=== PATIENT | female | born 1945 | race Caucasian/White ===

== ENCOUNTER 2020-07-29 12:34 | Outpatient (REF) | payer MEDICARE, SELFPAY ==
[2020-07-29 14:20] LABS: Glucose Urine UA NEG (NEG); Leukocyte Esterase Urine NEG (NEG); Nitrite Urine NEG (NEG); Specific Gravity - Urine 1.025 (1.005-1.025); Urine Blood TRACE (NEG); Urine Ketones NEG (NEG); Urine Protein NEG (NEG-TRACE)
[2020-07-29 14:22] LABS: Appearance Urine HAZY; Color Urine YELLOW
[2020-07-29 14:27] LABS: MANUAL DIFF FLAG NO
[2020-07-29 14:34] LABS: Basophils Absolute Auto 0.1 X10*3/uL (0.0-0.2); Basophils Percent Auto 1.3 % (0-2); Eosinophils Absolute Auto 0.2 X10*3/uL (0.0-0.4); Eosinophils Percent Auto 2.3 % (0-4); Imm Gran Abs Auto 0.03 X10*3/uL (0.00-0.03); Imm Gran Pct Auto 0.4 % (0.0-0.4); Lymphocytes Absolute Auto 1.3 X10*3/uL (1.2-4.9); Lymphocytes Percent Auto 18.1 % (20-40); Mean Corpuscular HGB Conc 32.5 g/dl (31.0-35.0); Mean Corpuscular Hemoglobin 31.9 pg (27.0-33.0); Mean Corpuscular Volume 98.3 fL (80-98); Mean Platelet Volume 10.4 fL (9.4-12.3); Monocytes Absolute Auto 0.6 X10*3/uL (0.1-1.2); Monocytes Percent Auto 8.6 % (2-11); Neutrophils Absolute Auto 4.9 X10*3/uL (2.0-8.3); Neutrophils Percent Auto 69.3 % (45-73); Platelet Count 208 X10*3/uL (160-400); Red Blood Count 4.07 X10*6/uL (4.20-5.50); Red Cell Distribution Width 13.2 % (11.0-16.0); White Blood Count 7.1 X10*3/uL (4.8-10.8)
[2020-07-29 14:40] LABS: Calcium Oxalate Crystals Urine 1+ /LPF; Mucus Urine 3+ /LPF; RBC Urine 0-2 /HPF (0); Squamous Epithelial Cell Urine 1+ /LPF; WBC Urine 0-2 /HPF (0-4)
[2020-07-29 14:42] LABS: Creatinine Urine 226.68 mg/dL; Microalbum/Creatinine Ratio Ur 10.5 ug/mg cr; Total Protein Urine Random 15 mg/dL (<12)
[2020-07-29 15:06] LABS: Albumin Level 4.1 g/dL (3.5-5.0); Anion Gap 13 (12-20); Blood Urea Nitrogen 18 mg/dL (9-16); Calcium 8.7 mg/dL (8.4-10.2); Carbon Dioxide 27 mmol/L (22-29); Chloride 105 mmol/L (96-108); Estimated Glomerular Filt Rate 32; Magnesium 2.2 mg/dL (1.6-2.6); Phosphorus 3.7 mg/dL (2.7-4.5); Potassium 4.9 mmol/l (3.3-5.1); Sodium 140 mmol/L (135-145)
[2020-07-29 15:29] LABS: Vitamin D 25-OH Total 27.3 ng/mL (>30)
[2020-07-29 16:33] LABS: Renal w Reflex Lab Use Only Order verified
== END 2020-07-29 12:35 | disposition home or self-care (01) ==
LOC: HO.HMGCLDS 12:34
PROVIDERS: PCP Internal Medicine; Visit Provider Internal Medicine Nephrology
DX: I12.9 Hypertensive chronic kidney disease with stage 1 through stage 4 chronic kidney disease, or unspecified chronic kidney disease (principal); N18.30 Chronic kidney disease, stage 3 unspecified
CPT/HCPCS: 36415; 80051; 81001; 82040; 82043; 82306; 82310; 82565; 83735; 84100; 84156; 84520; 85025

== ENCOUNTER 2020-09-30 12:49 | Outpatient (REF) | payer MEDICARE, SELFPAY ==
--- NOTE | 2020-09-30 | XR_ITS ---
EXAMINATION: XR ELBOW, RIGHT CLINICAL INFORMATION: Pain COMPARISON: None TECHNIQUE: AP, lateral, and oblique views of the right elbow. FINDINGS: Bone alignment is normal. No fracture or dislocation is seen. The joint spaces are normal. There is no joint effusion. Soft tissues are normal. XR/XR elbow RT min 3V IMPRESSION: Normal right elbow.
== END 2020-09-30 12:50 | disposition home or self-care (01) ==
LOC: HO.HMGCX 12:49
PROVIDERS: PCP Internal Medicine; Visit Provider Internal Medicine
DX: M25.522 Pain in left elbow (principal)
CPT/HCPCS: 73080

== ENCOUNTER 2021-03-30 13:54 | Outpatient (REF) | payer MEDICARE, SELFPAY ==
[2021-03-30 16:34] LABS: MANUAL DIFF FLAG NO
[2021-03-30 16:38] LABS: Basophils Percent Auto 0.7 % (0-2); Eosinophils Absolute Auto 0.1 X10*3/uL (0.0-0.4); Eosinophils Percent Auto 1.7 % (0-4); Hemoglobin 12.3 g/dl (12.0-16.0); Imm Gran Abs Auto 0.02 X10*3/uL (0.00-0.03); Imm Gran Pct Auto 0.3 % (0.0-0.4); Lymphocytes Absolute Auto 0.9 X10*3/uL (1.2-4.9); Lymphocytes Percent Auto 15.6 % (20-40); Mean Corpuscular HGB Conc 32.4 g/dl (31.0-35.0); Mean Corpuscular Hemoglobin 31.1 pg (27.0-33.0); Mean Platelet Volume 10.1 fL (9.4-12.3); Monocytes Absolute Auto 0.5 X10*3/uL (0.1-1.2); Monocytes Percent Auto 7.9 % (2-11); Neutrophils Absolute Auto 4.4 X10*3/uL (2.0-8.3); Neutrophils Percent Auto 73.8 % (45-73); Platelet Count 177 X10*3/uL (160-400); Red Blood Count 3.96 X10*6/uL (4.20-5.50); Red Cell Distribution Width 13.3 % (11.0-16.0)
[2021-03-30 17:08] LABS: Albumin Level 4.2 g/dL (3.5-5.0); Anion Gap 11 (12-20); Blood Urea Nitrogen 21 mg/dL (9-16); Calcium 8.9 mg/dL (8.4-10.2); Carbon Dioxide 26 mmol/L (22-29); Chloride 108 mmol/L (96-108); Estimated Glomerular Filt Rate 32; Glucose Urine UA NEG (NEG); Leukocyte Esterase Urine NEG (NEG); Magnesium 2.2 mg/dL (1.6-2.6); Nitrite Urine NEG (NEG); Potassium 4.2 mmol/L (3.3-5.1); Sodium 141 mmol/L (135-145); Specific Gravity - Urine >= 1.030 (1.005-1.025); Urine Blood NEG (NEG); Urine Ketones 5 MG/DL (NEG); Urine Protein TRACE MG/DL (NEG-TRACE)
[2021-03-30 17:10] LABS: Appearance Urine HAZY; Color Urine YELLOW
[2021-03-30 17:30] LABS: Vitamin D 25-OH Total 19.5 ng/mL (>30)
[2021-03-30 17:36] LABS: Creatinine Urine 274.05 mg/dL; Microalbum/Creatinine Ratio Ur 11.3 ug/mg cr; Protein/Creatinine Ratio, Ur 0.06 (<0.2); Total Protein Urine Random 17 mg/dL (<12)
[2021-03-30 18:22] LABS: Renal w Reflex Lab Use Only Order verified
[2021-03-31 13:42] LABS: Calcium (PTHI) 8.9 mg/dL (8.6-10.4); PTHI 105 pg/mL (14-64)
== END 2021-03-30 13:55 | disposition home or self-care (01) ==
LOC: HO.HMGCLDS 13:54
PROVIDERS: PCP Internal Medicine; Visit Provider Internal Medicine Nephrology
DX: I12.9 Hypertensive chronic kidney disease with stage 1 through stage 4 chronic kidney disease, or unspecified chronic kidney disease (principal); N18.30 Chronic kidney disease, stage 3 unspecified
CPT/HCPCS: 36415; 80051; 81003; 82040; 82043; 82306; 82310; 82565; 83735; 83970; 84100; 84156; 84520; 85025

== ENCOUNTER 2021-10-22 10:28 | Outpatient (REF) | payer MEDICARE, SELFPAY ==
[2021-10-22 13:58] LABS: MANUAL DIFF FLAG NO
[2021-10-22 14:08] LABS: Basophils Absolute Auto 0.1 X10*3/uL (0.0-0.2); Basophils Percent Auto 1.1 % (0-2); Eosinophils Absolute Auto 0.1 X10*3/uL (0.0-0.4); Eosinophils Percent Auto 2.5 % (0-4); Hematocrit 39.9 % (37.0-47.0); Hemoglobin 12.7 g/dl (12.0-16.0); Imm Gran Abs Auto 0.03 X10*3/uL (0.00-0.03); Imm Gran Pct Auto 0.6 % (0.0-0.4); Lymphocytes Absolute Auto 0.8 X10*3/uL (1.2-4.9); Lymphocytes Percent Auto 15.6 % (20-40); Mean Corpuscular HGB Conc 31.8 g/dl (31.0-35.0); Mean Corpuscular Hemoglobin 30.9 pg (27.0-33.0); Mean Corpuscular Volume 97.1 fL (80.0-98.0); Mean Platelet Volume 10.7 fL (9.4-12.3); Monocytes Absolute Auto 0.4 X10*3/uL (0.1-1.2); Monocytes Percent Auto 7.4 % (2-11); Neutrophils Absolute Auto 3.8 x10*3/uL (2.0-8.3); Neutrophils Percent Auto 72.8 % (45-73); Platelet Count 188 X10*3/uL (160-400); Red Blood Count 4.11 X10*6/uL (4.20-5.50); Red Cell Distribution Width 13.3 % (11.0-16.0); White Blood Count 5.2 X10*3/uL (4.8-10.8)
[2021-10-22 14:22] LABS: Appearance Urine CLEAR; Color Urine YELLOW; Glucose Urine UA NEG (NEG); Leukocyte Esterase Urine 1+ (NEG); Nitrite Urine NEG (NEG); PH 5.5 (5.0-8.0); Specific Gravity - Urine >= 1.030 (1.005-1.025); Urine Blood TRACE (NEG); Urine Ketones 5 MG/DL (NEG); Urine Protein TRACE MG/DL (NEG-TRACE)
[2021-10-22 14:32] LABS: Bacteria Urine 1+ /LPF; Calcium Oxalate Crystals Urine 2+ /LPF; RBC Urine 0-2 /HPF (0); Squamous Epithelial Cell Urine 1+ /LPF
[2021-10-22 14:41] LABS: Alanine Aminotransferase 14 U/L (0-31); Albumin Level 3.8 g/dL (3.5-5.0); Alkaline Phosphatase 97 U/L (39-117); Aspartate Amino Transferase 15 U/L (5-31); Bilirubin Direct 0.2 mg/dL (0.0-0.5); Bilirubin Total 0.4 mg/dL (0.0-1.0); Magnesium 2.3 mg/dL (1.6-2.6); Phosphorus 3.3 mg/dL (2.7-4.5); Total Protein 5.9 g/dL (6.5-8.0)
[2021-10-22 14:48] LABS: Creatinine Urine 243.25 mg/dL; Microalbum/Creatinine Ratio Ur 18.9 ug/mg cr; Total Protein Urine Random 17 mg/dL (<12)
[2021-10-22 14:49] LABS: Vitamin D 25-OH Total 22.3 ng/mL (>30)
[2021-10-23 18:06] LABS: Calcium (PTHI) 8.9 mg/dL (8.6-10.4); PTHI 70 pg/mL (14-64)
== END 2021-10-22 10:29 | disposition home or self-care (01) ==
LOC: HO.HMGCLDS 10:28
PROVIDERS: PCP Internal Medicine; Visit Provider Internal Medicine Nephrology
DX: I12.9 Hypertensive chronic kidney disease with stage 1 through stage 4 chronic kidney disease, or unspecified chronic kidney disease (principal); N18.32 Chronic kidney disease, stage 3b; N25.0 Renal osteodystrophy
CPT/HCPCS: 36415; 80076; 81001; 82043; 82306; 82310; 83735; 83970; 84100; 84156; 85025; 87086

== ENCOUNTER 2022-05-06 11:48 | Outpatient (REF) | payer MEDICARE, SELFPAY ==
--- NOTE | ~2022-05-06 | XR_ITS ---
EXAMINATION: XR CHEST CLINICAL INFORMATION: COPD COMPARISON: None TECHNIQUE: 2 views of the chest were obtained. FINDINGS: The lungs are well-expanded and clear of acute process. Heart size and pulmonary vascularity is normal. No gross bony abnormality seen. XR/XR chest 2V IMPRESSION: Unremarkable chest exam.
[2022-05-06 13:38] LABS: MANUAL DIFF FLAG NO
[2022-05-06 13:50] LABS: Basophils Absolute Auto 0.1 X10*3/uL (0.0-0.2); Basophils Percent Auto 0.9 % (0-2); Eosinophils Absolute Auto 0.1 X10*3/uL (0.0-0.4); Eosinophils Percent Auto 1.2 % (0-4); Hematocrit 37.6 % (37.0-47.0); Imm Gran Abs Auto 0.03 X10*3/uL (0.00-0.03); Imm Gran Pct Auto 0.5 % (0.0-0.4); Lymphocytes Absolute Auto 0.9 X10*3/uL (1.2-4.9); Lymphocytes Percent Auto 15.1 % (20-40); Mean Corpuscular HGB Conc 31.9 g/dl (31.0-35.0); Mean Corpuscular Hemoglobin 30.5 pg (27.0-33.0); Mean Corpuscular Volume 95.7 fL (80.0-98.0); Mean Platelet Volume 10.7 fL (9.4-12.3); Monocytes Absolute Auto 0.7 X10*3/uL (0.1-1.2); Monocytes Percent Auto 11.1 % (2-11); Neutrophils Absolute Auto 4.2 x10*3/uL (2.0-8.3); Neutrophils Percent Auto 71.2 % (45-73); Platelet Count 178 X10*3/uL (160-400); Red Blood Count 3.93 X10*6/uL (4.20-5.50); Red Cell Distribution Width 13.3 % (11.0-16.0); White Blood Count 5.9 X10*3/uL (4.8-10.8)
[2022-05-06 14:12] LABS: Alanine Aminotransferase 10 U/L (0-31); Albumin Level 4.1 g/dL (3.5-5.0); Alkaline Phosphatase 89 U/L (39-117); Anion Gap 14 (12-20); Aspartate Amino Transferase 15 U/L (5-31); Bilirubin Total 0.4 mg/dL (0.0-1.0); Blood Urea Nitrogen 28 mg/dL (9-16); C Reactive Protein 0.55 mg/dL (< or = 0.50); Calcium 9.1 mg/dL (8.4-10.2); Carbon Dioxide 24 mmol/L (22-29); Chloride 105 mmol/L (96-108); Estimated Glomerular Filt Rate 26; Glucose Random 99 mg/dL (60-115); Potassium 3.9 mmol/L (3.3-5.1); Sodium 139 mmol/L (135-145); Total Protein 6.4 g/dL (6.5-8.0)
[2022-05-06 14:33] LABS: Thyroid Stimulating Hormone 0.53 uIU/mL (0.32-4.0)
== END 2022-05-06 11:49 | disposition home or self-care (01) ==
LOC: HO.10HDL 11:48
PROVIDERS: Visit Provider Internal Medicine
DX: R19.7 Diarrhea, unspecified (principal); J44.9 Chronic obstructive pulmonary disease, unspecified; N18.9 Chronic kidney disease, unspecified; K21.9 Gastro-esophageal reflux disease without esophagitis; E55.9 Vitamin D deficiency, unspecified
CPT/HCPCS: 36415; 71046; 80053; 84443; 85025; 86140

== ENCOUNTER 2022-05-07 09:56 | Outpatient (REF) | payer MEDICARE, SELFPAY ==
[2022-05-07 11:12] LABS: Appearance Urine CLEAR; Color Urine YELLOW; Glucose Urine UA NEG (NEG); Leukocyte Esterase Urine 1+ (NEG); Nitrite Urine NEG (NEG); UACC Culture Trigger YES; Urine Blood 1+ (NEG); Urine Ketones NEG (NEG); Urine Protein NEG (NEG-TRACE)
[2022-05-07 11:35] LABS: Uric Acid Crystals Urine 2+ /LPF
[2022-05-07 11:36] LABS: Bacteria Urine 1+ /LPF; Squamous Epithelial Cell Urine 1+ /LPF
[2022-05-07 12:37] LABS: Campylobacter Not Detected (Not Detect.); E. coli EAEC Not Detected (Not Detect.); E. coli ETEC Not Detected (Not Detect.); Plesiomonas shigelloides Not Detected (Not Detect.); Salmonella Not Detected (Not Detect.); Vibrio Not Detected (Not Detect.); Vibrio Cholerae Not Detected (Not Detect.); Yersinia enterocolitica Not Detected (Not Detect.)
[2022-05-07 12:38] LABS: Adenovirus F 40/41 Not Detected (Not Detect.); Astrovirus Not Detected (Not Detect.); Cryptosporidium Not Detected (Not Detect.); Cyclospora cayetanensis Not Detected (Not Detect.); E. coli STEC Not Detected (Not Detect.); Entamoeba histolytica Not Detected (Not Detect.); Giardia lamblia Not Detected (Not Detect.); Norovirus GI/GII Not Detected (Not Detect.); Rotavirus A Not Detected (Not Detect.); Sapovirus Not Detected (Not Detect.); Shigella sp./EIEC Not Detected (Not Detect.)
[2022-05-07 12:41] LABS: E. coli EPEC Detected (Not Detect.)
== END 2022-05-07 09:57 | disposition home or self-care (01) ==
LOC: HO.10HDLR 09:56
PROVIDERS: Visit Provider Internal Medicine
DX: K21.9 Gastro-esophageal reflux disease without esophagitis (principal); R19.7 Diarrhea, unspecified; J44.9 Chronic obstructive pulmonary disease, unspecified; N18.9 Chronic kidney disease, unspecified; E55.9 Vitamin D deficiency, unspecified
CPT/HCPCS: 36415; 81001; 81003; 87086; 87507

== ENCOUNTER 2022-06-01 10:59 | Outpatient (REF) | payer MEDICARE, SELFPAY ==
[2022-06-01 14:11] LABS: MANUAL DIFF FLAG NO
[2022-06-01 14:21] LABS: Basophils Absolute Auto 0.1 X10*3/uL (0.0-0.2); Eosinophils Absolute Auto 0.1 X10*3/uL (0.0-0.4); Hematocrit 36.7 % (37.0-47.0); Hemoglobin 11.6 g/dl (12.0-16.0); Imm Gran Abs Auto 0.02 X10*3/uL (0.00-0.03); Imm Gran Pct Auto 0.4 % (0.0-0.4); Lymphocytes Absolute Auto 0.8 X10*3/uL (1.2-4.9); Lymphocytes Percent Auto 15.8 % (20-40); Mean Corpuscular HGB Conc 31.6 g/dl (31.0-35.0); Mean Corpuscular Hemoglobin 30.5 pg (27.0-33.0); Mean Corpuscular Volume 96.6 fL (80.0-98.0); Mean Platelet Volume 10.2 fL (9.4-12.3); Monocytes Absolute Auto 0.5 X10*3/uL (0.1-1.2); Monocytes Percent Auto 10.4 % (2-11); Neutrophils Absolute Auto 3.6 x10*3/uL (2.0-8.3); Neutrophils Percent Auto 70.4 % (45-73); Platelet Count 176 X10*3/uL (160-400); Red Cell Distribution Width 13.6 % (11.0-16.0); White Blood Count 5.1 X10*3/uL (4.8-10.8)
[2022-06-01 14:27] LABS: Appearance Urine Clear; Color Urine Yellow; Glucose Urine UA Negative (Negative); Leukocyte Esterase Urine Trace (Negative); Nitrite Urine Negative (Negative); PH 5.5 (5.0-8.0); Specific Gravity - Urine 1.015 (1.005-1.025); Urine Blood Negative (Negative); Urine Ketones Trace mg/dL (Negative); Urine Protein Negative (Neg-Trace)
[2022-06-01 14:29] LABS: Bacteria Urine None Seen (None Seen); Hyaline Casts Urine 0-2 /LPF (0-2); RBC Urine 0-2 /HPF (0-2); Squamous Epithelial Cell Urine 0-2 /HPF (0-2); WBC Urine 0-5 /HPF (0-5)
[2022-06-01 14:58] LABS: Creatinine Urine 149.32 mg/dL; Microalbum/Creatinine Ratio Ur 31.4 ug/mg cr; Protein/Creatinine Ratio, Ur 0.11 (<0.2); Total Protein Urine Random 16 mg/dL (<12)
[2022-06-01 15:02] LABS: Albumin Level 3.9 g/dL (3.5-5.0); Anion Gap 14 (12-20); Blood Urea Nitrogen 21 mg/dL (9-16); Calcium 8.8 mg/dL (8.4-10.2); Carbon Dioxide 26 mmol/L (22-29); Chloride 103 mmol/L (96-108); Estimated Glomerular Filt Rate 31; Magnesium 2.1 mg/dL (1.6-2.6); Phosphorus 3.4 mg/dL (2.7-4.5); Potassium 4.6 mmol/L (3.3-5.1); Sodium 138 mmol/L (135-145)
[2022-06-01 15:17] LABS: Vitamin D 25-OH Total 22.1 ng/mL (>30)
[2022-06-03 16:13] LABS: Calcium (PTHI) 8.9 mg/dL (8.6-10.4); PTHI 89 pg/mL (16-77)
== END 2022-06-01 11:00 | disposition home or self-care (01) ==
LOC: HO.HMGCLDS 10:59
PROVIDERS: PCP Internal Medicine; Visit Provider Internal Medicine Nephrology
DX: I12.9 Hypertensive chronic kidney disease with stage 1 through stage 4 chronic kidney disease, or unspecified chronic kidney disease (principal); N18.32 Chronic kidney disease, stage 3b; N25.0 Renal osteodystrophy
CPT/HCPCS: 36415; 80051; 81001; 82040; 82043; 82306; 82310; 82565; 83735; 83970; 84100; 84156; 84520; 85025; 87086

== ENCOUNTER 2022-08-19 06:19 | Day surgery (SDC) | payer MEDICARE, SELFPAY ==
--- NOTE | 2022-08-18 09:42 | HO.ANESPROP2 ---
HPI - Anesthesia Eval Consult details Narrative: 77yo F for Colonoscopy PMFSH Active Problems Active Problems: All Active Problems (Updated 08/18/22 @ 08:32 by Vivian Valverde RN) Cervical radiculopathy (Acute) Past Medical History Medical History Abnormal colonoscopy Anxiety Arthritis CKD (chronic kidney disease) COPD (chronic obstructive pulmonary disease) Depression Enteropathogenic Escherichia coli infection Essential tremor HTN (hypertension) Hyperlipidemia Internal hemorrhoids Sigmoid diverticulosis Tubular adenoma of colon Vertigo Surgical History Surgical History H/O arthroscopy of left knee History of ankle surgery History of ear surgery History of thumb surgery Social History Social History Are you a primary career education teacher to a significant other at home: No Do you presently have visiting nurse or other home services: No Patient Tobacco Use Status: Current everyday Tobacco user Tobacco use type: Cigarette Cigarette Packs Per Day: 0.5 Cigarettes Per Day: 10.0 Years Smoked: 40 Smoked in Last 30 Days: Yes Patient Interested in Nicotine Replacement: No Have you been hit, kicked, punched, or otherwise hurt by someone within the past year? If so, by whom?: No Are you DNR?: No Advance Directives: No Advance Directives Information Provided: Yes Recently lost weight without trying: No Nutrition Risks: No Nutritional Risk Patient : No Meds Allergies Allergy/AdvReac Type Severity Reaction Status Date / Time prochlorperazine Allergy Severe ANAPHYLAXIS Verified 11/20/20 13:47 [From COMPAZINE] aspirin [ASPIRIN] AdvReac Severe KIDNEY Verified 11/20/20 13:47 FAILURE Compazine Allergy Unknown unknown Uncoded 11/20/20 13:47 Home Medications Medication Instructions Recorded Confirmed Last Taken Type alprazolam 0.5 mg tablet 1 tab PO BID PRN unknown 08/18/22 Unknown History atorvastatin 10 mg tablet 1 tab PO DAILY 08/18/22 Unknown History ergocalciferol (vitamin D2) 1,250 1 cap PO Q2W 08/18/22 Unknown History mcg (50,000 unit) capsule nortriptyline 10 mg capsule 3 cap PO BEDTIME 08/18/22 Unknown History olopatadine 0.1 % eye drops 1 drp ophthalmic (eye) BID 08/18/22 Unknown History primidone 50 mg tablet mg 08/18/22 Unknown History sertraline 50 mg tablet 1 tab PO QAM 08/18/22 Unknown History Exam Exam Date and Time: August 18, 2022 0942 Pertinent Lab Results Pertinent Lab Results: Laboratory Tests 06/01/22 06/01/22 11:12 11:12 WBC 5.1 Hgb 11.6 L Hct 36.7 L Plt Count 176 Sodium 138 Potassium 4.6 Chloride 103 Carbon Dioxide 26 BUN 21 H Creatinine 1.62 H Assessment and Plan Assessment Anesthesia Assessment: Chart Reviewed
[2022-08-19 06:56] VITALS: BP 144/73; PULSE 78; RESP 18; TEMP 36.4; O2SAT 98
[2022-08-19] MEDS: Lactated Ringers 1,000 ML 100 ML IVCONT (07:05)
--- NOTE | 2022-08-19 07:19 | HO.ANESPROP2 ---
[facility] Active Problems Active Problems: All Active Problems (Updated 08/18/22 @ 09:47 by Luda Baker NP) Cervical radiculopathy (Acute) Past Medical History Medical History Abnormal colonoscopy Anxiety Arthritis CKD (chronic kidney disease) COPD (chronic obstructive pulmonary disease) Depression Enteropathogenic Escherichia coli infection Essential tremor HTN (hypertension) Hyperlipidemia Internal hemorrhoids Sigmoid diverticulosis Tubular adenoma of colon Vertigo Surgical History Surgical History H/O arthroscopy of left knee History of ankle surgery History of ear surgery History of thumb surgery History of Problems with Anesthesia: No Social History Social History Are you a primary care transitions nurse to a significant other at home: No Do you presently have visiting nurse or other home services: No Patient Tobacco Use Status: Current everyday Tobacco user Tobacco use type: Cigarette Cigarette Packs Per Day: 0.5 Cigarettes Per Day: 10.0 Years Smoked: 40 Smoked in Last 30 Days: Yes Patient Interested in Nicotine Replacement: No Have you been hit, kicked, punched, or otherwise hurt by someone within the past year? If so, by whom?: No Are you DNR?: No Advance Directives: No Advance Directives Information Provided: Yes Recently lost weight without trying: No Nutrition Risks: No Nutritional Risk Patient : No Meds Allergies Allergy/AdvReac Type Severity Reaction Status Date / Time prochlorperazine Allergy Severe ANAPHYLAXIS Verified 11/20/20 13:47 [From COMPAZINE] aspirin [ASPIRIN] AdvReac Severe KIDNEY Verified 11/20/20 13:47 FAILURE Compazine Allergy Unknown unknown Uncoded 11/20/20 13:47 Active Medications: Current Medications Albuterol Sulfate (Albuterol Sulfate (0.083%) 2.5 Mg/3 Ml Vial.Neb) 2.5 mg INHALE ONCE PRN PRN Reason: Shortness of Breath/Wheezing Lactated Ringer's (Lr) 1,000 mls @ 100 mls/hr IVCONT .Q10H TAZ Last Admin: 08/19/22 07:05 Dose: 100 mls/hr Sodium Biphosphate/Sodium Phosphate (Sodium Phosphate,Garrett-Dibasic 133 Ml Enema) 133 ml IN ONCE PRN PRN Reason: Poor Colonoscopy Prep Results Home Medications Medication Instructions Recorded Confirmed Last Taken Type alprazolam 0.5 mg tablet 1 tab PO BID PRN unknown 08/18/22 Unknown History atorvastatin 10 mg tablet 1 tab PO DAILY 08/18/22 Unknown History ergocalciferol (vitamin D2) 1,250 1 cap PO Q2W 08/18/22 Unknown History mcg (50,000 unit) capsule nortriptyline 10 mg capsule 3 cap PO BEDTIME 08/18/22 Unknown History olopatadine 0.1 % eye drops 1 drp ophthalmic (eye) BID 08/18/22 Unknown History primidone 50 mg tablet mg 08/18/22 Unknown History sertraline 50 mg tablet 1 tab PO QAM 08/18/22 Unknown History Exam Exam Date and Time: August 19, 2022718 Height,Weight and Vital Signs: Height 5 ft 2 in Weight 49.54 kg Last Vital Signs Temp 97.5 F 08/19/22 06:56 Pulse 78 08/19/22 06:56 Resp 18 08/19/22 06:56 BP 144/73 H 08/19/22 06:56 Pulse Ox 98 08/19/22 06:56 O2 Del Method 08/19/22 06:56 Airway Mallampati Class: II TM Dist: >3cm Neck ROM: Limited Denture: Upper Loose/Missing/Broken Teeth: Yes and Upper Heart: RRR Lungs: CTA Assessment and Plan Assessment Anesthesia Assessment: Anesthesia Plan Discussed and Chart Reviewed Final Anesthetic Review History of Problems with Anesthesia: No NPO: Yes ASA Class: III Final Preanesthetic Review: Meds/Allgs Chart Reviewed, Consent Obtained/Reviewed and Anes Risks/Benef Reviewed Patient Risk: Intermediate Procedure Risk: Low Anesthetic Plan Anesthetic Plan: MAC: Disposition: Standard PACU
[2022-08-19 08:27] VITALS: BP 136/69; PULSE 64; RESP 20; TEMP 36.7; O2SAT 100
--- NOTE | 2022-08-19 08:32 | P.BOP_ITS ---
Brief Operative Note Date of Service: 08/19/22 Pre-op diagnosis: + Cologuard Post-op diagnosis: other (Diverticulosis) Procedure: Colonoscopy to the cecum Surgeon: John Moreno Anesthesia: MAC Was an Journeyman Lineman used for this Procedure?: No Estimated blood loss (mL): 0 Pathology: none sent Condition: stable Disposition: PACU
[2022-08-19 08:42] VITALS: BP 126/58; PULSE 66; RESP 16; O2SAT 98
[2022-08-19 08:57] VITALS: BP 126/58; PULSE 61; RESP 16; TEMP 36.1; O2SAT 100
--- NOTE | 2022-08-19 09:26 | OP_ITS ---
SURGEON: John Moreno MD INDICATIONS: The patient presents for evaluation of positive Cologuard test. Full consent has been obtained from her for this, including risks of bleeding and perforation. PREOPERATIVE DIAGNOSIS: POSTOPERATIVE DIAGNOSIS: PROCEDURE PERFORMED: Colonoscopy to the cecum. ESTIMATED BLOOD LOSS: COMPLICATIONS: ANESTHESIA: Monitored anesthesia care. ASSISTANTS: SPECIMENS: PREOPERATIVE DIAGNOSES: Positive Cologuard test. POSTOPERATIVE DIAGNOSES: Positive Cologuard test, diverticulosis, diminutive colon polyps not biopsied nor removed, internal and external hemorrhoids. DESCRIPTION OF PROCEDURE: The patient was placed in the left lateral decubitus position. The digital rectal exam revealed friable external hemorrhoidal tissue. The Olympus video pediatric colonoscope was entered into the rectum and advanced easily to the cecum. Once in the cecum, I did identify normal-appearing cecal pouch with appendiceal orifice and a normal-appearing ileocecal valve. There was transillumination of light deep in the right lower quadrant. The entire cecum was well visualized and appeared normal without any sign of mass or ulceration. The ileocecal valve appeared normal. The scope was then slowly withdrawn assessing all mucosal surfaces carefully. Preparation was excellent. I did not visualize any sign of colitis nor angiodysplasia. There were multiple less than 5 mm diminutive polyps in various locations, which given the gross appearance were not biopsied nor removed. I did not visualize any other polyps nor other lesions. There was a moderate amount of sigmoid diverticulosis. In the rectum, the scope was retroflexed visualizing internal hemorrhoids. The rectal mucosa appeared normal. The scope was straightened and withdrawn from the patient. She tolerated the procedure well and was returned to the recovery area in stable condition. IMPRESSION: 1. Diverticulosis. 2. Internal and external hemorrhoids. 3. Diminutive colon polyps, not biopsied nor removed. PLAN: Given today's examination findings and her age, I do not think she will need any further screening colonoscopies. She does report that her previous GI symptoms from over the summer have resolved, and she has been feeling otherwise well from a GI standpoint. She will otherwise see me on a p.r.n. basis. This has been discussed with her . MD DUNIA Mcfarland/RAMONE / [id number] [facility] CENTERPaige
== END 2022-08-19 09:27 | disposition home or self-care (01) ==
PROVIDERS: PCP Internal Medicine; Visit Provider Internal Medicine
PROC: 0DJD8ZZ Inspection of Lower Intestinal Tract, Via Natural or Artificial Opening Endoscopic (ICD-10-PCS; CPT 45378; principal; 2022-08-19 07:30)
DX: R19.5 Other fecal abnormalities (principal); Z86.010 Personal history of colon polyps; K63.5 Polyp of colon; K57.30 Diverticulosis of large intestine without perforation or abscess without bleeding; I12.9 Hypertensive chronic kidney disease with stage 1 through stage 4 chronic kidney disease, or unspecified chronic kidney disease; K64.8 Other hemorrhoids; K64.4 Residual hemorrhoidal skin tags; N18.30 Chronic kidney disease, stage 3 unspecified; J44.9 Chronic obstructive pulmonary disease, unspecified; E78.5 Hyperlipidemia, unspecified; G25.0 Essential tremor; F32.A Depression, unspecified; Z79.899 Other long term (current) drug therapy; Z88.8 Allergy status to other drugs, medicaments and biological substances; F17.210 Nicotine dependence, cigarettes, uncomplicated
CPT/HCPCS: 45378

== ENCOUNTER 2022-12-17 11:24 | Outpatient (REF) | payer MEDICARE, SELFPAY ==
[2022-12-17 14:03] LABS: MANUAL DIFF FLAG NO
[2022-12-17 14:12] LABS: Basophils Absolute Auto 0.1 X10*3/uL (0.0-0.2); Basophils Percent Auto 1.3 % (0-2); Eosinophils Absolute Auto 0.1 X10*3/uL (0.0-0.4); Eosinophils Percent Auto 2.3 % (0-4); Hematocrit 40.1 % (37.0-47.0); Hemoglobin 12.8 g/dl (12.0-16.0); Imm Gran Abs Auto 0.02 X10*3/uL (0.00-0.03); Imm Gran Pct Auto 0.3 % (0.0-0.4); Lymphocytes Absolute Auto 1.1 X10*3/uL (1.2-4.9); Lymphocytes Percent Auto 17.7 % (20-40); Mean Corpuscular HGB Conc 31.9 g/dl (31.0-35.0); Mean Corpuscular Hemoglobin 30.4 pg (27.0-33.0); Mean Corpuscular Volume 95.2 fL (80.0-98.0); Mean Platelet Volume 10.3 fL (9.4-12.3); Monocytes Absolute Auto 0.6 X10*3/uL (0.1-1.2); Monocytes Percent Auto 10.1 % (2-11); Neutrophils Absolute Auto 4.1 x10*3/uL (2.0-8.3); Neutrophils Percent Auto 68.3 % (45-73); Platelet Count 184 X10*3/uL (160-400); Red Blood Count 4.21 X10*6/uL (4.20-5.50); Red Cell Distribution Width 13.8 % (11.0-16.0); White Blood Count 6.1 X10*3/uL (4.8-10.8)
[2022-12-17 15:32] LABS: Alanine Aminotransferase 12 U/L (0-31); Alkaline Phosphatase 88 U/L (39-117); Anion Gap 13 (12-20); Aspartate Amino Transferase 15 U/L (5-31); Bilirubin Total 0.5 mg/dL (0.0-1.0); Blood Urea Nitrogen 26 mg/dL (9-16); Calcium 9.1 mg/dL (8.4-10.2); Carbon Dioxide 26 mmol/L (22-29); Chloride 106 mmol/L (96-108); Estimated Glomerular Filt Rate 32; Glucose Random 117 mg/dL (60-115); Potassium 4.5 mmol/L (3.3-5.1); Sodium 140 mmol/L (135-145); Total Protein 6.1 g/dL (6.5-8.0); Vitamin D 25-OH Total 17.2 ng/mL (>30)
== END 2022-12-17 11:25 | disposition home or self-care (01) ==
LOC: HO.HMGCLDS 11:24
PROVIDERS: PCP Internal Medicine; Visit Provider Internal Medicine
DX: J44.9 Chronic obstructive pulmonary disease, unspecified (principal); N18.9 Chronic kidney disease, unspecified; K21.9 Gastro-esophageal reflux disease without esophagitis; M81.0 Age-related osteoporosis without current pathological fracture
CPT/HCPCS: 36415; 80053; 82306; 85025

== ENCOUNTER 2023-01-07 16:21 | Emergency (ER) | payer MEDICARE, SELFPAY ==
--- NOTE | ~2023-01-07 | XR_ITS ---
EXAMINATION: XR CHEST CLINICAL INFORMATION: Shortness of breath, cough COMPARISON: 05/06/2022 TECHNIQUE: 2 views of the chest were obtained. FINDINGS: Lungs are hyperinflated with mild chronic interstitial markings. No focal consolidation, pulmonary edema, or pleural effusion. Stable cardiomediastinal silhouette. XR/XR chest 2V IMPRESSION: No acute cardiopulmonary findings. COPD.
--- NOTE | 2023-01-07 16:23 | ECG_ITS ---
Test Reason : chest congestion Blood Pressure : / mmHG Vent. Rate : 078 BPM Atrial Rate : 078 BPM P-R Int : 128 ms QRS Dur : 072 ms QT Int : 412 ms P-R-T Axes : 075 039 069 degrees QTc Int : 469 ms Artifact in tracing Normal sinus rhythm Possible Left atrial enlargement Borderline ECG When compared with ECG of 13-NOV-2019 17:07, No significant changes seen Referred By: Generic ED Physician Electronically Signed By:ISAIAH IVEY
[2023-01-07 16:34] VITALS: BP 137/73; PULSE 77; RESP 16; TEMP 36.2; O2SAT 98; BMI 19.5
[2023-01-07 16:58] LABS: MANUAL DIFF FLAG NO
[2023-01-07 17:01] LABS: Basophils Absolute Auto 0.1 X10*3/uL (0.0-0.2); Basophils Percent Auto 1.1 % (0-2); Eosinophils Absolute Auto 0.1 X10*3/uL (0.0-0.4); Eosinophils Percent Auto 2.6 % (0-4); Hematocrit 35.5 % (37.0-47.0); Hemoglobin 11.7 g/dl (12.0-16.0); Imm Gran Abs Auto 0.02 X10*3/uL (0.00-0.03); Imm Gran Pct Auto 0.4 % (0.0-0.4); Lymphocytes Absolute Auto 0.8 X10*3/uL (1.2-4.9); Lymphocytes Percent Auto 15.3 % (20-40); Mean Corpuscular Hemoglobin 31.1 pg (27.0-33.0); Mean Corpuscular Volume 94.4 fL (80.0-98.0); Mean Platelet Volume 9.9 fL (9.4-12.3); Monocytes Absolute Auto 0.5 X10*3/uL (0.1-1.2); Monocytes Percent Auto 8.9 % (2-11); Neutrophils Absolute Auto 3.9 x10*3/uL (2.0-8.3); Neutrophils Percent Auto 71.7 % (45-73); Platelet Count 168 X10*3/uL (160-400); Red Blood Count 3.76 X10*6/uL (4.20-5.50); Red Cell Distribution Width 13.2 % (11.0-16.0); White Blood Count 5.4 X10*3/uL (4.8-10.8)
[2023-01-07 17:11] LABS: Anion Gap 11 (12-20); Blood Urea Nitrogen 20 mg/dL (9-16); Calcium 8.6 mg/dL (8.4-10.2); Carbon Dioxide 27 mmol/L (22-29); Chloride 108 mmol/L (96-108); Creatinine Clr Calc Pharmacy 24.8; Estimated Glomerular Filt Rate 35; Glucose Random 95 mg/dL (60-115); Potassium 4.2 mmol/L (3.3-5.1); Sodium 142 mmol/L (135-145)
[2023-01-07 17:13] LABS: COVID-19 Test Negative (Negative); IDNOW Serial# BCCEAD1C
[2023-01-07 17:20] LABS: Troponin-I High Sensitivity < 3.5 ng/L (<3.5-17.0)
[2023-01-07 20:00] VITALS: BP 178/98; PULSE 71; RESP 17; TEMP 36.8; O2SAT 100; O2SAT 99
--- NOTE | 2023-01-07 20:08 | PC.NURSE ---
pt c/o sob while ambulating and some discomfort in thrt which she believes from coughing states observing yellow phlegm aox4, no apparent distress
--- NOTE | 2023-01-07 20:12 | ED.GENADULT ---
HPI - General Adult General Chief complaint: Upper Respiratory Symptoms Stated complaint: Chest congestion Time Seen by Provider: 01/07/23 20:03 Source: patient Mode of arrival: ambulatory Limitations: no limitations History of Present Illness HPI narrative: 77-year-old female presents with cough. Cough started 5 days ago. Over the last 24 hours, she has developed moderate shortness of breath. Is worse with exertion. Better with rest. She denies any chest pain. The cough is productive of yellow mucus. No hemoptysis. She denies any chest tightness, wheezing. She denies any lower extremity edema orthopnea, PND. She does have a sick contact which been. She does not use inhalers at home. Related Data Home Medications Medication Instructions Recorded Confirmed alprazolam 0.5 mg tablet 1 tab PO BID PRN unknown 08/18/22 atorvastatin 10 mg tablet 1 tab PO DAILY 08/18/22 ergocalciferol (vitamin D2) 1,250 1 cap PO Q2W 08/18/22 mcg (50,000 unit) capsule nortriptyline 10 mg capsule 3 cap PO BEDTIME 08/18/22 olopatadine 0.1 % eye drops 1 drp ophthalmic (eye) BID 08/18/22 primidone 50 mg tablet mg 08/18/22 sertraline 50 mg tablet 1 tab PO QAM 08/18/22 Previous Rx's Medication Instructions Recorded methylprednisolone 4 mg tablet 4 mg PO .COMPLEX #18 tabs 09/15/20 tramadol 50 mg tablet 50 mg PO Q6H PRN pain #20 tabs 09/15/20 azithromycin 250 mg tablet 250 mg PO DAILY 4 days #4 tabs 01/07/23 Allergies Allergy/AdvReac Type Severity Reaction Status Date / Time prochlorperazine Allergy Severe ANAPHYLAXIS Verified 11/20/20 13:47 [From COMPAZINE] aspirin [ASPIRIN] AdvReac Severe KIDNEY Verified 11/20/20 13:47 FAILURE Compazine Allergy Unknown unknown Uncoded 11/20/20 13:47 [facility] Past Medical History Medical History Abnormal colonoscopy Anxiety Arthritis CKD (chronic kidney disease) COPD (chronic obstructive pulmonary disease) Depression Enteropathogenic Escherichia coli infection Essential tremor HTN (hypertension) Hyperlipidemia Internal hemorrhoids Sigmoid diverticulosis Tubular adenoma of colon Vertigo Surgical History H/O arthroscopy of left knee History of ankle surgery History of ear surgery History of thumb surgery Social History Social History Are you a primary home care manager rn to a significant other at home: No Do you presently have visiting nurse or other home services: No Alcohol intake: never Patient Tobacco Use Status: Current everyday Tobacco user Tobacco use type: Cigarette Cigarette Packs Per Day: 0.5 Cigarettes Per Day: 10.0 Years Smoked: 40 Smoked in Last 30 Days: Yes Use of substances other than those prescribed or required for medical reasons: No Advance Directives: No Advance Directives Information Provided: Yes Physical Exam ED Vital Signs: Vital Signs - 24 hr 01/07/23 16:34 01/07/23 20:00 01/07/23 20:00 Temperature 97.2 F 98.3 F Pulse Rate 77 71 Respiratory Rate 16 17 Blood Pressure 137/73 178/98 H Pulse Oximetry 98 99 100 Oxygen Delivery Method Room Air Room Air Room Air BMI result Body Mass Index 19.5 GEN: Well developed, no acute distress, alert, oriented HEENT: Normocephalic, atraumatic, normal external ears, nose appears normal, no oropharyngeal edema or exudates Eyes: Normal to appearance Neck: Supple, no lymphadenopathy Respiratory: Talks in complete sentences, no respiratory distress, clear to auscultation bilaterally Cardiovascular: Regular rate and rhythm, no murmurs rubs or gallops Abdomen: Soft, nontender, nondistended, no guarding, no rebound Back: No CVA tenderness Extremities: No clubbing cyanosis or edema Neurologic: No focal neurologic deficits, cranial nerves 2-12 intact, strength is 5/5 bilaterally, gait normal Skin: No rash Course Course Course Narrative: 77-year-old female presents with cough and shortness of breath. Symptoms started 5 days ago but then progressively getting worse. She has no fevers or chills. Oxygen saturation is 100% on room air. She does have history of COPD but does not take any medications for. Her examination did not reveal any wheezes or crackles. She did have a chest x-ray which revealed no acute cardiopulmonary disease. EKG was sinus rhythm without ischemic changes. She has mild stable. She has no significant elevated white blood cell count. She has no significant left shift she has chronic stable kidney disease. At this time, patient is stable for discharge. She will be discharged on azithromycin. She can follow up with primary care doctor regarding her blood pressure and respiratory symptoms early next week. She was instructed to return for any worsening or concerning symptoms. The Medical Decision Making Medical Decision Making [facility] Narrative: 77-year-old female presents with shortness of breath. On a valuable, patient is hypertensive, no acute distress, able to talk in complete sentences. Oxygen saturation is 100% on room air. Her examination revealed no wheezes, rales or crackles. There is no edema. Differential diagnosis includes pneumonia, CHF, COPD exacerbation, viral illness such as COVID or influenza. Patient will have chest x-ray, laboratory analysis, check for COVID. There is no indication to treat with nebulizer treatment at this time. Assuming her workup is unremarkable patient may be discharged home with routine follow-up. Differential Diagnosis Differential Diagnoses: The differential diagnosis associated with the presentation includes (Bronchitis, pneumonia, CHF, pulmonary edema, COPD exacerbation, asthma) Admission/Observation Consideration of admission/observation: Escalation of care including admission/observation considered Lab Data [facility] Lab Attestation statement: I reviewed the patient's lab results. 01/07/23 16:53 01/07/23 16:53 Labs: Lab Results 01/07/23 01/07/23 01/07/23 Range/Units 16:53 16:53 16:53 WBC 5.4 (4.8-10.8) X10*3/uL RBC 3.76 L (4.20-5.50) X10*6/uL Hgb 11.7 L (12.0-16.0) g/dl Hct 35.5 L (37.0-47.0) % MCV 94.4 (80.0-98.0) fL MCH 31.1 (27.0-33.0) pg MCHC 33.0 (31.0-35.0) g/dl RDW 13.2 (11.0-16.0) % Plt Count 168 (160-400) X10*3/uL MPV 9.9 (9.4-12.3) fL Immature Gran % (Auto) 0.4 (0.0-0.4) % Neut % (Auto) 71.7 (45-73) % Lymph % (Auto) 15.3 L (20-40) % [place] % (Auto) 8.9 (2-11) % Eos % (Auto) 2.6 (0-4) % Baso % (Auto) 1.1 (0-2) % Lymph # (Auto) 0.8 L (1.2-4.9) X10*3/uL [place] # (Auto) 0.5 (0.1-1.2) X10*3/uL Eos # (Auto) 0.1 (0.0-0.4) X10*3/uL Baso # (Auto) 0.1 (0.0-0.2) X10*3/uL Abs Immat Gran (auto) 0.02 (0.00-0.03) X10*3/uL Absolute Neuts (auto) 3.9 (2.0-8.3) x10*3/uL Absolute Nucleated RBC 0.000 (0.0-0.012) X10*3/uL Nucleated RBC % (auto) 0.0 (0.0-0.2) /100WBC Sodium 142 (135-145) mmol/L Potassium 4.2 (3.3-5.1) mmol/L Chloride 108 (96-108) mmol/L Carbon Dioxide 27 (22-29) mmol/L Anion Gap 11 L (12-20) BUN 20 H (9-16) mg/dL Creatinine 1.43 H (0.5-1.4) mg/dL Estim Creat Clear Calc 24.8 Estimated GFR 35 Random Glucose 95 (60-115) mg/dL Calcium 8.6 (8.4-10.2) mg/dL Troponin I High Sens < 3.5 (<3.5-17.0) ng/L COVID-19 ([facility]IO) (Negative) COVID-19 Clin Com 01/07/23 Range/Units 16:53 WBC (4.8-10.8) X10*3/uL RBC (4.20-5.50) X10*6/uL Hgb (12.0-16.0) g/dl Hct (37.0-47.0) % MCV (80.0-98.0) fL MCH (27.0-33.0) pg MCHC (31.0-35.0) g/dl RDW (11.0-16.0) % Plt Count (160-400) X10*3/uL MPV (9.4-12.3) fL Immature Gran % (Auto) (0.0-0.4) % Neut % (Auto) (45-73) % Lymph % (Auto) (20-40) % [place] % (Auto) (2-11) % Eos % (Auto) (0-4) % Baso % (Auto) (0-2) % Lymph # (Auto) (1.2-4.9) X10*3/uL [place] # (Auto) (0.1-1.2) X10*3/uL Eos # (Auto) (0.0-0.4) X10*3/uL Baso # (Auto) (0.0-0.2) X10*3/uL Abs Immat Gran (auto) (0.00-0.03) X10*3/uL Absolute Neuts (auto) (2.0-8.3) x10*3/uL Absolute Nucleated RBC (0.0-0.012) X10*3/uL Nucleated RBC % (auto) (0.0-0.2) /100WBC Sodium (135-145) mmol/L Potassium (3.3-5.1) mmol/L Chloride (96-108) mmol/L Carbon Dioxide (22-29) mmol/L Anion Gap (12-20) BUN (9-16) mg/dL Creatinine (0.5-1.4) mg/dL Estim Creat Clear Calc Estimated GFR Random Glucose (60-115) mg/dL Calcium (8.4-10.2) mg/dL Troponin I High Sens (<3.5-17.0) ng/L COVID-19 ([facility]) Negative (Negative) COVID-19 Clin Com See Note Independent Interpretation I performed an independent interpretation of an: Plain X-Ray (No acute cardiopulmonary disease) Radiology Impression Radiologist Impression: XR/XR chest 2V IMPRESSION: No acute cardiopulmonary findings. COPD. Dictated By: Mauricio Francis MD Signed By: <Electronically signed by Mauricio Francis MD in OV> 01/07/23 607 Tests considered The following testing was considered but not selected: CT chest Prescription Management I considered prescription management with: Antibiotic Chronic Conditions Patient?s care impacted by: Hypertension Discharge Plan Discharge Clinical Impression: Bronchitis Patient Disposition: Home, Self-Care Instructions: Acute Bronchitis (ED) Prescriptions: New azithromycin 250 mg tablet 250 mg PO DAILY 4 Days Qty: 4 0RF Rx Instructions: start on day 2 of therapy No Action primidone 50 mg tablet atorvastatin 10 mg tablet 1 tab PO DAILY alprazolam 0.5 mg tablet 1 tab PO BID PRN (Reason: unknown) nortriptyline 10 mg capsule 3 cap PO BEDTIME olopatadine 0.1 % drops 1 drp ophthalmic (eye) BID ergocalciferol (vitamin D2) 1,250 mcg (50,000 unit) capsule 1 cap PO Q2W sertraline 50 mg tablet 1 tab PO QAM methylprednisolone 4 mg tablet 4 mg PO .COMPLEX Qty: 18 0RF Rx Instructions: 4 mg PO 1 p.o. t.i.d. for 3 days, 1 p.o. b.i.d. for 3 days, 1 p.o. daily for 3 days; tramadol 50 mg tablet 50 mg PO Q6H PRN (Reason: pain) Qty: 20 0RF Referrals: Ryley Varela MD [Primary Care Provider] - (also follow up regarding blood pressure)
[2023-01-07 20:32] LABS: B Type Natriuretic Peptide 42 pg/mL (<100)
[2023-01-07 20:33] LABS: Troponin-I High Sensitivity 3.9 ng/L (<3.5-17.0)
[2023-01-07] MEDS: Azithromycin 500 MG TABLET PO (20:33)
--- NOTE | 2023-01-07 20:37 | PC.NURSE ---
Discharge instructions given/explained to pt all of pt's questions answered , no sob, can speak in full sentences ambulates safely/independently, no apparent distress pt at bedside with
== END 2023-01-07 20:36 | disposition home or self-care (01) ==
PROVIDERS: Emergency Provider Emergency Medicine; PCP Internal Medicine
DX: J40 Bronchitis, not specified as acute or chronic (principal); R06.02 Shortness of breath; Z20.822 Contact with and (suspected) exposure to COVID-19; I12.9 Hypertensive chronic kidney disease with stage 1 through stage 4 chronic kidney disease, or unspecified chronic kidney disease; N18.9 Chronic kidney disease, unspecified; E78.5 Hyperlipidemia, unspecified; Z79.02 Long term (current) use of antithrombotics/antiplatelets; Z79.899 Other long term (current) drug therapy; F17.210 Nicotine dependence, cigarettes, uncomplicated
CPT/HCPCS: 36415; 71046; 80048; 83880; 84484; 85025; 87635; 93005; 99283; 99285

== ENCOUNTER 2023-03-09 12:53 | Outpatient (REF) | payer MEDICARE, SELFPAY ==
[2023-03-09 14:31] LABS: Appearance Urine Cloudy; Color Urine Yellow; Glucose Urine UA Negative (Negative); Leukocyte Esterase Urine Negative (Negative); Nitrite Urine Negative (Negative); Specific Gravity - Urine 1.025 (1.005-1.025); Urine Blood Negative (Negative); Urine Ketones Trace mg/dL (Negative); Urine Protein Negative (Neg-Trace)
[2023-03-09 14:40] LABS: Bacteria Urine None Seen (None Seen); Calcium Oxalate Crystals Urine Present; Hyaline Casts Urine 0-2 /LPF (0-2); Squamous Epithelial Cell Urine 0-2 /HPF (0-2); WBC Urine 0-5 /HPF (0-5)
[2023-03-09 14:50] LABS: Creatinine Urine 238.76 mg/dL; Microalbum/Creatinine Ratio Ur 15.4 ug/mg cr; Protein/Creatinine Ratio, Ur 0.06 (<0.2); Total Protein Urine Random 15 mg/dL (<12)
[2023-03-09 14:56] LABS: Anion Gap 10 (12-20); Blood Urea Nitrogen 23 mg/dL (9-16); Calcium 9.2 mg/dL (8.4-10.2); Carbon Dioxide 30 mmol/L (22-29); Chloride 108 mmol/L (96-108); Estimated Glomerular Filt Rate 30; Magnesium 2.3 mg/dL (1.6-2.6); Phosphorus 3.8 mg/dL (2.7-4.5); Potassium 4.2 mmol/L (3.3-5.1); Sodium 144 mmol/L (135-145)
[2023-03-09 15:11] LABS: Vitamin D 25-OH Total 23.7 ng/mL (>30)
[2023-03-14 14:18] LABS: Calcium (PTHI) 9.2 mg/dL (8.6-10.4); PTHI 93 pg/mL (16-77)
== END 2023-03-09 12:54 | disposition home or self-care (01) ==
LOC: HO.HMGCLDS 12:53
PROVIDERS: Visit Provider Internal Medicine Nephrology
DX: I12.9 Hypertensive chronic kidney disease with stage 1 through stage 4 chronic kidney disease, or unspecified chronic kidney disease (principal); N18.32 Chronic kidney disease, stage 3b; N25.0 Renal osteodystrophy; R82.90 Unspecified abnormal findings in urine
CPT/HCPCS: 36415; 80051; 81001; 82040; 82043; 82306; 82310; 82565; 83735; 83970; 84100; 84156; 84520; 87086

== ENCOUNTER 2023-04-17 02:14 | Inpatient (IN) | payer MEDICARE, SELFPAY ==
[2023-04-17] VITALS (21 sets, daily range): BP systolic 138–182; BP diastolic 55–81; PULSE 73–100; RESP 15–20; TEMP 36.3–37.2; O2SAT 74–100; BMI 20.1
[2023-04-17 05:31] LABS: Basophils Percent Auto 0.3 % (0-2); Eosinophils Absolute Auto 0.1 X10*3/uL (0.0-0.4); Eosinophils Percent Auto 0.5 % (0-4); Hematocrit 35.7 % (37.0-47.0); Hemoglobin 11.6 g/dl (12.0-16.0); Imm Gran Pct Auto 0.8 % (0.0-0.4); Lymphocytes Absolute Auto 0.4 X10*3/uL (1.2-4.9); Lymphocytes Percent Auto 3.1 % (20-40); Mean Corpuscular HGB Conc 32.5 g/dl (31.0-35.0); Mean Corpuscular Volume 95.5 fL (80.0-98.0); Mean Platelet Volume 9.7 fL (9.4-12.3); Monocytes Absolute Auto 0.7 X10*3/uL (0.1-1.2); Monocytes Percent Auto 5.2 % (2-11); Neutrophils Absolute Auto 11.9 x10*3/uL (2.0-8.3); Neutrophils Percent Auto 90.1 % (45-73); Platelet Count 133 X10*3/uL (160-400); Red Blood Count 3.74 X10*6/uL (4.20-5.50); Red Cell Distribution Width 13.4 % (11.0-16.0); SCAN SMEAR FLAG 1; White Blood Count 13.2 X10*3/uL (4.8-10.8)
[2023-04-17 05:36] LABS: MANUAL DIFF FLAG SCAN
[2023-04-17 05:48] LABS: SLIDE REVIEW VERIFIED
--- NOTE | 2023-04-17 06:06 | ED.LOWEXIN ---
HPI - Extremity Injury (Lower) General Chief Complaint: Extremity Injury, Lower Stated Complaint: FALL/ right hip and leg pain Time Seen by Provider: 04/17/23 03:39 Source: patient Mode of arrival: EMS History of Present Illness HPI Narrative: 78-year-old female arrives via EMS after she had her hands full when she got home, tripped over the steps to her house and fell onto her right side and then experienced right hip pain/upper thigh and knee pain. She denies any head strike or loss of consciousness. Related Data Home Medications Medication Instructions Recorded Confirmed alprazolam 0.5 mg tablet 1 tab PO BID PRN unknown 08/18/22 atorvastatin 10 mg tablet 1 tab PO DAILY 08/18/22 ergocalciferol (vitamin D2) 1,250 1 cap PO Q2W 08/18/22 mcg (50,000 unit) capsule nortriptyline 10 mg capsule 3 cap PO BEDTIME 08/18/22 olopatadine 0.1 % eye drops 1 drp ophthalmic (eye) BID 08/18/22 primidone 50 mg tablet mg 08/18/22 sertraline 50 mg tablet 1 tab PO QAM 08/18/22 Previous Rx's Medication Instructions Recorded methylprednisolone 4 mg tablet 4 mg PO .COMPLEX #18 tabs 09/15/20 tramadol 50 mg tablet 50 mg PO Q6H PRN pain #20 tabs 09/15/20 azithromycin 250 mg tablet 250 mg PO DAILY 4 days #4 tabs 01/07/23 Allergies Allergy/AdvReac Type Severity Reaction Status Date / Time prochlorperazine Allergy Severe Anaphylaxis Verified 04/17/23 02:52 [From COMPAZINE] aspirin [ASPIRIN] AdvReac Severe Kidney Verified 04/17/23 02:52 failure Review of Systems Review of Systems: Pertinent positives and negatives as stated in HPI PMFSH Past Medical History Source: nursing notes reviewed Medical History Abnormal colonoscopy Anxiety Arthritis CKD (chronic kidney disease) COPD (chronic obstructive pulmonary disease) Depression Enteropathogenic Escherichia coli infection Essential tremor HTN (hypertension) Hyperlipidemia Internal hemorrhoids Sigmoid diverticulosis Tubular adenoma of colon Vertigo Surgical History H/O arthroscopy of left knee History of ankle surgery History of ear surgery History of thumb surgery Social History Social History Are you a primary intensive care anaesthetist to a significant other at home: No Do you presently have visiting nurse or other home services: No Alcohol intake: never Patient Tobacco Use Status: Current everyday Tobacco user Tobacco use type: Cigarette Cigarette Packs Per Day: 0.5 Cigarettes Per Day: 10.0 Years Smoked: 40 Smoked in Last 30 Days: Yes Use of substances other than those prescribed or required for medical reasons: No Advance Directives: No Advance Directives Information Provided: Yes Physical Exam Vital Signs: Vital Signs: Last Vital Signs Temp 98.0 F 04/17/23 04:59 Pulse 89 04/17/23 04:59 Resp 18 04/17/23 04:59 BP 175/74 H 04/17/23 04:59 Pulse Ox 96 04/17/23 04:59 O2 Del Method Room Air 04/17/23 04:59 BMI result Body Mass Index 20.1 VITAL SIGNS: Reviewed. GENERAL: Patient appears older than stated age, in no acute distress. HEAD: Normocephalic/atraumatic EYES: PERRLA, EOMI EARS: Ext canals without abnormality LUNGS: Normal breath sounds. No adventitious sounds or accessory muscle use. SpO2<96> CARDIOVASCULAR: Regular rate and rhythm without noted murmurs ABDOMEN: Soft, non-tender, non-distended with bowel sounds. PELVIS: Stable, but tenderness to palpation on the right extending down into the proximal right lower extremity MUSCULOSKELETAL: No tenderness, deformities, or effusions noted on gross inspection. EXTREMITIES: No cyanosis, clubbing or edema; RIGHT LOWER EXTREMITY: Neurovascular is intact, full range of motion at the ankle, noted to be shortened and externally rotated with most comfortable position flexed and on a pillow. SKIN: Inspection of the skin reveals no rashes NEUROLOGIC: Alert and oriented x 4. Strength and sensation to light touch were grossly intact x 4. Medications Administered Discontinued Medications Generic Name Dose Route Start Last Admin Trade Name Freq PRN Reason Stop Dose Admin Morphine Sulfate 2 mg 04/17/23 06:01 04/17/23 06:24 Morphine Sulfate 2 Mg/Ml Cartridge IVPUSH 04/17/23 06:02 2 mg ONCE ONE Administration Protocol Medical Decision Making Medical Decision Making MDM Narrative: 78-year-old female with history and clinical presentation most likely to be right hip fracture given history, position of the right lower extremity. There is no neurovascular compromise. I reviewed all investigations and suspect stress leukocytosis with chronic normocytic anemia as well as chemistries which demonstrate chronically stable CKD. Urinalysis is pending but x-rays clearly demonstrate comminuted intertrochanteric fracture of the right femur. Patient provided with 500 cc of IV fluids, pain medication, Orthopedics has been made aware and inpatient hospitalist accepts admission. Differential Diagnosis Please see the discussion above Admission/Observation Consideration of admission/observation: Escalation of care including admission/observation considered Please see the discussion above Consult Healthcare Provider Management of the patient was discussed with: Hospitalist and Holiday Detector Operator Please see the discussion above Lab Data Please see the discussion above 04/17/23 05:25 04/17/23 05:25 Labs: Lab Results 04/17/23 04/17/23 04/17/23 Range/Units 05:25 05:25 05:25 WBC 13.2 H (4.8-10.8) X10*3/uL RBC 3.74 L (4.20-5.50) X10*6/uL Hgb 11.6 L (12.0-16.0) g/dl Hct 35.7 L (37.0-47.0) % MCV 95.5 (80.0-98.0) fL MCH 31.0 (27.0-33.0) pg MCHC 32.5 (31.0-35.0) g/dl RDW 13.4 (11.0-16.0) % Plt Count 133 L (160-400) X10*3/uL MPV 9.7 (9.4-12.3) fL Immature Gran % (Auto) 0.8 H (0.0-0.4) % Neut % (Auto) 90.1 H (45-73) % Lymph % (Auto) 3.1 L (20-40) % [place] % (Auto) 5.2 (2-11) % Eos % (Auto) 0.5 (0-4) % Baso % (Auto) 0.3 (0-2) % Lymph # (Auto) 0.4 L (1.2-4.9) X10*3/uL [place] # (Auto) 0.7 (0.1-1.2) X10*3/uL Eos # (Auto) 0.1 (0.0-0.4) X10*3/uL Baso # (Auto) 0.0 (0.0-0.2) X10*3/uL Abs Immat Gran (auto) 0.10 H (0.00-0.03) X10*3/uL Absolute Neuts (auto) 11.9 H (2.0-8.3) x10*3/uL Absolute Nucleated RBC 0.000 (0.0-0.012) X10*3/uL Nucleated RBC % (auto) 0.0 (0.0-0.2) /100WBC Smear Tech's Comments VERIFIED PT 11.8 (10.0-13.1) SEC INR 1.0 (0.9-1.1) Sodium 139 (135-145) mmol/L Potassium 4.1 (3.3-5.1) mmol/L Chloride 105 (96-108) mmol/L Carbon Dioxide 24 (22-29) mmol/L Anion Gap 14 (12-20) BUN 19 H (9-16) mg/dL Creatinine 1.57 H (0.5-1.4) mg/dL Estim Creat Clear Calc 22.9 Estimated GFR 32 Random Glucose 142 H (60-115) mg/dL Calcium 9.4 (8.4-10.2) mg/dL Total Bilirubin 1.1 H (0.0-1.0) mg/dL AST 16 (5-31) U/L ALT 13 (0-31) U/L Alkaline Phosphatase 89 (39-117) U/L Total Protein 6.6 (6.5-8.0) g/dL Albumin 4.0 (3.5-5.0) g/dL Blood Type Antibody Screen 04/17/23 Range/Units 05:25 WBC (4.8-10.8) X10*3/uL RBC (4.20-5.50) X10*6/uL Hgb (12.0-16.0) g/dl Hct (37.0-47.0) % MCV (80.0-98.0) fL MCH (27.0-33.0) pg MCHC (31.0-35.0) g/dl RDW (11.0-16.0) % Plt Count (160-400) X10*3/uL MPV (9.4-12.3) fL Immature Gran % (Auto) (0.0-0.4) % Neut % (Auto) (45-73) % Lymph % (Auto) (20-40) % [place] % (Auto) (2-11) % Eos % (Auto) (0-4) % Baso % (Auto) (0-2) % Lymph # (Auto) (1.2-4.9) X10*3/uL [place] # (Auto) (0.1-1.2) X10*3/uL Eos # (Auto) (0.0-0.4) X10*3/uL Baso # (Auto) (0.0-0.2) X10*3/uL Abs Immat Gran (auto) (0.00-0.03) X10*3/uL Absolute Neuts (auto) (2.0-8.3) x10*3/uL Absolute Nucleated RBC (0.0-0.012) X10*3/uL Nucleated RBC % (auto) (0.0-0.2) /100WBC Smear Tech's Comments PT (10.0-13.1) SEC INR (0.9-1.1) Sodium (135-145) mmol/L Potassium (3.3-5.1) mmol/L Chloride (96-108) mmol/L Carbon Dioxide (22-29) mmol/L Anion Gap (12-20) BUN (9-16) mg/dL Creatinine (0.5-1.4) mg/dL Estim Creat Clear Calc Estimated GFR Random Glucose (60-115) mg/dL Calcium (8.4-10.2) mg/dL Total Bilirubin (0.0-1.0) mg/dL AST (5-31) U/L ALT (0-31) U/L Alkaline Phosphatase (39-117) U/L Total Protein (6.5-8.0) g/dL Albumin (3.5-5.0) g/dL Blood Type O Positive Antibody Screen NEGATIVE Radiology Impression Radiologist Impression: Right femoral fracture, otherwise my interpretation is in agreement with radiology's impression. External Record Review External record reviewed: Outpatient record and Prior outpatient labs Critical Care Time Critical Care Time Critical Care Time: Yes Total Critical Care Time: 30 Attestation: I personally attest to this time spent taking care of the patient. Discharge Plan Discharge Clinical Impression: Closed intertrochanteric fracture of right femur, CKD (chronic kidney disease) Patient Disposition: Admitted As Inpatient Prescriptions: No Action primidone 50 mg tablet atorvastatin 10 mg tablet 1 tab PO DAILY alprazolam 0.5 mg tablet 1 tab PO BID PRN (Reason: unknown) nortriptyline 10 mg capsule 3 cap PO BEDTIME olopatadine 0.1 % drops 1 drp ophthalmic (eye) BID ergocalciferol (vitamin D2) 1,250 mcg (50,000 unit) capsule 1 cap PO Q2W sertraline 50 mg tablet 1 tab PO QAM azithromycin 250 mg tablet 250 mg PO DAILY 4 Days Qty: 4 0RF Rx Instructions: start on day 2 of therapy methylprednisolone 4 mg tablet 4 mg PO .COMPLEX Qty: 18 0RF Rx Instructions: 4 mg PO 1 p.o. t.i.d. for 3 days, 1 p.o. b.i.d. for 3 days, 1 p.o. daily for 3 days; tramadol 50 mg tablet 50 mg PO Q6H PRN (Reason: pain) Qty: 20 0RF
--- NOTE | 2023-04-17 08:06 | PM.IMHP ---
History of Present Illness Date of Service: 04/17/23 Chief Complaint: fall 78F PMH CKD III, essential tremor, depression/anxiety, COPD, presented with right hip pain. patient was sleep deprived, feeling weak and tired and was carrying multiple items, she lost balance and fell backwards. had right sided hip pain. in ED found to have Comminuted intertrochanteric fracture of the right femur. patient denies LOC, chest pain, sob, fever, chills. Review of Systems Review of Systems: Yes all other systems are reviewed and are negative [facility] Medical History Abnormal colonoscopy Anxiety Arthritis CKD (chronic kidney disease) COPD (chronic obstructive pulmonary disease) Depression Enteropathogenic Escherichia coli infection Essential tremor HTN (hypertension) Hyperlipidemia Internal hemorrhoids Sigmoid diverticulosis Tubular adenoma of colon Vertigo Surgical History H/O arthroscopy of left knee History of ankle surgery History of ear surgery History of thumb surgery Social History Are you a primary pet caregiver to a significant other at home: No Do you presently have visiting nurse or other home services: No Alcohol intake: never Patient Tobacco Use Status: Current everyday Tobacco user Tobacco use type: Cigarette Cigarette Packs Per Day: 0.5 Cigarettes Per Day: 10.0 Years Smoked: 40 Smoked in Last 30 Days: Yes Use of substances other than those prescribed or required for medical reasons: No Advance Directives: No Advance Directives Information Provided: Yes Meds Allergies Allergy/AdvReac Type Severity Reaction Status Date / Time prochlorperazine Allergy Severe Anaphylaxis Verified 04/17/23 02:52 [From COMPAZINE] aspirin [ASPIRIN] AdvReac Severe Kidney Verified 04/17/23 02:52 failure Active Medications: Current Medications Morphine Sulfate (Morphine Sulfate 2 Mg/Ml Cartridge) 2 mg IVPUSH Q2H PRN; Protocol PRN Reason: moderate pain Pharmacy Consult (Consult Rx Perform Med Rec) 1 each MISCELLANE ONCE PRN PRN Reason: Consult order Home Medications Medication Instructions Recorded Confirmed Last Taken Type alprazolam 0.5 mg tablet 1 tab PO BID PRN unknown 08/18/22 Unknown History atorvastatin 10 mg tablet 1 tab PO DAILY 08/18/22 Unknown History ergocalciferol (vitamin D2) 1,250 1 cap PO Q2W 08/18/22 Unknown History mcg (50,000 unit) capsule nortriptyline 10 mg capsule 3 cap PO BEDTIME 08/18/22 Unknown History olopatadine 0.1 % eye drops 1 drp ophthalmic (eye) BID 08/18/22 Unknown History primidone 50 mg tablet mg 08/18/22 Unknown History sertraline 50 mg tablet 1 tab PO QAM 08/18/22 Unknown History Physical Exam Vital Signs and Narrative: Vital Signs: Last Vital Signs Temp 98.0 F 04/17/23 04:59 Pulse 89 04/17/23 04:59 Resp 18 04/17/23 04:59 BP 175/74 H 04/17/23 04:59 Pulse Ox 96 04/17/23 04:59 O2 Del Method Room Air 04/17/23 04:59 BMI result Body Mass Index 20.1 General: AO X 3, in some pain Resp: diminished bilateral, no accessory muscles used CVS: S1,S2,RRR GI: soft, non tender, non distended Neuro: motor grossly intact, alert Psych: appropriate affect, appropriate insight Results Labs 04/17/23 05:25 04/17/23 05:25 Labs: Laboratory Results - last 24 hr 04/17/23 04/17/23 04/17/23 05:25 05:25 05:25 MCV 95.5 MCH 31.0 MCHC 32.5 RDW 13.4 Plt Count 133 L MPV 9.7 Immature Gran % (Auto) 0.8 H Neut % (Auto) 90.1 H Lymph % (Auto) 3.1 L [place] % (Auto) 5.2 Eos % (Auto) 0.5 Baso % (Auto) 0.3 Lymph # (Auto) 0.4 L [place] # (Auto) 0.7 Eos # (Auto) 0.1 Baso # (Auto) 0.0 Abs Immat Gran (auto) 0.10 H Absolute Neuts (auto) 11.9 H Absolute Nucleated RBC 0.000 Nucleated RBC % (auto) 0.0 Smear Tech's Comments VERIFIED PT 11.8 INR 1.0 Anion Gap 14 Estim Creat Clear Calc 22.9 Estimated GFR 32 Random Glucose 142 H Calcium 9.4 Total Bilirubin 1.1 H AST 16 ALT 13 Alkaline Phosphatase 89 Total Protein 6.6 Albumin 4.0 Blood Type Antibody Screen 04/17/23 05:25 MCV MCH MCHC RDW Plt Count MPV Immature Gran % (Auto) Neut % (Auto) Lymph % (Auto) [place] % (Auto) Eos % (Auto) Baso % (Auto) Lymph # (Auto) [place] # (Auto) Eos # (Auto) Baso # (Auto) Abs Immat Gran (auto) Absolute Neuts (auto) Absolute Nucleated RBC Nucleated RBC % (auto) Smear Tech's Comments PT INR Anion Gap Estim Creat Clear Calc Estimated GFR Random Glucose Calcium Total Bilirubin AST ALT Alkaline Phosphatase Total Protein Albumin Blood Type O Positive Antibody Screen NEGATIVE Imaging Radiologist's Impressions: Impressions Hip/Pelvis X-Ray 04/17/23 04:15 IMPRESSION: Comminuted intertrochanteric fracture of the right femur as described. Chest X-Ray 04/17/23 06:52 IMPRESSION: * No acute pulmonary disease. * Lungs are chronically hyperinflated. Correlate for any history of chronic obstructive pulmonary disease. Knee X-Ray 04/17/23 06:52 IMPRESSION: * No evidence of acute osseous injury at the right knee. * Patient reportedly unable to move the knee due to presence of a proximal femoral fracture. Assessment and Plan (1) Closed intertrochanteric fracture of right femur: Status: Acute Plan 78F PMH CKD III, depression/anxiety, COPD, presented with mechanical fall, found to have right hip fracture acute right femur fracture due to mechanical fall ortho eval pain control CKD III stable COPD continue inhalers stable depression/anxiety xanax, sertraline, nortriptyline essential tremor primidone DNR/DNI patient with hip fracture, will require surgery and postop monitoring, expected to require atleast 2 midnights inpatient. Time Spent With Patient Time: Total time managing care of this patient today ____ minutes. Quality Stroke Does the patient have a stroke diagnosis?: No VTE Prior VTE?: No VTE Risk Level:: Medical - moderate - high VTE Device Contraindication: N/A - Device Ordered VTE Drug Contraindication: Treatment Not Tolerated
--- NOTE | 2023-04-17 08:28 | PHA.MEDREC ---
Pharmacy Consult ? Medication Reconciliation Pharmacy has completed the medication reconciliation. spoke with patient. Confirmed all of her medications.
--- NOTE | 2023-04-17 09:56 | PM.CNOR ---
History of Present Illness HPI Consult date: 04/17/23 Requesting physician: Miguel Newell Chief complaint: Right hip Fracture Narrative: Ms. Yadav is a 78-year-old white female who presented to [facility] Emergency Room with complaints of right hip pain after falling at home. The patient denies any other injuries. She states that she has been feeling fatigued lately and simply tripped. She denies any shortness of breath, chest pain or dizziness prior to her fall. The patient states that she was tired after taking a car trip 9 hours back from [place], [place] yesterday. The patient states that she normally ambulates with a cane. [facility] Past Medical History Medical History Abnormal colonoscopy Anxiety Arthritis CKD (chronic kidney disease) COPD (chronic obstructive pulmonary disease) Depression Enteropathogenic Escherichia coli infection Essential tremor HTN (hypertension) Hyperlipidemia Internal hemorrhoids Sigmoid diverticulosis Tubular adenoma of colon Vertigo Surgical History Surgical History H/O arthroscopy of left knee History of ankle surgery History of ear surgery History of thumb surgery Social History Social History Are you a primary youth care worker to a significant other at home: No Do you presently have visiting nurse or other home services: No Alcohol intake: never Patient Tobacco Use Status: Current everyday Tobacco user Tobacco use type: Cigarette Cigarette Packs Per Day: 0.5 Cigarettes Per Day: 10.0 Years Smoked: 40 Smoked in Last 30 Days: Yes Use of substances other than those prescribed or required for medical reasons: No Advance Directives: No Advance Directives Information Provided: Yes Meds Allergies Allergy/AdvReac Type Severity Reaction Status Date / Time prochlorperazine Allergy Severe Anaphylaxis Verified 04/17/23 02:52 [From COMPAZINE] aspirin [ASPIRIN] AdvReac Severe Kidney Verified 04/17/23 02:52 failure Active Medications: Current Medications Acetaminophen (Acetaminophen 325 Mg Tablet) 650 mg PO Q6H PRN PRN Reason: Pain, Mild (Pain Scale 1-3) Morphine Sulfate (Morphine Sulfate 2 Mg/Ml Cartridge) 2 mg IVPUSH Q2H PRN; Protocol PRN Reason: moderate pain Pharmacy Consult (Consult Rx Perform Med Rec) 1 each MISCELLANE ONCE PRN PRN Reason: Consult order Sodium Chloride (0.9 % Sodium Chloride Flush 3 Ml Syringe) [facility] Medications Medication Instructions Recorded Confirmed Last Taken Type alprazolam 0.5 mg tablet 0.5 tab PO BID-TID PRN Anxiety 08/18/22 04/17/23 Unknown History atorvastatin 10 mg tablet 1 tab PO DAILY 08/18/22 04/17/23 Unknown History ergocalciferol (vitamin D2) 1,250 1 cap PO Q2W 08/18/22 04/17/23 Unknown History mcg (50,000 unit) capsule nortriptyline 10 mg capsule 3 cap PO BEDTIME 08/18/22 04/17/23 Unknown History olopatadine 0.1 % eye drops 1 drp ophthalmic (eye) BID 08/18/22 04/17/23 Unknown History sertraline 50 mg tablet 1 tab PO DAILY 08/18/22 04/17/23 Unknown History albuterol sulfate 90 mcg/actuation 2 puff inhalation QID 04/17/23 04/17/23 Unknown History aerosol inhaler estradiol 0.01% (0.1 mg/gram) 1 g vaginal 2XW 04/17/23 04/17/23 Unknown History vaginal cream fluticasone propionate 50 1 spray intranasal BID PRN Allergy 04/17/23 04/17/23 Unknown History mcg/actuation nasal Symptoms spray,suspension Physical Exam Vital Signs: Vital Signs: Last Vital Signs Temp 98.0 F 04/17/23 04:59 Pulse 89 04/17/23 04:59 Resp 18 04/17/23 04:59 BP 175/74 H 04/17/23 04:59 Pulse Ox 96 04/17/23 04:59 O2 Del Method Room Air 04/17/23 04:59 BMI result Body Mass Index 20.1 Const: Other: Well-nourished well-developed very friendly female awake alert and oriented x3 in no acute distress Extrem: Other: Bilateral lower extremity examination shows good capillary refill, no skin lesions noted, normal sensation light touch Right lower extremity examination shows that her leg is shortened and externally rotated, no open skin lesions, normal sensation to light touch, good capillary refill Results Labs 04/17/23 05:25 04/17/23 05:25 Labs: Abnormal lab results 04/17/23 04/17/23 Range/Units 05:25 05:25 WBC 13.2 H (4.8-10.8) X10*3/uL RBC 3.74 L (4.20-5.50) X10*6/uL Hgb 11.6 L (12.0-16.0) g/dl Hct 35.7 L (37.0-47.0) % Plt Count 133 L (160-400) X10*3/uL Immature Gran % (Auto) 0.8 H (0.0-0.4) % Neut % (Auto) 90.1 H (45-73) % Lymph % (Auto) 3.1 L (20-40) % Lymph # (Auto) 0.4 L (1.2-4.9) X10*3/uL Abs Immat Gran (auto) 0.10 H (0.00-0.03) X10*3/uL Absolute Neuts (auto) 11.9 H (2.0-8.3) x10*3/uL BUN 19 H (9-16) mg/dL Creatinine 1.57 H (0.5-1.4) mg/dL Random Glucose 142 H (60-115) mg/dL Total Bilirubin 1.1 H (0.0-1.0) mg/dL H & H 04/17/23 Range/Units 05:25 Hgb 11.6 L (12.0-16.0) g/dl Hct 35.7 L (37.0-47.0) % Coagulation 04/17/23 Range/Units 05:25 INR 1.0 (0.9-1.1) All other labs normal. Diagnostic results Hip x-ray: other (X-rays of the patient's right hip show a displaced intertrochanteric fracture) Assessment and Plan (1) Intertrochanteric fracture of right hip: Status: Acute Plan Ms. Yadav is a 78-year-old white female who presented to [facility] Emergency Room with complaints of right hip pain after falling at home. Her x-ray show a displaced right hip intertrochanteric fracture. Nonoperative and surgical treatment options were discussed at length with the patient. I did recommend open reduction and internal fixation with placement of a gamma nail in order to allow her to be mobilized. The patient wishes to proceed with surgery. She has been cleared by the medical service. Surgery is planned for later on today as the operating room schedule allows. Thank you very much for asking me to see this very friendly patient. Time Spent With Patient Time: Total time managing care of this patient today 22 minutes. Procedures Date of Service Date of Service: 04/17/23
--- NOTE | 2023-04-17 10:14 | HO.ANESPROP2 ---
HPI - Anesthesia Eval Consult details Narrative: Right intertrochanteric femur fracture PMFSH Active Problems Active Problems: All Active Problems (Updated 04/17/23 @ 10:00 by Hay Costa MD) Intertrochanteric fracture of right hip (Acute) Closed intertrochanteric fracture of right femur (Acute) CKD (chronic kidney disease) (Acute) Cervical radiculopathy (Acute) Past Medical History Medical History Abnormal colonoscopy Anxiety Arthritis CKD (chronic kidney disease) COPD (chronic obstructive pulmonary disease) Depression Enteropathogenic Escherichia coli infection Essential tremor HTN (hypertension) Hyperlipidemia Internal hemorrhoids Sigmoid diverticulosis Tubular adenoma of colon Vertigo Family History Family history of problems with anesthesia: No Surgical History Surgical History H/O arthroscopy of left knee History of ankle surgery History of ear surgery History of thumb surgery History of Problems with Anesthesia: No Social History Social History Are you a primary interior plant caretaker to a significant other at home: No Do you presently have visiting nurse or other home services: No Alcohol intake: never Patient Tobacco Use Status: Current everyday Tobacco user Tobacco use type: Cigarette Cigarette Packs Per Day: 0.5 Cigarettes Per Day: 10.0 Years Smoked: 40 Smoked in Last 30 Days: Yes Use of substances other than those prescribed or required for medical reasons: No Advance Directives: No Advance Directives Information Provided: Yes Meds Allergies Allergy/AdvReac Type Severity Reaction Status Date / Time prochlorperazine Allergy Severe Anaphylaxis Verified 04/17/23 02:52 [From COMPAZINE] aspirin [ASPIRIN] AdvReac Severe Kidney Verified 04/17/23 02:52 failure Active Medications: Current Medications Acetaminophen (Acetaminophen 325 Mg Tablet) 650 mg PO Q6H PRN PRN Reason: Pain, Mild (Pain Scale 1-3) Morphine Sulfate (Morphine Sulfate 2 Mg/Ml Cartridge) 2 mg IVPUSH Q2H PRN; Protocol PRN Reason: moderate pain Last Admin: 04/17/23 09:58 Dose: 2 mg Pharmacy Consult (Consult Rx Perform Med Rec) 1 each MISCELLANE ONCE PRN PRN Reason: Consult order Sodium Chloride (0.9 % Sodium Chloride Flush 3 Ml Syringe) 3 ml IVFLUSH QSHIFT [facility] Home Medications Medication Instructions Recorded Confirmed Last Taken Type alprazolam 0.5 mg tablet 0.5 tab PO BID-TID PRN Anxiety 08/18/22 04/17/23 Unknown History atorvastatin 10 mg tablet 1 tab PO DAILY 08/18/22 04/17/23 Unknown History ergocalciferol (vitamin D2) 1,250 1 cap PO Q2W 08/18/22 04/17/23 Unknown History mcg (50,000 unit) capsule nortriptyline 10 mg capsule 3 cap PO BEDTIME 08/18/22 04/17/23 Unknown History olopatadine 0.1 % eye drops 1 drp ophthalmic (eye) BID 08/18/22 04/17/23 Unknown History sertraline 50 mg tablet 1 tab PO DAILY 08/18/22 04/17/23 Unknown History albuterol sulfate 90 mcg/actuation 2 puff inhalation QID 04/17/23 04/17/23 Unknown History aerosol inhaler estradiol 0.01% (0.1 mg/gram) 1 g vaginal 2XW 04/17/23 04/17/23 Unknown History vaginal cream fluticasone propionate 50 1 spray intranasal BID PRN Allergy 04/17/23 04/17/23 Unknown History mcg/actuation nasal Symptoms spray,suspension Exam Exam Date and Time: April 17, 2023 1014 Height,Weight and Vital Signs: Height 5 ft 2 in Weight 49.895 kg Last Vital Signs Temp 98.0 F 04/17/23 04:59 Pulse 89 04/17/23 04:59 Resp 18 04/17/23 04:59 BP 175/74 H 04/17/23 04:59 Pulse Ox 96 04/17/23 04:59 O2 Del Method Room Air 04/17/23 04:59 Pertinent Lab Results Pertinent Lab Results: Laboratory Tests 04/17/23 04/17/23 04/17/23 05:25 05:25 05:25 WBC 13.2 H RBC 3.74 L Hgb 11.6 L Hct 35.7 L MCV 95.5 MCH 31.0 MCHC 32.5 RDW 13.4 Plt Count 133 L MPV 9.7 Immature Gran % (Auto) 0.8 H Neut % (Auto) 90.1 H Lymph % (Auto) 3.1 L [place] % (Auto) 5.2 Eos % (Auto) 0.5 Baso % (Auto) 0.3 Lymph # (Auto) 0.4 L [place] # (Auto) 0.7 Eos # (Auto) 0.1 Baso # (Auto) 0.0 Abs Immat Gran (auto) 0.10 H Absolute Neuts (auto) 11.9 H Absolute Nucleated RBC 0.000 Nucleated RBC % (auto) 0.0 Smear Tech's Comments VERIFIED PT 11.8 INR 1.0 Sodium 139 Potassium 4.1 Chloride 105 Carbon Dioxide 24 Anion Gap 14 BUN 19 H Creatinine 1.57 H Estim Creat Clear Calc 22.9 Estimated GFR 32 Random Glucose 142 H Calcium 9.4 Total Bilirubin 1.1 H AST 16 ALT 13 Alkaline Phosphatase 89 Total Protein 6.6 Albumin 4.0 Blood Type Antibody Screen 04/17/23 05:25 WBC RBC Hgb Hct MCV MCH MCHC RDW Plt Count MPV Immature Gran % (Auto) Neut % (Auto) Lymph % (Auto) [place] % (Auto) Eos % (Auto) Baso % (Auto) Lymph # (Auto) [place] # (Auto) Eos # (Auto) Baso # (Auto) Abs Immat Gran (auto) Absolute Neuts (auto) Absolute Nucleated RBC Nucleated RBC % (auto) Smear Tech's Comments PT INR Sodium Potassium Chloride Carbon Dioxide Anion Gap BUN Creatinine Estim Creat Clear Calc Estimated GFR Random Glucose Calcium Total Bilirubin AST ALT Alkaline Phosphatase Total Protein Albumin Blood Type O Positive Antibody Screen NEGATIVE Airway Mallampati Class: I TM Dist: >3cm Neck ROM: Full Denture: Upper Heart: RRR Lungs: CTA Assessment and Plan Assessment Anesthesia Assessment: Anesthesia Plan Discussed and Chart Reviewed Final Anesthetic Review Family History of Problems with Anesthesia: No History of Problems with Anesthesia: No NPO: Yes ASA Class: III Final Preanesthetic Review: No Changes in Pt Med Stat, Meds/Allgs Chart Reviewed, Consent Obtained/Reviewed and Anes Risks/Benef Reviewed Patient Risk: Intermediate Procedure Risk: Intermediate Anesthetic Plan Anesthetic Plan: GA Disposition: Standard PACU
--- NOTE | 2023-04-17 12:24 | PM.OP ---
Brief Operative Note Date of Service: 04/17/23 Pre-op diagnosis: Right hip intertrochanteric fracture Post-op diagnosis: same Procedure: Open reduction and internal fixation of right hip intertrochanteric fracture with placement of a short gamma nail Implants: Short gamma nail measuring 11 mm in diameter by 180 mm in length with a 125 degree lag screw angle, a standard set screw, lag screw measuring 100 mm in length, distal locking bolt measuring 32.5 mm in length Surgeon: Hay Costa MD Anesthesia: GLMA Was an Ward Maid used for this Procedure?: No Estimated blood loss (mL): 100 Condition: stable Disposition: PACU
--- NOTE | 2023-04-17 12:26 | W.PM.OPN ---
Operative Note Operative Note Date of Service: 04/17/23 Narrative: After the patient was identified as Destiny Yadav and there right hip was initialed by myself they were brought to the operating room where general anesthesia was induced by the anesthesiologist in routine fashion. The patient was given 2 g of IV Ancef for infection prophylaxis. The patient was then gently transferred from the hospital bed onto the fracture table. The patient's left lower extremity was placed into the well leg love. The patient's right lower extremity was placed in gentle in-line traction with their patella parallel to the floor. All bony prominences were well padded. C-arm AP and lateral radiographs were taken to confirm good fracture reduction. The patient's right hip region was prepped and draped in sterile fashion. A formal time-out was completed. A #10 scalpel blade was used to make a 5 cm incision just proximal to the tip of the greater trochanter. A curved cannulated awl was introduced into the proximal femur in routine fashion. A ball-tipped guidewire was then placed through the cannula and into the femoral canal. The awl was removed. Reaming was begun with a 9 mm reamer. Reaming was increased incrementally up to a size 13 reamer distally. The proximal canal was reamed with a 15.5 mm reamer. The gamma nail measuring 11 mm in diameter by 180 mm in length was passed over the guidewire. Good fracture reduction and nail positioning were confirmed using C-arm AP and lateral radiographs. A 2 cm incision was then made where the lag screw trocar met the patient's lateral thigh. The subcutaneous tissues and fascia osmany were split down to the lateral cortex of the femur using a hemostat. The lag screw trocar was passed down to the lateral cortex of the femur. A threaded guidewire was then placed into the inferior aspect of the femoral head on the AP x-ray and the center of the femoral head on the lateral x-ray. The guidewire measured 100 mm in length. Reaming was then performed over the guidewire to a depth of 100 mm. The lag screw measuring 100 mm in length was then placed over the guidewire. The guidewire was removed. The set screw was then placed into the nail and tightened fully. It was then turned 1/4 of a turn counter-clockwise to allow for fracture compression. The end cap was then put into place in routine fashion. A 2 cm incision was then made where the distal locking bolt trocar met the lateral aspect of the patient's thigh. The subcutaneous tissues and the fascia osmany were split down to the lateral cortex of the femur. The locking bolt hole was drilled in routine fashion. The drill bit measured 32 mm in length. The distal locking bolt measuring 32.5 mm in length was put into place without difficulty. Final AP and lateral radiographs showed good fracture reduction and hardware positioning. All 3 wounds were irrigated with copious amounts of normal saline solution. The distal 2 wounds were closed with 2-0 Vicryl and skin kavya. The proximal wound was once again irrigated. The fascia osmany was closed with 0 Vicryl [id number] interrupted suture. The wound was once again irrigated. The subcutaneous tissues were closed with 2-0 Vicryl interrupted suture. The skin was closed with skin kavya. Dry sterile dressing was placed over all incisions. The patient was gently transferred from the fracture table onto their hospital bed. The patient was awoken and extubated in the operating room. The patient was transferred to the recovery room in stable condition.
[2023-04-17] MEDS: Enoxaparin Sodium 30 MG/0.3 ML SYRINGE SUBCUT (14:36)
[2023-04-17] MEDS: ALPRAZolam 0.25 MG TABLET PO ×2 (14:56→22:58)
[2023-04-17] MEDS: Albuterol Sulfate 90 MCG 8 GM INHALER 2 PUFF INHALE ×2 (15:27→19:30)
[2023-04-17] MEDS: oxyCODONE HCl Immed Release 5 MG TABLET PO ×2 (16:36→21:17)
[2023-04-17] MEDS: Docusate Sodium 100 MG CAPSULE PO (21:04)
[2023-04-17] MEDS: Nortriptyline HCl 10 MG CAPSULE 30 MG PO (21:04)
[2023-04-18] VITALS (9 sets, daily range): BP systolic 110–134; BP diastolic 50–64; PULSE 70–100; RESP 15–18; TEMP 36.1–36.5; O2SAT 90–97
[2023-04-18] MEDS: oxyCODONE HCl Immed Release 5 MG TABLET PO ×2 (03:45→17:20)
[2023-04-18 06:24] LABS: Anion Gap 12 (12-20); Blood Urea Nitrogen 19 mg/dL (9-16); Calcium 8.4 mg/dL (8.4-10.2); Carbon Dioxide 26 mmol/L (22-29); Chloride 105 mmol/L (96-108); Creatinine Clr Calc Pharmacy 26.9; Estimated Glomerular Filt Rate 38; Glucose Fasting 120 mg/dL (60-99); Potassium 4.4 mmol/L (3.3-5.1); Sodium 139 mmol/L (135-145)
[2023-04-18] MEDS: Albuterol Sulfate 90 MCG 8 GM INHALER 2 PUFF INHALE ×3 (08:12→19:45)
[2023-04-18] MEDS: Docusate Sodium 100 MG CAPSULE PO ×2 (08:36→20:34)
[2023-04-18] MEDS: ALPRAZolam 0.25 MG TABLET PO (08:36)
[2023-04-18] MEDS: Sertraline HCL 50 MG TABLET PO (08:36)
--- NOTE | 2023-04-18 10:23 | PM.PNORT ---
Subjective Subjective Date of Service: 04/18/23 Interval history: POD 1 s/p RT hip IMN no overnight events resting in bed eating breakfast denies cp, palpitations, sob Physical Exam Vital Signs: Vital Signs: Last Vital Signs Temp 97.4 F 04/18/23 07:00 Pulse 95 04/18/23 08:15 Resp 16 04/18/23 08:15 BP 129/61 04/18/23 07:00 Pulse Ox 93 04/18/23 07:00 O2 Del Method Room Air 04/18/23 07:00 O2 Flow Rate 2 04/17/23 14:39 BMI result Body Mass Index 20.1 Extrem: Other: incision clean dry and intact. Marcos intact. No erythema or effusion. Calf supple nontender. Neurovascularly intact. Procedures Date of Service Date of Service: 04/18/23 Progress Note: A&P Assessment and plan (1) Intertrochanteric fracture of right hip: Status: Acute Assessment and Plan: Continue pain mgmnt Begin lovenox for dvt ppx begin PT /OT for Rt hip IMN Dispo planning-Pending PT eval, pain mgmnt Time Spent With Patient Time: Total time managing care of this patient today ____ minutes. Quality Stroke Does the patient have a stroke diagnosis?: No VTE Prior VTE?: No VTE Risk Level:: Medical - moderate - high VTE Device Contraindication: N/A - Device Ordered VTE Drug Contraindication: Treatment Not Tolerated
--- NOTE | 2023-04-18 10:37 | HO.PM.IMPN ---
Subjective Subjective Date of Service: 04/18/23 Interval History: hip pain Physical Exam Vital Signs: Vital Signs: Last Vital Signs Temp 97.4 F 04/18/23 07:00 Pulse 95 04/18/23 08:15 Resp 16 04/18/23 08:15 BP 129/61 04/18/23 07:00 Pulse Ox 93 04/18/23 07:00 O2 Del Method Room Air 04/18/23 07:00 O2 Flow Rate 2 04/17/23 14:39 BMI result Body Mass Index 20.1 General: AO X 3, no acute distress Resp: CTA bilateral, no accessory muscles used CVS: S1,S2,RRR GI: soft, non tender, non distended Neuro: motor grossly intact, alert Psych: appropriate affect, appropriate insight Objective Data Active Medications Acetaminophen (Acetaminophen 325 Mg Tablet) 650 mg PO Q6H PRN PRN Reason: Pain, Mild (Pain Scale 1-3) Albuterol Sulfate (Albuterol Sulfate (0.083%) 2.5 Mg/3 Ml Vial.Neb) 2.5 mg INHALE ONCE PRN PRN Reason: Wheezing Albuterol Sulfate (Albuterol Sulfate 90 Mcg 8 Gm Inhaler) 2 puff INHALE QID [facility] Last Admin: 04/18/23 08:12 Dose: 2 puff Documented By: GERARDO Alprazolam (Alprazolam 0.25 Mg Tablet) 0.25 mg PO TID PRN PRN Reason: Anxiety Last Admin: 04/18/23 08:36 Dose: 0.25 mg Documented By: JAN Atorvastatin Calcium (Atorvastatin Calcium 10 Mg Tablet) 10 mg PO BEDTIME [facility] Docusate Sodium (Docusate Sodium 100 Mg Capsule) 100 mg PO BID [facility] Last Admin: 04/18/23 08:36 Dose: 100 mg Documented By: JAN Enoxaparin Sodium (Enoxaparin Sodium 30 Mg/0.3 Ml Syringe) 30 mg SUBCUT Q24H [facility] Last Admin: 04/17/23 14:36 Dose: 30 mg Documented By: SEBASTIEN Ergocalciferol (Ergocalciferol (Vitamin D2) 1,250 Mcg Capsule) 1,250 mcg PO Q14D [facility] Cefazolin Sodium/Dextrose (Ancef) 2 gm in 50 mls @ 100 mls/hr IV Q8H [facility] Stop: 04/18/23 11:01 Last Infusion: 04/18/23 02:51 Dose: 0 mls/hr Documented By: THEODORE Morphine Sulfate (Morphine Sulfate 2 Mg/Ml Cartridge) 2 mg IVPUSH Q2H PRN; Protocol PRN Reason: moderate pain Last Admin: 04/18/23 08:55 Dose: 2 mg Documented By: JAN Morphine Sulfate (Morphine Sulfate 2 Mg/Ml Cartridge) 1 mg IVPUSH Q4H PRN PRN Reason: Pain, Moderate(Pain Scale 4-6) Non-Formulary Medication (Olopatadine) 1 drop EYE-BOTH BID [facility] Nortriptyline HCl (Nortriptyline Hcl 10 Mg Capsule) 30 mg PO BEDTIME [facility] Last Admin: 04/17/23 21:04 Dose: 30 mg Documented By: THEODORE Ondansetron HCl (Ondansetron Hcl 4 Mg/2 Ml Vial) 4 mg IVPUSH Q8H PRN PRN Reason: Nausea and Vomiting Last Admin: 04/18/23 03:54 Dose: 4 mg Documented By: THEODORE Oxycodone HCl (Oxycodone Hcl Immed Release 5 Mg Tablet) 5 mg PO Q4H PRN PRN Reason: Pain, Severe (Pain Scale 7-10) Last Admin: 04/18/23 03:45 Dose: 5 mg Documented By: THEODROE Pharmacy Consult (Consult Rx Perform Med Rec) 1 each MISCELLANE ONCE PRN PRN Reason: Consult order Sertraline HCl (Sertraline Hcl 50 Mg Tablet) 50 mg PO DAILY [facility] Last Admin: 04/18/23 08:36 Dose: 50 mg Documented By: JAN Sodium Chloride (0.9 % Sodium Chloride Flush 3 Ml Syringe) 3 ml IVFLUSH QSRIFT [facility] Last Admin: 04/18/23 08:27 Dose: 3 ml Documented By: JAN Sodium Chloride (0.9 % Sodium Chloride Flush 3 Ml [facility]ringe) [facility] Last Admin: 04/18/23 08:27 Dose: Not Given Documented By: JAN Non-Admin Reason: Duplicate Order Labs 04/18/23 05:55 04/18/23 05:55 Labs: Laboratory Results - last 24 hr 04/18/23 04/18/23 05:55 05:55 MCV 98.1 H MCH 31.2 MCHC 31.8 RDW 13.3 Plt Count 125 L MPV 10.5 Absolute Nucleated RBC 0.000 Nucleated RBC % (auto) 0.0 Anion Gap 12 Estim Creat Clear Calc 26.9 Estimated GFR 38 Fasting Glucose 120 H Calcium 8.4 D Assessment and Plan (1) Intertrochanteric fracture of right hip: Status: Acute Plan 78F PMH CKD III, depression/anxiety, COPD, presented with mechanical fall, found to have right hip fracture acute right femur fracture due to mechanical fall POD 1 PT pain control CKD III stable COPD continue inhalers stable depression/anxiety xanax, sertraline, nortriptyline essential tremor primidone (awaiting dose verigication) DNR/DNI reason for continued hospitalization:pain controle, pt Time Spent With Patient Time: Total time managing care of this patient today ____ minutes. Quality Stroke Does the patient have a stroke diagnosis?: No VTE Prior VTE?: No VTE Risk Level:: Medical - moderate - high VTE Device Contraindication: N/A - Device Ordered VTE Drug Contraindication: Treatment Not Tolerated
[2023-04-18] MEDS: Enoxaparin Sodium 30 MG/0.3 ML SYRINGE SUBCUT (11:54)
--- NOTE | 2023-04-18 15:09 | PC.NURSE ---
Pt OOB to recliner most of day. Drowsy but arousable. Denies pain at this time. Encouraged to take po.
--- NOTE | 2023-04-18 15:35 | MHC.CM.PN ---
pt unarousable called and spoke to who reports that they had no services prior to admission he is agreeable to pt recommendations for str referrals [facility] pt feels that pt must have a hcp..pt has been at [facility] in the past
--- NOTE | 2023-04-18 17:37 | PC.NURSE ---
Spencer removed at 1715. DTV #[id number]
[2023-04-18] MEDS: Nortriptyline HCl 10 MG CAPSULE 30 MG PO (20:33)
[2023-04-18] MEDS: Atorvastatin Calcium 10 MG TABLET PO (20:34)
--- NOTE | 2023-04-18 20:57 | HO.POSTANES ---
Post Anesthesia Evaluation Post Anesthesia Evaluation Date of Service: 04/18/23 Vital Signs: Vital Signs Temp Pulse Resp BP Pulse Ox O2 Del Method 04/18/23 19:00 97.0 F 97 15 110/52 L 90 L Room Air 04/18/23 17:25 100 16 04/18/23 15:00 97 F 100 16 130/60 92 Room Air 04/18/23 11:00 97.0 F 70 16 130/50 L 93 Room Air Anesthesia: General Mental Status: Awake Pain Control: Satisfactory Nausea/Vomiting: None Hydration: Adequate Anesthesia-Related Issues: No Anes. Related Issues
--- NOTE | 2023-04-18 20:57 | HO.POSTANES ---
Post Anesthesia Evaluation Post Anesthesia Evaluation Date of Service: 04/17/23 Vital Signs: Vital Signs Temp Pulse Resp BP Pulse Ox O2 Del Method 04/18/23 19:00 97.0 F 97 15 110/52 L 90 L Room Air 04/18/23 17:25 100 16 04/18/23 15:00 97 F 100 16 130/60 92 Room Air 04/18/23 11:00 97.0 F 70 16 130/50 L 93 Room Air Anesthesia: General Mental Status: Awake Pain Control: Satisfactory Nausea/Vomiting: None Hydration: Adequate Anesthesia-Related Issues: No Anes. Related Issues
[2023-04-19 00:09] VITALS: PULSE 94; RESP 18; O2SAT 92
[2023-04-19 03:22] VITALS: BP 130/50; PULSE 96; RESP 20; TEMP 36.2; O2SAT 93
[2023-04-19] MEDS: Acetaminophen 325 MG TABLET 650 MG PO (06:32)
[2023-04-19 07:14] VITALS: BP 126/58; PULSE 84; RESP 18; TEMP 36.1; O2SAT 100
[2023-04-19] MEDS: Sertraline HCL 50 MG TABLET PO (08:04)
[2023-04-19] MEDS: Docusate Sodium 100 MG CAPSULE PO (08:04)
[2023-04-19] MEDS: oxyCODONE HCl Immed Release 5 MG TABLET PO ×2 (08:04→13:45)
--- NOTE | 2023-04-19 08:07 | P.PNOP_ITS ---
Subjective Subjective Date of Service: 04/19/23 Interval history: POD2 s/p Rt hip IM Nail. Patient is resting in bed comfortably. No overnight events. Pain is managed. No additional complaints. Physical Exam Vital Signs: Vital Signs: Last Vital Signs Temp 97 F 04/19/23 07:14 Pulse 84 04/19/23 07:14 Resp 18 04/19/23 07:14 BP 126/58 L 04/19/23 07:14 Pulse Ox 100 04/19/23 07:14 O2 Del Method Nasal Cannula 04/19/23 07:14 O2 Flow Rate 2 04/19/23 07:14 BMI result Body Mass Index 20.1 Extrem: Other: Aquacel is clean dry and intact. Marcos intact. No erythema or effusion. Calf supple nontender. NVI. Procedures Date of Service Date of Service: 04/19/23 Progress Note: A&P Assessment and plan (1) Intertrochanteric fracture of right hip: Status: Acute Assessment and Plan: * Continue pain mgmnt * Continue lovenox for dvt ppx * Continue PT /OT for Rt hip IMN * Dispo planning- PT, pain mgmnt, rehab placement. Cleared to D/C from ortho perspective. Time Spent With Patient Time: Total time managing care of this patient today ____ minutes. Quality Stroke Does the patient have a stroke diagnosis?: No VTE Prior VTE?: No VTE Risk Level:: Medical - moderate - high VTE Device Contraindication: N/A - Device Ordered VTE Drug Contraindication: Treatment Not Tolerated
[2023-04-19] MEDS: Albuterol Sulfate 90 MCG 8 GM INHALER 2 PUFF INHALE ×2 (08:08→11:19)
[2023-04-19] MEDS: ALPRAZolam 0.25 MG TABLET PO (08:13)
[2023-04-19 08:15] VITALS: PULSE 88; RESP 16; O2SAT 92
--- NOTE | 2023-04-19 10:29 | PM.DS ---
DS: Providers Provider Date of Service: 04/19/23 Date of admission: 04/17/23 08:05 Primary care physician: Ryley Varela MD DS: Diagnosis Discharge Diagnosis (1) Intertrochanteric fracture of right hip: Status: Acute DS: Summary Hospital Course Hospital Course: from initial hpi: 78F PMH CKD III, essential tremor, depression/anxiety, COPD, presented with right hip pain. patient was sleep deprived, feeling weak and tired and was carrying multiple items, she lost balance and fell backwards. had right sided hip pain. in ED found to have Comminuted intertrochanteric fracture of the right femur. patient denies LOC, chest pain, sob, fever, chills. hospital course: Patient was admitted for acute right femur fracture due to mechanical fall. She underwent right hip IMN 04/17/23. Postop course was unremarkable. Patient will continue physical therapy at rehab. For CKD 3 her creatinine remained stable. For COPD she was continue inhalers and remained stable. For depression anxiety she was continued on Xanax, sertraline, amitriptyline. Time Spent with Patient Time attestation: Total time managing care of this patient today ____ minutes. Discharge coordination time: Greater than 30 minutes Quality: Safe Use of Opioids Does Pt have an Active Cancer Diagnosis on the Problem List?: No Quality: Stroke Does the patient have a stroke diagnosis?: No Physical Exam Vital Signs: Vital Signs: Last Vital Signs Temp 97 F 04/19/23 07:14 Pulse 88 04/19/23 08:15 Resp 16 04/19/23 08:15 BP 126/58 L 04/19/23 07:14 Pulse Ox 100 04/19/23 07:14 O2 Del Method Room Air 04/19/23 09:47 O2 Flow Rate 2 04/19/23 07:14 BMI result Body Mass Index 20.1 Extrem: Other: Aquacel is clean dry and intact. Trenary intact. No erythema or effusion. Calf supple nontender. NVI. Discharge Plan Discharge Anticipated Discharge Date/Time: 04/19/23 10:27 Patient Disposition: Xfer SNF Discharge Diagnosis: fall hip fracture Referrals: Ryley Varela MD [Primary Care Provider] - 1 Week Discharge Medications: New enoxaparin 30 mg/0.3 mL Syringe 30 mg subcut Q24H Qty: 0 0RF oxycodone 5 mg Tablet 5 mg PO Q4H PRN (Reason: Pain, Severe (Pain Scale 7-10)) Qty: 15 0RF Rx Instructions: Partial Fill upon patient request. Continued atorvastatin 10 mg tablet 1 tab PO DAILY alprazolam 0.5 mg tablet 0.5 tab PO BID-TID PRN (Reason: Anxiety) nortriptyline 10 mg capsule 3 cap PO BEDTIME olopatadine 0.1 % drops 1 drp ophthalmic (eye) BID ergocalciferol (vitamin D2) 1,250 mcg (50,000 unit) capsule 1 cap PO Q2W sertraline 50 mg tablet 1 tab PO DAILY estradiol 0.01 % (0.1 mg/gram) cream 1 g vaginal 2XW albuterol sulfate 90 mcg/actuation HFA aerosol inhaler 2 puff inhalation QID fluticasone propionate 50 mcg/actuation [place],Suspension 1 spray INTRANASAL BID PRN (Reason: Allergy Symptoms) Rx Instructions: administer into each nostril Discharge Orders: Discharge Order (Routine); Ordered 04/19/23 Ordered By: Miguel Newell Diet: Advance to usual diet Activity on Discharge: As tolerated Stand Alone Forms: Patient Portal Discharge page Care Plan Goals: recovery Health Concerns: hip fracture Plan of Treatment: pt Assessment: see above
[2023-04-19 11:22] VITALS: PULSE 83; RESP 16; O2SAT 90
--- NOTE | 2023-04-19 11:39 | MHC.CM.PN ---
IMM 04/18/23 Patient s/p fall rt hi[ fx s/p IMN 04/17. Patient has been accepted by [facility]. Patient will discharge to [facility] via BLS @ 2pm today.
[2023-04-19] MEDS: Enoxaparin Sodium 30 MG/0.3 ML SYRINGE SUBCUT (12:17)
[2023-04-19 12:47] VITALS: BP 115/54; PULSE 96
== END 2023-04-19 14:32 | DRG 482 ==
LOC: HO.ED 06:34 → HO.EDOVER 08:20 → HO.S3 08:33
PROVIDERS: Orthopaedic Surgery; Admitting Provider Internal Medicine; Emergency Provider Student in an Organized Health Care Education/Training Program; PCP Internal Medicine; Visit Provider Internal Medicine
PROC: 0QS636Z Reposition Right Upper Femur with Intramedullary Internal Fixation Device, Percutaneous Approach (ICD-10-PCS; principal; 2023-04-17 10:30)
DX: S72.141A Displaced intertrochanteric fracture of right femur, initial encounter for closed fracture (principal); N18.30 Chronic kidney disease, stage 3 unspecified; E78.5 Hyperlipidemia, unspecified; W19.XXXA Unspecified fall, initial encounter; F41.9 Anxiety disorder, unspecified; F32.A Depression, unspecified; G25.0 Essential tremor; Z66 Do not resuscitate; J44.9 Chronic obstructive pulmonary disease, unspecified; F17.210 Nicotine dependence, cigarettes, uncomplicated; Z71.6 Tobacco abuse counseling; Z79.899 Other long term (current) drug therapy
CPT/HCPCS: 36415; 71045; 73502; 73560; 80048; 80053; 85025; 85027; 85610; 86850; 86900; 86901; 93005; 94640; 97161; 97165; 97530; 97535; 99285; C1713; C1769; J0131; J0690; J1100; J1650; J2270; J2370; J2371; J2405; J2795; J3010

== ENCOUNTER → 2023-04-17 04:19 | Outpatient (BNV) | payer MEDICARE, SELFPAY | PROVIDERS: Emergency Provider Student in an Organized Health Care Education/Training Program; PCP Internal Medicine; Visit Provider Internal Medicine | DX: S72.141A Displaced intertrochanteric fracture of right femur, initial encounter for closed fracture (principal) | CPT/HCPCS: 99223; 99232; 99239 ==

== ENCOUNTER → 2023-04-17 06:32 | Outpatient (BNV) | payer MEDICARE, SELFPAY | PROVIDERS: Admitting Provider Internal Medicine; Emergency Provider Student in an Organized Health Care Education/Training Program; PCP Internal Medicine; Visit Provider Internal Medicine Cardiovascular Disease | DX: S72.141A Displaced intertrochanteric fracture of right femur, initial encounter for closed fracture (principal) | CPT/HCPCS: 93010 ==

== ENCOUNTER → 2023-04-17 08:05 | Outpatient (BNV) | payer MEDICARE, SELFPAY | PROVIDERS: Admitting Provider Internal Medicine; Emergency Provider Student in an Organized Health Care Education/Training Program; PCP Internal Medicine; Visit Provider Orthopaedic Surgery | DX: S72.141A Displaced intertrochanteric fracture of right femur, initial encounter for closed fracture (principal) | CPT/HCPCS: 27245; 99231; 99232 ==

== ENCOUNTER 2023-04-28 10:44 | Outpatient (AMB) | payer MEDICARE, SELFPAY ==
--- NOTE | 2023-04-28 10:56 | A.OFFVIS_ITS ---
Intake Intake Visit Reasons: right hip IMN 04/17/23. Intake Note: Destiny 78 yr old female presents today s/p right hip IMN from 04/17/23. States she is experiencing pain with certain movements. Patient is currently working with [employer] but states it has been rough since she is recuperating from pneumonia. She denies any fevers or chills. Allergies prochlorperazine [From COMPAZINE] Allergy (Severe, Verified 04/28/23 11:07) Anaphylaxis aspirin [ASPIRIN] Adverse Reaction (Severe, Verified 04/28/23 11:07) Kidney failure Medication List - Last Reconciled 04/28/23 by Hay Costa MD albuterol sulfate 90 mcg/actuation 2 puffs inhalation QID alprazolam 0.5 tabs PO BID-TID PRN atorvastatin 1 tab PO DAILY enoxaparin 30 mg (0.3 mL) subcut Q24H ergocalciferol (vitamin D2) 1 cap PO Q2W estradiol 0.01%(0.1mg/gram) 1 g vaginal 2XW fluticasone propionate 50 mcg/actuation 1 spray intranasal BID PRN nortriptyline 3 caps PO BEDTIME olopatadine 0.1% 1 drp ophthalmic (eye) BID oxycodone 5 mg PO Q4H PRN sertraline 1 tab PO DAILY PFSH Medical History Abnormal colonoscopy Anxiety Arthritis CKD (chronic kidney disease) COPD (chronic obstructive pulmonary disease) Depression Enteropathogenic Escherichia coli infection Essential tremor HTN (hypertension) Hyperlipidemia Internal hemorrhoids Sigmoid diverticulosis Tubular adenoma of colon Vertigo Surgical History H/O arthroscopy of left knee History of ankle surgery History of ear surgery History of thumb surgery Social History Household Members: Spouse Housing: House Are you a primary urgent care to a significant other at home: No Do you presently have visiting nurse or other home services: No Alcohol intake: never Patient Tobacco Use Status: Current someday Tobacco user Tobacco use type: Cigarette Cigarette Packs Per Day: 0.5 Cigarettes Per Day: 8 Years Smoked: 40 service: No Physical Exam Const Other: Well-nourished well-developed very friendly female awake alert and oriented x3 in no acute distress Extrem Other: Right hip examination shows that the surgical incisions are healing well, no erythema, minimal diffuse swelling, mild discomfort with range of motion Results Reviewed Results Reviewed: X-rays of the patient's right hip taken today show a short gamma nail in good position with no signs of loosening, good fracture reduction with minimal displacement Assessment & Plan Assessment & Plan (1) Intertrochanteric fracture of right hip: Code(s): S72.141A - Displaced intertrochanteric fracture of right femur, initial enc ounter for closed fracture Plan: Ms. Yadav is doing well after undergoing open reduction and internal fixation with placement of a short gamma nail of her right hip fracture on 04/17/2023. Her kavya were removed and Steri-Strips placed over her incisions. She will continue weight-bearing as tolerated. She does not have any hip replacement precautions. She will contact me prior to her follow-up appointment in 6 weeks should any questions or concerns arise. Feel free to call me at any time should questions regarding her orthopedic management arise. Orders: Orders XR hip RT min 2V Today M25.551 - Pain in right hip Coding Level of Care Code Global (43140) Diagnoses Intertrochanteric fracture of right hip S72.141A
== END 2023-04-28 11:26 | disposition home or self-care (01) ==
PROVIDERS: PCP Internal Medicine; Visit Provider Orthopaedic Surgery
DX: S72.141A Displaced intertrochanteric fracture of right femur, initial encounter for closed fracture (principal)
CPT/HCPCS: 99024

== ENCOUNTER 2023-04-28 11:36 | Outpatient (REF) | payer OTHER, MEDICARE, SELFPAY ==
--- NOTE | ~2023-04-28 | XR_ITS ---
EXAMINATION: XR HIP, RIGHT CLINICAL INFORMATION: Right hip pain COMPARISON: 04/17/2023 TECHNIQUE: Two views of the right hip. FINDINGS: Patient status post compression screw and medullary doreen placement for comminuted intertrochanteric fracture proximal right femur with displacement of lesser tuberosity and subtrochanteric fracture fragments medially. No dislocation is noted. Skin kavya present. Contrast within colon is noted. XR/XR hip RT min 2V IMPRESSION: Status post compression screw and medullary doreen placement for comminuted proximal right femoral fracture.
== END 2023-04-28 11:37 | disposition home or self-care (01) ==
LOC: HO.HOSX 11:36
PROVIDERS: Visit Provider Orthopaedic Surgery
DX: S72.141D Displaced intertrochanteric fracture of right femur, subsequent encounter for closed fracture with routine healing (principal)
CPT/HCPCS: 73502

== ENCOUNTER 2023-05-17 14:24 | Outpatient (REF) | payer MEDICARE, SELFPAY ==
[2023-05-17 16:09] LABS: MANUAL DIFF FLAG NO
[2023-05-17 16:21] LABS: Basophils Absolute Auto 0.1 X10*3/uL (0.0-0.2); Eosinophils Absolute Auto 0.2 X10*3/uL (0.0-0.4); Eosinophils Percent Auto 3.8 % (0-4); Hematocrit 34.3 % (37.0-47.0); Hemoglobin 10.4 g/dl (12.0-16.0); Imm Gran Abs Auto 0.04 X10*3/uL (0.00-0.03); Imm Gran Pct Auto 0.7 % (0.0-0.4); Lymphocytes Absolute Auto 0.6 X10*3/uL (1.2-4.9); Lymphocytes Percent Auto 10.3 % (20-40); Mean Corpuscular HGB Conc 30.3 g/dl (31.0-35.0); Mean Corpuscular Volume 102.4 fL (80.0-98.0); Mean Platelet Volume 10.8 fL (9.4-12.3); Monocytes Absolute Auto 0.6 X10*3/uL (0.1-1.2); Neutrophils Absolute Auto 4.5 x10*3/uL (2.0-8.3); Neutrophils Percent Auto 74.2 % (45-73); Platelet Count 226 X10*3/uL (160-400); Red Blood Count 3.35 X10*6/uL (4.20-5.50); Red Cell Distribution Width 14.9 % (11.0-16.0); White Blood Count 6.1 X10*3/uL (4.8-10.8)
[2023-05-17 16:52] LABS: Alanine Aminotransferase 14 U/L (0-31); Albumin Level 3.6 g/dL (3.5-5.0); Alkaline Phosphatase 169 U/L (39-117); Anion Gap 14 (12-20); Aspartate Amino Transferase 16 U/L (5-31); Bilirubin Total 0.5 mg/dL (0.0-1.0); Blood Urea Nitrogen 21 mg/dL (9-16); Calcium 9.5 mg/dL (8.4-10.2); Carbon Dioxide 26 mmol/L (22-29); Chloride 106 mmol/L (96-108); Estimated Glomerular Filt Rate 30; Glucose Random 114 mg/dL (60-115); Iron 53 mcg/dL (30-160); Percent Iron Saturation 24 % (15-50); Potassium 3.9 mmol/L (3.3-5.1); Sodium 142 mmol/L (135-145); Total Iron Binding Capacity 225 mcg/dL (228-428); Total Protein 6.5 g/dL (6.5-8.0); Unsaturated Iron Binding 172 ug/dL
[2023-05-17 17:11] LABS: Vitamin D 25-OH Total 31.5 ng/mL (>30)
== END 2023-05-17 14:25 | disposition home or self-care (01) ==
LOC: HO.HMGCLDS 14:24
PROVIDERS: PCP Internal Medicine; Visit Provider Internal Medicine
DX: J44.9 Chronic obstructive pulmonary disease, unspecified (principal); E55.9 Vitamin D deficiency, unspecified; N18.9 Chronic kidney disease, unspecified; D63.1 Anemia in chronic kidney disease; K21.9 Gastro-esophageal reflux disease without esophagitis
CPT/HCPCS: 36415; 80053; 82306; 83540; 85025

== ENCOUNTER 2023-06-09 07:26 | Outpatient (REF) | payer MEDICARE, SELFPAY ==
--- NOTE | ~2023-06-09 | XR_ITS ---
EXAMINATION: XR HIP, RIGHT CLINICAL INFORMATION: Right hip pain COMPARISON: 04/28/2023. TECHNIQUE: Two views of the right hip. FINDINGS: The acetabular and pubic margins are intact. Right femoral doreen as well and hip screw are again noted to be in position, appearing stable. There are right lesser trochanteric fragments, not significantly changed. Small spurring of the left greater trochanter is seen. There is bony demineralization. XR/XR hip RT min 2V IMPRESSION: Stable osseous alignment since the previous evaluation. Postoperative changes.
== END 2023-06-09 07:27 | disposition home or self-care (01) ==
LOC: HO.HOSX 07:26
PROVIDERS: Visit Provider Orthopaedic Surgery
DX: M25.551 Pain in right hip (principal)
CPT/HCPCS: 73502

== ENCOUNTER 2023-06-09 12:45 | Outpatient (AMB) | payer MEDICARE, SELFPAY ==
--- NOTE | 2023-06-09 12:48 | A.OFFVIS_ITS ---
Intake Vital Signs 06/09/23 13:03 Height 5 ft 2 in Weight 104 lb BMI 19.0 Intake Visit Reasons: PO- RT hip IMN, 04/17/23 Intake Note: Destiny 78 yr old female presents today for her s/p right hip IMN from 04/17/[address] Costa. Patient states she is having muscle pain from her groin to her thigh and leg. Reports she is doing In home therapy and today is her first time using a cane vs walker since surgery. She denies any fevers or chills. She takes Tylenol or tramadol as needed for her discomfort. Allergies prochlorperazine [From COMPAZINE] Allergy (Severe, Verified 06/09/23 12:48) Anaphylaxis aspirin [ASPIRIN] Adverse Reaction (Severe, Verified 06/09/23 12:48) Kidney failure Medication List - Last Reconciled 06/09/23 by Hay Costa MD albuterol sulfate 90 mcg/actuation 2 puffs inhalation QID alprazolam 0.5 tabs PO BID-TID PRN atorvastatin 1 tab PO DAILY enoxaparin 30 mg (0.3 mL) subcut Q24H ergocalciferol (vitamin D2) 1 cap PO Q2W estradiol 0.01%(0.1mg/gram) 1 g vaginal 2XW fluticasone propionate 50 mcg/actuation 1 spray intranasal BID PRN nortriptyline 3 caps PO BEDTIME olopatadine 0.1% 1 drp ophthalmic (eye) BID oxycodone 5 mg PO Q4H PRN sertraline 1 tab PO DAILY PFSH Medical History Abnormal colonoscopy Anxiety Arthritis CKD (chronic kidney disease) COPD (chronic obstructive pulmonary disease) Depression Enteropathogenic Escherichia coli infection Essential tremor HTN (hypertension) Hyperlipidemia Internal hemorrhoids Sigmoid diverticulosis Tubular adenoma of colon Vertigo Surgical History H/O arthroscopy of left knee History of ankle surgery History of ear surgery History of thumb surgery Social History Household Members: Spouse Housing: House Are you a primary child day care center worker to a significant other at home: No Do you presently have visiting nurse or other home services: No Alcohol intake: never Patient Tobacco Use Status: Current someday Tobacco user Tobacco use type: Cigarette Cigarette Packs Per Day: 0.5 Cigarettes Per Day: 8 Years Smoked: 40 service: No Physical Exam Extrem Other: The physical examination of the patient's right hip shows that the surgical incisions are well healed, no erythema, minimal discomfort with range of motion, mild tenderness over her bursa Results Reviewed Results Reviewed: X-rays of the patient's right hip taken today show a short gamma nail in good position with no signs of loosening, good fracture reduction, early callus formation at the fracture site Assessment & Plan Assessment & Plan (1) Right hip pain: Code(s): M25.551 - Pain in right hip Plan: Ms. Yadav is doing very well after undergoing open reduction and internal fixation of her right hip intertrochanteric fracture with placement of a short gamma nail on 04/17/2023. She will continue with her home exercise program. She will walk with her cane or walker as needed to help prevent further falls. She will contact me prior follow-up appointment in 6 days a week should any questions or concerns arise. Feel free to call me at any time should questions regarding her orthopedic management arise. Orders: Orders XR hip RT min 2V Today M25.551 - Pain in right hip Coding Level of Care Code Global (22882) Diagnoses Right hip pain M25.551
[2023-06-09 13:03] VITALS: BMI 19.0
== END 2023-06-09 13:22 | disposition home or self-care (01) ==
PROVIDERS: PCP Internal Medicine; Visit Provider Orthopaedic Surgery
DX: S42.141D Displaced fracture of glenoid cavity of scapula, right shoulder, subsequent encounter for fracture with routine healing (principal)
CPT/HCPCS: 99024

== ENCOUNTER 2023-06-23 15:14 | Outpatient (REF) | payer MEDICARE, SELFPAY ==
--- NOTE | ~2023-06-23 | XR_ITS ---
EXAMINATION: XR CHEST CLINICAL INFORMATION: Shortness of breath, COPD. COMPARISON: Chest radiograph 04/17/2023. TECHNIQUE: 2 views of the chest were obtained. FINDINGS: Unchanged cardiomediastinal silhouette. Redemonstration of pulmonary hyperexpansion with chronic interstitial thickening in keeping with history of COPD and air-trapping. New approximately 1.7 cm nodular-like opacity projecting over the left lower lobe. No pleural effusion or pneumothorax. Thoracic spondylosis. No acute osseous findings. XR/XR chest 2V IMPRESSION: Nonspecific nodular-like opacity in the left lower lung. Recommend further evaluation with outpatient chest CT to rule out malignancy. Chronic interstitial thickening and pulmonary hyperexpansion suggesting COPD and air-trapping. The report will be called to the ordering clinician by a [facility] [employer].
--- NOTE | ~2023-06-23 | US_ITS ---
EXAMINATION: US VENOUS ULTRASOUND WITH DOPPLER LOWER EXTREMITY, RIGHT CLINICAL INFORMATION: Right leg edema COMPARISON: None available. TECHNIQUE: Ultrasound of the deep veins is performed from the hip to the calf with compression sonography and color and pulse Doppler assessment. Spectral analysis with color-flow imaging is performed. FINDINGS: There is normal venous compression and respiratory variation and augmented flow. The visualized common femoral vein, superficial femoral vein, profunda femoral vein, popliteal vein, and the trifurcation region shows no evidence of deep venous thrombosis. There is no significant popliteal fossa cyst. US/US venous duplex LE RT IMPRESSION: No DVT demonstrated in the right lower extremity.
[2023-06-23 16:09] LABS: MANUAL DIFF FLAG NO
[2023-06-23 16:22] LABS: Basophils Absolute Auto 0.1 X10*3/uL (0.0-0.2); Eosinophils Absolute Auto 0.2 X10*3/uL (0.0-0.4); Eosinophils Percent Auto 2.6 % (0-4); Hematocrit 39.9 % (37.0-47.0); Hemoglobin 12.5 g/dl (12.0-16.0); Imm Gran Abs Auto 0.02 X10*3/uL (0.00-0.03); Imm Gran Pct Auto 0.3 % (0.0-0.4); Lymphocytes Absolute Auto 1.3 X10*3/uL (1.2-4.9); Lymphocytes Percent Auto 18.5 % (20-40); Mean Corpuscular HGB Conc 31.3 g/dl (31.0-35.0); Mean Corpuscular Hemoglobin 29.6 pg (27.0-33.0); Mean Corpuscular Volume 94.3 fL (80.0-98.0); Mean Platelet Volume 9.5 fL (9.4-12.3); Monocytes Absolute Auto 0.7 X10*3/uL (0.1-1.2); Monocytes Percent Auto 9.9 % (2-11); Neutrophils Absolute Auto 4.7 x10*3/uL (2.0-8.3); Neutrophils Percent Auto 67.7 % (45-73); Platelet Count 184 X10*3/uL (160-400); Red Blood Count 4.23 X10*6/uL (4.20-5.50); Red Cell Distribution Width 13.3 % (11.0-16.0); White Blood Count 6.9 X10*3/uL (4.8-10.8)
[2023-06-23 16:52] LABS: Alanine Aminotransferase 10 U/L (0-31); Albumin Level 4.1 g/dL (3.5-5.0); Alkaline Phosphatase 139 U/L (39-117); Anion Gap 14 (12-20); Aspartate Amino Transferase 15 U/L (5-31); Bilirubin Total 0.4 mg/dL (0.0-1.0); Blood Urea Nitrogen 23 mg/dL (9-16); Calcium 9.8 mg/dL (8.4-10.2); Carbon Dioxide 29 mmol/L (22-29); Chloride 105 mmol/L (96-108); Estimated Glomerular Filt Rate 28; Glucose Random 108 mg/dL (60-115); Iron 59 mcg/dL (30-160); Percent Iron Saturation 23 % (15-50); Potassium 4.5 mmol/L (3.3-5.1); Sodium 143 mmol/L (135-145); Total Iron Binding Capacity 256 mcg/dL (228-428); Total Protein 6.8 g/dL (6.5-8.0); Unsaturated Iron Binding 197 ug/dL
[2023-06-23 17:15] LABS: Vitamin B12 614 pg/mL (200-900)
== END 2023-06-23 15:15 | disposition home or self-care (01) ==
LOC: HO.US 15:14
PROVIDERS: PCP Internal Medicine; Visit Provider Internal Medicine
DX: R22.41 Localized swelling, mass and lump, right lower limb (principal); D64.9 Anemia, unspecified; R06.02 Shortness of breath; J44.9 Chronic obstructive pulmonary disease, unspecified; N18.9 Chronic kidney disease, unspecified; K21.9 Gastro-esophageal reflux disease without esophagitis
CPT/HCPCS: 36415; 71046; 80053; 82607; 83540; 85025; 93971

== ENCOUNTER 2023-07-04 13:52 | Outpatient (REF) | payer MEDICARE, SELFPAY ==
--- NOTE | ~2023-07-04 | CT_ITS ---
EXAMINATION: CT CHEST WITHOUT CONTRAST CLINICAL INFORMATION: Possible pulmonary nodule on chest x-ray. Pleural effusion. COMPARISON: Chest x-ray 06/23/2023. TECHNIQUE: Multidetector volumetric CT imaging of the chest was done. Axial MIP volume rendering provided. Sagittal and coronal reformatted images were obtained. This CT examination was performed using dose optimization techniques as appropriate, variously including the following: *Automated exposure control *Adjustment of mA and/or kV according to patient size (this includes techniques or standardized protocols for targeted exams where dose is matched to indication/reason for exam; i.e. extremities or head) *Use of iterative reconstruction technique DLP: 147 mGy-cm FINDINGS: LUNGS: Severe centrilobular emphysema. Airway wall thickening and cylindrical bronchiectasis. The finding on chest x-ray corresponds to an irregular platelike consolidation with a nodular component measuring 9 x 7 mm at its apical aspect. Based on the appearance on the sagittal and coronal image this is most likely inflammatory but short-term follow-up will be necessary. There are scattered micronodules measuring less than 3 mm bilaterally. Scarring in the posterior right upper lobe. MEDIASTINUM: No adenopathy. No pericardial effusion. Ascending aortic aneurysm measuring 4.1 x 4.0 cm. CORONARY ARTERY CALCIFICATION: LAD and LCx calcium. PLEURA: There is no pleural effusion. No pleural mass or thickening. AXILLA: No lymphadenopathy. UPPER ABDOMEN: Unremarkable. OSSEOUS STRUCTURES: Degenerative changes in the spine. Osteopenia. CT/CT chest wo IV con IMPRESSION: 9 x 7 mm nodular component of platelike consolidation in the left lower lobe corresponds to the finding on recent chest x-ray. This is most likely infectious or inflammatory based on its appearance on sagittal and coronal imaging, however given the severe background emphysema follow-up is necessary. Recommend short-term follow-up noncontrast chest CT in 3 months. Fleischner guidelines were followed.
== END 2023-07-04 13:53 | disposition home or self-care (01) ==
LOC: HO.CT 13:52
PROVIDERS: Visit Provider Internal Medicine
DX: J90 Pleural effusion, not elsewhere classified (principal)
CPT/HCPCS: 71250

== ENCOUNTER 2023-08-03 12:08 | Outpatient (REF) | payer MEDICARE, SELFPAY ==
--- NOTE | ~2023-08-03 | XR_ITS ---
EXAMINATION: XR HIP, RIGHT CLINICAL INFORMATION: Right hip pain. COMPARISON: 06/09/2023. TECHNIQUE: 2 views of the right hip. FINDINGS: An intramedullary doreen and screw is present in the right hip. Hardware is intact. Appearances are not significantly changed when compared to 06/09/2023. Again noted is avulsion of the lesser trochanter. No other pelvic fractures are seen. Incidental note made of some mild degenerative changes in the left hip. XR/XR hip RT min 2V IMPRESSION: Intramedullary doreen and screw in the right hip with avulsion of the lesser trochanter with stable appearance when compared to prior.
== END 2023-08-03 12:09 | disposition home or self-care (01) ==
LOC: HO.HOSX 12:08
PROVIDERS: Visit Provider Orthopaedic Surgery
DX: M25.551 Pain in right hip (principal); Z47.89 Encounter for other orthopedic aftercare; Z79.899 Other long term (current) drug therapy; Z98.890 Other specified postprocedural states
CPT/HCPCS: 73502; 99212

== ENCOUNTER 2023-08-03 12:59 | Outpatient (AMB) | payer MEDICARE, SELFPAY ==
--- NOTE | 2023-08-03 13:35 | A.OFFVIS_ITS ---
Intake Intake Visit Reasons: OV - RT hip IMN, 04/17/23 DR Intake Note: Destniy 78 yr old female presents today for her s/p right hip IMN from 04/17/[address] Costa. Patient states she is doing well, however she feels off balanced. She states that he knee feels like it is going to give out. She denies any fevers or chills. She does not take any medicines for his for her discomfort. Allergies prochlorperazine [From COMPAZINE] Allergy (Severe, Verified 06/09/23 12:48) Anaphylaxis aspirin [ASPIRIN] Adverse Reaction (Severe, Verified 06/09/23 12:48) Kidney failure Medication List - Last Reconciled 08/03/23 by Hay Costa MD albuterol sulfate 90 mcg/actuation 2 puffs inhalation QID alprazolam 0.5 tabs PO BID-TID PRN atorvastatin 1 tab PO DAILY enoxaparin 30 mg (0.3 mL) subcut Q24H ergocalciferol (vitamin D2) 1 cap PO Q2W estradiol 0.01%(0.1mg/gram) 1 g vaginal 2XW fluticasone propionate 50 mcg/actuation 1 spray intranasal BID PRN nortriptyline 3 caps PO BEDTIME olopatadine 0.1% 1 drp ophthalmic (eye) BID oxycodone 5 mg PO Q4H PRN sertraline 1 tab PO DAILY PFSH Medical History Abnormal colonoscopy Anxiety Arthritis CKD (chronic kidney disease) COPD (chronic obstructive pulmonary disease) Depression Enteropathogenic Escherichia coli infection Essential tremor HTN (hypertension) Hyperlipidemia Internal hemorrhoids Sigmoid diverticulosis Tubular adenoma of colon Vertigo Surgical History H/O arthroscopy of left knee History of ankle surgery History of ear surgery History of thumb surgery Social History Household Members: Spouse Housing: House Are you a primary critical care physician to a significant other at home: No Do you presently have visiting nurse or other home services: No Alcohol intake: never Patient Tobacco Use Status: Current someday Tobacco user Tobacco use type: Cigarette Cigarette Packs Per Day: 0.5 Cigarettes Per Day: 8 Years Smoked: 40 service: No Physical Exam Extrem Other: Right hip examination shows that the surgical incision is well healed, no erythema, mild tenderness over bursa, minimal discomfort with range of motion Results Reviewed Results Reviewed: X-rays of the patient's right hip show a short gamma nail in good position with no signs of loosening, callus formation at the intertrochanteric fracture site, no acute bony abnormalities Assessment & Plan Assessment & Plan (1) Right hip pain: Code(s): M25.551 - Pain in right hip Plan Ms. Yadav continues to do well after undergoing open reduction and internal fixation of her right hip intertrochanteric fracture on 04/17/2023. She will continue with her home exercise program. She will contact me prior to her follow-up appointment in 2-3 months should any questions or concerns arise. Feel free to call me at any time should questions regarding her orthopedic management arise. Orders: Orders XR hip RT min 2V Today M25.551 - Pain in right hip Coding Level of Care Code Global (06705) Diagnoses Right hip pain M25.551
== END 2023-08-03 14:06 | disposition home or self-care (01) ==
PROVIDERS: PCP Internal Medicine; Visit Provider Orthopaedic Surgery
DX: S72.141D Displaced intertrochanteric fracture of right femur, subsequent encounter for closed fracture with routine healing (principal)
CPT/HCPCS: 99213

== ENCOUNTER 2023-10-24 14:36 | Outpatient (REF) | payer MEDICARE, SELFPAY ==
[2023-10-24 15:28] LABS: Influenza A PCR NEGATIVE (Negative); Influenza B PCR NEGATIVE (Negative); Resp Syncy Virus RNA Qual PCR NEGATIVE (Negative); SARS COV2 PCR INHOUSE POSITIVE (Negative)
== END 2023-10-24 14:37 | disposition home or self-care (01) ==
LOC: HO.LNP 14:36
PROVIDERS: Visit Provider Internal Medicine
DX: R05.9 Cough, unspecified (principal); R51.9 Headache, unspecified
CPT/HCPCS: 0241U

== ENCOUNTER 2023-11-03 12:54 | Outpatient (AMB) | payer MEDICARE, SELFPAY ==
[2023-11-03 13:21] VITALS: BMI 19.0
--- NOTE | 2023-11-03 13:21 | MHC.OFFVIS ---
Intake Vital Signs 11/03/23 13:21 Height 5 ft 2 in Weight 104 lb BMI 19.0 Intake Visit Reasons: OV-RT hip IMN, 04/17/23 DR-Follow up Intake Note: Destiny is a 78 year old female who presents for a follow up Right hip IMN 04/17/2023 DR. Patient reports her pain at a 3 on the 1-10 pain scale. She is doing well but states her Right knee feels like it gives out. She reports mild intermittent discomfort in her right knee as well. She denies any fevers or chills. She does walk with a cane when she is out of her home. She continues to do her physical therapy exercises on a daily basis. Allergies prochlorperazine [From COMPAZINE] Allergy (Severe, Verified 11/03/23 13:34) Anaphylaxis aspirin [ASPIRIN] Adverse Reaction (Severe, Verified 11/03/23 13:34) Kidney failure Medication List - Last Reconciled 11/03/23 by Hay Costa MD albuterol sulfate 90 mcg/actuation 2 puffs inhalation QID alprazolam 0.5 tabs PO BID-TID PRN atorvastatin 1 tab PO DAILY enoxaparin 30 mg (0.3 mL) subcut Q24H ergocalciferol (vitamin D2) 1 cap PO Q2W estradiol 0.01%(0.1mg/gram) 1 g vaginal 2XW fluticasone propionate 50 mcg/actuation 1 spray intranasal BID PRN nortriptyline 3 caps PO BEDTIME olopatadine 0.1% 1 drp ophthalmic (eye) BID oxycodone 5 mg PO Q4H PRN sertraline 1 tab PO DAILY PFSH Medical History Abnormal colonoscopy Anxiety Arthritis CKD (chronic kidney disease) COPD (chronic obstructive pulmonary disease) Depression Enteropathogenic Escherichia coli infection Essential tremor HTN (hypertension) Hyperlipidemia Internal hemorrhoids Sigmoid diverticulosis Tubular adenoma of colon Vertigo Surgical History H/O arthroscopy of left knee History of ankle surgery History of ear surgery History of thumb surgery Social History (Reviewed 06/09/23 @ 12:48 by Namrata Santillan [facility]) Household Members: Spouse Housing: House Are you a primary patient care specialist to a significant other at home: No Do you presently have visiting nurse or other home services: No Alcohol intake: never Patient Tobacco Use Status: Current someday Tobacco user Tobacco use type: Cigarette Cigarette Packs Per Day: 0.5 Cigarettes Per Day: 8 Years Smoked: 40 service: No Physical Exam Vital Signs: BMI result Body Mass Index 19.0 Const Other: Well-nourished well-developed very friendly female awake alert and oriented x3 in no acute distress Extrem Other: Bilateral lower extremity examination shows good capillary refill, no skin lesions noted, normal sensation light touch Right hip examination shows that the surgical incisions are well healed, no erythema, minimal discomfort with range of motion, no crepitus with range of motion Right knee examination shows a minimal effusion, minimal crepitus with range of motion, tenderness along her medial joint line, positive Grzegorz's test Results Reviewed Results Reviewed: X-rays of the patient's right knee taken previously show mild diffuse joint space narrowing, no acute bony abnormalities Assessment & Plan Assessment & Plan (1) Right hip pain: Code(s): M25.551 - Pain in right hip (2) Right knee pain: Code(s): M25.561 - Pain in right knee Plan Ms. Yadav continues to do well after undergoing open reduction and internal fixation of her right hip fracture with placement of a short gamma nail on April 17, 2023. She does have intermittent symptoms of instability in her right knee possibly due to deconditioning versus medial meniscus tear. Thus, I had the patient fitted with a knee brace to help with her instability. I do feel that the knee brace is a medical necessity to help prevent future falls. The patient will continue with her home exercise program. She will contact me prior to her follow-up appointment in 3 months should her symptoms worsen in any way. Feel free to call me at any time should questions regarding her orthopedic management arise. I spent 22 minutes in reviewing the patient's records and imaging studies, seeing the patient and documenting in the medical record. Coding Level of Care Code Est Pt Level 2 (64659) Diagnoses Right hip pain M25.551 Right knee pain M25.561
--- NOTE | 2023-11-03 13:25 | A.OFFVIS_ITS ---
Intake Vital Signs 11/03/23 13:21 11/03/23 13:28 Height 5 ft 2 in Weight 104 lb BMI 19.0 19.0 Intake Visit Reasons: OV-RT hip IMN, 04/17/23 DR-Follow up Intake Note: Destiny is a 78 year old female who presents for a follow up Right hip IMN 04/17/2023 . Patient reports her pain at a 3 on the 1-10 pain scale. She reports she is doing well but her Right knee feels like it gives out. Allergies prochlorperazine [From COMPAZINE] Allergy (Severe, Verified 06/09/23 12:48) Anaphylaxis aspirin [ASPIRIN] Adverse Reaction (Severe, Verified 06/09/23 12:48) Kidney failure [facility] Medical History Abnormal colonoscopy Anxiety Arthritis CKD (chronic kidney disease) COPD (chronic obstructive pulmonary disease) Depression Enteropathogenic Escherichia coli infection Essential tremor HTN (hypertension) Hyperlipidemia Internal hemorrhoids Sigmoid diverticulosis Tubular adenoma of colon Vertigo Surgical History H/O arthroscopy of left knee History of ankle surgery History of ear surgery History of thumb surgery Social History Household Members: Spouse Housing: House Are you a primary director day care center to a significant other at home: No Do you presently have visiting nurse or other home services: No Alcohol intake: never Patient Tobacco Use Status: Current someday Tobacco user Tobacco use type: Cigarette Cigarette Packs Per Day: 0.5 Cigarettes Per Day: 8 Years Smoked: 40 service: No Physical Exam Vital Signs: BMI result Body Mass Index 19.0 Coding
== END 2023-11-03 13:52 | disposition home or self-care (01) ==
PROVIDERS: PCP Internal Medicine; Visit Provider Orthopaedic Surgery
DX: M25.551 Pain in right hip (principal); M25.561 Pain in right knee
CPT/HCPCS: 99213

== ENCOUNTER → 2023-11-03 12:54 | Outpatient (BNVA) | payer MEDICARE, SELFPAY | PROVIDERS: PCP Internal Medicine; Visit Provider Orthopaedic Surgery | DX: M25.551 Pain in right hip (principal); M25.561 Pain in right knee | CPT/HCPCS: 99212 ==

== ENCOUNTER 2023-11-11 14:24 | Outpatient (REF) | payer MEDICARE, SELFPAY ==
--- NOTE | ~2023-11-11 | CT_ITS ---
EXAMINATION: CT CHEST WITHOUT CONTRAST CLINICAL INFORMATION: Interstitial lung disease. COMPARISON: 07/04/2023 TECHNIQUE: Multidetector volumetric CT imaging of the chest was done. Axial MIP volume rendering provided. Sagittal and coronal reformatted images were obtained. This CT examination was performed using dose optimization techniques as appropriate, variously including the following: *Automated exposure control *Adjustment of mA and/or kV according to patient size (this includes techniques or standardized protocols for targeted exams where dose is matched to indication/reason for exam; i.e. extremities or head) *Use of iterative reconstruction technique DLP: 105 mGy-cm FINDINGS: LUNGS: Stable scarring at the lung apices. Mild centrilobular emphysema. Stable 3 mm nodule right upper lobe on image 58 of series 9. Previously demonstrated nodular opacity in the left lower lobe has resolved. Scattered areas of mucus plugging. No airspace consolidation. Central airways are patent. MEDIASTINUM: No bulky axillary, hilar or mediastinal lymphadenopathy. Ascending thoracic aorta measures 4.0 x 4.1 cm transaxially. Heart size is normal. No pericardial effusion. CORONARY ARTERY CALCIFICATION: Moderate. PLEURA: There is no pleural effusion. No pleural mass or thickening. UPPER ABDOMEN: No adrenal mass. OSSEOUS STRUCTURES: Marked osteopenia. CT/CT chest wo IV con IMPRESSION: Interval resolution of nodular opacity in the left lower lobe. No new or enlarging pulmonary nodule.
== END 2023-11-11 14:25 | disposition home or self-care (01) ==
LOC: HO.CT 14:24
PROVIDERS: PCP Internal Medicine; Visit Provider Internal Medicine
DX: R91.1 Solitary pulmonary nodule (principal)
CPT/HCPCS: 71250

== ENCOUNTER 2023-12-21 11:06 | Outpatient (REF) | payer MEDICARE, SELFPAY ==
[2023-12-21 13:18] LABS: MANUAL DIFF FLAG NO
[2023-12-21 13:35] LABS: Basophils Absolute Auto 0.1 X10*3/uL (0.0-0.2); Basophils Percent Auto 0.9 % (0-2); Eosinophils Absolute Auto 0.1 X10*3/uL (0.0-0.4); Eosinophils Percent Auto 1.7 % (0-4); Hematocrit 36.4 % (37.0-47.0); Hemoglobin 11.5 g/dl (12.0-16.0); Imm Gran Abs Auto 0.02 X10*3/uL (0.00-0.03); Imm Gran Pct Auto 0.4 % (0.0-0.4); Lymphocytes Absolute Auto 0.7 X10*3/uL (1.2-4.9); Mean Corpuscular HGB Conc 31.6 g/dl (31.0-35.0); Mean Corpuscular Hemoglobin 30.8 pg (27.0-33.0); Mean Corpuscular Volume 97.6 fL (80.0-98.0); Mean Platelet Volume 10.4 fL (9.4-12.3); Monocytes Absolute Auto 0.4 X10*3/uL (0.1-1.2); Monocytes Percent Auto 7.4 % (2-11); Neutrophils Absolute Auto 4.2 x10*3/uL (2.0-8.3); Neutrophils Percent Auto 77.6 % (45-73); Platelet Count 167 X10*3/uL (160-400); Red Blood Count 3.73 X10*6/uL (4.20-5.50); White Blood Count 5.4 X10*3/uL (4.8-10.8)
[2023-12-21 13:58] LABS: Appearance Urine Clear; Color Urine Yellow; Glucose Urine UA Negative (Negative); Leukocyte Esterase Urine Negative (Negative); Nitrite Urine Negative (Negative); PH 5.5 (5.0-9.0); Specific Gravity - Urine 1.025 (1.005-1.025); Urine Blood Negative (Negative); Urine Ketones Negative (Negative); Urine Protein Negative (Neg-Trace)
[2023-12-21 14:04] LABS: Creatinine Urine 194.56 mg/dL; Microalbum/Creatinine Ratio Ur 17.4 ug/mg cr (<30)
[2023-12-21 14:06] LABS: Albumin Level 3.8 g/dL (3.5-5.0); Anion Gap 12 (12-20); Blood Urea Nitrogen 20 mg/dL (9-16); Calcium 9.2 mg/dL (8.4-10.2); Carbon Dioxide 28 mmol/L (22-29); Chloride 107 mmol/L (96-108); Estimated Glomerular Filt Rate 37; Magnesium 2.1 mg/dL (1.6-2.6); Phosphorus 2.9 mg/dL (2.7-4.5); Potassium 3.8 mmol/L (3.3-5.1); Sodium 143 mmol/L (135-145); Vitamin D 25-OH Total 23.3 ng/mL (>30)
[2023-12-21 14:10] LABS: Bacteria Urine Trace (None Seen); Hyaline Casts Urine 0-2 /LPF (0-2); Parathyroid Hormone Intact 99.1 pg/mL (8.7-77.1); RBC Urine 0-2 /HPF (0-2); Squamous Epithelial Cell Urine 0-2 /HPF (0-2); WBC Urine 0-5 /HPF (0-5)
[2023-12-21 14:11] LABS: Calcium Oxalate Crystals Urine Present
== END 2023-12-21 11:07 | disposition home or self-care (01) ==
LOC: HO.HMGCLDS 11:06
PROVIDERS: PCP Internal Medicine; Visit Provider Internal Medicine Nephrology
DX: I12.9 Hypertensive chronic kidney disease with stage 1 through stage 4 chronic kidney disease, or unspecified chronic kidney disease (principal); N18.32 Chronic kidney disease, stage 3b; R82.90 Unspecified abnormal findings in urine
CPT/HCPCS: 36415; 80051; 81001; 82040; 82043; 82306; 82310; 82565; 82570; 83735; 83970; 84100; 84520; 85025; 87086

== ENCOUNTER 2024-02-02 13:58 | Outpatient (AMB) | payer MEDICARE, SELFPAY ==
--- NOTE | 2024-02-02 14:07 | MHC.OFFVIS ---
Vital Signs 02/02/24 14:14 Height 5 ft 2 in Weight 104 lb BMI 19.0 Intake Visit Reasons: OV-RT hip IMN, 04/17/23 DR-Follow up Intake Note: Destiny is a 78 year old female who presents for a follow up Right hip IMN 04/17/2023 DR. Patient reports she is doing ok states she walks ok as long as he has her cane. She wants to know when she can start doing some yard work. Allergies prochlorperazine [From COMPAZINE] Allergy (Severe, Verified 02/02/24 14:17) Anaphylaxis aspirin [ASPIRIN] Adverse Reaction (Severe, Verified 02/02/24 14:17) Kidney failure Medication List - Last Reconciled 02/03/24 by Hay Costa MD albuterol sulfate 90 mcg/actuation 2 puffs inhalation QID alprazolam 0.5 tabs PO BID-TID PRN atorvastatin 1 tab PO DAILY enoxaparin 30 mg (0.3 mL) subcut Q24H ergocalciferol (vitamin D2) 1 cap PO Q2W estradiol 0.01%(0.1mg/gram) 1 g vaginal 2XW fluticasone propionate 50 mcg/actuation 1 spray intranasal BID PRN nortriptyline 3 caps PO BEDTIME olopatadine 0.1% 1 drp ophthalmic (eye) BID oxycodone 5 mg PO Q4H PRN sertraline 1 tab PO DAILY PFSH Medical History Abnormal colonoscopy Anxiety Arthritis CKD (chronic kidney disease) COPD (chronic obstructive pulmonary disease) Depression Enteropathogenic Escherichia coli infection Essential tremor HTN (hypertension) Hyperlipidemia Internal hemorrhoids Sigmoid diverticulosis Tubular adenoma of colon Vertigo Surgical History H/O arthroscopy of left knee History of ankle surgery History of ear surgery History of thumb surgery Social History Household Members: Spouse Housing: House Are you a primary director of career resources to a significant other at home: No Do you presently have visiting nurse or other home services: No Alcohol intake: never Patient Tobacco Use Status: Current someday Tobacco user Tobacco use type: Cigarette Cigarette Packs Per Day: 0.5 Cigarettes Per Day: 8 Years Smoked: 40 service: No Physical Exam Vital Signs: BMI result Body Mass Index 19.0 Const Other: Well-nourished well-developed very friendly female awake alert and oriented x3 in no acute distress Extrem Other: Bilateral lower extremity examination shows good capillary refill, no skin lesions noted, normal sensation light touch Right hip examination shows that the surgical incisions are well healed, no erythema, minimal discomfort with range of motion, minimal tenderness over her bursa Assessment & Plan Assessment & Plan (1) Right hip pain: Code(s): M25.551 - Pain in right hip Category: Medical Plan Ms. Yadav continues to do well after undergoing open reduction and internal fixation of her right hip fracture on 04/17/2023. Patient will continue with her home exercise program. She will follow up with me on an as-needed basis should any questions or concerns arise. Feel free to call me at any time should questions regarding her orthopedic management arise. I spent 22 minutes in reviewing the patient's records and imaging studies, seeing the patient and documenting in the medical record. Coding Level of Care Code Est Pt Level 2 (80944) Diagnoses Right hip pain M25.551
[2024-02-02 14:14] VITALS: BMI 19.0
== END 2024-02-02 14:42 | disposition home or self-care (01) ==
PROVIDERS: PCP Internal Medicine; Visit Provider Orthopaedic Surgery
DX: M25.551 Pain in right hip (principal)
CPT/HCPCS: 99213

== ENCOUNTER → 2024-02-02 13:58 | Outpatient (BNVA) | payer MEDICARE, SELFPAY | PROVIDERS: PCP Internal Medicine; Visit Provider Orthopaedic Surgery | DX: M25.551 Pain in right hip (principal); Z87.81 Personal history of (healed) traumatic fracture | CPT/HCPCS: 99212 ==

== ENCOUNTER 2024-05-03 13:15 | Outpatient (REF) | payer MEDICARE, SELFPAY ==
--- NOTE | ~2024-05-03 | XR_ITS ---
EXAMINATION: XR HIP, RIGHT CLINICAL INFORMATION: Pain in the right hip COMPARISON: 08/03/2023 TECHNIQUE: Two views of the right hip and AP pelvis. FINDINGS: Patient is status post healed fracture deformity of intertrochanteric region of the right hip with avulsion of lesser trochanter. Hardware position and well and there is heterotopic bone formation adjacent to the areas of hardware. There is fusion of lesser trochanter. There are no new fractures identified. Right hip joint is maintained. XR/XR hip RT min 2V IMPRESSION: Healed fractures of right intertrochanteric region and healed avulsion fracture of lesser trochanter
== END 2024-05-03 13:16 | disposition home or self-care (01) ==
LOC: HO.HOSX 13:15
PROVIDERS: PCP Internal Medicine; Visit Provider Orthopaedic Surgery
DX: M25.551 Pain in right hip (principal); M54.50 Low back pain, unspecified
CPT/HCPCS: 73502; 99212

== ENCOUNTER 2024-05-03 13:15 | Outpatient (AMB) | payer MEDICARE, SELFPAY ==
--- NOTE | 2024-05-03 13:17 | MHC.OFFVIS ---
Intake Visit Reasons: Low back pain Intake Note: Destiny is a 79 year old female who presents with complaints of progressively worsening low back pain as well as intermittent right hip discomfort. The patient did undergo intramedullary nailing of her right hip intertrochanteric fracture on 04/17/2023. The patient states that she is aware of lots of arthritis in her low back. She has not had surgery on her low back in the past. She states that she aggravated her back and her hip recently while pulling weeds and ?lifting a heavy watermelon?. The patient reports intermittent weakness in her right leg. She states that her back pain has gotten worse over the last few years in spite of continued non operative treatments. She has tried Tylenol and anti-inflammatory medicines which gave her minimal relief. She has also done physical therapy exercises which aggravated her pain. Allergies prochlorperazine [From COMPAZINE] Allergy (Severe, Verified 05/03/24 13:19) Anaphylaxis aspirin [ASPIRIN] Adverse Reaction (Severe, Verified 05/03/24 13:19) Kidney failure Medication List - Last Reconciled 05/03/24 by Hay Costa MD albuterol sulfate 90 mcg/actuation 2 puffs inhalation QID alprazolam 0.5 tabs PO BID-TID PRN atorvastatin 1 tab PO DAILY ergocalciferol (vitamin D2) 1 cap PO Q2W estradiol 0.01%(0.1mg/gram) 1 g vaginal 2XW fluticasone propionate 50 mcg/actuation 1 spray intranasal BID PRN nortriptyline 3 caps PO BEDTIME olopatadine 0.1% 1 drp ophthalmic (eye) BID sertraline 1 tab PO DAILY [facility] Medical History Abnormal colonoscopy Anxiety Arthritis CKD (chronic kidney disease) COPD (chronic obstructive pulmonary disease) Depression Enteropathogenic Escherichia coli infection Essential tremor HTN (hypertension) Hyperlipidemia Internal hemorrhoids Sigmoid diverticulosis Tubular adenoma of colon Vertigo Surgical History H/O arthroscopy of left knee History of ankle surgery History of ear surgery History of thumb surgery Social History Household Members: Spouse Housing: House Are you a primary residential care facility manager to a significant other at home: No Do you presently have visiting nurse or other home services: No Alcohol intake: never Patient Tobacco Use Status: Current someday Tobacco user Tobacco use type: Cigarette Cigarette Packs Per Day: 0.5 Cigarettes Per Day: 8 Years Smoked: 40 service: No Physical Exam Const Other: Well-nourished well-developed very friendly female awake alert and oriented x3 in no acute distress Back/Spine/Pelvis Other: Low back examination shows right-sided paraspinal muscle tenderness, pain with range motion, positive straight leg raise test on the right at 70 degrees, 4/5 strength with testing of her right hip flexors and knee extensors when compared to 5/5 strength on her left side Extrem Other: Right hip examination shows that the surgical incisions are well healed, no erythema, minimal discomfort with range of motion, no tenderness over her bursa Results Reviewed Results Reviewed: X-rays of the patient's right hip show a short gamma nail in good position with no signs of loosening, callus formation at the previous intertrochanteric fracture site, no acute bony abnormalities Assessment & Plan Assessment & Plan (1) Right hip pain: Code(s): M25.551 - Pain in right hip Category: Medical (2) Low Back Pain: Code(s): M54.50 - Low back pain, unspecified Plan Ms. Yadav presents with progressively worsening low back pain which radiates down her right leg as well as associated right leg weakness most likely due to lumbar stenosis or a disc herniation. Thus, I will send the patient for an MRI of her lumbar spine for further evaluation. I will contact her by phone once the MRI results are available. She will call me prior to that time should her symptoms worsen in any way. Feel free to call me at any time should questions regarding her orthopedic management arise. I spent 21 minutes in reviewing the patient's records and imaging studies, seeing the patient and documenting in the medical record. Orders: Orders XR hip RT min 2V Today M25.551 - Pain in right hip MR lumbar spine wo con Today M54.50 - Low back pain, unspecified, M79.604 - Pain in right leg Coding Level of Care Code Est Pt Level 3 (85605) Diagnoses Right hip pain M25.551 Low Back Pain M54.50
== END 2024-05-03 13:55 | disposition home or self-care (01) ==
PROVIDERS: PCP Internal Medicine; Visit Provider Orthopaedic Surgery
DX: M25.551 Pain in right hip (principal); M54.50 Low back pain, unspecified
CPT/HCPCS: 99213

== ENCOUNTER 2024-06-07 17:50 | Outpatient (REF) | payer MEDICARE, SELFPAY ==
--- NOTE | ~2024-06-07 | MR_ITS ---
EXAMINATION: MR LUMBAR SPINE WITHOUT CONTRAST CLINICAL INFORMATION: 79-year-old with right leg pain. COMPARISON: None available. TECHNIQUE: MRI of the lumbar spine was obtained using routine sequences without contrast. FINDINGS: Coronal Alignment: There is mild pelvic tilt to the right with trace upper lumbar levocurvature. Sagittal Alignment: There is 6 mm of grade 1 spondylolisthesis at L5-S1 without spondylolysis. There is trace retrolisthesis of L2-L3 with otherwise normal lumbar alignment. Lumbosacral Junction: Normal. There are 5 trx-hhj-btpfrgo lumbar-type vertebral bodies. Vertebral Bodies: There is mild chronic loss of height of the anterior aspect of the L2 vertebral body without retropulsion. Otherwise, vertebral body heights are well maintained. No acute or nonhealed fractures. Disc Spaces and Endplates: There is twrpjalb-al-wgfryh intervertebral disc space height loss at L5-S1 asymmetric to the left with intradiscal degenerative signal changes and anterolateral spondylosis asymmetric to the left. There is mild disc volume loss at L4-L5 with intradiscal degenerative signal changes, with bulky anterolateral bridging spondylosis deformans asymmetric to the left encroaching on the retroperitoneal fat. Umzw-ud-ztyfozmq disc volume loss noted at L2-L3 with intradiscal degenerative signal changes. There is bulky bridging osteophytosis noted anteriorly asymmetric to the left at L3-L4 and L2-L3. There is mild disc volume loss at L1-L2 with central Schmorl's nodes and somewhat bulky anterolateral bridging osteophytosis asymmetric to the right at this level. There is bridging osteophytosis asymmetric to the left at T12-L1 with intradiscal degenerative signal changes. Given these findings, the possibility of diffuse idiopathic skeletal hyperostosis should be considered. Suggest correlation with x-rays of the thoracic and lumbar spine. Spinal Canal: No abnormal developmental findings. Bone Marrow: There are foci of type I and type III degenerative marrow signal changes seen along the inferior endplate anterolaterally on the right at L1 with minimal type I marrow signal changes seen along the superior endplate of L2 on the right. No suspicious marrow-replacing process or worrisome bone marrow edema. There is a 5 mm focus of signal loss in the right sacral ala which is a nonspecific finding but statistically is likely a bone island. Conus Medullaris: Terminates at T12-L1. Morphology and signal is normal. Intradural Nerve Roots: Within normal limits. L5-S1: Unroofing of the posterior disc margin is noted with superimposed broad-based posterolateral disc-osteophyte complex bilaterally and minimal disc bulging, with flattening of the ventral dural sac. There is extensive bilateral facet joint arthrosis with ligamentum flavum thickening without significant central canal stenosis. There is bilateral subarticular recess stenosis encroaching on the S1 nerve roots bilaterally. There is moderate craniocaudal neural foraminal stenosis on the left with disc-osteophyte complex abutting the exiting left L5 nerve root. Right lateral disc-osteophyte complex abuts the extraforaminal right L5 nerve root as well. L4-L5: There is concentric disc bulging, with flattening of the ventral dural sac, with ligamentum flavum thickening and interspinous ligament degeneration. There is moderate left and eozt-sm-wkkmptnv right-sided facet joint hypertrophic degenerative change, with wpjq-gy-bewivity central spinal canal stenosis and epxx-fc-gzyytqgs narrowing of the subarticular zones, left more than right, with mild encroachment on the traversing left L5 nerve root. There is minor foraminal narrowing on the left and yltz-vf-ffwpmrdc foraminal narrowing on the right without neural impingement. L3-L4: Normal annular contour. No significant facet joint arthrosis, canal or neural foraminal stenosis. L2-L3: Trace retrolisthesis, with minor encroachment on the ventral thecal sac. Mild facet joint hypertrophic change on the left. No significant canal or neural foraminal stenosis. L1-L2: Small left and right paramedian disc-osteophyte complexes are noted with minimal indentation of the ventral thecal sac. No significant facet joint arthrosis, canal or neural foraminal stenosis. Broad-based central to left paramedian disc-osteophyte complex noted at T12-L1 with mild indentation of the ventral thecal sac without conus impingement or canal stenosis. Paravertebral and Included Extraspinal Soft Tissues: There is posterior paraspinal and psoas muscle sarcopenia. 7 mm simple-appearing cortical cyst lower pole left kidney. Limited evaluation. No specific follow up recommended based on the current ACR Best Practice Guidelines. Bony productive changes with spurring along the anterior margins of the SI joints, left more than right. MR/MR lumbar spine wo con IMPRESSION: 1. Grade 1 degenerative spondylolisthesis at L5-S1 and trace retrolisthesis of L2-L3 with mild pelvic tilt to the right and trace upper lumbar levocurvature. 2. Multilevel discogenic degenerative changes between T12-L1 and L5-S1 inclusive, with multilevel spondylosis, bulky anterolateral bridging osteophytosis deformans and bridging osteophytosis asymmetric to the left at T12-L1. Findings suggest diffuse idiopathic skeletal hyperostosis. Suggest correlation with x-rays of the thoracic and lumbar spine. 3. Disc bulging at L4-L5 and L5-S1 with posterior element hypertrophic degenerative changes, with bvxl-fh-xrvviyrv spinal canal stenosis at L4-L5 and bilateral subarticular recess stenosis at L5-S1 with encroachment on the traversing S1 nerve roots bilaterally. 4. Pevx-he-dodclbkj foraminal narrowing on the right at L4-L5 and on the left at L5-S1 without neural impingement. 5. Mild chronic loss of height of the L2 vertebral body. Electronically signed by: Roman oPwer MD 06/27/2024 02:16 PM EDT
== END 2024-06-07 17:51 | disposition home or self-care (01) ==
LOC: HO.MRI 17:50
PROVIDERS: PCP Internal Medicine; Visit Provider Orthopaedic Surgery
DX: M79.604 Pain in right leg (principal); M54.50 Low back pain, unspecified
CPT/HCPCS: 72148

== ENCOUNTER 2024-07-03 10:24 | Outpatient (REF) | payer MEDICARE, SELFPAY ==
[2024-07-03 13:14] LABS: MANUAL DIFF FLAG NO
[2024-07-03 13:32] LABS: Basophils Absolute Auto 0.1 X10*3/uL (0.0-0.2); Eosinophils Absolute Auto 0.2 X10*3/uL (0.0-0.4); Eosinophils Percent Auto 2.2 % (0-4); Hematocrit 38.9 % (37.0-47.0); Hemoglobin 12.6 g/dl (12.0-16.0); Imm Gran Abs Auto 0.03 X10*3/uL (0.00-0.03); Imm Gran Pct Auto 0.4 % (0.0-0.4); Lymphocytes Percent Auto 14.4 % (20-40); Mean Corpuscular HGB Conc 32.4 g/dl (31.0-35.0); Mean Corpuscular Hemoglobin 31.7 pg (27.0-33.0); Mean Platelet Volume 10.6 fL (9.4-12.3); Monocytes Absolute Auto 0.6 X10*3/uL (0.1-1.2); Monocytes Percent Auto 8.2 % (2-11); Neutrophils Absolute Auto 5.3 x10*3/uL (2.0-8.3); Neutrophils Percent Auto 73.8 % (45-73); Platelet Count 210 X10*3/uL (160-400); Red Blood Count 3.97 X10*6/uL (4.20-5.50); Red Cell Distribution Width 13.3 % (11.0-16.0); White Blood Count 7.2 X10*3/uL (4.8-10.8)
[2024-07-03 14:40] LABS: Alanine Aminotransferase 9 U/L (0-31); Alkaline Phosphatase 105 U/L (39-117); Anion Gap 10 (12-20); Aspartate Amino Transferase 14 U/L (5-31); Bilirubin Total 0.4 mg/dL (0.0-1.0); Blood Urea Nitrogen 21 mg/dL (9-16); Carbon Dioxide 29 mmol/L (22-29); Chloride 107 mmol/L (96-108); Cholesterol 154 mg/dL (<200); Estimated Glomerular Filt Rate 33; Glucose Fasting 99 mg/dL (60-99); HDL Cholesterol 62 mg/dL (>40); Iron 77 mcg/dL (30-160); LDL Cholesterol Calculated 78 mg/dL (<100); Percent Iron Saturation 33 % (15-50); Potassium 4.3 mmol/L (3.3-5.1); Sodium 142 mmol/L (135-145); Total Iron Binding Capacity 235 mcg/dL (228-428); Total Protein 6.6 g/dL (6.5-8.0); Triglycerides 70 mg/dL (<150); Unsaturated Iron Binding 158 ug/dL
== END 2024-07-03 10:25 | disposition home or self-care (01) ==
LOC: HO.HMGCLDS 10:24
PROVIDERS: PCP Internal Medicine; Visit Provider Internal Medicine
DX: I10 Essential (primary) hypertension (principal); J44.9 Chronic obstructive pulmonary disease, unspecified; N18.9 Chronic kidney disease, unspecified
CPT/HCPCS: 36415; 80053; 80061; 83540; 85025

== ENCOUNTER 2024-07-09 10:51 | Outpatient (AMB) | payer MEDICARE, SELFPAY ==
--- NOTE | 2024-07-09 11:14 | A.SPINEOV_ITS ---
Intake Visit Reasons: low back pain Intake Note: Mrs. Yadav is here today c/o low back pain. Director Cardiology Required: No Allergies prochlorperazine [From COMPAZINE] Allergy (Severe, Verified 05/03/24 13:19) Anaphylaxis aspirin [ASPIRIN] Adverse Reaction (Severe, Verified 05/03/24 13:19) Kidney failure Assessment & Plan Assessment & Plan (1) Low back pain: Code(s): M54.50 - Low back pain, unspecified Category: Medical Plan Dear Dr Costa, Thank you for referring Mrs Yadav to our office today. She is an 79-year-old female who presents to the office today for evaluation of back pain that she was having a number of months ago. 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 The symptoms have since passed and she is doing okay now. She is basically here to follow up on her MRI. 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 There is no significant foraminal or central stenosis. Impression: 79-year-old female who is having back pain a number of months ago after she picked up a heavy watermelon. The symptoms have gone away now. She came to review her MRI report. I explained to her that the radiologist describes many findings that are normal for woman in her 79 and that if she is not having symptoms we do not need to do anything for them. Hopefully this helped her anxiety about the issue. There is nothing on the imaging that I think need surgery. If she does develop symptoms of back pain, this certainly could be explained by the extensive osteophyte overgrowth she has multiple areas. I think if she did develop chronic back pain the best place to start with would be pain management. Thank you for allowing us to care for your patient. The total time spent with this visit with this patient was 45 minutes reviewing history, physical exam, lumbar imaging review, and implementation of treatment plan or further diagnostic testing Karl Carrera MD,PhD [facility] Coding Level of Care Code New Pt Level 4 (29254) Diagnoses Low back pain M54.50
== END 2024-07-09 12:27 | disposition home or self-care (01) ==
PROVIDERS: PCP Internal Medicine; Referring Provider Orthopaedic Surgery; Visit Provider Physician Assistant
DX: M54.50 Low back pain, unspecified (principal)
CPT/HCPCS: 99204

== ENCOUNTER → 2024-07-09 10:51 | Outpatient (BNVA) | payer MEDICARE, SELFPAY | PROVIDERS: PCP Internal Medicine; Visit Provider Physician Assistant | DX: M54.50 Low back pain, unspecified (principal) | CPT/HCPCS: 99202 ==

== ENCOUNTER 2024-09-26 10:58 | Outpatient (REF) | payer MEDICARE, SELFPAY ==
--- OUTSIDE RECORDS SUMMARY | 2024-09-26 11:01 | XMS_ITS | Patient Health Record ---
Author Organization [facility] Address [address] [place] [address] Care Team Providers Care Supervisor Of Communications Name Role Phone Ryley Varela MD Primary Care Provider UnavailVinny Mahajan Unavailable [phone] Talia Bazzi Unavailable [phone] Allergies Allergen (clinical drug ingredient) Drug/Non Drug Allergy documented on EMR Reaction Allergy Type Onset Date Status Advil, Aleve, Motrin (uncoded) Unknown Allergy Active Compasine (uncoded) Unknown Allergy Active Penicillin (uncoded) Unknown Allergy Active aspirin Aspirin Unknown Drug Allergy Active meperidine Demerol Unknown Drug Allergy Active Novocain Unknown Drug Allergy Active Reason For Referral No Information Medications Medication SIG (Take, Route, Frequency, Duration) Notes Start Date End Date Status Nortriptyline HCl 10 MG 2 capsule Orally Once a day for 30 days Active Atorvastatin Calcium 10 MG Oral for 90 Days Active Vitamin D Active Vitamin C Active Tylenol Active Flonase PRN Active Lipitor 10 MG 1 tablet Orally Once a day for 30 day(s) Active Primidone 50 MG 1 tablet Orally Once a day Active Olopatadine HCl 0.1 % Ophthalmic for 90 Days Active Meclizine HCl Active Sertraline HCl Activ e Fluticasone Propionate 50 MCG/ACT Nasal for 60 Days Active ALPRAZolam 0.25 MG 1 tablet Orally Twic e a day Active Social History Tobacco Use: Social History Observation Description Date Details (start date - stop date) Current Smoker NA - NA Alcohol Screen Question Answer Notes Did you have a drink containing alcohol in the p ast year? No Points 0 Interpretation Negative Tobacco use other than smoking: Question Answer Notes Are you an other tobacco user? No Tobacco Control (Standard) Question Answer Notes Tobacco use: Current smoker How often do you smoke cigarettes? Every day How many cigarettes a day do you smoke? 5 or les s How soon after you wake up d o you smoke your first cigarette? After 60 minutes Are you interested in quitting? Thinking about q uitting Problems Problem Type SNOMED Code ICD Code Onset Dates Problem Status W/U Status Risk Notes Problem Plantar wart (64312261) Plantar wart (B07.0) Active confirmed Problem Unspecified atherosclerosis of knik arteries of extremities, bilateral legs (I70.203) Active confirmed Problem Localized, primary osteoarthritis of the ankle and/or foot (995122932) Primary osteoarthritis, right ankle and foot (M19.071) Active confirmed Problem Localized, primary osteoarthritis of the ankle and/or foot (338943997) Primary osteoarthritis, left ankle and foot (M19.072) Active confirmed Problem Acquired hammer toe of right foot (2626658140837050 ) Other hammer toe(s) (acquired), right foot (M20.41) Active confirmed Problem Atherosclerosis of knik artery of both lower extremities, with unspecified presence of clinical manifestation (I70.203) Active confirmed Vital Signs Blood pressure diastolic 70 mm Hg 09/14/2024 Height 5 ft2in in 09/14/2024 Blood pressure systolic 124 mm Hg 09/14/2024 Weight 114 lbs 09/14/2024 BMI 20.85 kg/m2 09/14/2024 Encounters Encounter Location Date Provider Diagnosis [address] [address] 02/29/2024 Talia Perica Plantar wart B07.0 ; Metatarsalgia, right foot M77.41 ; Atherosclerosis of knik artery of both lower extremities, with unspecified presence of clinical manifestation I70.203 ; Tinea unguium B35.1 ; Pain in right toe(s) M79.674 ; Pain in left toe(s) M79.675 ; Right foot pain M79.671 ; Left foot pain M79.672 and Pain in right ankle and joints of right foot M25.[address] [facility] [address] 05/11/2024 Talia Perica Plantar wart B07.0 ; Metatarsalgia, right foot M77.41 ; Atherosclerosis of knik artery of both lower extremities, with unspecified presence of clinical manifestation I70.203 ; Tinea unguium B35.1 ; Pain in right toe(s) M79.674 ; Pain in left toe(s) M79.675 ; Right foot pain M79.671 ; Left foot pain M79.672 and Pain in right ankle and joints of right foot M25.[address] [address] 07/13/2024 Talia Perica Plantar wart B07.0 ; Metatarsalgia, right foot M77.41 ; Atherosclerosis of knik artery of both lower extremities, with unspecified presence of clinical manifestation I70.203 ; Tinea unguium B35.1 ; Pain in right toe(s) M79.674 ; Pain in left toe(s) M79.675 ; Right foot pain M79.671 and Pain in right ankle and joints of right foot M25.[address] [address] 09/14/2024 Talia Perica Plantar wart B07.0 ; Metatarsalgia, right foot M77.41 ; Atherosclerosis of knik artery of both lower extremities, with unspecified presence of clinical manifestation I70.203 ; Tinea unguium B35.1 ; Pain in right toe(s) M79.674 ; Pain in left toe(s) M79.675 and Right foot pain M79.[address] [address] 02/21/2024 Vinny Alexandra Assessments Encounter Date Diagnosis (ICD Code) Assessment Notes Treatment Notes Treatment Clinical Notes Section Notes 02/29/2024 Plantar wart (ICD-10 - B07.0) 02/29/2024 Metatarsalgia, right foot (ICD-10 - M77.41) 05/11/2024 Plantar wart (ICD-10 - B07.0) 07/13/2024 Plantar wart (ICD-10 - B07.0) 09/14/2024 Plantar wart (ICD-10 - B07.0) 09/14/2024 Metatarsalgia, right foot (ICD-10 - M77.41) 07/13/2024 Atherosclerosis of knik artery of both lower extremities, with unspecified presence of clinical manifestation (ICD-10 - I70.203) 07/13/2024 Metatarsalgia, right foot (ICD-10 - M77.41) 05/11/2024 Metatarsalgia, right foot (ICD-10 - M77.41) 02/29/2024 Atherosclerosis of knik artery of both lower extremities, with unspecified presence of clinical manifestation (ICD-10 - I70.203) 09/14/2024 Atherosclerosis of knik artery of both lower extremities, with unspecified presence of clinical manifestation (ICD-10 - I70.203) 02/29/2024 Tinea unguium (ICD-10 - B35.1) 07/13/2024 Tinea unguium (ICD-10 - B35.1) 05/11/2024 Atherosclerosis of knik artery of both lower extremities, with unspecified presence of clinical manifestation (ICD-10 - I70.203) 09/14/2024 Tinea unguium (ICD-10 - B35.1) 09/14/2024 Pain in right toe(s) (ICD-10 - M79.674) 07/13/2024 Pain in right toe(s) (ICD-10 - M79.674) 02/29/2024 Pain in right toe(s) (ICD-10 - M79.674) 05/11/2024 Tinea unguium (ICD-10 - B35.1) 02/29/2024 Pain in left toe(s) (ICD-10 - M79.675) 07/13/2024 Pain in left toe(s) (ICD-10 - M79.675) 05/11/2024 Pain in right toe(s) (ICD-10 - M79.674) 09/14/2024 Pain in left toe(s) (ICD-10 - M79.675) 09/14/2024 Right foot pain (ICD-10 - M79.671) 07/13/2024 Right foot pain (ICD-10 - M79.671) 05/11/2024 Pain in left toe(s) (ICD-10 - M79.675) 02/29/2024 Right foot pain (ICD-10 - M79.671) 02/29/2024 Left foot pain (ICD-10 - M79.672) 05/11/2024 Right foot pain (ICD-10 - M79.671) 07/13/2024 Pain in right ankle and joints of right foot (ICD-10 - M25.571) 05/11/2024 Left foot pain (ICD-10 - M79.672) 02/29/2024 Pain in right ankle and joints of right foot (ICD-10 - M25.571) 05/11/2024 Pain in right ankle and joints of right foot (ICD-10 - M25.571) Plan Of Treatment Pending Test Test Name Order Date X ray : Foot, right 3V 08/15/2019 X ray : Foot, right 3V 02/29/2024 X ray : Foot, right 3V 05/11/2024 X ray : Foot, right 3V 07/13/2024 Next Appt Details Provider Name:Talia chan, 11/27/2024 03:00:00 PM, [address] [facility], [place], [address], Insurance Providers Payer Name Payer Address Payer Phone Subscriber Number Group Number Insured Name Patient Relationship to Insured Coverage Start Date Coverage End Date Medicare National [employer] [address] [place] [address] [id number] Destiny Pedro Self - patient is the insured [employer] [facility] [address] [place] [address] [id number] Destiny Pedro Self - patient is the insured Medical (General) History Medical History History ICD Code Anxiety Back,Hip,and Knee pain Broken bones, hip CAD (Cholesterol) Cataracts Depression High blood pressure Kidney disease chronic sinusitis Measles Mumps Chicken pox Joint implants/screws Arthritis sinusitis Surgical History Surgery Date(Month/Year) Ankle Surgery 1997 Thumb Surgery 2010 ear surgery 2002 knee [id number] 2014 hip surgery 05/01
--- OUTSIDE RECORDS SUMMARY | 2024-09-26 11:01 | XMS_ITS | Patient Health Record ---
Author Organization [facility] Address [address] [place] [address] Care Team Providers Care Beam Dyer Operator Name Role Phone Ryley Varela MD Primary Care Provider Ashish Everett Unavailable [phone] ALLERGIES Allergen (clinical drug ingredient) Drug/Non Drug Allergy documented on EMR Reaction Allergy Type Onset Date Status prochlorperazine Prochlorperazine Unknown Drug Allergy Active REASON FOR REFERRAL No Information MEDICATIONS Medication SIG (Take, Route, Frequency, Duration) Notes Start Date End Date Status Primidone 50 MG 1 tablet Orally Once a day for 30 day(s) Active Nortriptyline HCl 10 MG 1 capsule Orally Three times a day Active Sertraline HCl 50 MG 1 tablet Orally Onc e a day Active Atorvastatin Calcium 10 MG 1 tablet Oral ly Once a day Active Connie Allergy 180 MG 1 tablet Orally O nce a day Not-Taking tylenol 1 tab Oral for 14 days Active Vitamin D (Ergocalciferol) 59817 UNIT 1 capsule Orally Active clonazePAM 0.5 MG 1 tablet Orally Twic e a day Active IMMUNIZATIONS Vaccine Route Administration Date Status Comme nts Influenza Unknown 08/05/2022 Refused SOCIAL HISTORY Sex Assigned At : Social History Observation Description Sex Assigned At Unknown PROBLEMS Problem Type ICD Code Onset Dates Problem Status W/U Status Risk SNOMED Code Notes Problem Positive colorectal cancer screening using Cologuard test (R19.5) Active confirmed Abnormal feces (208811942) PLAN OF TREATMENT Future Test Test Name Order Date COLONOSCOPY 07/03/2014 COLONOSCOPY 08/05/2022 Insurance Providers Payer Name Payer Address Payer Phone Subscriber Number Group Number Insured Name Patient Relationship to Insured Coverage Start Date Coverage End Date MEDICARE OF [place] [address] [place] [id number] [phone] [id number] OSBALDO LEWIS Self - patient is the insured [employer] [address] [place] [address] [id number] OSBALDO LEWIS Self - patient is the insured MEDICAL (GENERAL) HISTORY Medical History History ICD Code Colonoscopy 09-13-2005- tubu lar adenomas removed--also noted to have sigmoid diverticulosis and internal hemorrhoids Hyperlipidemia HTN Stage III kidney disease-sees Dr. Neri Hyperlipidemia Depression/anxiety Vertigo--takes Nortriptyline Denies [place],DM,CVA,Lung disease,renal dise ase Colonoscopy 09/2014 1 small tubular timothy nabila COPD Essential tremor Enteropathogenic E.coli GI infection sum [place] of 2021 + Cologuard test 06/2022 Surgical History Surgery Date(Month/Year) inner ear surgery for positional vertigo ankle surgery thumb surgery for arthritis left knee arthroscopy--04/2014 [facility]
--- OUTSIDE RECORDS SUMMARY | 2024-09-26 11:01 | XMS_ITS ---
Author Organization [facility] Address [address] [place] [address] Care Team Providers Care Scrum Project Manager Name Role Phone Ryley Varela MD Primary Care Provider UnavailVinny Mahajan Unavailable [phone] Talia Bazzi Unavailable [phone] Allergies Allergen (clinical drug ingredient) Drug/Non Drug Allergy documented on EMR Reaction Allergy Type Onset Date Status Advil, Aleve, Motrin (uncoded) Unknown Allergy Active Compasine (uncoded) Unknown Allergy Active Penicillin (uncoded) Unknown Allergy Active aspirin Aspirin Unknown Drug Allergy Active meperidine Demerol Unknown Drug Allergy Active Novocain Unknown Drug Allergy Active REASON FOR VISIT At Risk Footcare, Painful Nail(s) aggrevated by shoes and causing difficulty standing/walking., Wart(s), Foot pain Medications Medication SIG (Take, Route, Frequency, Duration) Notes Start Date End Date Status Nortriptyline HCl 10 MG 1 capsule Orally Once a day for 30 day(s) Active ALPRAZolam 0.25 MG 1 tablet Orally Twic e a day Active Atorvastatin Calcium 10 MG Oral for 90 Days Active Vitamin C Active Sertraline HCl Activ e Tylenol Active Fluticasone Propionate 50 MCG/ACT Nasal for 60 Days Active Olopatadine HCl 0.1 % Ophthalmic for 90 Days Active Meclizine HCl Active Primidone 50 MG 1 tablet Orally Once a day Active Lipitor 10 MG 1 tablet Orally Once a day for 30 day(s) Active Flonase PRN Active Vitamin D Active Social History Tobacco Use: Social History Observation Description Date Details (start date - stop date) Former Smoker NA - NA Tobacco Use/Smoking Question Answer Notes Are you a: former smoker Additional Findings: Tobacco Non-User Current no n-smoker Tobacco use other than smoking: Question Answer Notes Are you an other tobacco user? No Vital Signs Height 5 ft2in in 05/11/2024 Weight 115 lbs 05/11/2024 BMI 21.03 kg/m2 05/11/2024 Encounters Encounter Location Date Provider Diagnosis [facility] [address] [place] [address] 05/11/2024 Talia Bazzi Plantar wart B07.0 ; Metatarsalgia, right foot M77.41 ; Atherosclerosis of [place] artery of both lower extremities, with unspecified presence of clinical manifestation I70.203 ; Tinea unguium B35.1 ; Pain in right toe(s) M79.674 ; Pain in left toe(s) M79.675 ; Right foot pain M79.671 ; Left foot pain M79.672 and Pain in right ankle and joints of right foot M25.571 Assessments Encounter Date Diagnosis (ICD Code) Assessment Notes Treatment Notes Treatment Clinical Notes Section Notes 05/11/2024 Plantar wart (ICD-10 - B07.0) 05/11/2024 Metatarsalgia, right foot (ICD-10 - M77.41) 05/11/2024 Atherosclerosis of [place] artery of both lower extremities, with unspecified presence of clinical manifestation (ICD-10 - I70.203) 05/11/2024 Tinea unguium (ICD-10 - B35.1) 05/11/2024 Pain in right toe(s) (ICD-10 - M79.674) 05/11/2024 Pain in left toe(s) (ICD-10 - M79.675) 05/11/2024 Right foot pain (ICD-10 - M79.671) 05/11/2024 Left foot pain (ICD-10 - M79.672) 05/11/2024 Pain in right ankle and joints of right foot (ICD-10 - M25.571) Plan Of Treatment Pending Test Test Name Order Date X ray : Foot, right 3V 05/11/2024 Next Appt Details Follow Up: 2 Months, Reason: Provider Name:Talia chan 11/27/2024 03:00:00 PM, [address] [place], [address], Procedure Notes * Category Sub-Category Detail Notes Wart Treatment Procedure Verrucae were de brided to pin-point bleeding margins with sterile 15 surgical blade, silver nitrate chemocautery applied, recomm. immune-boosting meds such as zinc, recomm. follow up with topical chemosurgical agents, Pt defers any other forms of tx (89391) Debride Nail 6-10 Nail debridement Nail debridem ent performed extensively to reduce/remove overall nail length, girth, thickness, subungual debris, and necrotic tissue, by manual and electrical means through the use of a nail nipper and/or dremel, to more viable healthy nail plate or bed tissue 1-5. Silver nitrate used for any petechial bleeding as necessary. Patient chooses, no pharmaceutical tx (04996) Keratoma Treatment Parring or Cutting o f Benign Hyperkeratotic Lesion(s) 74674 ( More than 4 Lesions ) - The Benign hyperkeratotic lesions, as described above were pared, and/or cut utilizing a sterile 15 blade, tissue nippers, and/or dremel , Q8 Progress Notes * PETEDestiny CORREA FDOB:1944 (79 yo F)Acc No.[id number]:05/11/2024 Progress Note Patient:?Destiny Yadav Provider:?Talia Bazzi DPM :1945???Age:79 Y???Sex:Female D ate:05/11/2024 Address:[address] [place], [place] [id number] Pcp:Ryley Varela MD Subjective: * Chief Complaints: * ???At Risk FootcarePainful N ail(s) aggrevated by shoes and causing difficulty standing/walking.Wart(s)Foot pain * HPI: ???At Risk footcare:?Pt States Last PCP Visit:?Date?04/09/2024 ???Skin problems:?Pt States PCP Visit: ?DATE?04/09/2024 ???Foot Pain:?Location:?Bottom, Forefoot, RIGHT.?Course:?worse.?Treatments:?rest/alter normal daily activity, custom orthotics in the past per pt, powerstep orthotics.? * ROS:?General/Constitutional:?Nausea?denies, denies.?Vomiting?denies, denies.?Hunger Thirst?denies, denies.?Loss appetite?denies, denies.?Chills?denies, denies.?Fatigue?denies, denies.?Fever?denies, denies.?Night Sweats denies, denies.?Unexplained weight loss?denies, denies.?Unexplained weight gain?denies, denies.?HEENTM:?Dentures?admits, denies, admits, denies.?Dizziness?denies, denies.?Glasses/contacts?admits, denies, admits, denies.?Retinopathy?denies, denies.?Blurred/double vision?denies, denies.?TMJ?denies, denies.?Discharge/drainage?denies, denies.?Implants?denies, denies.?Sore throat?denies, denies.?Dental implants?denies, denies.?Hard of hearing ?admits, denies, admits, denies.?Difficulty chewing/swallowing/speaking?denies, denies.?Nose bleeds?denies, denies.?Sore mouth?denies, denies.?Respiratory:?On Oxygen?denies, denies.?Pneumonia/pleurisy?denies, denies.?Bronchitis?denies, denies.?Emphysema?denies, denies.?Coughing?denies, denies.?Cough blood?denies, denies.?Shortness of breath?denies, denies.?Wheezing?denies, denies.?Cardiovascular:?Pacemaker?denies, denies.?MVP?denies, denies.?WPW?denies, denies.?CHF?denies, denies.?Heart attack?denies, denies.?Septal defect?denies, denies.?Rapid beat?denies, denies.?Chest pain ?denies, denies.?Atrial Fib.?denies, denies.?Murmur/Palpitations?denies, denies.?Gastrointestinal:?Hemorrhoids?admits, denies, admits, denies.?Stomach/Abdominal pain?denies, denies.?Dark blood stool?denies, denies.?Irritable bowel ?denies, denies.?Constipation?denies, denies.?Diarrhea?denies, denies.?Hematology:?Swelling?denies, denies.?Clots?denies, denies.?Varicose Veins?denies, denies.?Bruising?denies, denies.?Bleeding problem?denies, denies.?Genitourinary:?Blood urine?denies, denies.?Frequent/Painfu/urination/bladder control?denies, denies.?Kidney stones?denies, denies.?Infection (UTI)?denies, denies.?Nephropathy?denies, denies.?sex trans dis (STD)?denies, denies.?Prostate?denies, denies.?Musculoskeletal:?Hammertoes?admits, denies, admits, denies.?Bunions?denies, denies.?Back Pain?denies, denies.?Muscle Cramps/ Resting?denies, denies.?Muscle cramps / walking?denies, denies.?Generalized aches and pains?denies, denies.?Weakness?denies, denies.?Integ.:?[place]addell?denies, denies.?Scars?denies, denies.?Corns/calluses?admits, denies, admits, denies.?Ingrown nails?denies, denies.?Painful nails?denies, denies.?Open Sores?denies, denies.?Rashes?denies, denies.?Neurologic:?Difficulty sleeping?denies, denies.?Brain disorder?denies, denies.?Numbness?denies, denies.?Balance trouble?denies, denies.?Confusion?denies, denies.?Fainting/blackouts?denies, denies.?Tingling?denies, denies.?Tremors?denies, denies.? * Medical History:? * Surgical History:?Ankle Surg amy 1998Thumb Surgery 2011ear surgery 2003knee inignkw-ghlkollnezo-gmru 2015hip surgery 05/01 * Hospitalization/Major Diagno stic Procedure:?Denies Past Hospitalization * Family History:?Mother: dece ased, kidney/liver disease.?Father: .?Spouse: diagnosed with Family history of arthritis.? * Social History:?Tobacco Use:?Tobacco Use/Smoking?Are you a:?former smoker ?Additional Findings: Tobacco Non-User?Current non-smoker ?Tobacco use other than smoking?Are you an other tobacco user??No * Medications:?TakingTylenol O lopatadine HCl 0.1 % Solution Ophthalmic Primidone 50 MG Tablet 1 tablet Orally Once a dayFluticasone Propionate 50 MCG/ACT Suspension Nasal Sertraline HCl ALPRAZolam 0.25 MG Tablet 1 tablet Orally Twice a dayAtorvastatin Calcium 10 MG Tablet Oral Nortriptyline HCl 10 MG Capsule 1 capsule Orally Once a dayVitamin C Vitamin D Lipitor 10 MG Tablet 1 tablet Orally Once a dayFlonase , Notes: PRNMeclizine HCl Medication List reviewed and reconciled with the patientTaking Tylenol Taking Olopatadine HCl 0.1 % Solution Ophthalmic Taking Primidone 50 MG Tablet 1 tablet Orally Once a dayTaking Fluticasone Propionate 50 MCG/ACT Suspension Nasal Taking Sertraline HCl Taking ALPRAZolam 0.25 MG Tablet 1 tablet Orally Twice a dayTaking Atorvastatin Calcium 10 MG Tablet Oral Taking Nortriptyline HCl 10 MG Capsule 1 capsule Orally Once a dayTaking Vitamin C Taking Vitamin D Taking Lipitor 10 MG Tablet 1 tablet Orally Once a dayTaking Flonase , Notes: PRNTaking Meclizine HCl Medication List reviewed and reconciled with the patient * Allergies:?PenicillinAdvil, Aleve, MotrinCompasineDemerolNovocainAspirinyes[Allergies Verified] Objective: * Vitals:?Ht: 5 ft2in, Wt: 115 , BMI: 21.03, Shoe size: 9-10, Ht-cm: 157.48 cm, Wt- k.16 kg. * Examination: ???Vascular: ?DP PULSES:? 0/4, B/L.?PT PULSES:? 0/4, B/L.?CAPILLARY FILL TIME:? delayed, all digits, B/L.?SKIN TEMPERTURE GRADIENT OF THE LOWER EXTERMITIES:? decreased, cool to cool, proximal to distal, B/L.?HAIR GROWTH/TEXTURE/ELASTICITY/TURGOR:? decreased, B/L.?PIGMENTATION:?brawny, B/L.?CLAUDICATION:?denies, B/L.?REST PAIN:?denies, B/L.?Nails: ?NAILS are:? Elongated, overgrown, dystrophic, lytic, greater than 3mm thick, discolored and friable with crumbly malodorous subungual debris, with pain on palpation, 1-5 B/L.?Dermatologic: ?SKIN FINDINGS:?Skin exam reveals Keratotic lesion(s) located at , Medial plantar , T5 , SUB MTH (s) , 1 , B/L , SUB MTH (s) , 3 , Right.?VERRUCA:?Reveals Multiple ( 3 ), multi-loculated , mosaic-patterned, round, raised, flat-topped, petechial bleeding papule(s), with cauliflower appearance and interruption of skin lines, with pain to lateral compression, and size estimated at 3 mm diameter , plantar Heel , LEFT.?Orthopedic: ?MUSCLE STRENGTH:?5/5 all groups in a symmetrical fashion, B/L.?GAIT ABNORMALITY:?antalgic.?MPJ PATHOLOGY:? Pain, swelling, and inflammation to plantar MPJ(s), RIGHT, No MPJ pain with ROM, [ - ] Ecchymosis, Atrophied anterior fat pad, 3rd, RIGHT.?Neurological: ?SENSORY:?Neurological exam reveals intact sensorium, pain sensation normal, vibration sensation intact, pinprick sensation is normal in the lower extremities, Pt denies, anesthesia, burning, paresthesia, tingling, B/L.?TINEL'S COMPRESSION:? Negative tarsal tunnel, macario pedis, and medial calcaneal nerves, Right.?General Examination: ?GENERAL APPEARANCE:?Reveals a pleasant, alert, well nourished, well- developed, well hydrated individual, who demonstrates proper attention to hygiene/body habitus, and is in no acute distress, Pt serves as own historian for office visit today.?ORIENTED:?person, place, and time.?Neuroma Pain: ?PALPATION:?No interspace pain noted on palpation.? Assessment: * Assessment: 1.?Plantar wart - B07.0?2.?M etatarsalgia, right foot - M77.41 (Primary)?3.?Atherosclerosis of [place] artery of both lower extremities, with unspecified presence of clinical manifestation - I70.203?4.?Tinea unguium - B35.1?5.?Pain in right toe(s) - M79.674?6.?Pain in left toe(s) - M79.675?7.?Right foot pain - M79.671?8.?Left foot pain - M79.672?9.?Pain in right ankle and joints of right foot - M25.571? Plan: * Treatment: * Procedures:?Debride Nail 6-10:?Nail debridement?Nail debridement performed extensively to reduce/remove overall nail length, girth, thickness, subungual debris, and necrotic tissue, by manual and electrical means through the use of a nail nipper and/or dremel, to more viable healthy nail plate or bed tissue 1-5. Silver nitrate used for any petechial bleeding as necessary. Patient chooses, no pharmaceutical tx (70647).?Keratoma Treatment:?Parring or Cutting of Benign Hyperkeratotic Lesion(s)?54624 ( More than 4 Lesions ) - The Benign hyperkeratotic lesions, as described above were pared, and/or cut utilizing a sterile 15 blade, tissue nippers, and/or dremel , Q8.?Wart Treatment:?Procedure?Verrucae were debrided to pin-point bleeding margins with sterile 15 surgical blade, silver nitrate chemocautery applied, recomm. immune-boosting meds such as zinc, recomm. follow up with topical chemosurgical agents, Pt defers any other forms of tx (78148).? * Imaging:? * ?Imaging: X ray : Foot, right 3V * Procedure Codes:?93343 DEBRI DE NAIL, 6 OR MORE, Modifiers: XS 21588 Wart Destruction, 1-14, Modifiers: XS 68623 TRIM SKIN LESIONS, OVER 4, Modifiers: XS , Q8 * Preventive Medicine:? ??Counseling:?Discussion:?-13: Office or other outpatient visit for the evaluation and management of an established patient, which required a medically appropriate history and/or examination and LOW level of DECISION MAKING for: 1 STABLE ACUTE UNCOMPLICATED PROBLEM, 2 OR MORE MINOR PROBLEMS, OR 1 STABLE CHRONIC PROBLEM, THAT POSE(S) A LOW RISK FOR MORBIDITY/MORTALITY. The visit on the day of the encounter encompassed interpreting the data and educating the patient as to the nature of their condition, treatment options available according to their individual PMH, meds, allergies, and overall health/living conditions, as well as any potential risks or complications that may occur from a failure to adhere to, and participate in, the recommended course of therapy. The discussion included a complete verbal, and/or written explanation of the examination results, any x-rays taken, the proposed diagnosis, and outline of the treatment plan. A schedule for future care needs was also explained. The patient verbalized an understanding of the instructions at this time and agreed to be an active participant in their treatment. If the patient should think of any questions or concerns after the visit, I have encouraged the patient to call the office.?Metatarsalgea:?I explained to the patient the possible etiologies of their Metatarsalgea Foot pain, including foot type/shoegear/activity level/exercise routine and the risks/benefits of all the different treatment options for pain including: No treatment at all, Rest, Ice, NSAIDs(only if well tolerated after meals), New/supportive Shoegear, Strappings and Tapings, Foot/Ankle AFO Bracing, Stretching exercises, Deep Tissue Massage, Arch support/shoe inserts, Custom orthoses, Topical analgesics including Aspercream/Voltaren gel, Physical Therapy, Cortisone injection therapy, EPAT/ESWT. Advantages and disadvantages of each option were discussed and the patients questions re: shoegear, custom vs prefabricated inserts, activity level, PO vs Topical medications (and their respective potential complications/drug interactions/side effects), and consistency in home treatment regimens for optimal success were answered to their verbally confirmed satisfaction.?P.R.I.C.E.:?The patient was counseled on the use of P.R.I.C.E. and NSAIDS (if well tolerated) to aid in the recovery from their painful condition.? * Follow Up:?2 Months * Images: * Sign off status: Completed true * Provider:?Talia Bazzi DPM Date:?11/2023 Generated for Alejandro Diane/Noe on:?09/26/2024 11:00 AM EST History and Physical Notes * HPI (History of Present Illness) Category Sub-Category Detail Notes Category Not es Skin problems Pt States PCP Visit: DATE: 04/09/2024 At Risk footcare Pt States Last PCP Visit: Date: 4 Foot Pain Location: Bottom, Forefoot, RIGHT Course: worse Treatments: rest/alter normal da sujey activity, custom orthotics in the past per pt, powerstep orthotics Examination Category Sub-Category Detail Notes Category Not es Neuroma Pain PALPATION: No interspace pain noted on palpation Neurological SENSORY: Neurological exa m reveals intact sensorium, pain sensation normal, vibration sensation intact, pinprick sensation is normal in the lower extremities, Pt denies, anesthesia, burning, paresthesia, tingling, B/L TINEL'S COMPRESSION: Negative tarsal mariana marjorie, macario pedis, and medial calcaneal nerves, Right Dermatologic SKIN FINDINGS: Skin exam reveal s Keratotic lesion(s) located at , Medial plantar , T5 , SUB MTH (s) , 1 , B/L , SUB MTH (s) , 3 , Right VERRUCA: Reveals Multiple ( 3 ), multi-loculated , mosaic-patterned, round, raised, flat-topped, petechial bleeding papule(s), with cauliflower appearance and interruption of skin lines, with pain to lateral compression, and size estimated at 3 mm diameter , plantar Heel , LEFT Orthopedic GAIT ABNORMALITY: antalgic MPJ PATHOLOGY: Pain, swelling, and inflammation to plantar MPJ(s), RIGHT, No MPJ pain with ROM, [ - ] Ecchymosis, Atrophied anterior fat pad, 3rd, RIGHT MUSCLE STRENGTH: 5/5 all groups in a symmetrical fashion, B/L General Examination GENERAL APPEARANCE: Reveals a pleasant, alert, well nourished, well-developed, well hydrated individual, who demonstrates proper attention to hygiene/body habitus, and is in no acute distress, Pt serves as own historian for office visit today ORIENTED: person, place, and t iris Vascular DP PULSES (B): 0/4, B/L PT PULSES (B): 0/4, B/L CAPILLARY FILL TIME: delayed, all digits , B/L TEMPERTURE GRADIENT (C): decreased, cool to cool, proximal to distal, B/L TROPHIC CONDITION-TEXTURE/ELASTICITY/TURGOR/HAIR GROWTH (B): decreased, B/L CLAUDICATION (C): denies, B/L REST PAIN: denies, B/L PIGMENTATION: brawny, B/L Nails NAILS are: Elongated, overg rown, dystrophic, lytic, greater than 3mm thick, discolored and friable with crumbly malodorous subungual debris, with pain on palpation, 1-5 B/L
--- OUTSIDE RECORDS SUMMARY | 2024-09-26 11:01 | XMS_ITS | Clinical Summary ---
Author Organization Unknown Care Team Providers Care Neck Band Maker Name Role Phone GRANT IVERSON, JAY Unavailable Unavailable ALEXIS RN, MICHI Unavailable Unavailable MINDI PT, IVY Unavailable Unavailable Payers Payer Name Policy Type Policy Number Effective Date Expira tion Date [place] [id number] [facility] [id number] Problems Condition Name Condition Details Condition Category Status Onset Date Resolution Date Last Treatment Date Treating Clinician Comments DISPL INTERTROCH FX R FEMUR, SUBS FOR CLOS FX W ROUTN HEAL Active 7 00:00: 00 PRESENCE OF RIGHT ARTIFICIAL HIP JOINT Active 10-10 00:00: 00 PRESSURE ULCER OF RIGHT BUTTOCK, STAGE 2 Active 10-10 00:00: 00 PRESSURE ULCER OF LEFT BUTTOCK, STAGE 2 Active 10-10 00:00: 00 HYPERTENSIVE CHRONIC KIDNEY DISEASE W STG 1-4/UNSP CHR KDNY Active 10-10 00:00: 00 CHRONIC KIDNEY DISEASE, UNSPECIFIED Active 10-10 00:00: 00 ANEMIA IN CHRONIC KIDNEY DISEASE Active 10-10 00:00: 00 CHRONIC OBSTRUCTIVE PULMONARY DISEASE, UNSPECIFIED Active 10-10 00:00: 00 HYPERLIPIDEM IA, UNSPECIFIED Active 10-10 00:00: 00 ESSENTIAL TREMOR Active 10-10 00:00: 00 UNSPECIFIED OSTEOARTHRIT IS, UNSPECIFIED SITE Active 10-10 00:00: 00 ANXIETY DISORDER, UNSPECIFIED Active 10-10 00:00: 00 DEPRESSION, UNSPECIFIED Active 10-10 00:00: 00 PRESENCE OF LEFT ARTIFICIAL KNEE JOINT Active - 00:00: 00 DETENTION (CURRENT) USE OF ANTICOAGULAN TS Active 10-10 00:00: 00 OTHER DETENTION (CURRENT) DRUG THERAPY Active 10-10 00:00: 00 Allergies, Adverse Reactions, Alerts Allergy Name Allergy Type Status Severity Reaction(s) Onset Date Inactive Date Treating Clinician Comments NKA Propensity to adverse reactions Active 2023-04 09:51:2 7 Medications Ordered Medication Name Filled Medication Name Start Date Stop Date Current Medication? Ordering Clinician Indication Dosage Frequency Signature (SIG) Comments Components atorvastati n 10 mg tablet 04-25 00:00: 00 Yes [id number] 1 tablet DAILY 1 tablet DAILY (route: oral) Med Classific ation: Cardiovas cular Therapy Agents nortriptyli ne 10 mg capsule 04-01 00:00: 00 Yes [id number] Per instruc tions EVERY DAY AT BEDTIME Per instructio ns EVERY DAY AT BEDTIME (route: oral) Med Classific ation: Central Nervous System Agents albuterol sulfate HFA 90 mcg/actuati on aerosol inhaler 05-05 00:00: 00 Yes [id number] 2 puff EVERY 4 HOURS 2 puff EVERY 4 HOURS (route: inhalation ) Med Classific ation: Respirato ry Therapy Agents alprazolam 0.25 mg tablet 05-05 00:00: 00 Yes [id number] 0.5 tablet 3 TIMES DAILY 0.5 tablet 3 TIMES DAILY (route: oral) Med Classific ation: Central Nervous System Agents Anoro Ellipta 62.5 mcg-25 mcg/actuati on powder for inhalation 05-05 00:00: 00 Yes [id number] 1 inhalat ion DAILY 1 inhalation DAILY (route: inhalation ) Med Classific ation: Respirato ry Therapy Agents ascorbic acid (vitamin C) 500 mg tablet 05-05 00:00: 00 Yes [id number] 1 tablet DAILY 1 tablet DAILY (route: oral) Med Classific ation: Electroly te Balance-N utritiona l Products calcium carbonate 500 mg-vitamin D3 2.5 mcg (100 unit) chewable tablet 05-05 00:00: 00 Yes [id number] 1 tablet 2 TIMES DAILY 1 tablet 2 TIMES DAILY (route: oral) Med Classific ation: Electroly te Balance-N utritiona l Products ergocalcife rol (vitamin D2) 1,250 mcg (50,000 unit) capsule 05-05 00:00: 00 Yes [id number] 1 capsule EVERY OTHER WEEK 1 capsule EVERY OTHER WEEK (route: oral) Med Classific ation: Electroly te Balance-N utritiona l Products Estrace 0.01% (0.1 mg/gram) vaginal cream 05-05 00:00: 00 Yes [id number] Per instruc tions 2 TIMES A WEEK Per instructio ns 2 TIMES A WEEK (route: vaginal) Med Classific ation: Vaginal Products ferrous sulfate 325 mg (65 mg iron) tablet 05-05 00:00: 00 Yes [id number] 1 tablet 2 TIMES DAILY 1 tablet 2 TIMES DAILY (route: oral) Med Classific ation: Electroly te Balance-N utritiona l Products Flonase Allergy Relief 50 mcg/actuati on nasal spray,suspe nsion 05-05 00:00: 00 Yes [id number] 1 spray 2 TIMES DAILY 1 spray 2 TIMES DAILY (route: nasal) Med Classific ation: Respirato ry Therapy Agents Lovenox 30 mg/0.3 mL subcutaneou s syringe 05-05 00:00: 00 05-16 23:59 :00 No [id number] 0.3 mL DAILY 0.3 mL DAILY (route: subcutaneo us) Med Classific ation: Hematolog ical Agents olopatadine 0.1 % eye drops 05-05 00:00: 00 Yes [id number] Per instruc tions 2 TIMES DAILY Per instructio ns 2 TIMES DAILY (route: ophthalmic (eye)) Med Classific ation: Ophthalmi c Agents sertraline 50 mg tablet 05-05 00:00: 00 Yes [id number] 1 tablet DAILY 1 tablet DAILY (route: oral) Med Classific ation: Central Nervous System Agents tramadol 50 mg tablet 05-05 00:00: 00 Yes [id number] 1 tablet EVERY 6 HOURS 1 tablet EVERY 6 HOURS (route: oral) Med Classific ation: Analgesic , Anti-infl ammatory or Antipyret ic Immunizations Ordered Immunization Name Filled Immunization Name Date Status Comments Refusal Reason COVID BOOSTER, COVID BOOSTER 2023-04-19 00:00:00 COVID BOOSTER, COVID BOOSTER 2022-01-12 00:00:00 COVID SECOND DOSE, COVID SECOND DOSE 2021-07-22 00:00:00 COVID FIRST DOSE, COVID FIRST DOSE 2020-12-09 00:00:00 Vital Signs Vital Name Observation Time Observation Value Commen ts Temperature 2023-06-24 10:29:00.000 98 [degF] Temperature 2023-06-16 10:44:00.000 96.8 [degF] Temperature 2023-06-15 15:04:00.000 98.5 [degF] Temperature 2023-06-08 11:08:00.000 97 [degF] Temperature 2023-06-02 10:18:00.000 97 [degF] Temperature 2023-06-01 10:13:00.000 96.8 [degF] Temperature 2023-05-27 21:20:00.000 98.6 [degF] Temperature 2023-05-24 12:27:00.000 96.8 [degF] Temperature 2023-05-23 10:38:00.000 97.3 [degF] Temperature 2023-05-20 10:07:00.000 96.9 [degF] Temperature 2023-05-19 13:34:00.000 97 [degF] Temperature 2023-05-17 10:10:00.000 97.2 [degF] Temperature 2023-05-16 18:48:00.000 97 [degF] Temperature 2023-05-12 10:00:00.000 97.1 [degF] Temperature 2023-05-12 09:02:00.000 97.1 [degF] Temperature 2023-05-10 12:17:00.000 96.8 [degF] Temperature 2023-05-09 14:17:00.000 97.8 [degF] Temperature 2023-05-05 10:37:00.000 97 [degF] BMI (%) 2023-05-05 10:25:54.000 19 kg/m2 Height 2023-05-05 10:25:48.000 62 [in_us] Pulse 2023-06-24 10:29:00.000 98 /min Pulse 2023-06-16 10:44:00.000 76 /min Pulse 2023-06-15 15:04:00.000 90 /min Pulse 2023-06-08 11:08:00.000 84 /min Pulse 2023-06-02 10:18:00.000 90 /min Pulse 2023-06-01 10:05:00.000 86 /min Pulse 2023-05-27 21:20:00.000 80 /min Pulse 2023-05-24 12:27:00.000 64 /min Pulse 2023-05-23 10:38:00.000 95 /min Pulse 2023-05-20 10:07:00.000 70 /min Pulse 2023-05-19 13:34:00.000 98 /min Pulse 2023-05-17 10:10:00.000 88 /min Pulse 2023-05-16 18:48:00.000 88 /min Pulse 2023-05-12 10:00:00.000 92 /min Pulse 2023-05-12 09:02:00.000 94 /min Pulse 2023-05-10 12:17:00.000 90 /min Pulse 2023-05-09 14:17:00.000 85 /min Pulse 2023-05-05 10:37:00.000 93 /min O2 Saturation (%) 2023-06-24 10:29:00.000 97 % O2 Saturation (%) 2023-06-16 10:44:00.000 97 % O2 Saturation (%) 2023-06-15 15:04:00.000 98 % O2 Saturation (%) 2023-06-08 11:08:00.000 99 % O2 Saturation (%) 2023-06-02 10:18:00.000 95 % O2 Saturation (%) 2023-06-01 10:05:00.000 96 % O2 Saturation (%) 2023-05-27 21:21:00.000 98 % O2 Saturation (%) 2023-05-24 12:27:00.000 96 % O2 Saturation (%) 2023-05-23 10:38:00.000 97 % O2 Saturation (%) 2023-05-20 10:07:00.000 94 % O2 Saturation (%) 2023-05-19 13:34:00.000 97 % O2 Saturation (%) 2023-05-17 10:10:00.000 99 % O2 Saturation (%) 2023-05-12 10:00:00.000 97 % O2 Saturation (%) 2023-05-12 09:02:00.000 97 % O2 Saturation (%) 2023-05-10 12:17:00.000 96 % O2 Saturation (%) 2023-05-09 14:17:00.000 98 % O2 Saturation (%) 2023-05-05 10:37:00.000 99 % Respirations 2023-06-24 10:29:00.000 18 /min Respirations 2023-06-16 10:44:00.000 18 /min Respirations 2023-06-15 15:04:00.000 18 /min Respirations 2023-06-08 11:08:00.000 18 /min Respirations 2023-06-02 10:18:00.000 18 /min Respirations 2023-06-01 10:05:00.000 18 /min Respirations 2023-05-27 21:20:00.000 18 /min Respirations 2023-05-24 12:27:00.000 18 /min Respirations 2023-05-23 10:38:00.000 18 /min Respirations 2023-05-20 10:07:00.000 18 /min Respirations 2023-05-19 13:34:00.000 18 /min Respirations 2023-05-17 10:10:00.000 18 /min Respirations 2023-05-16 18:48:00.000 18 /min Respirations 2023-05-12 10:00:00.000 18 /min Respirations 2023-05-12 09:02:00.000 18 /min Respirations 2023-05-10 12:17:00.000 18 /min Respirations 2023-05-09 14:17:00.000 18 /min Respirations 2023-05-05 10:37:00.000 18 /min Weight (lbs) 2023-06-24 10:29:00.000 104 [lb_av] Weight (lbs) 2023-05-05 10:25:54.000 104 [lb_av] Systolic Blood Pressure 2023-06-24 10:29:00.000 102 mm [Hg] Systolic Blood Pressure 2023-06-16 10:44:00.000 127 mm [Hg] Systolic Blood Pressure 2023-06-15 15:04:00.000 130 mm [Hg] Systolic Blood Pressure 2023-06-08 11:08:00.000 118 mm [Hg] Systolic Blood Pressure 2023-06-02 10:18:00.000 116 mm [Hg] Systolic Blood Pressure 2023-06-01 10:05:00.000 110 mm [Hg] Systolic Blood Pressure 2023-05-27 21:20:00.000 130 mm [Hg] Systolic Blood Pressure 2023-05-24 12:27:00.000 112 mm [Hg] Systolic Blood Pressure 2023-05-23 10:38:00.000 110 mm [Hg] Systolic Blood Pressure 2023-05-20 10:07:00.000 110 mm [Hg] Systolic Blood Pressure 2023-05-19 13:34:00.000 98 mm[ Hg] Systolic Blood Pressure 2023-05-17 10:10:00.000 112 mm [Hg] Systolic Blood Pressure 2023-05-16 18:48:00.000 126 mm [Hg] Systolic Blood Pressure 2023-05-12 09:02:00.000 110 mm [Hg] Systolic Blood Pressure 2023-05-10 12:17:00.000 124 mm [Hg] Systolic Blood Pressure 2023-05-09 14:17:00.000 118 mm [Hg] Systolic Blood Pressure 2023-05-05 10:37:00.000 118 mm [Hg] Diastolic Blood Pressure 2023-06-24 10:29:00.000 56 mm [Hg] Diastolic Blood Pressure 2023-06-16 10:44:00.000 72 mm [Hg] Diastolic Blood Pressure 2023-06-15 15:04:00.000 70 mm [Hg] Diastolic Blood Pressure 2023-06-08 11:08:00.000 62 mm [Hg] Diastolic Blood Pressure 2023-06-02 10:18:00.000 60 mm [Hg] Diastolic Blood Pressure 2023-06-01 10:05:00.000 70 mm [Hg] Diastolic Blood Pressure 2023-05-27 21:20:00.000 74 mm [Hg] Diastolic Blood Pressure 2023-05-24 12:27:00.000 70 mm [Hg] Diastolic Blood Pressure 2023-05-23 10:38:00.000 62 mm [Hg] Diastolic Blood Pressure 2023-05-20 10:07:00.000 70 mm [Hg] Diastolic Blood Pressure 2023-05-19 13:34:00.000 54 mm [Hg] Diastolic Blood Pressure 2023-05-17 10:10:00.000 72 mm [Hg] Diastolic Blood Pressure 2023-05-16 18:48:00.000 70 mm [Hg] Diastolic Blood Pressure 2023-05-12 09:02:00.000 62 mm [Hg] Diastolic Blood Pressure 2023-05-10 12:17:00.000 70 mm [Hg] Diastolic Blood Pressure 2023-05-09 14:17:00.000 78 mm [Hg] Diastolic Blood Pressure 2023-05-05 10:37:00.000 64 mm [Hg] Plan of Treatment Planned Activity Planned Date Details Comments Future Scheduled Test SKILLED NU RSE TO EVALUATE PATIENT, IDENTIFY PRIMARY AND CO-MORBID CONDITIONS CODED PER CODING GUIDELINES, AND DEVELOP PATIENT SPECIFIC PLAN OF CARE THAT INCLUDES PATIENT GOAL FOR HOME HEALTH. [code = SKILLED NURSE TO EVALUATE PATIENT, IDENTIFY PRIMARY AND CO-MORBID CONDITIONS CODED PER CODING GUIDELINES, AND DEVELOP PATIENT SPECIFIC PLAN OF CARE THAT INCLUDES PATIENT GOAL FOR HOME HEALTH.] Future Scheduled Test SKILLED NU RSE TO REVIEW PATIENT MEDICATIONS. INSTRUCT PATIENT/CAREGIVER ON MONITORING OF EFFECTIVENESS, ADVERSE DRUG REACTIONS, SIDE EFFECTS OF ALL MEDICATIONS (PRESCRIPTION/-OTC), AND HOW AND WHEN TO REPORT PROBLEMS. [code = SKILLED NURSE TO REVIEW PATIENT MEDICATIONS. INSTRUCT PATIENT/CAREGIVER ON MONITORING OF EFFECTIVENESS, ADVERSE DRUG REACTIONS, SIDE EFFECTS OF ALL MEDICATIONS (PRESCRIPTION/-OTC), AND HOW AND WHEN TO REPORT PROBLEMS.] Future Scheduled Test SKILLED NU RSE TO ASSESS ANXIETY AND PROVIDE ASSISTANCE TO PATIENT FOR UNDERSTANDING AND MANAGEMENT OF FEELINGS. [code = SKILLED NURSE TO ASSESS ANXIETY AND PROVIDE ASSISTANCE TO PATIENT FOR UNDERSTANDING AND MANAGEMENT OF FEELINGS.] Future Scheduled Test NEED FOR S KILLED TEACHING AND INTERVENTION RELATED TO STAGE II PRESSURE ULCER TO BUTTOCKS SKILLED NURSE OR TRAINED PATIENT/CAREGIVER TO PERFORM WOUND CARE USING ASEPTIC TECHNIQUE, CLEANSE WITH NORMAL SALINE, PAT DRY WITH GAUZE, APPLY DUODERM TO WOUND BED. WOUND CARE TO BE PERFORMED TWICE WEEKLY ON MONDAYS AND THURSDAYS AND PRN IF SOILED OR DISLODGED. 1-2 PRN SKILLED NURSE VISITS FOR WOUND CARE DUE TO COMPLICATIONS. SKILLED NURSE TO OBTAIN WOUND CULTURE PRN S/S OF INFECTION. WOUND CARE WILL BE PERFORMED BY TRAINED CAREGIVER ON DAYS WHEN SKILLED NURSE IS NOT SCHEDULED FOR A VISIT. DISCONTINUE WOUND CARE/SUPPLIES ONCE WOUND IS HEALED. [code = NEED FOR SKILLED TEACHING AND INTERVENTION RELATED TO STAGE II PRESSURE ULCER TO BUTTOCKS SKILLED NURSE OR TRAINED PATIENT/CAREGIVER TO PERFORM WOUND CARE USING ASEPTIC TECHNIQUE, CLEANSE WITH NORMAL SALINE, PAT DRY WITH GAUZE, APPLY DUODERM TO WOUND BED. WOUND CARE TO BE PERFORMED TWICE WEEKLY ON MONDAYS AND THURSDAYS AND PRN IF SOILED OR DISLODGED. 1-2 PRN SKILLED NURSE VISITS FOR WOUND CARE DUE TO COMPLICATIONS. SKILLED NURSE TO OBTAIN WOUND CULTURE PRN S/S OF INFECTION. WOUND CARE WILL BE PERFORMED BY TRAINED CAREGIVER ON DAYS WHEN SKILLED NURSE IS NOT SCHEDULED FOR A VISIT. DISCONTINUE WOUND CARE/SUPPLIES ONCE WOUND IS HEALED.] Future Scheduled Test SKILLED NU RSE FOR ADMINISTRATION AND TEACHING OF PRESCRIBED INJECTION THERAPY FOR ENOXAPARIN [code = SKILLED NURSE FOR ADMINISTRATION AND TEACHING OF PRESCRIBED INJECTION THERAPY FOR ENOXAPARIN ] Future Scheduled Test PHYSICAL T HERAPIST TO EVALUATE PATIENT [code = PHYSICAL THERAPIST TO EVALUATE PATIENT] Future Scheduled Test SKILLED NU RSE TO PROVIDE TEACHING ON SIGNS AND SYMPTOMS AND MANAGEMENT OF HYPERTENSION. [code = SKILLED NURSE TO PROVIDE TEACHING ON SIGNS AND SYMPTOMS AND MANAGEMENT OF HYPERTENSION.] Future Scheduled Test SKILLED NU RSE TO INSTRUCT PATIENT/CAREGIVER ON COPD TO INCLUDE TEACHING AND SELF-MANAGEMENT RELATED TO COPD DISEASE PROCESS, SIGNS AND SYMPTOMS, AND COMPLICATIONS. [code = SKILLED NURSE TO INSTRUCT PATIENT/CAREGIVER ON COPD TO INCLUDE TEACHING AND SELF-MANAGEMENT RELATED TO COPD DISEASE PROCESS, SIGNS AND SYMPTOMS, AND COMPLICATIONS.] Future Scheduled Test SKILLED NU RSE FOR O/A AND SKILLED TEACHING RELATED TO SIGNS AND SYMPTOMS AND MANAGEMENT OF ANEMIA. [code = SKILLED NURSE FOR O/A AND SKILLED TEACHING RELATED TO SIGNS AND SYMPTOMS AND MANAGEMENT OF ANEMIA.] Future Scheduled Test SKILLED NU RSE FOR O/A AND SKILLED TEACHING RELATED TO SIGNS AND SYMPTOMS AND MANAGEMENT OF MUSCULOSKELETAL DISEASE R/T OA, DISPLACED INTERTROCHANTERIC FX RIGHT FEMUR [code = SKILLED NURSE FOR O/A AND SKILLED TEACHING RELATED TO SIGNS AND SYMPTOMS AND MANAGEMENT OF MUSCULOSKELETAL DISEASE R/T OA, DISPLACED INTERTROCHANTERIC FX RIGHT FEMUR] Future Scheduled Test VIRTUAL SIT FREQUENCY: 1-6 PER WEEK X 2 WEEKS AND 6 PRN VIRTUAL VISITS MAY BE PERFORMED UTILIZING TELECOMMUNICATIONS SYSTEM TO OPTIMIZE SKILLED SERVICES FURNISHED ON THE PLAN OF CARE. SKILLED NURSE TO ESTABLISH SUPPORT MEASURES TO MINIMIZE RISK OF REHOSPITALIZATION, AND INSTRUCT PATIENT/CAREGIVER ON METHODS TO REDUCE AVOIDABLE HOSPITALIZATION. [code = VIRTUAL VISIT FREQUENCY: 1-6 PER WEEK X 2 WEEKS AND 6 PRN VIRTUAL VISITS MAY BE PERFORMED UTILIZING TELECOMMUNICATIONS SYSTEM TO OPTIMIZE SKILLED SERVICES FURNISHED ON THE PLAN OF CARE. SKILLED NURSE TO ESTABLISH SUPPORT MEASURES TO MINIMIZE RISK OF REHOSPITALIZATION, AND INSTRUCT PATIENT/CAREGIVER ON METHODS TO REDUCE AVOIDABLE HOSPITALIZATION.] Future Scheduled Test PATIENT SALES S A RISK OF HOSPITALIZATION AND ED USE. SKILLED NURSE TO ESTABLISH SUPPORT MEASURES TO MINIMIZE RISK OF HOSPITALIZATION AND ED USE, AND INSTRUCT PATIENT/CAREGIVER ON METHODS TO REDUCE AVOIDABLE HOSPITALIZATION AND ED USE. [code = PATIENT HAS A RISK OF HOSPITALIZATION AND ED USE. SKILLED NURSE TO ESTABLISH SUPPORT MEASURES TO MINIMIZE RISK OF HOSPITALIZATION AND ED USE, AND INSTRUCT PATIENT/CAREGIVER ON METHODS TO REDUCE AVOIDABLE HOSPITALIZATION AND ED USE.] Future Scheduled Test SKILLED NU RSE TO PROVIDE INSTRUCTION TO PATIENT/CAREGIVER RELATED TO DISCHARGE PLANNING. [code = SKILLED NURSE TO PROVIDE INSTRUCTION TO PATIENT/CAREGIVER RELATED TO DISCHARGE PLANNING.] Future Scheduled Test SKILLED NU RSE TO PERFORM HOME SAFETY AND FALL ASSESSMENT AND PROVIDE INSTRUCTION TO IMPLEMENT HOME SAFETY AND FALL PREVENTION STRATEGIES. [code = SKILLED NURSE TO PERFORM HOME SAFETY AND FALL ASSESSMENT AND PROVIDE INSTRUCTION TO IMPLEMENT HOME SAFETY AND FALL PREVENTION STRATEGIES.] Future Scheduled Test SKILLED NU RSE FOR OBSERVATION AND ASSESSMENT OF PATIENTS PAIN LEVEL AND EFFECTIVENESS OF PAIN MANAGEMENT REGIMEN. SKILLED NURSE TO INSTRUCT PATIENT/CAREGIVER REGARDING PHARMACOLOGIC AND NON-PHARMACOLOGIC PAIN CONTROL MEASURES. SKILLED NURSE TO REPORT TO PHYSICIAN IF PAIN IS UNCONTROLLED WITH CURRENT PAIN MANAGEMENT REGIMEN. [code = SKILLED NURSE FOR OBSERVATION AND ASSESSMENT OF PATIENTS PAIN LEVEL AND EFFECTIVENESS OF PAIN MANAGEMENT REGIMEN. SKILLED NURSE TO INSTRUCT PATIENT/CAREGIVER REGARDING PHARMACOLOGIC AND NON-PHARMACOLOGIC PAIN CONTROL MEASURES. SKILLED NURSE TO REPORT TO PHYSICIAN IF PAIN IS UNCONTROLLED WITH CURRENT PAIN MANAGEMENT REGIMEN.] Future Scheduled Test SKILLED NU RSE TO ASSESS PATIENT'S SKIN INTEGRITY AND INSTRUCT PATIENT/CAREGIVER ON MEASURES TO PREVENT PRESSURE ULCERS. [code = SKILLED NURSE TO ASSESS PATIENT'S SKIN INTEGRITY AND INSTRUCT PATIENT/CAREGIVER ON MEASURES TO PREVENT PRESSURE ULCERS.] Future Scheduled Test SKILLED NU RSE TO PROVIDE ASSESSMENT AND TEACHING/REINFORCEMENT OF MANAGEMENT OF DEPRESSION INCLUDING DISEASE PROCESS, MEDICATION MANAGEMENT, COPING SKILLS AND IDENTIFY CHANGES ASSOCIATED WITH DEPRESSIVE DISORDERS FOR EARLY INTERVENTION. [code = SKILLED NURSE TO PROVIDE ASSESSMENT AND TEACHING/REINFORCEMENT OF MANAGEMENT OF DEPRESSION INCLUDING DISEASE PROCESS, MEDICATION MANAGEMENT, COPING SKILLS AND IDENTIFY CHANGES ASSOCIATED WITH DEPRESSIVE DISORDERS FOR EARLY INTERVENTION. ] Future Scheduled Test PHYSICAL T HERAPIST TO EVALUATE PATIENT SECONDARY TO FUNCTIONAL DEFICITS/SAFETY CONCERNS. PHYSICAL THERAPIST TO ASSESS BEST PRACTICE INTERVENTIONS TO ASSIST PATIENTS TO IMPROVE OR STABILIZE MEDICAL STATUS AND PREVENT RE-HOSPITALIZATION. MEASURES INCLUDING REVIEW AND IDENTIFICATION OF CONCERNS FOR THE FOLLOWING AREAS: DRUG REGIMEN, ENVIRONMENTAL SAFETY ISSUES AND FALLS, PRESSURE ULCERS, PAIN, AND DISEASE MANAGEMENT. PHYSICAL THERAPY TO ESTABLISH /UPGRADE/DOWNGRADE THERAPEUTIC EXERCISE PROGRAM AND INSTRUCT PATIENT/CAREGIVER ON EXERCISE PRECAUTIONS WITH WRITTEN HOME PROGRAM. MAY INCLUDE PROM, AAROM, AROM, RROM APPROPRIATE TO IMPROVE FUNCTIONAL STRENGTH AND RANGE OF MOTION. PHYSICAL THERAPY TO INSTRUCT PATIENT/CAREGIVER ON GAIT TRAINING TECHNIQUES USING APPROPRIATE ASSISTIVE DEVICE, PROPER BODY MECHANICS TO IMPROVE MOBILITY, AND PREVENT INJURY OF PATIENT AND/OR CAREGIVER. PHYSICAL THERAPY TO ASSESS AND RECOMMEND HOME SAFETY ADAPTATIONS AND EDUCATE PATIENT /CAREGIVER ON FALL PREVENTION STRATEGIES. PHYSICAL THERAPY FOR OBSERVATION AND ASSESSMENT OF PAIN, EFFECTIVENESS OF PAIN MANAGEMENT REGIMEN AND SKILLED TEACHING RELATED TO PAIN MANAGEMENT. THERAPIST TO REPORT INCREASED PAIN LEVEL TO PHYSICIAN FOR PROMPT INTERVENTION. PHYSICAL THERAPY TO INSTRUCT PATIENT/CAREGIVER ON BALANCE AND BALANCE STRATEGIES TO IMPROVE SAFE MOBILITY AND REDUCE RISK FOR FALL AND INJURY INCLUDING PARTICIPATION IN [facility] BALANCE SPECIALTY PROGRAM. SUMMARY OF THERAPY EVAL/ASSESSMENT FINDINGS AND REASON(S) SKILLS OF A THERAPIST ARE INDICATED: PHYSICAL THERAPY EVALUATION (05/10/23) PATIENT IS A 78 YO FEMALE S/P FALL RESULTING IN HOSPITALIZATION AND [facility] 04/19-05/04, DX: RIGHT COMMINUTED INTERTROCHANTERIC FEMUR FRACTURE WITH ORIF ON 04/17/23. PATIENT D/C WITH STAGE 2 COCCYX PRESSURE WOUND. PAST MD HX: ANXIETY, DEPRESSION, COPD, CKD, HYPERTENSION, HYPERLIPIDEMIA, ESSENTIAL TREMORS TRIMALLEOLAR R ANKLE FRACTURE, LEFT TKR 15 YEARS AGO, VERTIGO WITH INNER EAR OPERATION (19 YEARS AGO) FALL HISTORY: MECHANICAL FALL IN APRIL RESULTING IN FEMUR FRACTURE. JODY REPORTS WAS COMPLETING GARAGE STAIR NEGOTIATION AT 1 AM AND MISSED A STEP. PATIENT LIVES WITH SUPPORTIVE DIEGO, SON VINCENT AND DOG IN SINGLE FAMILY HOME, 2 STAIRS WITH BILAT RAIL, 1 THRESHOLD STEP TO NEGOTIATE PLOF: AMB WITH CANE OUTSIDE HOME, DIDN'T DRIVE CLOF: DME: FWW, CANE, ROLLATOR, TUB CHAIR, WALK IN SHOWER WITH GRAB BARS, HANDHELD SHOWERHEAD RECOMMENDED LOANER WHEELCHAIR ACQUISITION PATIENT REPORTS DIFFICULTY AMB INCREASED DISTANCES OUTSIDE HOME. BILAT LE ROM WFL, BILAT LE STRENGTH HIPS L: 4+/5, R: 3+/5, KNEES L: 4+/5, R: 4-/5, ANKLES BILAT 4+/5 PATIENT INDEP WITH BED MOBILITY. PATIENT TRANSFERS MOD I WITH FWW, PATIENT AMB 40' WITH FWW AND SUPERVISION AND VERBAL CUES TO STAY WITHIN FWW SUPPORT. TINETTI = , FALL RISK. RECOMMENDED STORAGE BAG BE REMOVED FROM INSIDE OF FWW SUPPORT TO MAX BODY SPACE WITHIN FWW, HOWEVER PATIENT NOT RECEPTIVE. PATIENT PRESENTS WITH THE FOLLOWING DEFICITS: R LE PAIN, R LE WEAKNESS, DECREASED ENDURANCE, RESULTING IN DIFFICULTY WITH AMB AND STAIR NEGOTIATION. SKILLED [facility]ER[facility] FREQ 2X2WKS,1X4WKS TO MAX SAFETY AND FUNCTIONAL LEVEL WITH THER EXER, ESTABLISH HEP, GAIT TRAINING, STAIR NEGOTIATION. PATIENT AND CG INFORMED ABOUT PHYSICAL THERAPY POC, VERBALIZED ACCEPTANCE. MD NOTIFIED ABOUT PATIENT STATUS AND POC. UPCOMING MD APPTS: MD BURNS 05/12/23 AT 2:15 PM ORTHO MD THORNTON FOLLOWUP APPT 06/09/23 AT 1:15 PM [code = PHYSICAL THERAPIST TO EVALUATE PATIENT SECONDARY TO FUNCTIONAL DEFICITS/SAFETY CONCERNS. PHYSICAL THERAPIST TO ASSESS BEST PRACTICE INTERVENTIONS TO ASSIST PATIENTS TO IMPROVE OR STABILIZE MEDICAL STATUS AND PREVENT RE-HOSPITALIZATION. MEASURES INCLUDING REVIEW AND IDENTIFICATION OF CONCERNS FOR THE FOLLOWING AREAS: DRUG REGIMEN, ENVIRONMENTAL SAFETY ISSUES AND FALLS, PRESSURE ULCERS, PAIN, AND DISEASE MANAGEMENT. PHYSICAL THERAPY TO ESTABLISH /UPGRADE/DOWNGRADE THERAPEUTIC EXERCISE PROGRAM AND INSTRUCT PATIENT/CAREGIVER ON EXERCISE PRECAUTIONS WITH WRITTEN HOME PROGRAM. MAY INCLUDE PROM, AAROM, AROM, RROM APPROPRIATE TO IMPROVE FUNCTIONAL STRENGTH AND RANGE OF MOTION. PHYSICAL THERAPY TO INSTRUCT PATIENT/CAREGIVER ON GAIT TRAINING TECHNIQUES USING APPROPRIATE ASSISTIVE DEVICE, PROPER BODY MECHANICS TO IMPROVE MOBILITY, AND PREVENT INJURY OF PATIENT AND/OR CAREGIVER. PHYSICAL THERAPY TO ASSESS AND RECOMMEND HOME SAFETY ADAPTATIONS AND EDUCATE PATIENT /CAREGIVER ON FALL PREVENTION STRATEGIES. PHYSICAL THERAPY FOR OBSERVATION AND ASSESSMENT OF PAIN, EFFECTIVENESS OF PAIN MANAGEMENT REGIMEN AND SKILLED TEACHING RELATED TO PAIN MANAGEMENT. THERAPIST TO REPORT INCREASED PAIN LEVEL TO PHYSICIAN FOR PROMPT INTERVENTION. PHYSICAL THERAPY TO INSTRUCT PATIENT/CAREGIVER ON BALANCE AND BALANCE STRATEGIES TO IMPROVE SAFE MOBILITY AND REDUCE RISK FOR FALL AND INJURY INCLUDING PARTICIPATION IN [facility] BETTER BALANCE SPECIALTY PROGRAM. SUMMARY OF THERAPY EVAL/ASSESSMENT FINDINGS AND REASON(S) SKILLS OF A THERAPIST ARE INDICATED: PHYSICAL THERAPY EVALUATION (05/10/23) PATIENT IS A 78 YO FEMALE S/P FALL RESULTING IN [facility]ITALIZ[facility] AND [facility] 04/19-05/04, DX: RIGHT COMMINUTED INTERTROCHANTERIC FEMUR FRACTURE WITH ORIF ON 04/17/23. PATIENT D/C WITH STAGE 2 COCCYX PRESSURE WOUND. PAST MD HX: ANXIETY, DEPRESSION, COPD, CKD, HYPERTENSION, HYPERLIPIDEMIA, ESSENTIAL TREMORS TRIMALLEOLAR R ANKLE FRACTURE, LEFT TKR 15 YEARS AGO, VERTIGO WITH INNER EAR OPERATION (19 YEARS AGO) FALL HISTORY: MECHANICAL FALL IN APRIL RESULTING IN FEMUR FRACTURE. JODY REPORTS WAS COMPLETING GARAGE STAIR NEGOTIATION AT 1 AM AND MISSED A STEP. PATIENT LIVES WITH SUPPORTIVE DIEGO, SON VINCENT AND DOG IN SINGLE FAMILY HOME, 2 STAIRS WITH BILAT RAIL, 1 THRESHOLD STEP TO NEGOTIATE PLOF: AMB WITH CANE OUTSIDE HOME, DIDN'T DRIVE CLOF: DME: FWW, CANE, ROLLATOR, TUB CHAIR, WALK IN SHOWER WITH GRAB BARS, HANDHELD SHOWERHEAD RECOMMENDED LOANER WHEELCHAIR ACQUISITION PATIENT REPORTS DIFFICULTY AMB INCREASED DISTANCES OUTSIDE HOME. BILAT LE ROM WFL, BILAT LE STRENGTH HIPS L: 4+/5, R: 3+/5, KNEES L: 4+/5, R: 4-/5, ANKLES BILAT 4+/5 PATIENT INDEP WITH BED MOBILITY. PATIENT TRANSFERS MOD I WITH FWW, PATIENT AMB 40' WITH [facility] AND SUPERVISION AND VERBAL CUES TO STAY WITHIN FWW SUPPORT. TINETTI = , FALL RISK. RECOMMENDED STORAGE BAG BE REMOVED FROM INSIDE OF FWW SUPPORT TO MAX BODY SPACE WITHIN FWW, HOWEVER PATIENT NOT RECEPTIVE. PATIENT PRESENTS WITH THE FOLLOWING DEFICITS: R LE PAIN, R LE WEAKNESS, DECREASED ENDURANCE, RESULTING IN DIFFICULTY WITH AMB AND STAIR NEGOTIATION. SKILLED [facility] FREQ 2X2WKS,1X4WKS TO MAX SAFETY AND FUNCTIONAL LEVEL WITH THER EXER, ESTABLISH HEP, GAIT TRAINING, STAIR NEGOTIATION. PATIENT AND CG INFORMED ABOUT PHYSICAL THERAPY POC, VERBALIZED ACCEPTANCE. MD NOTIFIED ABOUT PATIENT STATUS AND POC. UPCOMING MD APPTS: MD BURNS 05/12/23 AT 2:15 PM ORTHO MD THORNTON FOLLOWUP APPT 06/09/23 AT 1:15 PM] Goal 2023-06-24 Patient Goal - I WANT TO GET BACK TO PRIOR LEVEL OF FUNCTIONING Goal Provider Goal - A PLAN OF CARE WILL BE ESTABLISHED THAT MEETS PATIENT'S CARE HOME NEEDS AND INCLUDES PATIENT GOAL FOR HOME HEALTH. Goal Provider Goal - PATIENT/CAREGIVER WILL VERBALIZE UNDERSTANDING OF EDUCATION PROVIDED ON MEDICATIONS BY THE END OF THE CERTIFICATION PERIOD. Goal Provider Goal - SYMPTOMS OF ANXIETY ARE IDENTIFIED AND INTERVENTIONS INITIATED TO ENABLE PATIENT TO UNDERSTAND AND MANAGE FEELINGS THROUGHOUT EPISODE. Goal Provider Goal - WOUND CARE WILL BE COMPLETED AND PATIENT WILL HAVE IMPROVED WOUND STATUS EVIDENCED BY NO SIGNS AND SYMPTOMS OF INFECTION, DECREASED WOUND SIZE, AND/OR NO COMPLICATIONS BY THE END OF THE CERTIFICATION PERIOD. Goal Provider Goal - PATIENT WILL RECEIVE ENOXAPARIN ORDERED. PATIENT/CAREGIVER WILL VERBALIZE/DEMONSTRATE KNOWLEDGE OF INJECTION THERAPY BY THE END OF THE CERTIFICATION PERIOD. Goal Provider Goal - A PHYSICAL THERAPY EVALUATION TO BE COMPLETED WITH RECOMMENDATIONS AND/OR WRITTEN PLAN OF TREATMENT ESTABLISHED FOR PHYSICIANS SIGNATURE. Goal Provider Goal - PATIENT/CAREGIVER WILL VERBALIZE SIGNS AND SYMPTOMS OF HYPERTENSION AND WILL BE ABLE TO DEMONSTRATE ABILITY TO MANAGE EXACERBATION BY END OF THE EPISODE. Goal Provider Goal - PATIENT/CAREGIVER WILL VERBALIZE/DEMONSTRATE KNOWLEDGE AND MANAGEMENT OF COPD BY END OF EPISODE. Goal Provider Goal - PATIENT/CARGIVER WILL VERBALIZE UNDERSTANDING OF ANEMIA INCLUDING SIGNS AND SYMPTOMS, MANAGEMENT OF COMPLICATIONS, AND PRESCRIBED TREATMENT REGIMEN BY END OF EPISODE. Goal Provider Goal - PATIENT/CAREGIVER WILL VERBALIZE UNDERSTANDING OF MUSCULOSKELETAL DISEASE INCLUDING SIGNS AND SYMPTOMS, MANAGEMENT, AND PRESCRIBED TREATMENT REGIMEN BY END OF EPISODE. Goal Provider Goal - PATIENT/CAREGIVER WILL UTILIZE VIRTUAL VISITS TO ACHIEVE GOALS OUTLINED ON THE PLAN OF CARE. PATIENT WILL HAVE SUPPORT MEASURES ESTABLISHED TO PREVENT HOSPITALIZATION AND PATIENT/CAREGIVER WILL VERBALIZE/DEMONSTRATE METHODS TO REDUCE AVOIDABLE HOSPITALIZATION THROUGHOUT THE CERTIFICATION PERIOD. Goal Provider Goal - PATIENT WILL HAVE SUPPORT MEASURES ESTABLISHED TO PREVENT HOSPITALIZATION AND ED USE AND PATIENT/CAREGIVER WILL VERBALIZE/DEMONSTRATE METHODS TO REDUCE AVOIDABLE HOSPITALIZATION AND ED USE BY END OF EPISODE. Goal Provider Goal - PATIENT/CAREGIVER WILL VERBALIZE UNDERSTANDING OF DISCHARGE PLANNING INSTRUCTIONS BY DATE OF DISCHARGE. Goal Provider Goal - PATIENT/CAREGIVER WILL VERBALIZE/DEMONSTRATE EFFECTIVE HOME SAFETY AND FALL PREVENTION STRATEGIES THROUGHOUT CERTIFICATION PERIOD. Goal Provider Goal - PATIENT/CAREGIVER WILL DEMONSTRATE UNDERSTANDING OF PHARMACOLOGIC AND NONPHARMACOLOGIC PAIN CONTROL MEASURES AND PATIENT WILL HAVE IMPROVEMENT IN PAIN INTERFERING WITH ACTIVITY EVIDENCED BY PAIN CONTROLLED AT LEVEL OF 7 OR LESS BY END OF CERTIFICATION PERIOD. Goal Provider Goal - PATIENT/CAREGIVER WILL VERBALIZE UNDERSTANDING OF PRESSURE ULCER PREVENTION BY END OF THE EPISODE. Goal Provider Goal - PATIENT/CAREGIVER WILL VERBALIZE/DEMONSTRATE UNDERSTANDING OF THE MANAGEMENT OF DEPRESSION THROUGHOUT THE CERTIFICATION PERIOD AND SYMPTOMS ARE IDENTIFIED AND MANAGED TO MAINTAIN PATIENT SAFETY IN THE HOME. Goal Provider Goal - PHYSICAL THERAPY EVALUATION TO BE COMPLETED WITH RECOMMENDATIONS AND/OR WRITTEN TREATMENT PLAN OF CARE ESTABLISHED FOR THE PHYSICIANS SIGNATURE PATIENT/CAREGIVER VERBALIZES UNDERSTANDING OF THE INITIAL BEST PRACTICE RECOMMENDATIONS. PHYSICIAN TO BE NOTIFIED APPROPRIATE FOR ANY CHANGES OR COMPLICATIONS THROUGHOUT THE CERTIFICATION PERIOD. PATIENT/CAREGIVER WILL PERFORM THERAPEUTIC EXERCISE/S AND DEMONSTRATE PARTICIPATION IN A HOME PROGRAM AND DEMO INDEP WITH COMPLETION TO IMPROVE FUNCTION OF AMBULATION. PATIENT/CAREGIVER WILL DEMONSTRATE IMPROVED GAIT TECHNIQUES TO MINIMIZE RISK OF INJURY AND DEMO ABILITY TO AMB 150' WITH FWW MOD I TO INCREASE FUNCTION OF ACCESSING COMMUNITY. PATIENT/CAREGIVER WILL DEMONSTRATE/VERBALIZE UNDERSTANDING OF RECOMMENDATIONS TO INCREASE SAFETY IN THE HOME AND FALL PREVENTION TO IMPROVE FUNCTION OF NEGOTIATING STAIRS WITH SUPERVISION. INCREASED PAIN OR INEFFECTIVE PAIN CONTROL MEASURES WILL BE IDENTIFIED AND PROMPTLY REPORTED TO THE PHYSICIAN. PATIENT/CAREGIVER WILL DEMONSTRATE EFFECTIVE PAIN MANAGEMENT TO IMPROVE FUNCTION OF AMBULATION. PATIENT/CAREGIVER WILL DEMONSTRATE IMPROVED BALANCE AND REDUCE THE RISK OF FALLS AND INJURY TO IMPROVE FUNCTION OF AMBULATION. Reason for Visit INDEPENDENT IN THE COMMUNITY Encounters Start Date/Time End Date/Time Encounter Type Admission Type Attending [facility] Care Facility Care Department Encounter ID Discharge Date Discharge Status Discharge Condition Discharge Reason Percent Goals Met 2023-05-05 00:00:00 2023-06-24 00:00:00 Outpatient NEW ADMISSION MICHI ESPINOZA [facility] [id number] 2023-06-24 00:00:00 DISCHARGE TO HOME OR SELF CARE INDEPENDEN T IN THE COMMUNITY GOALS MET ( ONLY) 92.86
--- OUTSIDE RECORDS SUMMARY | 2024-09-26 11:01 | XMS_ITS ---
Author Organization [facility] Address [address] [place] [address] Care Team Providers Care Data Science And Iot Manager Name Role Phone Ryley Varela MD Primary Care Provider UnavailVinny Mahajan Unavailable [phone] Talia Bazzi Unavailable [phone] Allergies Allergen (clinical drug ingredient) Drug/Non Drug [...] Duration) Notes Start Date End Date Status Vitamin C Active Vitamin D Active Lipitor 10 MG 1 tablet Orally Once a day for 30 day(s) Active Flonase PRN Active Meclizine HCl Active Atorvastatin Calcium 10 MG Oral for 90 Days Active Nortriptyline HCl 10 MG 1 capsule Orally Once a day for 30 day(s) Active Fluticasone Propionate 50 MCG/ACT Nasal for 60 Days Active Sertraline HCl Activ e ALPRAZolam 0.25 MG 1 tablet Orally Twic e a day Active Tylenol Active Olopatadine HCl 0.1 % Ophthalmic for 90 Days Active Primidone 50 MG 1 tablet Orally Once a day Active Social History Tobacco Use: Social History Observation Description Date Details (start date - stop date) Former Smoker NA - NA Tobacco Use/Smoking Question Answer Notes Are you a: former smoker Additional Findings: Tobacco Non-User Current no n-smoker Tobacco use other than smoking: Question Answer Notes Are you an other tobacco user? No Vital Signs Height 5 ft2in in 07/13/2024 Weight 114 lbs 07/13/2024 BMI 20.85 kg/m2 07/13/2024 Blood pressure systolic 120 mm Hg 07/13/20 24 Blood pressure diastolic 67 mm Hg 024 Encounters Encounter Location Date Provider Diagnosis [facility] [address] [place] [address] 07/13/2024 Talia Bazzi Plantar wart B07.0 ; Metatarsalgia, right foot M77.41 ; Atherosclerosis of [place] artery of both lower extremities, with unspecified presence of clinical manifestation I70.203 ; Tinea unguium B35.1 ; Pain in right toe(s) M79.674 ; Pain in left toe(s) M79.675 ; Right foot pain M79.671 and Pain in right ankle and joints of right foot M25.571 Assessments Encounter Date Diagnosis (ICD Code) Assessment Notes Treatment Notes Treatment Clinical Notes Section Notes 07/13/2024 Plantar wart (ICD-10 - B07.0) 07/13/2024 Metatarsalgia, right foot (ICD-10 - M77.41) 07/13/2024 Atherosclerosis of [place] artery of both lower extremities, with unspecified presence of clinical manifestation (ICD-10 - I70.203) 07/13/2024 Tinea unguium (ICD-10 - B35.1) 07/13/2024 Pain in right toe(s) (ICD-10 - M79.674) 07/13/2024 Pain in left toe(s) (ICD-10 - M79.675) 07/13/2024 Right foot pain (ICD-10 - M79.671) 07/13/2024 Pain in right ankle and joints of right foot (ICD-10 - M25.571) Plan Of Treatment Pending Test Test Name Order Date X ray : Foot, right 3V 07/13/2024 Next Appt Details Follow Up: 2 Months, Reason: Provider Name:Talia chan, 11/27/2024 03:00:00 PM, [address] [place], [address], Procedure Notes * Category Sub-Category Detail Notes Wart Treatment Procedure Verrucae were de brided to pin-point bleeding margins with sterile 15 surgical blade, silver nitrate chemocautery applied, recomm. immune-boosting meds such as zinc, recomm. follow up with topical chemosurgical agents, Pt defers any other forms of tx (18919) Debride Nail 6-10 Nail debridement Nail debridem ent performed extensively to reduce/remove overall nail length, girth, thickness, subungual debris, and necrotic tissue, by manual and electrical means through the use of a nail nipper and/or dremel, to more viable healthy nail plate or bed tissue 1-5. Silver nitrate used for any petechial bleeding as necessary. Patient chooses, no pharmaceutical tx (45416) Keratoma Treatment Parring or Cutting o f Benign Hyperkeratotic Lesion(s) 97790 ( More than 4 Lesions ) - The Benign hyperkeratotic lesions, as described above were pared, and/or cut utilizing a sterile 15 blade, tissue nippers, and/or dremel , Q8 Progress Notes * Destiny YADAV FDOB:1944 (79 yo F)Acc No.[id number]:07/13/2024 Progress Note Patient:?Destiny Yadav Provider:?Talia Bazzi DPM :1945???Age:79 Y???Sex:Female D ate:07/13/2024 Address:[address] [place], [place] [id number] Pcp:Ryley Varela MD Subjective: * Chief Complaints: * ???At Risk FootcarePainful N ail(s) aggrevated by shoes and causing difficulty standing/walking.Wart(s)Foot pain * HPI: ???At Risk footcare:?Pt States Last PCP Visit:?Date?07/02/2024 ???Skin problems:?Pt States PCP Visit: ?DATE?07/02/2024 ???Foot Pain:?Location:?Bottom, Forefoot, RIGHT.?Course:?improved.?Treatments:?rest/alter normal daily activity, custom orthotics in the past per pt, powerstep orthotics, metatarsal pads.? * ROS:?General/Constitutional:?Nausea?denies.?Vomiting?denies.?Hunger Thirst?denies.?Loss appetite?denies.?Chills?denies.?Fatigue?denies.?Fever?denies.?Night Sweats?denies.?Unexplained weight loss?denies.?Unexplained weight gain?denies.?HEENTM:?Dentures?admits, denies.?Dizziness?denies.?Glasses/contacts?admits, denies.?Retinopathy?denies.?Blurred/double vision?denies.?TMJ?denies.?Discharge/drainage?denies.?Implants?denies.?Sore throat?denies.?Dental implants?denies.?Hard of hearing ?admits, denies.?Difficulty chewing/swallowing/speaking?denies.?Nose bleeds?denies.?Sore mouth?denies.?Respiratory:?On Oxygen?denies.?Pneumonia/pleurisy?denies.?Bronchitis?denies.?Emphysema?denies.?C oughing?denies.?Cough blood?denies.?Shortness of breath?denies.?Wheezing?denies.?Cardiovascular:?Pacemaker?denies.?MVP?denies.?WPW?denies.?CHF?denies.?Heart attack?denies.?Septal defect?denies.?Rapid beat?denies.?Chest pain ?denies.?Atrial Fib.?denies.?Murmur/Palpitations?denies.?Gastrointestinal:?Hemorrhoids?admits, denies.?Stomach/Abdominal pain?denies.?Dark blood stool?denies.?Irritable bowel ?denies.?Constipation?denies.?Diarrhea?denies.?Hematology:?Swelling?denies.?Clots?denies.?Varicose Veins?denies.?Bruising?denies.?Bleeding problem?denies.?Genitourinary:?Blood urine?denies.?Frequent/Painfu/urination/bladder control?denies.?Kidney stones?denies.?Infection (UTI)?denies.?Nephropathy?denies.?sex trans dis (STD)?denies.?Prostate?denies.?Musculoskeletal:?Hammertoes?admits, denies.?Bunions?denies.?Back Pain?denies.?Muscle Cramps/ Resting?denies.?Muscle cramps / walking?denies.?Generalized aches and pains?denies.?Weakness?denies.?Integ.:?Waddell?denies.?Scars?denies.?Corns/calluses?admits, denies.?Ingrown nails?denies.?Painful nails?denies.?Open Sores?denies.?Rashes?denies.?Neurologic:?Difficulty sleeping?denies.?Brain disorder?denies.?Numbness?denies.?Balance trouble?denies.?Confusion?denies.?Fainting/blackouts?denies.?Tingling?denies.?Tr emors?denies.? * Medical History:? * Surgical History:?Ankle Surg amy 1998Thumb Surgery 2011ear surgery 2003knee [id number] 2015hip surgery 05/01 * Hospitalization/Major Diagno stic Procedure:?Denies Past Hospitalization * Family History:?Mother: dece ased, kidney/liver disease.?Father: .?Spouse: diagnosed with Family history of arthritis.? * Social History:?Tobacco Use:?Tobacco Use/Smoking?Are you a:?former smoker ?Additional Findings: Tobacco Non-User?Current non-smoker ?Tobacco use other than smoking?Are you an other tobacco user??No ???Miscellaneous:?Caffeine: yes, 1-2 cups per day. ?Children: yes, 3. ?Exercise: yes, walking, stretching. ?Marital status: . 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 * Medications:?TakingTylenol O lopatadine HCl 0.1 % [...] Verified] Objective: * Vitals:?Ht: 5 ft2in, Wt: 114 , BMI: 20.85, Shoe size: 9-10, BP: 120/67 mm Hg, Ht- cm: 157.48 cm, Wt-k.71 kg. * Examination: ???Vascular: ?DP PULSES(B):? 0/4, B/L.?PT PULSES(B):? 0/4, B/L.?CAPILLARY FILL TIME:? delayed, all digits, B/L.?TROPHIC CONDITION-TEXTURE/ELASTICITY/TURGOR/HAIR GROWTH(B):? decreased, B/L.?TEMPERTURE GRADIENT(C):? decreased, cool to cool, proximal to distal, B/L.?PIGMENTATION:?brawny, B/L.?CLAUDICATION(C):?denies, B/L.?REST PAIN:?denies, B/L.?Nails: ?NAILS are:? Elongated, overgrown, dystrophic, lytic, greater than 3mm thick, discolored and friable with crumbly malodorous subungual debris, with pain on palpation, 1-5 B/L.?Dermatologic: ?SKIN FINDINGS:?Skin exam reveals Keratotic lesion(s) located at , Medial plantar , T5 , SUB MTH (s) , 1 , B/L , SUB MTH (s) , 3 , Right.?VERRUCA:?Reveals a Single , multi-loculated , mosaic-patterned, round, raised, flat-topped, petechial bleeding papule(s), with cauliflower appearance and interruption of skin lines, pain to lateral compression, and size estimated at 5mm diameter plantar Forefoot RIGHT.?Orthopedic: ?MUSCLE STRENGTH:?5/5 all groups in a symmetrical fashion, B/L.?MPJ PATHOLOGY:? Pain, swelling, and inflammation to plantar [...] historian for office visit today.?ORIENTED:?person, place, and time.? Assessment: * Assessment: 1.?Plantar wart - B07.0?2.?M etatarsalgia, right foot - M77.41 (Primary)?3.?Atherosclerosis of [place] artery of both lower extremities, with unspecified presence of clinical manifestation - I70.203?4.?Tinea unguium - B35.1?5.?Pain in right toe(s) - M79.674?6.?Pain in left toe(s) - M79.675?7.?Right foot pain - M79.671?8.?Pain in right ankle and joints of right [...] as necessary. Patient chooses, no pharmaceutical tx (56972).?Keratoma Treatment:?Parring or Cutting of Benign Hyperkeratotic Lesion(s)?19362 ( More than 4 Lesions ) - [...] Pt defers any other forms of tx (06646).? * Imaging:? * ?Imaging: X ray : Foot, right 3V * Procedure Codes:?88562 DEBRI DE NAIL, 6 OR MORE, Modifiers: XS 85330 Wart Destruction, 1-14, Modifiers: XS 58571 TRIM SKIN LESIONS, OVER 4, Modifiers: XS [...] status: Completed true * Provider:?Talia Bazzi DPM Date:?01/2024 Generated for Alejandro holcomb/Ladonna/Noe on:?09/26/2024 11:00 AM EST History and Physical Notes * HPI (History of Present Illness) Category Sub-Category Detail Notes Category Not es Skin problems Pt States PCP Visit: DATE: 07/02/2024 At Risk footcare Pt States Last PCP Visit: Date: 4 Foot Pain Location: Bottom, Forefoot, RIGHT Course: improved Treatments: rest/alter normal da sujey activity, custom orthotics in the past per pt, powerstep orthotics, metatarsal pads Examination Category Sub-Category Detail Notes Category Not es Neurological SENSORY: Neurological exa m reveals intact [...] (s) , 3 , Right VERRUCA: Reveals a Single , m ulti-loculated , mosaic-patterned, round, raised, flat-topped, petechial bleeding papule(s), with cauliflower appearance and interruption of skin lines, pain to lateral compression, and size estimated at 5mm diameter plantar Forefoot RIGHT Orthopedic MPJ PATHOLOGY: Pain, swelling, and inflammation to [...]
--- OUTSIDE RECORDS SUMMARY | 2024-09-26 11:01 | XMS_ITS ---
[facility] Address [address] [place] [address] Care Team Providers Care Advertising Intern Name Role Phone Ryley Varela MD Primary Care Provider UnavailVinny Mahajan Unavailable [phone] Talia Bazzi Unavailable [phone] Allergies Allergen (clinical drug ingredient) Drug/Non Drug [...] aggrevated by shoes and causing difficulty standing/walking., Wart(s) Medications Medication SIG (Take, Route, Frequency, Duration) Notes Start Date End Date Status Primidone 50 MG 1 tablet Orally Once a day Active Olopatadine HCl 0.1 % Ophthalmic for 90 Days Active Sertraline HCl Activ e Fluticasone Propionate 50 MCG/ACT Nasal for 60 Days Active ALPRAZolam 0.25 MG 1 tablet Orally Twic e a day Active Vitamin D Active Tylenol Active Flonase PRN Active Lipitor 10 MG 1 tablet Orally Once a day for 30 day(s) Active Meclizine HCl Active Nortriptyline HCl 10 MG 2 capsule Orally Once a day for 30 days Active Atorvastatin Calcium 10 MG Oral for 90 Days Active Vitamin C Active Social History Tobacco Use: Social History [...] interested in quitting? Thinking about q uitting Vital Signs Height 5 ft2in in 09/14/2024 Weight 114 lbs 09/14/2024 BMI 20.85 kg/m2 09/14/2024 Blood pressure systolic 124 mm Hg 09/14/20 24 Blood pressure diastolic 70 mm Hg 024 Encounters Encounter Location Date Provider Diagnosis [facility] [address] [place] [address] 09/14/2024 Talia Bazzi Plantar wart B07.0 ; Metatarsalgia, right foot M77.41 ; Atherosclerosis of soboba artery of both lower extremities, with unspecified presence of clinical manifestation I70.203 ; Tinea unguium B35.1 ; Pain in right toe(s) M79.674 ; Pain in left toe(s) M79.675 and Right foot pain M79.671 Assessments Encounter Date Diagnosis (ICD Code) Assessment Notes Treatment Notes Treatment Clinical Notes Section Notes 09/14/2024 Plantar wart (ICD-10 - B07.0) 09/14/2024 Metatarsalgia, right foot (ICD-10 - M77.41) 09/14/2024 Atherosclerosis of soboba artery of both lower extremities, with unspecified presence of clinical manifestation (ICD-10 - I70.203) 09/14/2024 Tinea unguium (ICD-10 - B35.1) 09/14/2024 Pain in right toe(s) (ICD-10 - M79.674) 09/14/2024 Pain in left toe(s) (ICD-10 - M79.675) 09/14/2024 Right foot pain (ICD-10 - M79.671) Plan Of Treatment Next Appt Details Follow Up: 2 Months, Reason: Provider Name:Talia chan, 11/27/2024 03:00:00 PM, [address] [place], [address], Procedure Notes * Category Sub-Category Detail Notes Wart Treatment Procedure Verrucae were de brided to pin-point bleeding margins with sterile 15 surgical blade, silver nitrate chemocautery applied, recomm. immune-boosting meds such as zinc, recomm. follow up with topical chemosurgical agents, Pt defers any other forms of tx (65824) Debride Nail 6-10 Nail debridement Due to the cl inical pathology outlined in the exam findings, performance of this nail treatment is medically necessary as its management by an unskilled/untrained nonprofessional would put this patients foot and overall health at risk. Therefore, debridement to affected nail(s), as described in exam, was performed extensively to reduce/remove overall nail length, girth, thickness, subungual debris, and necrotic tissue, by manual and/or electrical means through the use of a nail nipper and/or dremel-type outer diameter grinder, to a more viable healthy nail plate or bed tissue 6-10 nails in total. Silver nitrate was used for any petechial bleeding as necessary. Definitive antifungal treatment options, both pharmaceutical and surgical, have been reviewed and discussed with the patient. The patient solely prefers the use of intermittent/as needed professional debridement services for their nail condition and understands the need for additional periodic treatments to maintain effectiveness in symptomatic relief - 92800 Keratoma Treatment Parring or Cutting o f Benign Hyperkeratotic Lesion(s) , (-57) More than 4 Lesions - Due to the at risk nature of the patients medical condition as documented in the exam findings, performance of this keratoderma treatment is medically necessary as its management by an unskilled/untrained nonprofessional would put this patients foot and overall health at risk. Therefore, the benign hyperkeratotic lesions, ( 8) in total, locations as stated and described in the exam, were pared, and/or cut utilizing a sterile 15 blade, tissue nippers, and/or power dremel instrumentation - 19374, Q8 Progress Notes * KRISTIDestiny FDOB:1944 (79 yo F)Acc No.[id number]:09/14/2024 Progress Note Patient:?Destiny YADAV Provider:?Talia Bazzi DPM :1945???Age:79 Y???Sex:Female D ate:09/14/2024 Address:[address] [place], [place] [id number] Pcp:Ryley Varela MD Subjective: * Chief Complaints: * ???At Risk FootcarePainful N ail(s) aggrevated by shoes and causing difficulty standing/walking.Wart(s) * HPI: ???At Risk footcare:?Pt States Last PCP Visit:?Date?07/02/2024 ???Skin problems:?Pt States PCP Visit: ?DATE?07/02/2024 * ROS:?General/Constitutional:?Nausea?denies.?Vomiting?denies.?Hunger Thirst?denies.?Loss appetite?denies.?Chills?denies.?Fatigue?denies.?Fever?denies.?Night Sweats?denies.?Unexplained weight loss?denies.?Unexplained [...] Surg amy 1998Thumb Surgery 2011ear surgery 2003knee gljygqd-wvtmgglmjiu-zbyd 2015hip surgery 05/01 * Hospitalization/Major Diagno stic Procedure:?Denies Past Hospitalization * Family History:?Mother: dece ased, kidney/liver disease.?Father: .?Spouse: diagnosed with Family history of arthritis.? * Social History:?Tobacco Use:?Tobacco use other than smoking?Are you an other tobacco user??No ?Tobacco Control (Standard)?Tobacco use:?Current smoker ?How often do you smoke cigarettes??Every day ?How many cigarettes a day do you smoke??5 or less ?How soon after you wake up do you smoke your first cigarette??After 60 minutes ?Are you interested in quitting??Thinking about quitting ???Drugs/Alcohol:?Drugs?Have you used drugs other than those for medical reasons in the past 12 months??No ?Alcohol Screen?Did you have a drink containing alcohol in the past year??No ?Points?0 ?Interpretation?Negative ???Miscellaneous:?Caffeine: yes, 1-2 cups per day. ?Children: yes, 3. ?Exercise: yes, walking, stretching. ?Marital status: . ?Occupation: retired- [employer]. * Medications:?TakingTylenol O lopatadine HCl 0.1 % Solution Ophthalmic Primidone 50 MG Tablet 1 tablet Orally Once a day Fluticasone Propionate 50 MCG/ACT Suspension Nasal Sertraline HCl ALPRAZolam 0.25 MG Tablet 1 tablet Orally Twice a day Atorvastatin Calcium 10 MG Tablet Oral Nortriptyline HCl 10 MG Capsule 2 capsule Orally Once a day Vitamin C Vitamin D Lipitor 10 MG Tablet 1 tablet Orally Once a day Flonase , Notes to Pharmacist: PRNMeclizine HCl Medication List reviewed and reconciled with the patientTaking Tylenol Taking Olopatadine HCl 0.1 % Solution Ophthalmic Taking Primidone 50 MG Tablet 1 tablet Orally Once a day Taking Fluticasone Propionate 50 MCG/ACT Suspension Nasal Taking Sertraline HCl Taking ALPRAZolam 0.25 MG Tablet 1 tablet Orally Twice a day Taking Atorvastatin Calcium 10 MG Tablet Oral Taking Nortriptyline HCl 10 MG Capsule 2 capsule Orally Once a day Taking Vitamin C Taking Vitamin D Taking Lipitor 10 MG Tablet 1 tablet Orally Once a day Taking Flonase , Notes to Pharmacist: PRNTaking Meclizine HCl Medication List reviewed and reconciled with the patient * Allergies:?PenicillinAdvil, Aleve, MotrinCompasineDemerolNovocainAspirinyes[Allergies Verified] Objective: * Vitals:?Ht: 5 ft2in, Wt: 114 , BMI: 20.85, Shoe size: 9-10, BP: 124/70 mm Hg, Ht- cm: 157.48 cm, Wt-k.71 [...] Keratotic lesion(s) located at , Medial plantar ,TA, T5 , T7, SUB MTH (s) , 1 , B/L , SUB MTH (s) , 3 , Right, Plantar Heel(s), B/L.?VERRUCA:?Reveals a Single , multi-loculated , mosaic-patterned, round, [...] time.? Assessment: * Assessment: 1.?Plantar wart - B07.0 (Chaya cary)???2.?Metatarsalgia, right foot - M77.41???3.?Atherosclerosis of soboba artery of both lower extremities, with unspecified presence of clinical manifestation - I70.203???4.?Tinea unguium - B35.1? ?5.?Pain in right toe(s) - M79.674???6.?Pain in left toe(s) - M79.675???7.?Right foot pain - M79.671??? Plan: * Treatment: * Procedures:?Debride Nail 6-10:?Nail debridement?Due to the clinical pathology outlined in the exam findings, performance of this nail treatment is medically necessary as its management by an unskilled/untrained nonprofessional would put this patients foot and overall health at risk. Therefore, debridement to affected nail(s), as described in exam, was performed extensively to reduce/remove overall nail length, girth, thickness, subungual debris, and necrotic tissue, by manual and/or electrical means through the use of a nail nipper and/or dremel-type outer diameter grinder, to a more viable healthy nail plate or bed tissue 6-10 nails in total. Silver nitrate was used for any petechial bleeding as necessary. Definitive antifungal treatment options, both pharmaceutical and surgical, have been reviewed and discussed with the patient. The patient solely prefers the use of intermittent/as needed professional debridement services for their nail condition and understands the need for additional periodic treatments to maintain effectiveness in symptomatic relief - 97468.?Keratoma Treatment:?Parring or Cutting of Benign Hyperkeratotic Lesion(s)?, (-57) More than 4 Lesions - Due to the at risk nature of the patients medical condition as documented in the exam findings, performance of this keratoderma treatment is medically necessary as its management by an unskilled/untrained nonprofessional would put this patients foot and overall health at risk. Therefore, the benign hyperkeratotic lesions, ( 8) in total, locations as stated and described in the exam, were pared, and/or cut utilizing a sterile 15 blade, tissue nippers, and/or power dremel instrumentation - 95572, Q8.?Wart Treatment:?Procedure?Verrucae were debrided to pin-point bleeding margins with sterile 15 surgical blade, silver nitrate chemocautery applied, recomm. immune-boosting meds such as zinc, recomm. follow up with topical chemosurgical agents, Pt defers any other forms of tx (04500).? * Procedure Codes:?62619 DEBRI DE NAIL, 6 OR MORE, Modifiers: XS 60903 Wart Destruction, 1-14, Modifiers: XS 88623 TRIM SKIN LESIONS, OVER 4, Modifiers: XS , Q8 * Follow Up:?2 Months * Images: * Sign off status: Completed true * Provider:?Talia Bazzi DPM Date:?03/2024 Generated for Alejandro holcomb/Ladonna/Noe on:?09/26/2024 11:00 AM EST History and Physical Notes * HPI (History of Present Illness) Category Sub-Category Detail Notes Category Not es Skin problems Pt States PCP Visit: DATE: 07/02/2024 At Risk footcare Pt States Last PCP Visit: Date: Examination Category Sub-Category Detail Notes Category Not [...] Keratotic lesion(s) located at , Medial plantar ,TA, T5 , T7, SUB MTH (s) , 1 , B/L , SUB MTH (s) , 3 , Right, Plantar Heel(s), B/L VERRUCA: Reveals a Single , m ulti-loculated [...]
[2024-09-26 13:34] LABS: Hematocrit 36.9 % (37.0-47.0); Hemoglobin 11.9 g/dl (12.0-16.0); Mean Corpuscular HGB Conc 32.2 g/dl (31.0-35.0); Mean Corpuscular Hemoglobin 31.1 pg (27.0-33.0); Mean Corpuscular Volume 96.3 fL (80.0-98.0); Mean Platelet Volume 10.3 fL (9.4-12.3); Platelet Count 230 X10*3/uL (160-400); Red Blood Count 3.83 X10*6/uL (4.20-5.50); Red Cell Distribution Width 13.6 % (11.0-16.0)
[2024-09-26 13:48] LABS: Albumin Level 3.8 g/dL (3.5-5.0); Anion Gap 13 (12-20); Blood Urea Nitrogen 23 mg/dL (9-16); Carbon Dioxide 27 mmol/L (22-29); Chloride 103 mmol/L (96-108); Estimated Glomerular Filt Rate 27; Magnesium 2.2 mg/dL (1.6-2.6); Phosphorus 3.4 mg/dL (2.7-4.5); Potassium 3.8 mmol/L (3.3-5.1); Sodium 139 mmol/L (135-145); Total Protein 6.4 g/dL (6.5-8.0)
[2024-09-26 14:05] LABS: Vitamin D 25-OH Total 19.5 ng/mL (>30)
[2024-09-26 14:42] LABS: Creatinine Urine 382.86 mg/dL; Microalbum/Creatinine Ratio Ur 36.8 ug/mg cr (<30); Protein/Creatinine Ratio, Ur 0.13 (<0.2); Total Protein Urine Random 50 mg/dL (<12)
[2024-09-26 14:50] LABS: Parathyroid Hormone Intact 109.8 pg/mL (8.7-77.1)
== END 2024-09-26 10:59 | disposition home or self-care (01) ==
LOC: HO.HMGCLDS 10:58
PROVIDERS: PCP Internal Medicine; Visit Provider Internal Medicine Nephrology
DX: N18.32 Chronic kidney disease, stage 3b (principal); N25.0 Renal osteodystrophy; I12.9 Hypertensive chronic kidney disease with stage 1 through stage 4 chronic kidney disease, or unspecified chronic kidney disease
CPT/HCPCS: 36415; 80051; 82040; 82043; 82306; 82310; 82565; 82570; 83735; 83970; 84100; 84155; 84156; 84520; 85027

== ENCOUNTER 2025-01-31 11:05 | Outpatient (REF) | payer MEDICARE, SELFPAY ==
--- OUTSIDE RECORDS SUMMARY | 2025-01-31 14:38 | XMS_ITS | Clinical Summary ---
Author Organization [facility] Address [address] [place] [address] [place] [address] Phone Care Team Providers Care Embroidery Cutter Name Role Phone Ryley Varela MD Primary Care Provider [phone] Allergies Active Allergy Reactions Criticality Noted Date [...] mouth every night Active ergocalciferol 1.25 MG (43253 UT) capsule TAKE 1 CAPSULE BY MOUTH [...] Visit [facility] [address] [place] [address] Zeke Neri MD [address] [facility] [address] [place] [address] Health Maintenance Due Date Last Done Comments Pneumococcal Vaccine: 50+ Ye ars (2 of 2 - PCV) 03/25/2005 03/25/2004 Influenza Vaccine (Season Ended) 2025 Pneumococcal Vaccine: Peds ( 0 to 5 Years) and At-Risk Patients (6 to 49 Years) Discontinued 03/25/2004 Hepatitis B Vaccine Aged Out No longe r eligible based on patient's age to complete this topic Insurance [facility] Medicare [facility] Medicare Care Teams Embroidery Cutter Relationship Specialty Start Date End Date Ryley Varela MD [address] [place]U [place] PCP - General 10/20/20
--- OUTSIDE RECORDS SUMMARY | 2025-01-31 14:38 | XMS_ITS ---
Author Organization [facility] Address [address] [place] [address] Care Team Providers Care Outcomes Specialist Name Role Phone Avery IVERSON, Ryley Primary Care Provider Vinny Delgado Unavailable [phone] Talia Bazzi Unavailable [phone] Chang Encounters Encounter Location Date Provider Diagnosis [address] [address] 11/27/2024 Talia Bazzi Plan Of Treatment Next Appt Details Provider Name:Talia chan, 02/13/2025 03:15:00 PM, [address] [place] [address], [phone], Progress Notes * Destiny YADAV FDOB:1944 (79 yo F)Acc No.[id number]:11/27/2024 Progress Note Patient:?Destiny YADAV Provider:?Talia Bazzi DPM :1945???Age:79 Y???Sex:Female D ate:11/27/2024 Address:[address] [place], [place] [id number] Pcp:Ryley Varela MD Subjective: * Chief Complaints: * ???1. Dr Chang. * Medical History:? Objective: * Vitals:? Assessment: Plan: * Treatment: * Images: * The named appointment provid er may or may not be the originator of this progress note, and it is not deemed complete until electronically signed by the appointment provider. Sign off status: Pending * Provider:Rossy Bazzi DPM Date:? Generated for Alejandro holcomb/Ladonna/Noe on:?01/31/2025 02:37 PM EDT
--- OUTSIDE RECORDS SUMMARY | 2025-01-31 14:38 | XMS_ITS | Patient Health Record ---
Author Organization [facility] Address [address] [place] [address] Care Team Providers Care Corn Press Operator Name Role Phone Ryley Varela MD Primary Care Provider UnavailVinny Mahajan Unavailable [phone] Talia Bazzi Unavailable [phone] Allergies Allergen (clinical drug ingredient) Drug/Non Drug [...] Duration) Notes Start Date End Date Status Tylenol Active Flonase PRN Active Lipitor 10 MG 1 tablet Orally Once a day for 30 day(s) Active Vitamin D Active Vitamin C Active Primidone 50 MG 1 tablet Orally Once a day Active Olopatadine HCl 0.1 % Ophthalmic for 90 Days Active Meclizine HCl Active Fluticasone Propionate 50 MCG/ACT Nasal for 60 Days Active Nortriptyline HCl 10 MG 2 capsule Orally Once a day for 30 days Active Atorvastatin Calcium 10 MG Oral for 90 Days Active ALPRAZolam 0.25 MG 1 tablet Orally Twic e a day Active Sertraline HCl Activ e Social History Tobacco Use: Social History Observation [...] W/U Status Risk Notes Problem Plantar wart (58487765) Plantar wart (B07.0) Active confirmed Problem Bilateral atherosclerosis of arteries of lower limbs (disorder) (87492311079046243 ) Unspecified atherosclerosis of [place] arteries of extremities, bilateral legs (I70.203) Active confirmed Problem Localized, primary osteoarthritis of the ankle and/or foot (053217590) Primary osteoarthritis, right ankle and foot (M19.071) Active confirmed Problem Localized, primary osteoarthritis of the ankle and/or foot (484337947) Primary osteoarthritis, left ankle and foot (M19.072) Active confirmed Problem Acquired hammer toe of right foot (2116004367734717) Other hammer toe(s) (acquired), right foot (M20.41) Active confirmed Problem Bilateral atherosclerosis of arteries of lower limbs (disorder) (01356632913646070 ) Atherosclerosis of [place] artery of both lower extremities, with unspecified presence of clinical manifestation (I70.203) Active confirmed Vital Signs Blood pressure diastolic 70 mm Hg 12/04/2024 Height 5 ft2in in 12/04/2024 Blood pressure systolic 123 mm Hg 12/04/2024 Weight 110 lbs 12/04/2024 BMI 20.12 kg/m2 12/04/2024 Encounters Encounter Location Date Provider Diagnosis [facility] [place] [address] [place] [address] 02/29/2024 Talia Bazzi Plantar wart B07.0 ; Metatarsalgia, right foot M77.41 ; Atherosclerosis of [place] artery of both lower extremities, with unspecified presence of clinical manifestation I70.203 ; Tinea unguium B35.1 ; Pain in right toe(s) M79.674 ; Pain in left toe(s) M79.675 ; Right foot pain M79.671 ; Left foot pain M79.672 and Pain in right ankle and joints of right foot M25.[address] [address] 05/11/2024 Talia Perica Plantar wart B07.0 ; Metatarsalgia, right foot M77.41 ; Atherosclerosis of [place] artery of both lower extremities, with unspecified presence of clinical manifestation I70.203 ; Tinea unguium B35.1 ; Pain in right toe(s) M79.674 ; Pain in left toe(s) M79.675 ; Right foot pain M79.671 ; Left foot pain M79.672 and Pain in right ankle and joints of right foot M25.[address] [address] 07/13/2024 Talia Perica Plantar wart B07.0 ; Metatarsalgia, right foot M77.41 ; Atherosclerosis of [place] artery of both lower extremities, with unspecified presence of clinical manifestation I70.203 ; Tinea unguium B35.1 ; Pain in right toe(s) M79.674 ; Pain in left toe(s) M79.675 ; Right foot pain M79.671 and Pain in right ankle and joints of right foot M25.[address] [address] 09/14/2024 Talia Perica Plantar wart B07.0 ; Metatarsalgia, right foot M77.41 ; Atherosclerosis of [place] band artery of both lower extremities, with unspecified presence of clinical manifestation I70.203 ; Tinea unguium B35.1 ; Pain in right toe(s) M79.674 ; Pain in left toe(s) M79.675 and Right foot pain M79.[address] [address] 12/04/2024 Talia Perica Plantar wart B07.0 ; Metatarsalgia, right foot M77.41 ; Atherosclerosis of [place] artery of both lower extremities, with unspecified presence of clinical manifestation I70.203 ; Tinea unguium B35.1 ; Pain in right toe(s) M79.674 ; Pain in left toe(s) M79.675 and Right foot pain M79.671 [facility] [place] [address] [place] [address] 02/21/2024 Vinny Alexandra Assessments Encounter Date Diagnosis (ICD Code) Assessment Notes Treatment Notes Treatment Clinical Notes Section Notes 02/29/2024 Plantar wart (ICD-10 - B07.0) 02/29/2024 Metatarsalgia, right foot (ICD-10 - M77.41) 05/11/2024 Plantar wart (ICD-10 - B07.0) 07/13/2024 Plantar wart (ICD-10 - B07.0) 09/14/2024 Plantar wart (ICD-10 - B07.0) 09/14/2024 Metatarsalgia, right foot (ICD-10 - M77.41) 12/04/2024 Plantar wart (ICD-10 - B07.0) 12/04/2024 Metatarsalgia, right foot (ICD-10 - M77.41) 09/14/2024 Atherosclerosis of [place] artery of both lower extremities, with unspecified presence of clinical manifestation (ICD-10 - I70.203) 07/13/2024 Atherosclerosis of [place] band artery of both lower extremities, with unspecified presence of clinical manifestation (ICD-10 - I70.203) 07/13/2024 Metatarsalgia, right foot (ICD-10 - M77.41) 05/11/2024 Metatarsalgia, right foot (ICD-10 - M77.41) 02/29/2024 Atherosclerosis of [place] band artery of both lower extremities, with unspecified presence of clinical manifestation (ICD-10 - I70.203) 02/29/2024 Tinea unguium (ICD-10 - B35.1) 07/13/2024 Tinea unguium (ICD-10 - B35.1) 05/11/2024 Atherosclerosis of [place] band artery of both lower extremities, with unspecified presence of clinical manifestation (ICD-10 - I70.203) 09/14/2024 Tinea unguium (ICD-10 - B35.1) 12/04/2024 Atherosclerosis of match[place] band artery of both lower extremities, with unspecified presence of clinical manifestation (ICD-10 - I70.203) 12/04/2024 Tinea unguium (ICD-10 - B35.1) 09/14/2024 Pain [...] Pain in left toe(s) (ICD-10 - M79.675) 12/04/2024 Pain in right toe(s) (ICD-10 - M79.674) 12/04/2024 Pain in left toe(s) (ICD-10 - M79.675) 09/14/2024 Right foot pain (ICD-10 - M79.671) 07/13/2024 Right foot pain (ICD-10 - M79.671) 05/11/2024 Pain in left toe(s) (ICD-10 - M79.675) 02/29/2024 Right foot pain (ICD-10 - M79.671) 02/29/2024 Left foot pain (ICD-10 - M79.672) 05/11/2024 Right foot pain (ICD-10 - M79.671) 07/13/2024 Pain in right ankle and joints of right foot (ICD-10 - M25.571) 12/04/2024 Right foot pain (ICD-10 - M79.671) 05/11/2024 [...] 07/13/2024 Next Appt Details Provider Name:Talia chan, 02/13/2025 03:15:00 PM, [address] [place] [address], [address], Insurance Providers Payer Name Payer Address Payer Phone Subscriber Number Group Number Insured Name Patient Relationship to Insured Coverage Start Date Coverage End Date Medicare National [facility] [employer] [address] [facility] [address] [id number] Destiny Pedro Self - patient is the insured [employer] [address] [place] [address] [id number] Destiny Pedro Self - patient is the insured Medical (General) History Medical History History ICD Code Anxiety Back,Hip,and Knee pain Broken bones, hip CAD (Cholesterol) Cataracts Depression High blood pressure Kidney disease chronic sinusitis Measles Mumps Chicken pox Joint implants/screws Arthritis sinusitis Surgical History Surgery Date(Month/Year) Ankle Surgery 1997 Thumb Surgery 2010 ear surgery 2002 knee [id number]-[id number]-ubxl 2015 hip surgery 05/01
--- OUTSIDE RECORDS SUMMARY | 2025-01-31 14:38 | XMS_ITS ---
Author [facility] Address [address] [place] [address] Care Team Providers Care Garden Consultant Name Role Phone Ryley Varela MD Primary Care Provider UnavailVinny Mahajan Unavailable [phone] Talia Bazzi Unavailable [phone] Allergies Allergen (clinical drug ingredient) Drug/Non Drug [...] 024 Encounters Encounter Location Date Provider Diagnosis [facility] [address] [place] [address] 09/14/2024 Talia Bazzi Plantar wart B07.0 ; Metatarsalgia, right foot M77.41 ; Atherosclerosis of creek artery of both lower extremities, with unspecified [...] foot (ICD-10 - M77.41) 09/14/2024 Atherosclerosis of creek artery of both lower extremities, with unspecified presence of clinical manifestation (ICD-10 - I70.203) 09/14/2024 Tinea unguium (ICD-10 - B35.1) 09/14/2024 Pain in right toe(s) (ICD-10 - M79.674) 09/14/2024 Pain in left toe(s) (ICD-10 - M79.675) 09/14/2024 Right foot pain (ICD-10 - M79.671) Plan Of Treatment Next Appt Details Follow Up: 2 Months, Reason: Provider Name:Talia chan, 02/13/2025 03:15:00 PM, [address] [place], [address], Procedure Notes * Category Sub-Category Detail Notes Wart Treatment Procedure Verrucae were de brided to pin-point bleeding margins with sterile 15 surgical blade, silver nitrate chemocautery applied, recomm. immune-boosting meds such as zinc, recomm. follow up with topical chemosurgical agents, Pt defers any other forms of tx (07568) Debride Nail 6-10 Nail debridement Due to [...] use of a nail nipper and/or dremel-type chicle grinder feeder, to a more viable healthy nail plate [...] to maintain effectiveness in symptomatic relief - 52979 Keratoma Treatment Parring or Cutting o f [...] tissue nippers, and/or power dremel instrumentation - 83097, Q8 Progress Notes * KRISTIDestiny FDOB:1944 (79 yo F)Acc No.[id number]:09/14/2024 Progress Note Patient:?Destiny YADAV Provider:?Talia Bazzi DPM :1945???Age:79 Y???Sex:Female D ate:09/14/2024 Address:[address] [place], [place] [address] Pcp:Ryley Varela MD Subjective: * Chief Complaints: [...] Surg amy 1998Thumb Surgery 2011ear surgery 2003knee ddjeavc-awoccuieufe-nejn 2015hip surgery 05/01 * Hospitalization/Major Diagno stic [...] walking, stretching. ?Marital status: . 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 * Medications:?TakingTylenol O lopatadine HCl 0.1 % [...] (Chaya cary)???2.?Metatarsalgia, right foot - M77.41???3.?Atherosclerosis of creek artery of both lower extremities, with unspecified [...] use of a nail nipper and/or dremel-type chicle grinder feeder, to a more viable healthy nail plate [...] to maintain effectiveness in symptomatic relief - 19367.?Keratoma Treatment:?Parring or Cutting of Benign Hyperkeratotic Lesion(s)?, [...] tissue nippers, and/or power dremel instrumentation - 42638, Q8.?Wart Treatment:?Procedure?Verrucae were debrided to pin-point bleeding margins with sterile 15 surgical blade, silver nitrate chemocautery applied, recomm. immune-boosting meds such as zinc, recomm. follow up with topical chemosurgical agents, Pt defers any other forms of tx (29756).? * Procedure Codes:?58946 DEBRI DE NAIL, 6 OR MORE, Modifiers: XS 73737 Wart Destruction, 1-14, Modifiers: XS 20705 TRIM SKIN LESIONS, OVER 4, Modifiers: XS , Q8 * Follow Up:?2 Months * Images: * Sign off status: Completed true * Provider:?Talia Bazzi DPM Date:?03/2024 Generated for Alejandro holcomb/Ladonna/Noe on:?01/31/2025 02:37 PM EDT History and Physical Notes * HPI (History [...]
--- OUTSIDE RECORDS SUMMARY | 2025-01-31 14:38 | XMS_ITS ---
Author Organization [facility] Address [address] [place] [address] Care Team Providers Care Retirement Benefits Specialist Name Role Phone Ryley Varela MD Primary Care Provider UnavailVinny Mahajan Unavailable [phone] Talia Bazzi Unavailable [phone] Allergies Allergen (clinical drug ingredient) Drug/Non Drug [...] Date Status Tylenol Active Flonase PRN Active Primidone 50 MG 1 tablet Orally Once a day Active Olopatadine HCl 0.1 % Ophthalmic for 90 Days Active Meclizine HCl Active Lipitor 10 MG 1 tablet Orally Once a day for 30 day(s) Active Vitamin D Active Vitamin C Active Nortriptyline HCl 10 MG 2 capsule Orally Once a day for 30 days Active Atorvastatin Calcium 10 MG Oral for 90 Days Active Fluticasone Propionate 50 MCG/ACT Nasal for [...] uitting Vital Signs Height 5 ft2in in 12/04/2024 Weight 110 lbs 12/04/2024 BMI 20.12 kg/m2 12/04/2024 Blood pressure systolic 123 mm Hg 12/04/19 Blood pressure diastolic 70 mm Hg 025 Encounters Encounter Location Date Provider Diagnosis [facility] [address] [place] [address] 12/04/2024 Talia Bazzi Plantar wart B07.0 ; Metatarsalgia, right foot M77.41 ; Atherosclerosis of [place] artery of both lower extremities, with unspecified presence of clinical manifestation I70.203 ; Tinea unguium B35.1 ; Pain in right toe(s) M79.674 ; Pain in left toe(s) M79.675 and Right foot pain M79.671 Assessments Encounter Date Diagnosis (ICD Code) Assessment Notes Treatment Notes Treatment Clinical Notes Section Notes 12/04/2024 Plantar wart (ICD-10 - B07.0) 12/04/2024 Metatarsalgia, right foot (ICD-10 - M77.41) 12/04/2024 Atherosclerosis of [place] artery of both lower extremities, with unspecified presence of clinical manifestation (ICD-10 - I70.203) 12/04/2024 Tinea unguium (ICD-10 - B35.1) 12/04/2024 Pain in right toe(s) (ICD-10 - M79.674) 12/04/2024 Pain in left toe(s) (ICD-10 - M79.675) 12/04/2024 Right foot pain (ICD-10 - M79.671) Plan Of Treatment Next Appt Details Follow Up: 2 Months, Reason: Provider Name:Talia chan, 02/13/2025 03:15:00 PM, [address] [place], [address], Procedure Notes * Category Sub-Category Detail Notes Wart Treatment Procedure Verrucae were de brided to pin-point bleeding margins with sterile 15 surgical blade, silver nitrate chemocautery applied, recomm. immune-boosting meds such as zinc, recomm. follow up with topical chemosurgical agents, Pt defers any other forms of tx (28812) Debride Nail 6-10 Nail debridement Due to the cl inical pathology outlined in the exam findings, performance of this nail treatment is medically necessary as its management by an unskilled/untrained nonprofessional would put this patients foot and overall health at risk. Therefore, debridement to affected nail(s), as described in exam ( TA, T1, T2, T3, T4, T5, T6, T7, T8, T9, ), was performed exclusively by the physician of record to reduce/remove overall nail length, girth, thickness, subungual debris, and necrotic tissue, by manual and/or electrical means through the use of a nail nipper and/or dremel-type feed grinder, to a more viable healthy nail [...] to maintain effectiveness in symptomatic relief - 04170 Keratoma Treatment Parring or Cutting o f Benign Hyperkeratotic Lesion(s) (-57) More than 4 Lesions - Due to the at risk nature of the patients medical condition as documented in the exam findings, performance of this keratoderma treatment is medically necessary as its management by an unskilled/untrained nonprofessional would put this patients foot and overall health at risk. Therefore, the benign hyperkeratotic lesions, ( 8 ) in total, locations as stated and described in the exam ( TA, T5 , T7, SUB MTH (s) , 1 , B/L , SUB MTH (s) , 3 , Right, Plantar Heel(s), B/L ), were pared, and/or cut utilizing a sterile 15 blade, tissue nippers, and/or power dremel instrumentation by the physician of record - 71558 Progress Notes * Destiny YADAV FDOB:1944 (79 yo F)Acc No.[id number]:12/04/2024 Progress Note Patient:Destiny JAMES Provider:?Talia Bazzi DPM :1945???Age:79 Y???Sex:Female D ate:12/04/2024 Address:[address] [place] [address] Pcp:Ryley Varela MD Subjective: * Chief Complaints: [...] Surg amy 1998Thumb Surgery 2011ear surgery 2003knee [id number] 2015hip surgery 05/01 * Hospitalization/Major Diagno stic [...] walking, stretching. ?Marital status: . 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 * Medications:?TakingTylenol O lopatadine HCl 0.1 % [...] Verified] Objective: * Vitals:?Ht: 5 ft2in, Wt: 110 , BMI: 20.12, Shoe size: 9-10, BP: 123/70 mm Hg, Ht- cm: 157.48 cm, Wt-k.9 kg. * Examination: ???Vascular: ?DP PULSES (B):? 0/4, B/L.?PT PULSES (B):? 0/4, B/L.?CAPILLARY FILL TIME:? delayed, all digits, B/L.?TROPHIC CONDITION-TEXTURE/ELASTICITY/TURGOR/HAIR GROWTH (B):? decreased, B/L.?TEMPERTURE GRADIENT (C):? decreased, cool to cool, proximal to distal, B/L.?PIGMENTATION:?brawny, B/L.?CLAUDICATION (C):?denies, B/L.?REST PAIN:?denies, B/L.?Nails: ?NAILS are:? Elongated, overgrown, dystrophic, lytic, greater than 3mm thick, discolored and friable with crumbly malodorous subungual debris, with pain on palpation,TA, T1, T2, T3, T4, T5, T6, T7, T8, T9.?Dermatologic: ?SKIN FINDINGS:?Skin exam reveals Keratotic lesion(s) located [...] (Chaya cary)???2.?Metatarsalgia, right foot - M77.41???3.?Atherosclerosis of [place] artery of both lower extremities, with unspecified [...] debridement to affected nail(s), as described in exam ( TA, T1, T2, T3, T4, T5, T6, T7, T8, T9, ), was performed exclusively by the physician of record to reduce/remove overall nail length, girth, thickness, subungual debris, and necrotic tissue, by manual and/or electrical means through the use of a nail nipper and/or dremel-type feed grinder, to a more viable healthy nail plate or bed tissue 6- 10 nails in total. Silver nitrate was used for any petechial bleeding as necessary. Definitive antifungal treatment options, both pharmaceutical and surgical, have been reviewed and discussed with the patient. The patient solely prefers the use of intermittent/as needed professional debridement services for their nail condition and understands the need for additional periodic treatments to maintain effectiveness in symptomatic relief - 36112.?Keratoma Treatment:?Parring or Cutting of Benign Hyperkeratotic Lesion(s)?(-57) More than 4 Lesions - Due to the at risk nature of the patients medical condition as documented in the exam findings, performance of this keratoderma treatment is medically necessary as its management by an unskilled/untrained nonprofessional would put this patients foot and overall health at risk. Therefore, the benign hyperkeratotic lesions, ( 8 ) in total, locations as stated and described in the exam (?TA,?T5?,?T7,?SUB MTH (s)?,?1?,?B/L?,?SUB MTH (s)?,?3?,?Right,?Plantar Heel(s),?B/L?), were pared, and/or cut utilizing a sterile 15 blade, tissue nippers, and/or power dremel instrumentation by the physician of record - 00718.?Wart Treatment:?Procedure?Verrucae were debrided to pin-point bleeding margins with sterile 15 surgical blade, silver nitrate chemocautery applied, recomm. immune-boosting meds such as zinc, recomm. follow up with topical chemosurgical agents, Pt defers any other forms of tx (34856).? * Procedure Codes:?94332 DEBRI DE NAIL, 6 OR MORE, Modifiers: XS 77827 Wart Destruction, 1-14, Modifiers: XS 20450 TRIM SKIN LESIONS, OVER 4, Modifiers: XS , Q8 * Follow Up:?2 Months * Images: * Sign off status: Completed true * Provider:?Talia Bazzi DPM Date:? Generated for Alejandro holcomb/Ladonna/Noe on:?01/31/2025 02:38 PM EDT History and Physical Notes * [...] crumbly malodorous subungual debris, with pain on palpation,TA, T1, T2, T3, T4, T5, T6, T7, T8, T9
[2025-01-31 15:00] LABS: Influenza A PCR NEGATIVE (Negative); Influenza B PCR NEGATIVE (Negative); Resp Syncy Virus RNA Qual PCR NEGATIVE (Negative); SARS COV2 PCR INHOUSE NEGATIVE (Negative)
== END 2025-01-31 11:06 | disposition home or self-care (01) ==
LOC: HO.LAB 11:05
PROVIDERS: Nurse Practitioner Family; PCP Internal Medicine
DX: J06.9 Acute upper respiratory infection, unspecified (principal); J30.2 Other seasonal allergic rhinitis
CPT/HCPCS: 0241U; 99212

== ENCOUNTER 2025-01-31 11:05 | Outpatient (AMB) | payer MEDICARE, SELFPAY ==
--- NOTE | 2025-01-31 11:40 | AM.OFFWIN_ITS ---
Intake Vital Signs 01/31/25 11:45 Weight 108 lb BP 118/74 Blood Pressure Location Lt brachial Position Sitting Pulse 87 Pulse Source Pulse Oximeter Temp 97.8 F Temp Source Oral Pulse Oximetry (%) 98 Oxygen Delivery Method Room Air Intake Visit Reasons: EP-sore throat, sinus congestion, body ache Intake Note: Patient here for sinus congestion, weakness, body aches which started last weekend. Patient Tobacco Use Status: Current someday Tobacco user Allergies prochlorperazine [From COMPAZINE] Allergy (Severe, Verified 01/31/25 11:46) Anaphylaxis aspirin [ASPIRIN] Adverse Reaction (Severe, Verified 01/31/25 11:46) Kidney failure Do you need a note to return to daycare/school/sports/work: No HPI HPI Comments History of Present Illness Details 79 y/o Female patient who presents to [facility] walk in clinic with c/o sinus congestion, Generalized Body weakness, and body aches since last Weekend. Denies Fevers, chills, nausea or vomiting. H/o Seasonal Allergies and uses Connie with some relief. [facility] Medical History (Updated 01/31/25 @ 12:22 by Kary Mazariegos NP) Allergic rhinitis Acute respiratory disease CKD (chronic kidney disease) Arthritis Enteropathogenic Escherichia coli infection Essential tremor COPD (chronic obstructive pulmonary disease) Vertigo Anxiety Depression HTN (hypertension) Sigmoid diverticulosis Internal hemorrhoids Hyperlipidemia Tubular adenoma of colon Abnormal colonoscopy Surgical History History of ear surgery H/O arthroscopy of left knee History of thumb surgery History of ankle surgery Social History Household Members: Spouse Housing: House Are you a primary point of care specialist to a significant other at home: No Do you presently have visiting nurse or other home services: No Alcohol intake: never Patient Tobacco Use Status: Current someday Tobacco user Tobacco use type: Cigarette Cigarette Packs Per Day: 0.5 Cigarettes Per Day: 8 Years Smoked: 40 service: No Review of Systems Const All systems reviewed & are unremarkable except as noted in HPI and below Physical Exam Vital Signs: Last Vital Signs Temp 97.8 F 01/31/25 11:45 Pulse 87 01/31/25 11:45 BP 118/74 01/31/25 11:45 Pulse Ox 98 01/31/25 11:45 Oxygen Delivery Method Room Air 01/31/25 11:45 Const General: no acute distress Nutritional Appearance: thin Orientation/consciousness: patient oriented x3 HEENT Head: Yes normocephalic Ears: external ears normal and TM's normal bilaterally General nose exam: Abnormal mucous membranes and turbinates present boggy and Nasal discharge present Face and sinus: Yes sinuses nontender Mouth: moist mucous membranes Throat: Yes uvula midline and Yes postnasal drainage Resp Effort & Inspection: normal respiratory effort and able to speak in complete sentences Auscultation: clear to auscultation bilaterally Cardio Rhythm: regular rhythm Heart sounds: S1 normal heart sound present and S2 normal heart sound present Neuro General: patient oriented x3 Assessment & Plan Assessment & Plan (1) Acute respiratory disease: Code(s): J06.9 - Acute upper respiratory infection, unspecified Plan: Ordered SARs. Continue using Connie for allergies and Added Flonase Nasal Garrison. F/U with PCP. (2) Allergic rhinitis: Code(s): J30.9 - Allergic rhinitis, unspecified Qualifiers: Allergic rhinitis trigger: unspecified Allergic rhinitis seasonality: seasonal Qualified Code(s): J30.2 - Other seasonal allergic rhinitis Plan: Ordered SARs. Continue using Connie for allergies and Added Flonase Nasal Garrison. F/U with PCP. Orders: Orders SARS-CoV2/FLU/RSV Today J06.9 - Acute upper respiratory infection, unspecified Medications: New fluticasone propionate 50 mcg/actuation administer into each nostril 1 spray intranasal BID PRN 16 grams 0RF Allergy Symptoms J30.9 - Allergic rhinitis, unspecified Coding Level of Care Code Est Pt Level 4 (19593) Diagnoses Acute respiratory disease J06.9 Seasonal allergic rhinitis, unspecified trigger J30.2 Allergic rhinitis trigger: unspecified Allergic rhinitis seasonality: seasonal Time Spent (min) 20
[2025-01-31 11:45] VITALS: BP 118/74; PULSE 87; TEMP 36.6; O2SAT 98
--- OUTSIDE RECORDS SUMMARY | 2025-01-31 13:04 | XMS_ITS | Clinical Summary ---
Author Organization [facility] Address [address] [place] [address] [place] [address] Phone Care Team Providers Care Senior Sales Representative Name Role Phone Ryley Varela MD Primary Care Provider [phone] Allergies Active Allergy Reactions Criticality Noted Date Comments Prochlorperazine Other (see comments) Medications acetaminophen (TYLENOL 8 HOUR) 650 MG 8 hr tablet as needed for pain Active ALPRAZolam (NIRAVAM) 0.25 MG dispersible tablet Take 1 tablet by mouth 3 (three) times a day Active clonazePAM (KlonoPIN) 0.5 MG dispersible tablet Take 0.5 tablets by mouth every 4 (four) hours if needed Active atorvastatin (LIPITOR) 10 MG tablet Take 1 tablet by mouth 1 (one) time each day Active nortriptyline (PAMELOR) 10 MG capsule Take 3 capsules by mouth 1 (one) time each day Active sertraline (ZOLOFT) 50 MG tablet Take 1 tablet by mouth 1 (one) time each day Active calcium carbonate (TUMS) 500 MG chewable tablet as needed Active primidone (MYSOLINE) 50 MG tablet Take 50 mg by mouth every night Active ergocalciferol 1.25 MG (12917 UT) capsule TAKE 1 CAPSULE BY MOUTH EVERY 14 DAYS 6 capsule 2 2 Active Active Problems Problem Noted Date Diagnosed Date Stage 3b chronic kidney disease 06/02/2021 Renal osteodystrophy 06/02/2021 Chronic kidney disease stage 3 06/01/2021 Hypertensive renal disease 06/01/2021 Immunizations Immunization Administration Dates Next Due Pneumococcal Polysaccharide 03/25/2004 Family History Medical History Relation Comments Dementia Father sister Cancer Mother breast Heart disease Mother mother - enlarge d heart Relation Status Comments Father Mother Social History Tobacco Use Types Packs/Day Years Used Date Smoking Tobacco: Every Day Cigarettes 0.5 61.3 Started: 10/10/1963 Smokeless Tobacco: Never Alcohol Use Standard Drinks/Week Comments No 0 (1 standard drink = 0.6 oz pur e alcohol) Comments Unknown Sex and Gender Information Value Date Recorded Sex Assigned at Not on file Legal Sex Female 4:58 PM EST Gender Identity Not on file Sexual Orientation Not on file Last Filed Vital Signs Vital Sign Reading Time Taken Comments Blood Pressure 122/64 10/01/2024 12:54 PM EST Pulse 66 12/26/2023 12:56 PM EDT Temperature - - Respiratory Rate - - Oxygen Saturation 96% 12/26/2023 12: 56 PM EDT Inhaled Oxygen Concentration - - Weight 48.9 kg (107 lb 12.8 oz) 024 12:54 PM EST Height 157.5 cm (5' 2 ) 08/05/2020 12:0 0 PM EDT Body Mass Index 19.72 08/05/2020 12:00 PM EDT Plan of Treatment Upcoming Encounters Date Type Department Care Team (Late st Contact Info) Description 04/01/2025 3:00 PM EDT Office Visit [facility] [address] [place] [address] Zeke Neri MD [address] [facility] [address] [place] [address] Health Maintenance Due Date Last Done Comments Pneumococcal Vaccine: 50+ Ye ars (2 of 2 - PCV) 03/25/2005 03/25/2004 Influenza Vaccine (Season Ended) 2025 Pneumococcal Vaccine: Peds ( 0 to 5 Years) and At-Risk Patients (6 to 49 Years) Discontinued 03/25/2004 Hepatitis B Vaccine Aged Out No longe r eligible based on patient's age to complete this topic Insurance [facility] Medicare [facility] Medicare Care Teams Senior Sales Representative Relationship Specialty Start Date End Date Ryley Varela MD [address] THU JEFF[place] PCP - General 10/20/20
== END 2025-01-31 12:25 | disposition home or self-care (01) ==
PROVIDERS: PCP Internal Medicine; Visit Provider Nurse Practitioner Family
DX: J06.9 Acute upper respiratory infection, unspecified (principal); J30.2 Other seasonal allergic rhinitis

== ENCOUNTER 2025-02-01 15:06 | Emergency (ER) | payer MEDICARE, SELFPAY ==
--- NOTE | ~2025-02-01 | XR_ITS ---
CLINICAL HISTORY: fall, pain 3 view, pelvis and right hip Comparison: None Findings: Four films were obtained. Right hip open reduction internal fixation with heterotopic ossifications involving the lesser trochanter. No acute fracture or dislocation. There is moderate narrowing of the bilateral acetabulofemoral joints. Prominent degenerative changes in the lower lumbar spine. The soft tissues are unremarkable. IMPRESSION: 1. No acute fracture or dislocation. 2. Postsurgical changes in the right hip with no visible complications. This document has been electronically signed by: Wendy Sharma DO on 02/01/2025 19:00:51
--- NOTE | ~2025-02-01 | CT_ITS ---
CLINICAL HISTORY: fall with head strike CT cervical spine without contrast Comparison: None Findings: Craniocervical junction is unremarkable. There is degenerative narrowing of the atlantoaxial distance. There is uncovertebral joint and facet hypertrophy with moderate foraminal stenosis at C3-4 on the left, C4-5 on the right, and C5-C6 on the left. Normal limited view of the intracranial contents. Soft tissues of the neck are normal. There is mild bilateral pulmonary pleural apical thickening, likely postinflammatory Normal vertebral body alignment. No fractures or dislocations. No significant degenerative change. Impression: Degenerative changes with no signs of acute trauma. This document has been electronically signed by: Zeke Ching MD on 02/01/2025 16:39:16
--- NOTE | ~2025-02-01 | CT_ITS ---
CLINICAL HISTORY: fall with head strike CT Head Without Contrast: Comparison: None Findings: Cortical sulci and cisterns are prominent. Basal ganglia are unremarkable No shift in midline structures No intraparenchymal bleeding or abnormal extra axial blood fluid collections Normal pituitary size Clear paranasal sinuses Unremarkable orbital structures No depressed fractures Impression: Chronic involutional volume loss with no signs of acute trauma. This document has been electronically signed by: Zeke Ching MD on 02/01/2025 16:42:28
[2025-02-01 15:19] VITALS: BP 160/80; BP 163/82; PULSE 101; PULSE 102; RESP 18; TEMP 36.2; O2SAT 99; BMI 20.1
--- NOTE | 2025-02-01 15:30 | ED.GENADULT ---
HPI - General Adult General Chief complaint: Fall Stated complaint: FALL T-2, RT HIP PAIN,+HS,HEADACHE PER EMS Time Seen by Provider: 02/01/25 15:29 Source: patient, EMS, RN notes reviewed and old records reviewed Mode of arrival: EMS Limitations: physical limitation History of Present Illness ED Provider: Temi HPI narrative: Patient is an 79-year-old female with history of CKD, right hip arthroplasty status post fracture presenting to the emergency department with complaint of right hip and flank pain after a fall yesterday. States she tripped while bringing her dog in the house. States she landed 1st on her hip, then struck her head on a stone. Denies loss of consciousness. She is not anticoagulated. Called her son who helped her up off the ground and into the house, but she states she has been unable to bear weight on her right leg or walk. Denies neck or back pain. Denies hematuria. MD complaint: hip pain Onset (ago): day(s) Related Data Home Medications ?Medication ?Instructions ?Recorded ?Confirmed alprazolam 0.5 mg tablet 0.5 tab PO BID-TID PRN Anxiety 08/18/22 05/03/24 atorvastatin 10 mg tablet 1 tab PO DAILY 08/18/22 05/03/24 ergocalciferol (vitamin D2) 1,250 1 cap PO Q2W 08/18/22 05/03/24 mcg (50,000 unit) capsule nortriptyline 10 mg capsule 3 cap PO BEDTIME 08/18/22 05/03/24 olopatadine 0.1 % eye drops 1 drp ophthalmic (eye) BID 08/18/22 05/03/24 sertraline 50 mg tablet 1 tab PO DAILY 08/18/22 05/03/24 albuterol sulfate 90 mcg/actuation 2 puff inhalation QID 04/17/23 05/03/24 aerosol inhaler estradiol 0.01% (0.1 mg/gram) 1 g vaginal 2XW 04/17/23 05/03/24 vaginal cream Previous Rx's ?Medication ?Instructions ?Recorded alprazolam 0.25 mg tablet 0.25 mg PO BID PRN anxiety #60 tabs 01/14/25 fluticasone propionate 50 1 spray intranasal BID PRN Allergy 01/31/25 mcg/actuation nasal Symptoms #16 grams spray,suspension Allergies Allergy/AdvReac Type Severity Reaction Status Date / Time prochlorperazine Allergy Severe Anaphylaxis Verified 02/01/25 15:21 [From COMPAZINE] aspirin [ASPIRIN] AdvReac Severe Kidney Verified 02/01/25 15:21 failure Review of Systems Review of Systems: As per HPI Yes all other systems are reviewed and are negative Constitutional: Constitutional: Reports as per HPI [facility] Past Medical History Medical History (Updated 02/01/25 @ 16:45 by Alem Membreno NP) Allergic rhinitis Acute respiratory disease CKD (chronic kidney disease) Arthritis Enteropathogenic Escherichia coli infection Essential tremor COPD (chronic obstructive pulmonary disease) Vertigo Anxiety Depression HTN (hypertension) Sigmoid diverticulosis Internal hemorrhoids Hyperlipidemia Tubular adenoma of colon Abnormal colonoscopy Surgical History History of ear surgery H/O arthroscopy of left knee History of thumb surgery History of ankle surgery Social History Social History (Reviewed 06/09/23 @ 12:48 by Namrata Santillan [facility]) Household Members: Spouse Housing: House Are you a primary director of health care marketing to a significant other at home: No Do you presently have visiting nurse or other home services: No Alcohol intake: never Patient Tobacco Use Status: Current someday Tobacco user Tobacco use type: Cigarette Cigarette Packs Per Day: 0.5 Cigarettes Per Day: 8 Years Smoked: 40 Smoked in Last 30 Days: Yes Use of substances other than those prescribed or required for medical reasons: No Advance Directives: Yes Advance Directives Information Provided: Yes Advance Directives on File: No Do you have a plan to hurt others: No Plan service: No Physical Exam ED Vital Signs: Vital Signs - 24 hr 02/01/25 15:19 02/01/25 16:00 Temperature 97.1 F 97.8 F Pulse Rate 102 H 87 Respiratory Rate 18 16 Blood Pressure 163/82 H 173/71 H Pulse Oximetry 99 100 Oxygen Delivery Method Room Air Room Air BMI result Body Mass Index 20.1 Vital signs have been reviewed and appear to be correct. Blood pressure normal. Heart rate normal. Respiratory rate normal. Temperature normal. Oxygen saturation normal. Const General: cooperative, healthy appearing and no acute distress Orientation/consciousness: oriented to person, oriented to place, oriented to time and patient oriented x3 Limitations: no limitations HENMT Head: Yes normocephalic and Yes atraumatic Ears: external ears normal General nose exam: Normal external nose present Face and sinus: Yes face symmetric Mouth: oropharynx normal and moist mucous membranes Throat: Yes uvula midline Eyes Pupils: Equal, round and reactive pupils present Neck Neck: Yes normal visual inspection and Yes supple Resp Effort & Inspection: normal respiratory effort and able to speak in complete sentences Auscultation: clear to auscultation bilaterally Cardio Rate: regular rate Rhythm: regular rhythm Heart sounds: S1 normal heart sound present and S2 normal heart sound present GI Palpation (GI): Soft to palpation and nontender Auscultation: normoactive bowel sounds Other: no flank ecchymosis General: Yes no CVA tenderness Back/Spine/Pelvis Back: no CVA tenderness Skin General skin exam: elasticity normal and turgor normal Neuro General: oriented to person, oriented to place, oriented to time, patient oriented x3, moves all extremities, no focal motor deficits and CN's II-XI intact bilaterally Cranial nerves: Yes Equal, round and reactive pupils present Cognition (Neuro): normal cognition Extrem General: Yes full ROM, Yes no pedal edema and Yes no calf tenderness Right lower extremity: hip/thigh (external rotation) Details: tenderness Location: of the proximal upper leg; no ecchymosis and foot Details: vascular exam Details: dorsalis pedis pulse present, posterior tibial pulse present and normal capillary refill Psych Mental Status: mental status grossly normal Affect: normal affect Thought process: Normal thought process present Course Reevaluation(s) Reevaluation #1: Sherie Spencer PA-C have accepted care of the patient and signed out pending x-ray of the hip and final disposition Hip pelvis right: Findings: Four films were obtained. Right hip open reduction internal fixation with heterotopic ossifications involving the lesser trochanter. No acute fracture or dislocation. There is moderate narrowing of the bilateral acetabulofemoral joints. Prominent degenerative changes in the lower lumbar spine. The soft tissues are unremarkable. IMPRESSION: 1. No acute fracture or dislocation. 2. Postsurgical changes in the right hip with no visible complications. Reevaluation #2: Ambulated the patient with a walker, she is walking at her baseline, she will call her son for a ride Time: 19:15 Medical Decision Making Medical Decision Making MDM Narrative: Patient is an 79-year-old female with history of CKD, right hip arthroplasty status post fracture presenting to the emergency department with complaint of right hip and flank pain after a fall yesterday. On exam patient is awake, A+Ox3, VS WNL, afebrile, normal neurological exam without focal deficits, physical exam findings as above. Given reported symptoms and physical exam findings, initial differential includes but is not limited to hip fracture, contusion, ICH, skull or cervical vertebral fracture or subluxation. CT head and c-spine notable for no ICH, no acute fracture or subluxation. My interpretation is in agreement with the radiologist's interpretation. Patient signed out to WALDO Valenzuela pending hip xray. Differential Diagnosis Differential Diagnoses: The differential diagnosis associated with the presentation includes s per mdm Admission/Observation Consideration of admission/observation: Escalation of care including admission/observation considered Patient would have been admitted to the hospital had their work up had any findings where hospital admission was appropriate and their clinical presentation warranted hospital admission. Lab Data 02/01/25 16:53 02/01/25 16:53 Labs: Lab Results 02/01/25 02/01/25 Range/Units 16:53 18:02 WBC 7.1 (4.8-10.8) X10*3/uL RBC 3.81 L (4.20-5.50) X10*6/uL Hgb 11.8 L (12.0-16.0) g/dl Hct 35.6 L (37.0-47.0) % MCV 93.4 (80.0-98.0) fL MCH 31.0 (27.0-33.0) pg MCHC 33.1 (31.0-35.0) g/dl RDW 13.9 (11.0-16.0) % Plt Count 161 D (160-400) X10*3/uL MPV 9.8 (9.4-12.3) fL Immature Gran % (Auto) 0.6 H (0.0-0.4) % Neut % (Auto) 84.1 H (45-73) % Lymph % (Auto) 7.1 L (20-40) % Travis % (Auto) 6.9 (2-11) % Eos % (Auto) 0.7 (0-4) % Baso % (Auto) 0.6 (0-2) % Lymph # (Auto) 0.5 L (1.2-4.9) X10*3/uL Travis # (Auto) 0.5 (0.1-1.2) X10*3/uL Eos # (Auto) 0.1 (0.0-0.4) X10*3/uL Baso # (Auto) 0.0 (0.0-0.2) X10*3/uL Abs Immat Gran (auto) 0.04 H (0.00-0.03) X10*3/uL Absolute Neuts (auto) 6.0 (2.0-8.3) x10*3/uL Absolute Nucleated RBC 0.000 (0.0-0.012) X10*3/uL Nucleated RBC % (auto) 0.0 (0.0-0.2) /100WBC Sodium 138 (135-145) mmol/L Potassium 4.0 (3.3-5.1) mmol/L Chloride 107 (96-108) mmol/L Carbon Dioxide 26 (22-29) mmol/L Anion Gap 9 L (12-20) BUN 20 H (9-16) mg/dL Creatinine 1.48 H (0.5-1.4) mg/dL Estim Creat Clear Calc 23.8 Estimated GFR 34 Random Glucose 99 (60-115) mg/dL Calcium 9.0 (8.4-10.2) mg/dL Total Bilirubin 0.6 (0.0-1.0) mg/dL AST 19 (5-31) U/L ALT 8 (0-31) U/L Alkaline Phosphatase 108 (39-117) U/L Total Protein 6.3 L (6.5-8.0) g/dL Albumin 3.6 (3.5-5.0) g/dL Urine Color Yellow Urine Appearance Clear Urine pH 6.0 (5.0-9.0) Ur Specific [place] 1.015 (1.005-1.025) Urine Protein Negative (Neg-Trace) mg/dL Urine Glucose (UA) Negative (Negative) mg/dL Urine Ketones Negative (Negative) mg/dL Urine Blood Negative (Negative) Urine Nitrite Negative (Negative) Ur Leukocyte Esterase Small (1+) H (Negative) Urine RBC 0-2 (0-2) /HPF Urine WBC 6-10 H (0-5) /HPF Ur Squamous Epith Cells 0-2 (0-2) /HPF Urine Bacteria None Seen (None Seen) Hyaline Casts 0-2 (0-2) /LPF Independent Interpretation I performed an independent interpretation of an: CT Scan Interpretation: CT head and c-spine notable for no ICH, no acute fracture or subluxation. Radiology Impression Discussion of test interpretation with radiology: I have reviewed the radiologist's reading. Radiologist Impression: Findings: Cortical sulci and cisterns are prominent. Basal ganglia are unremarkable No shift in midline structures No intraparenchymal bleeding or abnormal extra axial blood fluid collections Normal pituitary size Clear paranasal sinuses Unremarkable orbital structures No depressed fractures Impression: Chronic involutional volume loss with no signs of acute trauma. Findings: Craniocervical junction is unremarkable. There is degenerative narrowing of the atlantoaxial distance. There is uncovertebral joint and facet hypertrophy with moderate foraminal stenosis at C3-4 on the left, C4-5 on the right, and C5-C6 on the left. Normal limited view of the intracranial contents. Soft tissues of the neck are normal. There is mild bilateral pulmonary pleural apical thickening, likely postinflammatory Normal vertebral body alignment. No fractures or dislocations. No significant degenerative change. Impression: Degenerative changes with no signs of acute trauma. External Record Review External record reviewed: Inpatient record, Office record and Outpatient record Discharge Plan Discharge Clinical Impression: Acute right hip pain Patient Disposition: Home, Self-Care Additional Instructions: All of your screening labs were normal. CT scan of your head and cervical spine revealed no acute injury. There was no acute injury of your right hip. You can use [id number] Tylenol 1000 mg taken every 8 hours for your pain. Follow up with your primary care provider as needed. Prescriptions: No Action alprazolam 0.25 mg tablet 0.25 mg PO BID PRN (Reason: anxiety) Qty: 60 0RF atorvastatin 10 mg tablet 1 tab PO DAILY alprazolam 0.5 mg tablet 0.5 tab PO BID-TID PRN (Reason: Anxiety) nortriptyline 10 mg capsule 3 cap PO BEDTIME olopatadine 0.1 % drops 1 drp ophthalmic (eye) BID ergocalciferol (vitamin D2) 1,250 mcg (50,000 unit) capsule 1 cap PO Q2W sertraline 50 mg tablet 1 tab PO DAILY estradiol 0.01 % (0.1 mg/gram) cream 1 g vaginal 2XW albuterol sulfate 90 mcg/actuation HFA aerosol inhaler 2 puff inhalation QID fluticasone propionate 50 mcg/actuation spray,suspension 1 spray INTRANASAL BID PRN (Reason: Allergy Symptoms) Qty: 16 0RF Rx Instructions: administer into each nostril Print Language: Dominican
[2025-02-01 16:00] VITALS: BP 173/71; PULSE 87; RESP 16; TEMP 36.6; O2SAT 100
--- OUTSIDE RECORDS SUMMARY | 2025-02-01 16:30 | XMS_ITS ---
Author Organization [facility] Address [address] [place] [address] Care Team Providers Care Off Premise Service Representative Name Role Phone Ryley Varela MD Primary Care Provider UnavailVinny Mahajan Unavailable [phone] Talia Bazzi Unavailable [phone] Allergies Allergen (clinical drug ingredient) Drug/Non Drug [...] quitting? Thinking about q uitting Vital Signs Blood pressure systolic 124 mm Hg 09/14/20 24 Blood pressure diastolic 70 mm Hg 024 Height 5 ft2in in 09/14/2024 Weight 114 lbs 09/14/2024 BMI 20.85 kg/m2 09/14/2024 Encounters Encounter Location Date Provider Diagnosis [facility] [place] [address] [place] [address] 09/14/2024 Talia Bazzi Plantar wart B07.0 ; Metatarsalgia, right foot M77.41 ; Atherosclerosis of [place] artery of both lower extremities, with unspecified [...] foot (ICD-10 - M77.41) 09/14/2024 Atherosclerosis of [place] artery of both lower extremities, with unspecified presence of clinical manifestation (ICD-10 - I70.203) 09/14/2024 Tinea unguium (ICD-10 - B35.1) 09/14/2024 Pain in right toe(s) (ICD-10 - M79.674) 09/14/2024 Pain in left toe(s) (ICD-10 - M79.675) 09/14/2024 Right foot pain (ICD-10 - M79.671) Plan Of Treatment Next Appt Details Follow Up: 2 Months, Reason: Provider Name:Talia chan, 02/13/2025 03:15:00 PM, [address] [place], [address], Procedure Notes * Category Sub-Category Detail Notes Wart Treatment Procedure Verrucae were de brided to pin-point bleeding margins with sterile 15 surgical blade, silver nitrate chemocautery applied, recomm. immune-boosting meds such as zinc, recomm. follow up with topical chemosurgical agents, Pt defers any other forms of tx (85402) Debride Nail 6-10 Nail debridement Due to [...] use of a nail nipper and/or dremel-type watch parts grinder, to a more viable healthy nail [...] to maintain effectiveness in symptomatic relief - 33624 Keratoma Treatment Parring or Cutting o f [...] tissue nippers, and/or power dremel instrumentation - 36479, Q8 Progress Notes * KRISTIDestiny FDOB:1944 (79 yo F)Acc No.[id number]:09/14/2024 Progress Note Patient:?Destiny YADAV Provider:?Talia Bazzi DPM :1945???Age:79 Y???Sex:Female D ate:09/14/2024 Address:[address] [place], [place] [id number] Pcp:Ryley Varela MD Subjective: * Chief Complaints: [...] Surg amy 1998Thumb Surgery 2011ear surgery 2003knee dtpdnsy-[id number]-[id number] 2015hip surgery 05/01 * Hospitalization/Major Diagno stic [...] walking, stretching. ?Marital status: . 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 * Medications:?TakingTylenol O lopatadine HCl 0.1 % [...] (Chaya cary)???2.?Metatarsalgia, right foot - M77.41???3.?Atherosclerosis of [place] artery of both lower extremities, with unspecified [...] use of a nail nipper and/or dremel-type watch parts grinder, to a more viable healthy nail [...] to maintain effectiveness in symptomatic relief - 20157.?Keratoma Treatment:?Parring or Cutting of Benign Hyperkeratotic Lesion(s)?, [...] tissue nippers, and/or power dremel instrumentation - 58440, Q8.?Wart Treatment:?Procedure?Verrucae were debrided to pin-point bleeding margins with sterile 15 surgical blade, silver nitrate chemocautery applied, recomm. immune-boosting meds such as zinc, recomm. follow up with topical chemosurgical agents, Pt defers any other forms of tx (40670).? * Procedure Codes:?15866 DEBRI DE NAIL, 6 OR MORE, Modifiers: XS 40964 Wart Destruction, 1-14, Modifiers: XS 36654 TRIM SKIN LESIONS, OVER 4, Modifiers: XS , Q8 * Follow Up:?2 Months * Images: * Sign off status: Completed true * Provider:?Talia Bazzi DPM Date:?03/2024 Generated for Alejandro holcomb/Ladonna/Noe on:?02/01/2025 04:30 PM EDT History and Physical Notes * [...]
--- OUTSIDE RECORDS SUMMARY | 2025-02-01 16:30 | XMS_ITS ---
Author Organization [facility] Address [address] [place] [address] Care Team Providers Care Space [employer] Name Role Phone Avery IVERSON, Ryley Primary Care Provider Vinny Delgado Unavailable [phone] Talia Bazzi Unavailable [phone] Chang Encounters Encounter Location Date Provider Diagnosis [address] [address] 11/27/2024 Talia Bazzi Plan Of Treatment Next Appt Details Provider Name:Talia chan, 02/13/2025 03:15:00 PM, [address] [place] [address], [phone], Progress Notes * Destiny YADAV FDOB:1944 (79 yo F)Acc No.[id number]:11/27/2024 Progress Note Patient:?Destiny YADAV Provider:?Talia Bazzi DPM :1945???Age:79 Y???Sex:Female D ate:11/27/2024 Address:[address] [place], [place] [id number] Pcp:Ryley Varela MD Subjective: * Chief Complaints: [...] Bazzi DPM Date:? Generated for Alejandro holcomb/Ladonna/Noe on:?02/01/2025 04:30 PM EDT
--- OUTSIDE RECORDS SUMMARY | 2025-02-01 16:31 | XMS_ITS | Clinical Summary ---
Author Organization [facility] Address [address] [place] [address] [place] [address] Phone Care Team Providers Care Bilingual Secretary Name Role Phone Ryley Varela MD Primary Care Provider [phone] Allergies Active Allergy Reactions Criticality Noted Date [...] mouth every night Active ergocalciferol 1.25 MG (55150 UT) capsule TAKE 1 CAPSULE BY MOUTH [...] Visit [facility] [address] [place] [address] Zeke Neri MD [address] [facility] [address] [place] [address] Health Maintenance Due Date Last Done Comments Pneumococcal Vaccine: 50+ Ye ars (2 of 2 - PCV) 03/25/2005 03/25/2004 Influenza Vaccine (Season Ended) 2025 Pneumococcal Vaccine: Peds ( 0 to 5 Years) and At-Risk Patients (6 to 49 Years) Discontinued 03/25/2004 Hepatitis B Vaccine Aged Out No longe r eligible based on patient's age to complete this topic Insurance [facility] Medicare [facility] Medicare Care Teams Bilingual Secretary Relationship Specialty Start Date End Date Ryley Varela MD [id number] THU JEFFERSON PCP - General 10/20/20
--- OUTSIDE RECORDS SUMMARY | 2025-02-01 16:31 | XMS_ITS ---
Author Organization [facility] Address [address] [place] [address] Care Team Providers Care Director Market Intelligence Name Role Phone Ryley Varela MD Primary Care Provider UnavailVinny Mahajan Unavailable [phone] Talia Bazzi Unavailable [phone] Allergies Allergen (clinical drug ingredient) Drug/Non Drug [...] q uitting Vital Signs Blood pressure systolic 123 mm Hg 12/04/19 25 Blood pressure diastolic 70 mm Hg 025 Height 5 ft2in in 12/04/2024 Weight 110 lbs 12/04/2024 BMI 20.12 kg/m2 12/04/2024 Encounters Encounter Location Date Provider Diagnosis [facility] [place] [address] [place] [address] 12/04/2024 Talia Bazzi Plantar wart B07.0 ; Metatarsalgia, right foot M77.41 ; Atherosclerosis of [place] artery of both lower extremities, with unspecified [...] foot (ICD-10 - M77.41) 12/04/2024 Atherosclerosis of [place] artery of both lower extremities, with unspecified presence of clinical manifestation (ICD-10 - I70.203) 12/04/2024 Tinea unguium (ICD-10 - B35.1) 12/04/2024 Pain in right toe(s) (ICD-10 - M79.674) 12/04/2024 Pain in left toe(s) (ICD-10 - M79.675) 12/04/2024 Right foot pain (ICD-10 - M79.671) Plan Of Treatment Next Appt Details Follow Up: 2 Months, Reason: Provider Name:Talia chan, 02/13/2025 03:15:00 PM, [address] [place], [address], Procedure Notes * Category Sub-Category Detail Notes Wart Treatment Procedure Verrucae were de brided to pin-point bleeding margins with sterile 15 surgical blade, silver nitrate chemocautery applied, recomm. immune-boosting meds such as zinc, recomm. follow up with topical chemosurgical agents, Pt defers any other forms of tx (11787) Debride Nail 6-10 Nail debridement Due to [...] use of a nail nipper and/or dremel-type beef grinder, to a more viable healthy nail [...] to maintain effectiveness in symptomatic relief - 37814 Keratoma Treatment Parring or Cutting o f [...] instrumentation by the physician of record - 92324 Progress Notes * Destiny YADAV FDOB:1944 (79 yo F)Acc No.[id number]:12/04/2024 Progress Note Patient:Destiny JAMES Provider:?Talia Bazzi DPM :1945???Age:79 Y???Sex:Female D ate:12/04/2024 Address:[address] [place] [address] Pcp:Ryley Varela MD Subjective: * Chief Complaints: [...] Surg amy 1998Thumb Surgery 2011ear surgery 2003knee [id number]-ahlc 2015hip surgery 05/01 * Hospitalization/Major Diagno stic [...] walking, stretching. ?Marital status: . ?Occupation: retired- [employer]. * Medications:?TakingTylenol O lopatadine HCl 0.1 % [...] (Chaya cary)???2.?Metatarsalgia, right foot - M77.41???3.?Atherosclerosis of [place] artery of both lower extremities, with unspecified [...] use of a nail nipper and/or dremel-type beef grinder, to a more viable healthy nail [...] to maintain effectiveness in symptomatic relief - 23556.?Keratoma Treatment:?Parring or Cutting of Benign Hyperkeratotic Lesion(s)?(-57) [...] instrumentation by the physician of record - 64022.?Wart Treatment:?Procedure?Verrucae were debrided to pin-point bleeding margins with sterile 15 surgical blade, silver nitrate chemocautery applied, recomm. immune-boosting meds such as zinc, recomm. follow up with topical chemosurgical agents, Pt defers any other forms of tx (84949).? * Procedure Codes:?59444 DEBRI DE NAIL, 6 OR MORE, Modifiers: XS 01319 Wart Destruction, 1-14, Modifiers: XS 64877 TRIM SKIN LESIONS, OVER 4, Modifiers: XS [...]
--- OUTSIDE RECORDS SUMMARY | 2025-02-01 16:31 | XMS_ITS | Patient Health Record ---
Author Organization [facility] Address [address] [place] [address] Care Team Providers Care Director Of Collections Name Role Phone Ryley Varela MD Primary Care Provider UnavailVinny Mahajan Unavailable [phone] Talia Bazzi Unavailable [phone] Allergies Allergen (clinical drug ingredient) Drug/Non Drug [...] W/U Status Risk Notes Problem Plantar wart (25007912) Plantar wart (B07.0) Active confirmed Problem Bilateral atherosclerosis of arteries of lower limbs (disorder) (74511550302452553 ) Unspecified atherosclerosis of [place] arteries of extremities, bilateral legs (I70.203) Active confirmed Problem Localized, primary osteoarthritis of the ankle and/or foot (392697000) Primary osteoarthritis, right ankle and foot (M19.071) Active confirmed Problem Localized, primary osteoarthritis of the ankle and/or foot (543846062) Primary osteoarthritis, left ankle and foot (M19.072) Active confirmed Problem Acquired hammer toe of right foot (6797109601200374) Other hammer toe(s) (acquired), right foot (M20.41) Active confirmed Problem Bilateral atherosclerosis of arteries of lower limbs (disorder) (13039306248833253 ) Atherosclerosis of [place] artery of both lower extremities, with unspecified presence of clinical manifestation (I70.203) Active confirmed Vital Signs Blood pressure diastolic 70 mm Hg 12/04/2024 Height 5 ft2in in 12/04/2024 Blood pressure systolic 123 mm Hg 12/04/2024 Weight 110 lbs 12/04/2024 BMI 20.12 kg/m2 12/04/2024 Encounters Encounter Location Date Provider Diagnosis [facility] [address] [place] [address] 02/29/2024 Talia Bazzi Plantar wart B07.0 ; Metatarsalgia, right foot M77.41 ; Atherosclerosis of [place] artery of both lower extremities, with unspecified presence of clinical manifestation I70.203 ; Tinea unguium B35.1 ; Pain in right toe(s) M79.674 ; Pain in left toe(s) M79.675 ; Right foot pain M79.671 ; Left foot pain M79.672 and Pain in right ankle and joints of right foot M25.[address] [address] 05/11/2024 Talia Perica Plantar wart B07.0 ; Metatarsalgia, right foot M77.41 ; Atherosclerosis of [place] artery of both lower extremities, with unspecified presence of clinical manifestation I70.203 ; Tinea unguium B35.1 ; Pain in right toe(s) M79.674 ; Pain in left toe(s) M79.675 ; Right foot pain M79.671 ; Left foot pain M79.672 and Pain in right ankle and joints of right foot M25.[address] [address] 07/13/2024 Talia Perica Plantar wart B07.0 ; Metatarsalgia, right foot M77.41 ; Atherosclerosis of [place] artery of both lower extremities, with unspecified presence of clinical manifestation I70.203 ; Tinea unguium B35.1 ; Pain in right toe(s) M79.674 ; Pain in left toe(s) M79.675 ; Right foot pain M79.671 and Pain in right ankle and joints of right foot M25.[address] [address] 09/14/2024 Talia Perica Plantar wart B07.0 ; Metatarsalgia, right foot M77.41 ; Atherosclerosis of [place] artery of both lower extremities, with unspecified presence of clinical manifestation I70.203 ; Tinea unguium B35.1 ; Pain in right toe(s) M79.674 ; Pain in left toe(s) M79.675 and Right foot pain M79.[address] [address] 12/04/2024 Talia Perica Plantar wart B07.0 ; Metatarsalgia, right foot M77.41 ; Atherosclerosis of [place] artery of both lower extremities, with unspecified presence of clinical manifestation I70.203 ; Tinea unguium B35.1 ; Pain in right toe(s) M79.674 ; Pain in left toe(s) M79.675 and Right foot pain M79.671 [facility] [address] [place] [address] 02/21/2024 Vinny Alexandra Assessments Encounter Date Diagnosis [...] foot (ICD-10 - M77.41) 09/14/2024 Atherosclerosis of [place] artery of both lower extremities, with unspecified presence of clinical manifestation (ICD-10 - I70.203) 07/13/2024 Atherosclerosis of [place] artery of both lower extremities, with unspecified presence of clinical manifestation (ICD-10 - I70.203) 07/13/2024 Metatarsalgia, right foot (ICD-10 - M77.41) 05/11/2024 Metatarsalgia, right foot (ICD-10 - M77.41) 02/29/2024 Atherosclerosis of [place] artery of both lower extremities, with unspecified presence of clinical manifestation (ICD-10 - I70.203) 02/29/2024 Tinea unguium (ICD-10 - B35.1) 07/13/2024 Tinea unguium (ICD-10 - B35.1) 05/11/2024 Atherosclerosis of [place] artery of both lower extremities, with unspecified presence of clinical manifestation (ICD-10 - I70.203) 09/14/2024 Tinea unguium (ICD-10 - B35.1) 12/04/2024 Atherosclerosis of [place] artery of both lower extremities, with unspecified [...] Details Provider Name:Talia chan, 02/13/2025 03:15:00 PM, [address] [place] [address], [phone], Insurance Providers Payer Name Payer Address Payer Phone Subscriber Number Group Number Insured Name Patient Relationship to Insured Coverage Start Date Coverage End Date Medicare [facility] [employer] [address] [place] [address] [id number] Destiny Pedro Self - patient is the insured [employer] [address] [place] [address] [id number] Destniy Pedro Self - patient is the insured Medical (General) History Medical History History ICD Code Anxiety Back,Hip,and Knee pain Broken bones, hip CAD (Cholesterol) Cataracts Depression High blood pressure Kidney disease chronic sinusitis Measles Mumps Chicken pox Joint implants/screws Arthritis sinusitis Surgical History Surgery Date(Month/Year) Ankle Surgery 1997 Thumb Surgery 2010 ear surgery 2002 knee rjnengi-jzbjmqbhdfw-aubm 2015 hip surgery 05/01
--- OUTSIDE RECORDS SUMMARY | 2025-02-01 16:31 | XMS_ITS | Data Portability ---
Author Organization [place] - [facility], Allergy Address [address] [place] [id number] Care Team Providers Care Install And Repair Technician Name Role Phone JAY BURNS Primary Care Provider Assessment Encounter Date Assessment Date Assessment LastModified by Organization Details LastModified Time 10/16/2024 10/16/2024 Patient with vestibular migraine, doing well on nortriptyline 30 mg at bedtime. She will continue with this medication going forward. We can refill this as needed. Not available 10/16/2024 14:15:14 Plan of Treatment Reminders Order Date Submit Date Provider Last Modified By Organization Details Last Modified Time Details Appointments Hearing Test 2024 01:00P M Hearing Test Not available Not available Not available Establish ed 10 2024 01:30P M LULA CABRERA MD Not available Not available Not available Lab None recorded. Referral None recorded. Procedures None recorded. Surgeries None recorded. Imaging None recorded. Medication Orders None recorded. Patient TargetsNo targets recorded. Patient InstructionsNo instructions recorded. Reason for Referral None Reported. Problems Name Problem SNOMED Code Status Onset Date Resolution Date Notes Provider Name and Address Organization Details Recorded Time Labyrint hitis 30058811 Active 2019 Labyrint hitis, unspecif ied ear; Note: Date Diagnose d: 10/11/2019 3:42 PM (H83.09) Not Available [facility] 4 02:47:19 Senile hyperker atosis 371140073 Active 2017 Other seborrhe ic keratosi s; Note: Date Diagnose d: 09/07/20 18 3:02 PM (L82.1) Not Available [facility] 4 02:47:23 Sensorin eural hearing loss in right ear 34668840804 100 Active 2020 Sensorin eural hearing loss, unilater al, right ear, with restrict ed hearing on the contrala teral side; Note: Date Diagnose d: 1 3:48 PM (H90.A21 ) Not Available [facility] 4 02:47:25 Musculos keletal finding 511775362 Active 2021 Other symptoms and signs involvin g the musculos keletal system; Note: Date Diagnose d: 2 10:03 AM (R29.898 ) Not Available [facility] 4 02:47:24 Migraine 75928298 Active 2014 Other migraine , not intracta ble, without status migraino justin; Note: Date Diagnose d: 5 1:33 PM (G43.809 ) [mapped from ICD9 code: 346.20] Not Available [facility] 4 02:47:25 Migraine variants 109578273 Active 2014 Migraine variant; Note: Date Diagnose d: 5 1:28 PM (346.20) Not Available [facility] 4 02:47:28 Unilater al sensorin eural hearing loss with unrestri cted hearing on the contrala teral side Active 2014 Sensorin eural HL, unilater al; Note: Date Diagnose d: 5 2:00 PM (389.15) Not Available [facility] 4 02:47:20 Bilatera l temporom andibula r joint pain 57192036890 541649 Active 2019 Arthralg ia of bilatera l temporom andibula r joint; Note: Date Diagnose d: 10/11/2019 3:42 PM (M26.623 ) Not Available [facility] 4 02:47:21 Sensorin eural hearing loss of bilatera l ears 049545399 Active 2018 Sensorin eural hearing loss, bilatera l; Note: Date Diagnose d: 9 1:43 PM (H90.3) Note: Date Diagnose d: 9 1:43 PM (H90.3) Not Available [facility] 4 01:08:07 General unsteadi ness 794668442 Active 2021 Unsteadi ness on feet; Note: Date Diagnose d: 2 10:03 AM (R26.81) Note: Date Diagnose d: 2 10:03 AM (R26.81) Not Available [facility] 4 01:08:07 Posterio r rhinorrh ea 39702799 Active 2021 Postnasa l drip; Note: Date Diagnose d: 2 10:08 AM (R09.82) Not Available [facility] 4 02:47:23 Benign paroxysm al position al vertigo 513005082 Completed 201405/11/2024 Benign paroxysm al position al vertigo; Note: Date Diagnose d: 5 1:28 PM (386.11) Benign paroxysm al vertigo, left ear; Note: Date Diagnose d: 5 1:33 PM (H81.12) [mapped from ICD9 code: 386.11] Not Available [facility] 4 02:47:24 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 2014 Mixed HL, unilater al; Note: Date Diagnose d: 5 2:00 PM (389.21) Not Available [facility] 4 02:47:20 Vertigo of central origin 93577251 Active 2014 Vertigo of central origin; Note: Date Diagnose d: 5 1:28 PM (386.2) Vertig o of central origin; Note: Changed from H81.49 to H81.4 (10/28/19 21 5:05 PM) , Date Diagnose d: 5 1:33 PM (H81.49) [mapped from ICD9 code: 386.2] Not Available [facility] 4 02:47:28 Mixed conducti ve and sensorin eural hearing loss of left ear 84775882820 107 Active 2020 Mixed conducti ve and sensorin eural hearing loss, unilater al, left ear with restrict ed hearing on the contrala teral side; Note: Date Diagnose d: 1 3:48 PM (H90.A32 ) Not Available [facility] 4 02:47:27 Neurolog ical symptom 823543426 Active 2023 Other symptoms and signs involvin g the nervous system; Note: Date Diagnose d: 4 2:00 PM (R29.818 ) Not Available [facility] 4 02:47:25 Problem Notes None recorded. Medical Equipment None Reported. Allergies Allergen ID Allergen Name Allergen Category Reaction Reaction Severity Criticality Documentation Date Start Date Code Code System Note Provider Name and Address Organization Details Recorded Time 234966 prochlorp erazine maleate medicatio n other Not available Not available 02/21/2024 8706 RxNorm React ion: unkno wn, unspe cifie d;; Not Available [facility] 4 01:19:13 806923 prochlorp erazine edisylate medicatio n other Not available Not available 02/21/2024 8705 RxNorm React ion: unkno wn, unspe cifie d;; Not Available [facility] 4 01:19:14 Medications Name Sig Start Date Stop Date Status Note LastModified by Organization Details LastModified Time losartan 50 mg tablet 05/01 completed Medicati on ID: [id number] Du ration Value: 30 Brand Name: losartan Send Method: E-Prescr ibed Sub s Allowed: subs [place] Speci al Instruct ion: TK 1 T PO QD Medic ationGen ericName : losartan Not Available Not Available Not Available primidone 50 mg tablet TAKE 1 TABLET TO 1 1/2 TABLETS BY MOUTH ONCE DAILY active Not Available Not Available No t Available Saline Mist 0.65 % nasal spray aerosol 2 spray into both nostrils 10/16 completed Medicati on ID: [id number] D uration Value: 30 Brand Name: Saline Mist Sen d Method: E-Prescr ibed Sub s Allowed: subs [place] Medic ationGen ericName : Saline Mist Not Available Not Available Not Available atorvasta tin 10 mg tablet TAKE 1 TABLET BY MOUTH EVERY DAY active Not Available Not Available No t Available clonazepa m 0.5 mg tablet 10/16 completed Medicati on ID: [id number] Du ration Value: 90 Brand Name: clonazep am Send Method: E-Prescr ibed Sub s Allowed: subs [place] Medic ationGen ericName : clonazep am Not Available Not Available Not Available meclizine 12.5 mg tablet 1 tablet by mouth 10/16 completed Medicati on ID: [id number] P rescribe d By Name: Sindi Bhardwaj nd Name: meclizin e Send Method: E-Prescr ibed Sub s Allowed: subs [place] Medic ationGen ericName : meclizin e Not Available Not Available Not Available alprazola m 0.5 mg tablet TAKE 1/2 TABLET BY MOUTH TWICE DAILY NEEDED 10/16 completed Not Available Not Available Not Available alprazola m 0.25 mg tablet TAKE 1 TABLET BY MOUTH TWICE A DAY NEEDED active Not Available Not Available No t Available nortripty line 10 mg capsule TAKE 3 CAPSULES BY MOUTH EVERY DAY active Not Available Not Available No t Available olopatadi ne 0.1 % eye drops INSTILL 1 DROP INTO BOTH EYES NEEDED TWICE A DAY active Not Available Not Available No t Available ergocalci ferol (vitamin D2) 1,250 mcg (50,000 unit) capsule 2013 active Medicati on ID: [id number] Du ration Value: 90 Brand Name: ergocalc iferol (vitamin D2) Send Method: E-Prescr ibed Sub s Allowed: subs [place] Speci al Instruct ion: TK 1 C PO Q 2 WEEKS Me dication GenericN ana: ergocalc iferol (vitamin D2) Not Available Not Available Not Available Nasonex 50 mcg/actua tion [place] 2 spray into both nostrils 2013 active Medicati on ID: [id number] Du ration Value: 90 Prescri bed By Name: Sindi Bhardwaj nd Name: Nasonex Send Method: E-Prescr ibed Sub s Allowed: subs [place] Medic ationGen ericName : Nasonex Not Available Not Available Not Available albuterol sulfate HFA 90 mcg/actua tion aerosol inhaler INHALE 2 PUFF USING INHALER FOUR TIMES A DAY active Not Available Not Available No t Available sertralin e 50 mg tablet TAKE 1 TABLET BY MOUTH EVERY DAY IN THE MORNING active Not Available Not Available No t Available calcitrio l 0.25 mcg capsule 05/01 completed Medicati on ID: [id number] Du ration Value: 90 Brand Name: calcitri ol Send Method: E-Prescr ibed Sub s Allowed: subs [place] Medic ationGen ericName : calcitri ol Not Available Not Available Not Available Estrace 0.01% (0.1 mg/gram) vaginal cream 10/16 completed Medicati on ID: [id number] Br and Name: Estrace Send Method: E-Prescr ibed Sub s Allowed: subs [place] Medic ationGen ericName : Estrace Not Available Not Available Not Available Atrovent HFA 17 mcg/actua tion aerosol inhaler 04/20 completed Medicati on ID: [id number] Re ason: () Brand Name: Atrovent HFA Send Method: E-Prescr ibed Sub s Allowed: subs [place] Medic ationGen ericName : Atrovent HFA Not Available Not Available Not Available [facility] 60 mg tablet 1 tablet by mouth 2014 active Medicati on ID: [id number] Du ration Value: 90 Brand Name: [facility] Send Method: E-Prescr ibed Sub s Allowed: subs [place] Medic ationGen ericName : [facility] Not Available Not Available Not Available Paxlovid 150 mg-100 mg tablets in a dose pack (Moderate Renal Dose) TAKE 2 TABLETS BY MOUTH TWICE A DAY 10/16 completed Not Available Not Available Not Available Vitals Date Recorded Body height Body weight Provider Name and Address Organization Details Last Updated DateTime 10/16/2024 157.48 cm 89541.35 g Tiffanie Leary [place] - [facility] 10/16/2024 14:00:48 Social History None recorded. Functional Status None recorded. Mental Status None recorded. Family History Nothing Reported. Medical History Condition Response Allergies/Hayfever Y Anxiety Y GERD/Reflux Y High Cholesterol Y Gynecological HistoryNo gynecological history recorded. Obstetrics History GPAL:G 0 P 0 0 0 0 Past Encounters Encounter ID Performer Location Encounter Start Date Encounter Closed Date Diagnosis/Indication Diagnosis SNOMED-CT Code Diagnosis ICD10 Code Diagnosis Note [id number] LULA CABRERA MD [facility] [address] [id number] 10/16/2024 13:30:38 10/16/2024 14:15:22 Vertigo of central origin 85904882 H81.4 Sensorineu ral hearing loss of bilateral ears 507630044 H90.3 We reviewed patient's audiogram from November 2023. She has bilateral high-frequ ency sensorineu ral hearing loss, left greater than right. She would like to learn about amplificat ion options, but not until next fall. We will set her up for a follow-up visit in June with updated audiometri c testing and we can discuss amplificat ion options at that time. Neurological symptom 308 [id number] R29.818 Migraine variants 580846 005 G43.809 Health Concerns Section Related Observation LastModified by Organization Detai ls LastModified Time None Recorded Concern Status LastModified by Organization Details LastModified Time None Recorded Advance Directives Directive None Recorded Payers Encounter Date Sequence Insurance Name Policy Number Policy Mir Covered Member ID Mir Member ID Guarantor Name 10/16/2024 1 MEDICARE [place]: [facility] Destiny Yadav [id number] Destiny Yadav 10/16/2024 2 [place] [employer] [place] [id number] Destiny Yadav [id number] Destiny Yadav Notes Date Note Type Note Provider Name and Address Organization Details Recorded Time 10/16/2024 text/html 79-year-old fema le with history of chronic left-sided BPPV, treated with semicircular canal occlusion in 2003. She also has history of migraine associated dizziness. She follows migraine diet and takes nortriptyline 30 mg nightly. Last seen back in November at which point she was having increased sensation of imbalance, likely related to her recent hip fracture, visual changes as well as newly diagnosed intentional tremor. I recommend she continue on the nortriptyline and the migraine diet. Only 1 episode of spinning in the last 10 months. She is quite pleased in that regard. Patient is noticing more difficulty with her hearing recently. LULA CABRERA MD [address] [place] [address], [place], [address], [facility] - [facility] 10/16/2024 14:16:10 OBGyn Episode No OBEpisode recorded.
[2025-02-01 16:58] LABS: MANUAL DIFF FLAG NO
[2025-02-01 16:59] LABS: Basophils Percent Auto 0.6 % (0-2); Eosinophils Absolute Auto 0.1 X10*3/uL (0.0-0.4); Eosinophils Percent Auto 0.7 % (0-4); Hematocrit 35.6 % (37.0-47.0); Hemoglobin 11.8 g/dl (12.0-16.0); Imm Gran Abs Auto 0.04 X10*3/uL (0.00-0.03); Imm Gran Pct Auto 0.6 % (0.0-0.4); Lymphocytes Absolute Auto 0.5 X10*3/uL (1.2-4.9); Lymphocytes Percent Auto 7.1 % (20-40); Mean Corpuscular HGB Conc 33.1 g/dl (31.0-35.0); Mean Corpuscular Volume 93.4 fL (80.0-98.0); Mean Platelet Volume 9.8 fL (9.4-12.3); Monocytes Absolute Auto 0.5 X10*3/uL (0.1-1.2); Monocytes Percent Auto 6.9 % (2-11); Neutrophils Percent Auto 84.1 % (45-73); Platelet Count 161 X10*3/uL (160-400); Red Blood Count 3.81 X10*6/uL (4.20-5.50); Red Cell Distribution Width 13.9 % (11.0-16.0); White Blood Count 7.1 X10*3/uL (4.8-10.8)
[2025-02-01 17:13] LABS: Alanine Aminotransferase 8 U/L (0-31); Albumin Level 3.6 g/dL (3.5-5.0); Alkaline Phosphatase 108 U/L (39-117); Anion Gap 9 (12-20); Aspartate Amino Transferase 19 U/L (5-31); Bilirubin Total 0.6 mg/dL (0.0-1.0); Blood Urea Nitrogen 20 mg/dL (9-16); Carbon Dioxide 26 mmol/L (22-29); Chloride 107 mmol/L (96-108); Creatinine Clr Calc Pharmacy 23.8; Estimated Glomerular Filt Rate 34; Glucose Random 99 mg/dL (60-115); Sodium 138 mmol/L (135-145); Total Protein 6.3 g/dL (6.5-8.0)
--- NOTE | 2025-02-01 17:26 | PC.NURSE ---
patient a&ox3, vss, pt c/o 02/16 rle pain, pt has RLE external rotation but is able to move her leg + csm/pulses, rr equal/non labored,vss, pt awaiting results of xrays and ct scans, call villarreal within reach, plan of care ongoing
[2025-02-01 18:08] LABS: Appearance Urine Clear; Color Urine Yellow; Glucose Urine UA Negative (Negative); Leukocyte Esterase Urine Small (1+) (Negative); Nitrite Urine Negative (Negative); Specific Gravity - Urine 1.015 (1.005-1.025); UMIC TRIGGER UACC YES; Urine Blood Negative (Negative); Urine Ketones Negative (Negative); Urine Protein Negative (Neg-Trace)
[2025-02-01 18:13] LABS: Bacteria Urine None Seen (None Seen); Hyaline Casts Urine 0-2 /LPF (0-2); RBC Urine 0-2 /HPF (0-2); Squamous Epithelial Cell Urine 0-2 /HPF (0-2); UACC Culture Trigger YES
[2025-02-01] MEDS: Acetaminophen 325 MG TABLET 975 MG PO (19:34)
[2025-02-01 19:35] VITALS: BP 170/89; PULSE 98; RESP 20; TEMP 36.7; O2SAT 100
[2025-02-01 19:42] VITALS: BP 170/89; PULSE 98; RESP 20; TEMP 36.7; O2SAT 100
== END 2025-02-01 19:59 | disposition home or self-care (01) ==
PROVIDERS: Registered Nurse Emergency; Emergency Provider Emergency Medicine
DX: M25.551 Pain in right hip (principal); R10.9 Unspecified abdominal pain; E11.22 Type 2 diabetes mellitus with diabetic chronic kidney disease; I12.9 Hypertensive chronic kidney disease with stage 1 through stage 4 chronic kidney disease, or unspecified chronic kidney disease; N18.9 Chronic kidney disease, unspecified
CPT/HCPCS: 36415; 70450; 72125; 73502; 80053; 81001; 85025; 87086; 99284

== ENCOUNTER → 2025-02-01 15:31 | Outpatient (BNV) | payer MEDICARE, SELFPAY | PROVIDERS: Emergency Provider Emergency Medicine; Visit Provider Radiology Diagnostic Radiology | DX: M50.30 Other cervical disc degeneration, unspecified cervical region (principal); M25.551 Pain in right hip; G31.89 Other specified degenerative diseases of nervous system; S09.90XA Unspecified injury of head, initial encounter; W19.XXXA Unspecified fall, initial encounter | CPT/HCPCS: 73502 ==

== ENCOUNTER 2025-02-15 10:53 | Outpatient (AMB) | payer MEDICARE, SELFPAY ==
[2025-02-15 09:11] VITALS: BP 130/80; PULSE 83; TEMP 36.2; O2SAT 99; BMI 20.7
--- NOTE | 2025-02-15 09:11 | MHC.PC.OV ---
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 Accompanied by: Self / Same As Patient Allergies prochlorperazine [From COMPAZINE] Allergy (Severe, Verified 02/15/25 09:11) Anaphylaxis aspirin [ASPIRIN] Adverse Reaction (Severe, Verified 02/15/25 09:11) Kidney failure Tobacco use date assessed: 02/15/25 Fall risk assessment: No Falls in past year Last assessed Fall Risk: 02/15/25 Dental Screening Dental Screen Date: 02/15/25 Did you have a dental visit in the last 12 months?: No Did you have a dental problem in the last 6 months where you did not have access to dental care?: No HPI HPI Comments History of Present Illness Details 79 y/o female with a past medical history of hypertension, GERD, COPD, CKD, anemia, BPPV, anxiety presenting for follow up. Last seen in Nov with PCP. Evaluated in [facility] ER after tripping- she has h/o right hip arthroplasty status post fracture presenting to the emergency department with complaint of right hip and flank pain after a fall yesterday. States she tripped while bringing her dog in the house. States she landed 1st on her hip, then struck her head on a stone. She had CT head, neck and xray of the hips and pelvis all without acute findings. She was given a short course of oxycodone and continues to need this at night time. She has been taking 4-5 extra strength tylenol daily. She has residual pain in the right upper leg and groin. Says she is plagued by chronic arthritis BH: On sertraline, lorazepam. stable Colonoscopy 08/2022-Dr Moreno 10 years ROS see HPI PHYSICAL EXAM: GENERAL: Alert and oriented x 3. NAD EYES: EOMI. Anicteric. HENT: Moist mucous membranes. No scleral icterus. No cervical lymphadenopathy. LUNGS: Clear to auscultation bilaterally. CARDIOVASCULAR: Regular rate and rhythm. No murmur. No JVD. ABDOMEN: Soft, non-tender +bs EXTREMITIES: No edema. Non-tender. ROM at hip and knee adequate SKIN: No rashes or lesions. Warm. No visible bruising NEUROLOGIC: No focal neurological deficits. CN II-XII grossly intact PSYCHIATRIC: Cooperative. Appropriate mood and affect [facility] Medical History Allergic rhinitis Acute respiratory disease CKD (chronic kidney disease) Arthritis Enteropathogenic Escherichia coli infection Essential tremor COPD (chronic obstructive pulmonary disease) Vertigo Anxiety Depression HTN (hypertension) Sigmoid diverticulosis Internal hemorrhoids Hyperlipidemia Tubular adenoma of colon Abnormal colonoscopy Surgical History History of ear surgery H/O arthroscopy of left knee History of thumb surgery History of ankle surgery Family History Mother No problems noted. Father No problems noted. Social History Household Members: Spouse Housing: House Are you a primary personal care attendant to a significant other at home: No Do you presently have visiting nurse or other home services: No Alcohol intake: never Patient Tobacco Use Status: Current everyday Tobacco user Tobacco use type: Cigarette Cigarette Packs Per Day: 0.5 Cigarettes Per Day: 8 Years Smoked: 40 Packs Per Year: 20 Packs per year/per ci.00 e-Cigarette/Vaping Use: Currently Using service: No Current occupational status: retired Cognitive needs: No Hearing needs: No Vision needs: Yes (rx glasses) Questionnaire PHQ-9 Over the last 2 weeks, how often have you been bothered by any of the following problems? 1. Little interest or pleasure in doing things: not at all 2. Feeling down, depressed, or hopeless: not at all 3. Trouble falling or staying asleep, or sleeping too much: not at all 4. Feeling tired or having little energy: not at all 5. Poor appetite or overeating: not at all 6. Feeling bad about yourself - or that you are a failure or have let yourself or your family down: not at all 7. Trouble concentrating on things, such as reading the newspaper or watching television: not at all 8. Moving or speaking so slowly that other people could have noticed. Or the opposite - being so fidgety or restless that you have been moving around a lot more than usual: not at all 9. Thoughts that you would be better off or of hurting yourself in some way: not at all Total score: 0 Depression Screening Interpretation: Negative Depression Screening Done: Yes 32613 - PHQ-9 Billing: Yes Source: Developed by Drs. John Wilson, Marlys Wallis, Aramis Martinez and colleagues, with an educational shae from [employer]. Thrive Questionnaire Date Thrive assessed: 02/15/25 I am a: Patient Within the past 12 months, did the food you bought not last and you didn't have the money to get more?: Never true Within the past 12 months, did you worry whether your food would run out before you got money to buy more?: Never true Do you have trouble paying for medicines?: No Do you have trouble getting transportation to medical appointments?: No Do you have trouble paying your heating and electricity bill?: No Do you have trouble taking care of your child, family member or friend?: No Do you have trouble with day-to-day activities such as bathing, preparing meals, shopping, managing finances, etc.?: No Are you currently unemployed and looking for a job?: No Are you interested in more education?: No THRIVE Score: 0 AUDIT C Alcohol Use Questionnaire (AUDIT-C) 1. How often do you have a drink containing alcohol?: Never 3. How often do you have six or more drinks on one occasion?: Never Total Score: 0 MARYURI-7 AMB Questionnaire MARYURI-7 Date MARYURI - 7 assessed: 02/15/25 Feeling nervous, anxious, or on edge: 0 = Not at all Not being able to stop or control worryin = Not at all Worrying too much about different things: 0 = Not at all Trouble relaxin = Not at all Being so restless that it is hard to sit still: 0 = Not at all Becoming easily annoyed or irritable: 0 = Not at all Feeling afraid as if something awful might happen: 0 = Not at all Total MARYURI-7 score (0-4 normal; 5-9 mild; 10-14 moderate; 15-21 severe): 0 Source: Developed by Drs. John Wilson, Marlys Wallis, Aramis Martinez and colleagues, with an educational shae from [employer]. Physical exam (Primary Care) Vital Signs: Last Vital Signs Temp 97.1 F 02/15/25 09:11 Pulse 83 02/15/25 09:11 BP 130/80 02/15/25 09:11 Pulse Ox 99 02/15/25 09:11 Oxygen Delivery Method Room Air 02/15/25 09:11 BMI result Body Mass Index 20.7 Tobacco/Smoking Status: Tobacco use Status Tobacco use date assessed 02/15/25 02/15/25 09:13 Patient Tobacco Use Status Current everyday Tobacco 02/15/25 11:05 Tobacco use type Cigarette 02/15/25 09:13 e-Cigarette/Vaping Use Currently Using 02/15/25 11:05 PHQ-9: PHQ-9 Score PHQ-9: Total score 0 02/15/25 11:05 Depression Screening Interpretation: Negative Thrive Assessment: Date of Thrive Assessment Date Thrive assessed 02/15/25 02/15/25 09:13 Coding Level of Care Code New Pt Level 4 (98970) Complex EM visit Add On G2211 Diagnoses Polyarthralgia M25.50 Primary hypertension I10 Hypertension type: primary hypertension Hyperlipidemia, unspecified hyperlipidemia type E78.5 Hyperlipidemia type: unspecified Anxiety F41.9 Chronic obstructive pulmonary disease, unspecified COPD type J44.9 COPD type: unspecified COPD Additional Codes PHQ-9 - 52738 - PHQ-9 Billing: Yes ([id number]) Assessment & Plan Assessment & Plan (1) Polyarthralgia: Code(s): M25.50 - Pain in unspecified joint Category: Medical (2) HTN (hypertension): Code(s): I10 - Essential (primary) hypertension Category: Medical Qualifiers: Hypertension type: primary hypertension Qualified Code(s): I10 - Essential (primary) hypertension (3) Hyperlipidemia: Code(s): E78.5 - Hyperlipidemia, unspecified Category: Medical Qualifiers: Hyperlipidemia type: unspecified Qualified Code(s): E78.5 - Hyperlipidemia, unspecified (4) Anxiety: Code(s): F41.9 - Anxiety disorder, unspecified Category: Medical (5) COPD (chronic obstructive pulmonary disease): Code(s): J44.9 - Chronic obstructive pulmonary disease, unspecified Category: Medical Qualifiers: COPD type: unspecified COPD Qualified Code(s): J44.9 - Chronic obstructive pulmonary disease, unspecified Plan 79 year old female presenting to [facility] care Past medical, surgical, social reviewed Tramadol sent for pain non responsive to tylenol referral to rheumatology Orders: Orders Complete Blood Count Auto Diff Today E78.5 - Hyperlipidemia, unspecified, F41.9 - Anxiety disorder, unspecified, I10 - Essential (primary) hypertension, J44.9 - Chronic obstructive pulmonary disease, unspecified Comprehensive Met. Panel Today E78.5 - Hyperlipidemia, unspecified, F41.9 - Anxiety disorder, unspecified, I10 - Essential (primary) hypertension, J44.9 - Chronic obstructive pulmonary disease, unspecified Vitamin B12 and Folate Today E78.5 - Hyperlipidemia, unspecified, F41.9 - Anxiety disorder, unspecified, I10 - Essential (primary) hypertension, J44.9 - Chronic obstructive pulmonary disease, unspecified TSH reflex Free T4 Today E78.5 - Hyperlipidemia, unspecified, F41.9 - Anxiety disorder, unspecified, I10 - Essential (primary) hypertension, J44.9 - Chronic obstructive pulmonary disease, unspecified Lipid Panel Today E78.5 - Hyperlipidemia, unspecified, F41.9 - Anxiety disorder, unspecified, I10 - Essential (primary) hypertension, J44.9 - Chronic obstructive pulmonary disease, unspecified Referrals Rheumatology Referral M25.50 - Pain in unspecified joint Medications: New tramadol 50 mg PO Q8H PRN 21 tabs 0RF pain Changed From alprazolam 0.5 tabs PO BID-TID PRN Anxiety To alprazolam 0.5 mg PO TID PRN 60 tabs 1RF Anxiety
--- OUTSIDE RECORDS SUMMARY | 2025-02-15 11:25 | XMS_ITS ---
[facility] Address [address] [place] [address] Care Team Providers Care Pharmaceutical Compounding Supervisor Name Role Phone EliciaAngi espinal Primary Care Provider Vinny De La Rosa Unavailable [phone] Talia Bazzi Unavailable [phone] Allergies Allergen (clinical drug ingredient) Drug/Non Drug [...] Duration) Notes Start Date End Date Status Fluticasone Propionate 50 MCG/ACT Nasal for 60 Days Active Nortriptyline HCl 10 MG 2 capsule Orally Once a day for 30 days Active Atorvastatin Calcium 10 MG Oral for 90 Days Active ALPRAZolam 0.25 MG 1 tablet Orally Twic e a day Active Sertraline HCl Activ e Primidone 50 MG 1 tablet Orally Once a day Active Olopatadine HCl 0.1 % Ophthalmic for 90 Days Active Meclizine HCl Active Tylenol Active Flonase PRN Active Lipitor 10 MG 1 tablet Orally Once a day for 30 day(s) Active Vitamin D Active Vitamin C Active Social History Tobacco Use: Social History Observation Description Date Details (start date - stop date) Current Smoker NA - NA Tobacco use other than smoking: Question Answer [...] q uitting Vital Signs Blood pressure systolic 120 mm Hg 02/14/20 25 Blood pressure diastolic 70 mm Hg 025 Height 5 ft2in in 02/13/2025 Weight 110 lbs 02/13/2025 BMI 20.12 kg/m2 02/13/2025 Encounters Encounter Location Date Provider Diagnosis [facility] [place] [address] [place] [address] 02/13/2025 Talia Bazzi Plantar wart B07.0 ; Atherosclerosis of agdaagux artery of both lower extremities, with unspecified presence of clinical manifestation I70.203 ; Tinea unguium B35.1 ; Pain in right toe(s) M79.674 ; Pain in left toe(s) M79.675 and Right foot pain M79.671 Assessments Encounter Date Diagnosis (ICD Code) Assessment Notes Treatment Notes Treatment Clinical Notes Section Notes 02/13/2025 Plantar wart (ICD-10 - B07.0) 02/13/2025 Atherosclerosis of agdaagux artery of both lower extremities, with unspecified presence of clinical manifestation (ICD-10 - I70.203) 02/13/2025 Tinea unguium (ICD-10 - B35.1) 02/13/2025 Pain in right toe(s) (ICD-10 - M79.674) 02/13/2025 Pain in left toe(s) (ICD-10 - M79.675) 02/13/2025 Right foot pain (ICD-10 - M79.671) Plan Of Treatment Next Appt Details Follow Up: 2 Months, Reason: Provider Name:Talia chan, 04/26/2025 01:45:00 PM, [address] [place] [address], [phone], Procedure Notes * Category Sub-Category Detail Notes Wart Treatment Procedure Verrucae were de brided to pin-point bleeding margins with sterile 15 surgical blade, silver nitrate chemocautery applied, recomm. immune-boosting meds such as zinc, recomm. follow up with topical chemosurgical agents, Pt defers any other forms of tx (29926) Debride Nail 6-10 Nail debridement Due to the cl inical pathology outlined in the exam findings, performance of this nail treatment is medically necessary as its management by an unskilled/untrained nonprofessional would put this patients foot and overall health at risk. Therefore, debridement to affected nail(s), as described in exam ( T1, T2, T3, T4, T6, T8, T9, ), was performed exclusively by the physician of record to reduce/remove overall nail length, girth, thickness, subungual debris, and necrotic tissue, by manual and/or electrical means through the use of a nail nipper and/or dremel-type cast shell grinder, to a more viable healthy nail [...] to maintain effectiveness in symptomatic relief - 15540 Keratoma Treatment Parring or Cutting o f [...] risk. Therefore, the benign hyperkeratotic lesions, ( 6 ) in total, locations as stated and described in the exam ( Medial plantar ,TA, T5 , Plantar, T7, SUB MTH (s) , 1 , B/L , SUB MTH (s) , 3 , Right ), were pared, and/or cut utilizing a sterile 15 blade, tissue nippers, and/or power dremel instrumentation by the physician of record - 50482 Progress Notes * MIGUELDestiny CLAROS FDOB:1944 (79 yo F)Acc No.[id number]:02/13/2025 Progress Note Patient:?Destiny YADAV Provider:?Talia Bazzi DPM :1945???Age:79 Y???Sex:Female D ate:02/13/2025 Address:[address] [place], [place] [id number] Pcp:Angi Rubi Subjective: * Chief Complaints: * ???At Risk FootcarePainful N ail(s) aggrevated by shoes and causing difficulty standing/walking.Wart(s) * HPI: ???At Risk footcare:?Pt States Last PCP Visit:?Date?10/25/2024 ???Skin problems:?Pt States PCP Visit: ?DATE?10/25/2024 * ROS:?General/Constitutional:?Nausea?denies.?Vomiting?denies.?Hunger Thirst?denies.?Loss appetite?denies.?Chills?denies.?Fatigue?denies.?Fever?denies.?Night Sweats?denies.?Unexplained weight loss?denies.?Unexplained [...] Surg amy 1998Thumb Surgery 2011ear surgery 2003knee gwnvqaw-macrigsimyx-arxi 2015hip surgery 05/01 * Hospitalization/Major Diagno stic [...] ?Are you interested in quitting??Thinking about quitting ???Miscellaneous:?Caffeine: yes, 1-2 cups per day. ?Children: yes, 3. ?Exercise: yes, walking, stretching. ?Marital status: . ?Occupation: retired- [employer]. * Medications:?TakingTylenol O lopatadine HCl 0.1 % [...] Tablet 1 tablet Orally Once a day Bobbi , Notes to Pharmacist: PRNMeclizine HCl Medication [...] , BMI: 20.12, Shoe size: 9-10, BP: 120/70 mm Hg, Ht- cm: 157.48 cm, Wt-k.9 [...] at , Medial plantar ,TA, T5 , Plantar, T7, SUB MTH (s) , 1 , B/L , SUB MTH (s) , 3 , Right.?VERRUCA:?Reveals a Single , multi-loculated , mosaic-patterned, round, raised, flat-topped, petechial bleeding papule(s), with cauliflower appearance and interruption of skin lines, pain to lateral compression, and size estimated at 7mm diameter plantar Forefoot RIGHT.?Orthopedic: ?MUSCLE STRENGTH:?5/5 all groups in a symmetrical fashion, B/L.?FOOTWEAR EVALUATION:?shoe gear properties exacerbate patients foot/toe deformity.?Neurological: ?SENSORY:?Neurological exam reveals intact sensorium, pain sensation normal, vibration sensation intact, pinprick sensation is normal in the lower extremities, Pt denies, anesthesia, burning, paresthesia, tingling, B/L.?General Examination: ?GENERAL APPEARANCE:?Reveals a pleasant, alert, well nourished, well- developed, well hydrated individual, who demonstrates proper attention to hygiene/body habitus, and is in no acute distress, Pt serves as own historian for office visit today.?ORIENTED:?person, place, and time.? Assessment: * Assessment: 1.?Plantar wart - B07.0 (Chaya cary)???2.?Atherosclerosis of agdaagux artery of both lower extremities, with unspecified presence of clinical manifestation - I70.203???3.?Tinea unguium - B35.1???4.?Pain in right toe(s) - M79.674???5.?Pain in left toe(s) - M79.675???6.?Right foot pain - M79.671??? Plan: * Treatment: * Procedures:?Debride Nail 6-10:?Nail debridement?Due to the clinical pathology outlined in the exam findings, performance of this nail treatment is medically necessary as its management by an unskilled/untrained nonprofessional would put this patients foot and overall health at risk. Therefore, debridement to affected nail(s), as described in exam (?T1, T2, T3, T4, T6, T8, T9, ), was performed exclusively by the physician of record to reduce/remove overall nail length, girth, thickness, subungual debris, and necrotic tissue, by manual and/or electrical means through the use of a nail nipper and/or dremel-type cast shell grinder, to a more viable healthy nail [...] to maintain effectiveness in symptomatic relief - 29299.?Keratoma Treatment:?Parring or Cutting of Benign Hyperkeratotic Lesion(s)?(-57) More than 4 Lesions - Due to the at risk nature of the patients medical condition as documented in the exam findings, performance of this keratoderma treatment is medically necessary as its management by an unskilled/untrained nonprofessional would put this patients foot and overall health at risk. Therefore, the benign hyperkeratotic lesions, ( 6 ) in total, locations as stated and described in the exam (?Medial plantar?,TA,?T5?,?Plantar,?T7,?SUB MTH (s)?,?1?,?B/L?,?SUB MTH (s)?,?3?,?Right?), were pared, and/or cut utilizing a sterile 15 blade, tissue nippers, and/or power dremel instrumentation by the physician of record - 17569.?Wart Treatment:?Procedure?Verrucae were debrided to pin-point bleeding margins with sterile 15 surgical blade, silver nitrate chemocautery applied, recomm. immune-boosting meds such as zinc, recomm. follow up with topical chemosurgical agents, Pt defers any other forms of tx (24740).? * Procedure Codes:?59133 DEBRI DE NAIL, 6 OR MORE, Modifiers: XS 96628 Wart Destruction, 1-14, Modifiers: XS 25405 TRIM SKIN LESIONS, OVER 4, Modifiers: XS , Q8 * Preventive Medicine:? ??Counseling:?Tobacco use:?Type of Tobacco Use Cessation Counseling provided?Smoking effects education ?Patient counseled on the dangers of smoking and urged to quit:?02/13/2025 * Follow Up:?2 Months * Images: * Sign off status: Completed true * Provider:?PAUL DuarteM Date:?04/2025 Generated for Alejandro holcomb/Ladonna/Noe on:?02/15/2025 11:25 AM EDT History and Physical Notes * HPI (History of Present Illness) Category Sub-Category Detail Notes Category Not es Skin problems Pt States PCP Visit: DATE: 10/25/2024 At Risk footcare Pt States Last PCP Visit: Date: Examination Category Sub-Category Detail Notes Category Not es Neurological SENSORY: Neurological exa m reveals intact sensorium, pain sensation normal, vibration sensation intact, pinprick sensation is normal in the lower extremities, Pt denies, anesthesia, burning, paresthesia, tingling, B/L Dermatologic SKIN FINDINGS: Skin exam reveal s Keratotic lesion(s) located at , Medial plantar ,TA, T5 , Plantar, T7, SUB MTH (s) , 1 , B/L , SUB MTH (s) , 3 , Right VERRUCA: Reveals a Single , m ulti-loculated , mosaic-patterned, round, raised, flat-topped, petechial bleeding papule(s), with cauliflower appearance and interruption of skin lines, pain to lateral compression, and size estimated at 7mm diameter plantar Forefoot RIGHT Orthopedic FOOTWEAR EVALUATION: shoe gear p roperties exacerbate patients foot/toe deformity MUSCLE STRENGTH: 5/5 all groups in a [...]
--- OUTSIDE RECORDS SUMMARY | 2025-02-15 11:25 | XMS_ITS | Clinical Summary ---
Author Organization [facility] Address [address] [place] [address] [place] [address] Phone Care Team Providers Care Skills Instructor Name Role Phone Ryley Varela MD Primary Care Provider [phone] Allergies Active Allergy Reactions Criticality Noted Date [...] mouth every night Active ergocalciferol 1.25 MG (82370 UT) capsule TAKE 1 CAPSULE BY MOUTH [...] Date Smoking Tobacco: Every Day Cigarettes 0.5 61.4 Started: 10/10/1963 Smokeless Tobacco: Never Alcohol Use [...] Visit [facility] [address] [place] [address] Zeke Neri MD [address] [facility] [address] [place] [address] Health Maintenance Due Date Last Done Comments Pneumococcal Vaccine: 50+ Ye ars (2 of 2 - PCV) 03/25/2005 03/25/2004 Influenza Vaccine (Season Ended) 2025 Pneumococcal Vaccine: Peds ( 0 to 5 Years) and At-Risk Patients (6 to 49 Years) Discontinued 03/25/2004 Hepatitis B Vaccine Aged Out No longe r eligible based on patient's age to complete this topic Insurance [facility] Medicare [facility] Medicare Care Teams Skills Instructor Relationship Specialty Start Date End Date Ryley Varela MD [id number] THU [place] PCP - General 10/20/20
--- OUTSIDE RECORDS SUMMARY | 2025-02-15 11:25 | XMS_ITS ---
Author Organization [facility] Address [address] [place] [address] Care Team Providers Care Assistant To The Ceo Name Role Phone Angi Rubi Primary Care Provider UnavailVinny Lugo Unavailable [phone] Talia Bazzi Unavailable [phone] Chang Encounters Encounter Location Date Provider Diagnosis [address] [address] 11/27/2024 Talia Bazzi Plan Of Treatment Next Appt Details Provider Name:Talia chan, 04/26/2025 01:45:00 PM, [address] [place] [address], [phone], Progress Notes * Destiny YADAV FDOB:1944 (79 yo F)Acc No.[id number]:11/27/2024 Progress Note Patient:?Destiny YADAV Provider:?Talia Bazzi DPM :1945???Age:79 Y???Sex:Female D ate:11/27/2024 Address:[address] [place], [place] [id number] Pcp:Angi Rubi Subjective: * Chief Complaints: * ???1. Dr Chang. * Medical History:? Objective: * Vitals:? Assessment: Plan: * Treatment: * Images: * The named appointment provid er may or may not be the originator of this progress note, and it is not deemed complete until electronically signed by the appointment provider. Sign off status: Pending * Provider:Rossy Bazzi DPM Date:? Generated for Alejandro holcomb/Ladonna/Noe on:?02/15/2025 11:24 AM EDT
--- OUTSIDE RECORDS SUMMARY | 2025-02-15 11:25 | XMS_ITS ---
Author Organization [facility] Address [address] [place] [address] Care Team Providers Care Imager Name Role Phone EliciaAngi espinal Primary Care Provider Vinny De La Rosa Unavailable [phone] Talai Bazzi Unavailable [phone] Allergies Allergen (clinical drug ingredient) Drug/Non Drug [...] 12/04/2024 Encounters Encounter Location Date Provider Diagnosis [facility] [address] [place] [address] 12/04/2024 Talia Bazzi Plantar wart B07.0 ; Metatarsalgia, right foot M77.41 ; Atherosclerosis of hoh artery of both lower extremities, with unspecified [...] foot (ICD-10 - M77.41) 12/04/2024 Atherosclerosis of hoh artery of both lower extremities, with unspecified presence of clinical manifestation (ICD-10 - I70.203) 12/04/2024 Tinea unguium (ICD-10 - B35.1) 12/04/2024 Pain in right toe(s) (ICD-10 - M79.674) 12/04/2024 Pain in left toe(s) (ICD-10 - M79.675) 12/04/2024 Right foot pain (ICD-10 - M79.671) Plan Of Treatment Next Appt Details Follow Up: 2 Months, Reason: Provider Name:Talia chan, 04/26/2025 01:45:00 PM, [address] [place], [address], Procedure Notes * Category Sub-Category Detail Notes Wart Treatment Procedure Verrucae were de brided to pin-point bleeding margins with sterile 15 surgical blade, silver nitrate chemocautery applied, recomm. immune-boosting meds such as zinc, recomm. follow up with topical chemosurgical agents, Pt defers any other forms of tx (54620) Debride Nail 6-10 Nail debridement Due to [...] use of a nail nipper and/or dremel-type internal grinder set up operator, to a more viable healthy nail plate [...] to maintain effectiveness in symptomatic relief - 57528 Keratoma Treatment Parring or Cutting o f [...] instrumentation by the physician of record - 93030 Progress Notes * Destiny YADAV FDOB:1944 (79 yo F)Acc No.[id number]:12/04/2024 Progress Note Patient:Destiny JAMES Provider:?Talia Bazzi DPM :1945???Age:79 Y???Sex:Female D ate:12/04/2024 Address:[address] [place] [address] Pcp:Ryley Varela MD Subjective: * Chief Complaints: [...] Surg amy 1998Thumb Surgery 2011ear surgery 2003knee eivtcpr-zipcanuxkrt-iisv 2015hip surgery 05/01 * Hospitalization/Major Diagno stic [...] walking, stretching. ?Marital status: . 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 * Medications:?TakingTylenol O lopatadine HCl 0.1 % [...] (Chaya cary)???2.?Metatarsalgia, right foot - M77.41???3.?Atherosclerosis of hoh artery of both lower extremities, with unspecified [...] use of a nail nipper and/or dremel-type internal grinder set up operator, to a more viable healthy nail plate [...] to maintain effectiveness in symptomatic relief - 99827.?Keratoma Treatment:?Parring or Cutting of Benign Hyperkeratotic Lesion(s)?(-57) [...] instrumentation by the physician of record - 00394.?Wart Treatment:?Procedure?Verrucae were debrided to pin-point bleeding margins with sterile 15 surgical blade, silver nitrate chemocautery applied, recomm. immune-boosting meds such as zinc, recomm. follow up with topical chemosurgical agents, Pt defers any other forms of tx (52686).? * Procedure Codes:?25296 DEBRI DE NAIL, 6 OR MORE, Modifiers: XS 37339 Wart Destruction, 1-14, Modifiers: XS 53432 TRIM SKIN LESIONS, OVER 4, Modifiers: XS , Q8 * Follow Up:?2 Months * Images: * Sign off status: Completed true * Provider:?Talia Bazzi DPM Date:? Generated for Alejandro holcomb/Ladonna/Noe on:?02/15/2025 11:25 AM [...]
--- OUTSIDE RECORDS SUMMARY | 2025-02-15 11:25 | XMS_ITS | Data Portability ---
Author Organization [place] [facility] Address [address] [place] [address] Care Team Providers Care Children'S Nursery Assistant Name Role Phone JAY BURNS Primary Care Provider [phone] Assessment Encounter Date Assessment Date Assessment LastModified by Organization Details LastModified Time 10/16/2024 10/16/2024 Patient with vestibular migraine, doing well on nortriptyline 30 mg at bedtime. She will continue with this medication going forward. We can refill this as needed. [email or web address] Not available 10/16/2024 14:15:14 Plan of Treatment [...] Address Organization Details Recorded Time Labyrint hitis 56702574 Active 2019 Labyrint hitis, unspecif ied ear; Note: Date Diagnose d: 10/11/2019 3:42 PM (H83.09) Not Available [facility] 4 02:47:19 Senile hyperker atosis 011355339 Active 2017 Other seborrhe ic keratosi s; Note: Date Diagnose d: 09/07/20 18 3:02 PM (L82.1) Not Available [facility] 4 02:47:23 Sensorin eural hearing loss in right ear 64660326393 100 Active 2020 Sensorin eural hearing loss, unilater al, right ear, with restrict ed hearing on the contrala teral side; Note: Date Diagnose d: 1 3:48 PM (H90.A21 ) Not Available [facility] 4 02:47:25 Musculos keletal finding 642400875 Active 2021 Other symptoms and signs involvin g the musculos keletal system; Note: Date Diagnose d: 2 10:03 AM (R29.898 ) Not Available [facility] 4 02:47:24 Migraine 35608802 Active 2014 Other migraine , not intracta ble, without status migraino justin; Note: Date Diagnose d: 5 1:33 PM (G43.809 ) [mapped from ICD9 code: 346.20] Not Available [facility] 4 02:47:25 Migraine variants 493029614 Active 2014 Migraine variant; Note: Date Diagnose d: 5 1:28 PM (346.20) Not Available [facility] 4 02:47:28 Unilater al sensorin eural hearing loss with unrestri cted hearing on the contrala teral side Active 2014 Sensorin eural HL, unilater al; Note: Date Diagnose d: 5 2:00 PM (389.15) Not Available [facility] 4 02:47:20 Bilatera l temporom andibula r joint pain 30136810769 753090 Active 2019 Arthralg ia of bilatera l temporom andibula r joint; Note: Date Diagnose d: 10/11/2019 3:42 PM (M26.623 ) Not Available [facility] 4 02:47:21 Sensorin eural hearing loss of bilatera l ears 141242431 Active 2018 Sensorin eural hearing loss, bilatera l; Note: Date Diagnose d: 9 1:43 PM (H90.3) Note: Date Diagnose d: 9 1:43 PM (H90.3) Not Available [facility] 4 01:08:07 General unsteadi ness 759669223 Active 2021 Unsteadi ness on feet; Note: Date Diagnose d: 2 10:03 AM (R26.81) Note: Date Diagnose d: 2 10:03 AM (R26.81) Not Available [facility] 4 01:08:07 Posterio r rhinorrh ea 19383128 Active 2021 Postnasa l drip; Note: Date Diagnose d: 2 10:08 AM (R09.82) Not Available [facility] 4 02:47:23 Benign paroxysm al position al vertigo 969128711 Completed 201405/11/2024 Benign paroxysm al position al vertigo; Note: Date Diagnose d: 5 1:28 PM (386.11) Benign paroxysm al vertigo, left ear; Note: Date Diagnose d: 5 1:33 PM (H81.12) [mapped from ICD9 code: 386.11] Not Available [facility] 4 02:47:24 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 2014 Mixed HL, unilater al; Note: Date Diagnose d: 5 2:00 PM (389.21) Not Available [facility] 4 02:47:20 Vertigo of central origin 19423720 Active 2014 Vertigo of central origin; Note: Date Diagnose d: 5 1:28 PM (386.2) Vertig o of central origin; Note: Changed from H81.49 to H81.4 (10/28/19 21 5:05 PM) , Date Diagnose d: 5 1:33 PM (H81.49) [mapped from ICD9 code: 386.2] Not Available [facility] 4 02:47:28 Mixed conducti ve and sensorin eural hearing loss of left ear 52376264879 107 Active 2020 Mixed conducti ve and sensorin eural hearing loss, unilater al, left ear with restrict ed hearing on the contrala teral side; Note: Date Diagnose d: 1 3:48 PM (H90.A32 ) Not Available [facility] 4 02:47:27 Neurolog ical symptom 915764873 Active 2023 Other symptoms and signs involvin g the nervous system; Note: Date Diagnose d: 4 2:00 PM (R29.818 ) Not Available [facility] 4 02:47:25 Problem Notes None recorded. Medical Equipment None Reported. Allergies Allergen ID Allergen Name Allergen Category Reaction Reaction Severity Criticality Documentation Date Start Date Code Code System Note Provider Name and Address Organization Details Recorded Time 310572 prochlorp erazine maleate medicatio n other Not available Not available 02/21/2024 8706 RxNorm React ion: unkno wn, unspe cifie d;; Not Available [facility] 4 01:19:13 297229 prochlorp erazine edisylate medicatio n other Not available Not available 02/21/2024 8705 RxNorm React ion: unkno wn, unspe cifie d;; Not Available [facility] 4 01:19:14 Medications Name Sig Start Date Stop Date Status Note LastModified by Organization Details LastModified Time losartan 50 mg tablet 05/01 completed Medicati on ID: 99172 Du ration Value: 30 Brand Name: losartan [...] both nostrils 10/16 completed Medicati on ID: 575617 D uration Value: 30 Brand Name: Saline Mist Sen d Method: E-Prescr ibed Sub s Allowed: subs OK Medic ationGen ericName : Saline Mist Not Available Not Available Not Available atorvasta tin 10 mg tablet TAKE 1 TABLET BY MOUTH EVERY DAY active Not Available Not Available No t Available clonazepa m 0.5 mg tablet 10/16 completed Medicati on ID: 05352 Du ration Value: 90 Brand Name: clonazep am Send Method: E-Prescr ibed Sub s Allowed: subs OK Medic ationGen ericName : clonazep am Not Available Not Available Not Available meclizine 12.5 mg tablet 1 tablet by mouth 10/16 completed Medicati on ID: 945031 P rescribe d By Name: Sindi Bhardwaj [...] unit) capsule 2013 active Medicati on ID: 95889 Du ration Value: 90 Brand Name: ergocalc iferol (vitamin D2) Send Method: E-Prescr ibed Sub s Allowed: subs OK Speci al Instruct ion: TK 1 C PO Q 2 WEEKS Me dication GenericN ana: ergocalc iferol (vitamin D2) Not Available Not Available Not Available Nasonex 50 mcg/actua tion [place] 2 spray into both nostrils 2013 [place] Medic[place] ID: 99416 Du ration Value: 90 Prescri bed By [...] mcg capsule 05/01 completed Medicati on ID: 71934 Du ration Value: 90 Brand Name: calcitri ol Send Method: E-Prescr ibed Sub s Allowed: subs OK Medic ationGen ericName : calcitri ol Not Available Not Available Not Available Estrace 0.01% (0.1 mg/gram) vaginal cream 10/16 completed Medicati on ID: 35583 Br and Name: Estrace Send Method: E-Prescr ibed Sub s Allowed: subs OK Medic ationGen ericName : Estrace Not Available Not Available Not Available Atrovent HFA 17 mcg/actua tion aerosol inhaler 04/20 completed Medicati on ID: 85633 Re ason: () Brand Name: Atrovent HFA Send Method: E-Prescr ibed Sub s Allowed: subs OK Medic ationGen ericName : Atrovent HFA Not Available Not Available Not Available [facility] 60 mg tablet 1 tablet by mouth 2014 [place] ID: 43381 Du ration Value: 90 Brand Name: Connie [...] Details Last Updated DateTime 10/16/2024 157.48 cm 53201.35 g Tiffanie Leary [place] [facility] 10/16/2024 14:00:48 Social History None recorded. [...] SNOMED-CT Code Diagnosis ICD10 Code Diagnosis Note [id number] LULA CABRERA MD [facility] [address] [address] 10/16/2024 13:30:38 10/16/2024 14:15:22 Vertigo of central origin 38468090 H81.4 Sensorineu ral hearing loss of bilateral ears 912649055 H90.3 We reviewed patient's audiogram from November [...] options at that time. Neurological symptom 308 277283 R29.818 Migraine variants 815544 005 G43.809 Health Concerns Section Related Observation LastModified by Organization Detai ls LastModified Time None Recorded Concern Status LastModified by Organization Details LastModified Time None Recorded Advance Directives Directive None Recorded Payers Insurance Date Sequence Insurance Name Policy Number Policy Mir Covered Member ID Mir Member ID Guarantor Name 10/16/2024 1 MEDICARE [place]: [facility] Destiny Yadav [id number] Destiny Yadav 10/16/2024 2 [place] [id number] Destiny Yadav [id number] Destiny Yadav Notes Date Note Type [...] with her hearing recently. LULA CABRERA MD [address] [place] [address], [place], [address], [facility] - [facility] 10/16/2024 14:16:10 OBGyn Episode No OBEpisode recorded.
--- OUTSIDE RECORDS SUMMARY | 2025-02-15 11:25 | XMS_ITS | Patient Health Record ---
Author Organization [facility] Address [address] [place] [address] Care Team Providers Care Facilities Manager Name Role Phone Angi Rubi Primary Care Provider Vinny De La Rosa Unavailable [phone] Talia Bazzi Unavailable [phone] Allergies Allergen (clinical drug ingredient) Drug/Non Drug [...] 50 MCG/ACT Nasal for 60 Days Active Primidone 50 MG 1 tablet [...] W/U Status Risk Notes Problem Plantar wart (71580580) Plantar wart (B07.0) Active confirmed Problem Bilateral atherosclerosis of arteries of lower limbs (disorder) (33226662399608015 ) Unspecified atherosclerosis of belkofski arteries of extremities, bilateral legs (I70.203) Active confirmed Problem Localized, primary osteoarthritis of the ankle and/or foot (615654246) Primary osteoarthritis, right ankle and foot (M19.071) Active confirmed Problem Localized, primary osteoarthritis of the ankle and/or foot (893167458) Primary osteoarthritis, left ankle and foot (M19.072) Active confirmed Problem Acquired hammer toe of right foot (4938750337462882) Other hammer toe(s) (acquired), right foot (M20.41) Active confirmed Problem Bilateral atherosclerosis of arteries of lower limbs (disorder) (84055411543740795 ) Atherosclerosis of belkofski artery of both lower extremities, with unspecified presence of clinical manifestation (I70.203) Active confirmed Vital Signs Blood pressure diastolic 70 mm Hg 02/13/2025 Height 5 ft2in in 02/13/2025 Blood pressure systolic 120 mm Hg 02/13/2025 Weight 110 lbs 02/13/2025 BMI 20.12 kg/m2 02/13/2025 Encounters Encounter Location Date Provider Diagnosis [facility] [place] [address] [place] [address] 02/29/2024 Talia Bazzi Plantar wart B07.0 ; Metatarsalgia, right foot M77.41 ; Atherosclerosis of belkofski artery of both lower extremities, with unspecified presence of clinical manifestation I70.203 ; Tinea unguium B35.1 ; Pain in right toe(s) M79.674 ; Pain in left toe(s) M79.675 ; Right foot pain M79.671 ; Left foot pain M79.672 and Pain in right ankle and joints of right foot M25.[address] [address] 05/11/2024 Talia Perica Plantar wart B07.0 ; Metatarsalgia, right foot M77.41 ; Atherosclerosis of belkofski artery of both lower extremities, with unspecified presence of clinical manifestation I70.203 ; Tinea unguium B35.1 ; Pain in right toe(s) M79.674 ; Pain in left toe(s) M79.675 ; Right foot pain M79.671 ; Left foot pain M79.672 and Pain in right ankle and joints of right foot M25.[address] [address] 07/13/2024 Talia Perica Plantar wart B07.0 ; Metatarsalgia, right foot M77.41 ; Atherosclerosis of belkofski artery of both lower extremities, with unspecified presence of clinical manifestation I70.203 ; Tinea unguium B35.1 ; Pain in right toe(s) M79.674 ; Pain in left toe(s) M79.675 ; Right foot pain M79.671 and Pain in right ankle and joints of right foot M25.[address] [address] 09/14/2024 Talia Perica Plantar wart B07.0 ; Metatarsalgia, right foot M77.41 ; Atherosclerosis of belkofski artery of both lower extremities, with unspecified presence of clinical manifestation I70.203 ; Tinea unguium B35.1 ; Pain in right toe(s) M79.674 ; Pain in left toe(s) M79.675 and Right foot pain M79.[address] [address] 12/04/2024 Talia Perica Plantar wart B07.0 ; Metatarsalgia, right foot M77.41 ; Atherosclerosis of belkofski artery of both lower extremities, with unspecified presence of clinical manifestation I70.203 ; Tinea unguium B35.1 ; Pain in right toe(s) M79.674 ; Pain in left toe(s) M79.675 and Right foot pain M79.[address] [facility] [address] 02/13/2025 Talia Bazzi Plantar wart B07.0 ; Atherosclerosis of belkofski artery of both lower extremities, with unspecified presence of clinical manifestation I70.203 ; Tinea unguium B35.1 ; Pain in right toe(s) M79.674 ; Pain in left toe(s) M79.675 and Right foot pain M79.[address] [facility] [facility] [address] 02/21/2024 Vinny Alexandra Assessments Encounter Date Diagnosis (ICD Code) Assessment Notes Treatment Notes Treatment Clinical Notes Section Notes 02/29/2024 Plantar wart (ICD-10 - B07.0) 02/29/2024 Metatarsalgia, right foot (ICD-10 - M77.41) 05/11/2024 Plantar wart (ICD-10 - B07.0) 07/13/2024 Plantar wart (ICD-10 - B07.0) 09/14/2024 Plantar wart (ICD-10 - B07.0) 09/14/2024 Metatarsalgia, right foot (ICD-10 - M77.41) 12/04/2024 Plantar wart (ICD-10 - B07.0) 02/13/2025 Plantar wart (ICD-10 - B07.0) 02/13/2025 Atherosclerosis of belkofski artery of both lower extremities, with unspecified presence of clinical manifestation (ICD-10 - I70.203) 02/13/2025 Tinea unguium (ICD-10 - B35.1) 12/04/2024 Metatarsalgia, right foot (ICD-10 - M77.41) 09/14/2024 Atherosclerosis of belkofski artery of both lower extremities, with unspecified presence of clinical manifestation (ICD-10 - I70.203) 07/13/2024 Atherosclerosis of belkofski artery of both lower extremities, with unspecified presence of clinical manifestation (ICD-10 - I70.203) 07/13/2024 Metatarsalgia, right foot (ICD-10 - M77.41) 05/11/2024 Metatarsalgia, right foot (ICD-10 - M77.41) 02/29/2024 Atherosclerosis of belkofski artery of both lower extremities, with unspecified presence of clinical manifestation (ICD-10 - I70.203) 02/29/2024 Tinea unguium (ICD-10 - B35.1) 07/13/2024 Tinea unguium (ICD-10 - B35.1) 05/11/2024 Atherosclerosis of belkofski artery of both lower extremities, with unspecified presence of clinical manifestation (ICD-10 - I70.203) 09/14/2024 Tinea unguium (ICD-10 - B35.1) 12/04/2024 Atherosclerosis of belkofski artery of both lower extremities, with unspecified presence of clinical manifestation (ICD-10 - I70.203) 02/13/2025 Pain in right toe(s) (ICD-10 - M79.674) 02/13/2025 Pain in left toe(s) (ICD-10 - M79.675) 12/04/2024 Tinea unguium (ICD-10 - B35.1) 09/14/2024 [...] in right toe(s) (ICD-10 - M79.674) 02/13/2025 Right foot pain (ICD-10 - M79.671) 12/04/2024 Pain in left toe(s) (ICD-10 - [...] 07/13/2024 Next Appt Details Provider Name:Talia chan, 04/26/2025 01:45:00 PM, [address] [place] [address], [phone], Insurance Providers Payer Name Payer Address Payer Phone Subscriber Number Group Number Insured Name Patient Relationship to Insured Coverage Start Date Coverage End Date Medicare [employer] [address] [facility] [place] [address] [id number] Destiny Pedro Self - patient is the insured [facility] [address] [place] [address] [id number] Destiny Pedro Self - patient is the insured Medical (General) History Medical History History ICD Code Anxiety Back,Hip,and Knee pain Broken bones, hip CAD (Cholesterol) Cataracts Depression High blood pressure Kidney disease chronic sinusitis Measles Mumps Chicken pox Joint implants/screws Arthritis sinusitis Surgical History Surgery Date(Month/Year) Ankle Surgery 1997 Thumb Surgery 2010 ear surgery 2002 knee fpgotgh-jutvdlrgweh-msyp 2015 hip surgery 05/01
== END 2025-02-15 11:48 | disposition home or self-care (01) ==
LOC: HO.HMCHD 10:53
PROVIDERS: Visit Provider Internal Medicine
DX: M25.50 Pain in unspecified joint (principal); I10 Essential (primary) hypertension; E78.5 Hyperlipidemia, unspecified; F41.9 Anxiety disorder, unspecified; J44.9 Chronic obstructive pulmonary disease, unspecified

== ENCOUNTER → 2025-02-15 10:53 | Outpatient (BNVA) | payer MEDICARE, SELFPAY | PROVIDERS: Visit Provider Internal Medicine | DX: I10 Essential (primary) hypertension (principal); K21.9 Gastro-esophageal reflux disease without esophagitis; J44.9 Chronic obstructive pulmonary disease, unspecified; N18.9 Chronic kidney disease, unspecified; M25.50 Pain in unspecified joint; E78.5 Hyperlipidemia, unspecified; F41.9 Anxiety disorder, unspecified; F17.210 Nicotine dependence, cigarettes, uncomplicated | CPT/HCPCS: 96127; 99202 ==

== ENCOUNTER 2025-03-13 10:52 | Outpatient (REF) | payer MEDICARE, SELFPAY ==
--- NOTE | ~2025-03-13 | XR_ITS ---
CLINICAL HISTORY: M25.561 - Pain in right knee 2 view right knee Comparison: None Findings: Bones intact. No dislocations. Mild degenerative changes of the knee. Enthesophytes of the patella. No joint effusion. No radiopaque foreign body. IMPRESSION: 1. No acute findings. This document has been electronically signed by: Rocky Aldana MD on 03/13/2025 16:06:48
--- NOTE | ~2025-03-13 | XR_ITS ---
CLINICAL HISTORY: M25.561 - Pain in right knee 3 view, pelvis and right hip Comparison: CR - XR HIP RT W PEL1V - 02/01/25 15:58 EDT Findings: The bones are intact. Intramedullary doreen in the proximal femur. Mild degenerative change of the hip joint. Heterotopic ossification of the hip. IMPRESSION: No acute findings. This document has been electronically signed by: Rocky Aldana MD on 03/13/2025 16:08:32
--- NOTE | ~2025-03-13 | XR_ITS ---
CLINICAL HISTORY: M54.50 - Low back pain, unspecified 3 views lumbar spine Comparison: None Findings: Normal vertebral body alignment. No acute fractures or dislocation. Bridging osteophytes of the lumbar spine. There is mild narrowing of the L5-S1. IMPRESSION: No acute findings. This document has been electronically signed by: Rocky Aldana MD on 03/13/2025 16:06:31
--- NOTE | ~2025-03-13 | XR_ITS ---
CLINICAL HISTORY: M25.561 - Pain in right knee 2 view right femur Comparison: None Findings: No fractures or dislocations. Intramedullary doreen in the proximal femur. No knee effusion. No significant arthritic change. No radiopaque foreign body. IMPRESSION: No acute findings. This document has been electronically signed by: Rocky Aldana MD on 03/13/2025 16:08:19
--- OUTSIDE RECORDS SUMMARY | 2025-03-13 11:48 | XMS_ITS ---
Author Organization [facility] Address [address] [place] [address] Care Team Providers Care Auto Bench Mechanic Name Role Phone Angi Rubi Primary Care Provider UnavailVinny Lugo Unavailable [phone] Talia Bazzi Unavailable [phone] Chang Encounters Encounter Location Date Provider Diagnosis [address] [address] 11/27/2024 Talia Bazzi Plan Of Treatment Next Appt Details Provider Name:Talia chan, 04/26/2025 01:45:00 PM, [address] [place] [address], [phone], Progress Notes * Destiny YADAV FDOB:1944 (79 yo F)Acc No.[id number]:11/27/2024 Progress Note Patient:?Destiny YADAV Provider:?Talia Bazzi DPM :1945???Age:79 Y???Sex:Female D ate:11/27/2024 Address:[address] [place], [place] [id number] Pcp:Angi Rubi Subjective: * Chief Complaints: * [...] Bazzi DPM Date:? Generated for Alejandro holcomb/Ladonna/Noe on:?03/13/2025 11:48 AM EDT
== END 2025-03-13 10:53 | disposition home or self-care (01) ==
LOC: HO.XRAY 10:52
PROVIDERS: PCP Internal Medicine; Visit Provider Internal Medicine
DX: M25.551 Pain in right hip (principal); R29.898 Other symptoms and signs involving the musculoskeletal system; M25.561 Pain in right knee; M54.50 Low back pain, unspecified; N18.9 Chronic kidney disease, unspecified; Z91.81 History of falling
CPT/HCPCS: 72100; 73502; 73552; 73560; 96127; 99212

== ENCOUNTER → 2025-03-13 10:58 | Outpatient (BNV) | payer MEDICARE, SELFPAY | PROVIDERS: PCP Internal Medicine; Visit Provider Nuclear Medicine | DX: M25.551 Pain in right hip (principal); M54.50 Low back pain, unspecified; M79.651 Pain in right thigh; M25.561 Pain in right knee | CPT/HCPCS: 72100; 73502; 73552; 73560 ==

== ENCOUNTER 2025-03-13 13:42 | Outpatient (AMB) | payer MEDICARE, SELFPAY ==
--- NOTE | 2025-03-13 13:45 | MHC.PC.OV ---
Vital Signs 03/13/25 13:48 Height 5 ft 2 in Weight 49.442 kg BMI 19.9 BP 116/62 Respiration 18 Pulse 93 Pulse Source Pulse Oximeter Temp 97.8 F Temp Source Temporal Artery Scan Pulse Oximetry (%) 99 Oxygen Delivery Method Room Air Intake Visit Reasons: R Leg Pain [employer] Required: No Allergies prochlorperazine [From COMPAZINE] Allergy (Severe, Verified 02/15/25 09:11) Anaphylaxis aspirin [ASPIRIN] Adverse Reaction (Severe, Verified 02/15/25 09:11) Kidney failure Tobacco use date assessed: 02/15/25 Dental Screening Dental Screen Date: 02/15/25 HPI HPI Comments History of Present Illness Details 79-year-old female presents to the office today for re-evaluation of ongoing right hip/buttock pain. The patient has sustained a mechanical fall on 02/10 and since then has been experiencing pain primarily in the right buttock into the hip. She was seen in the ED with negative imaging. She was given a short course of oxycodone and has also been taking Tylenol. She was seen in the office by my colleague who prescribed a course of tramadol which he states has been helping along with the Tylenol. She is unable to take NSAIDs due to her CKD. Describes a constant 5/10 pain described as an ache. She is able to ambulate but reports weakness in the right lower leg and is using a walker for assistance. Denies any back pain. No radiation of the pain into the lower extremity. ROS: General: No fevers, malaise, unintentional weight loss Cardiovascular: No chest pain, palpitations, or leg edema Respiratory: No shortness of breath, wheezing, cough MSK: See HPI Neuro: See HPI Skin: No rashes or lesions EXAM: Constitutional - Awake and Alert, No apparent distress Eyes - PERRLA, EOMI Cardiovascular - S1S2, RRR, No edema Respiratory - Normal lung expansion, Normal respiratory effort, No respiratory distress, CTA bilaterally Extremities - no calf tenderness bilaterally, no swelling Musculoskeletal - ttp at the R ischium. Hips nontender to palpation. Hips have full range of motion, but pain with external rotation of the right hip Skin - Warm/Dry Neurological - Alert & oriented x3 Psychological - Appropriate affect [facility] Medical History Allergic rhinitis Acute respiratory disease CKD (chronic kidney disease) Arthritis Enteropathogenic Escherichia coli infection Essential tremor COPD (chronic obstructive pulmonary disease) Vertigo Anxiety Depression HTN (hypertension) Sigmoid diverticulosis Internal hemorrhoids Hyperlipidemia Tubular adenoma of colon Abnormal colonoscopy Surgical History History of ear surgery H/O arthroscopy of left knee History of thumb surgery History of ankle surgery Family History Mother No problems noted. Father No problems noted. Social History Household Members: Spouse Housing: House Are you a primary before and after school daycare worker to a significant other at home: No Do you presently have visiting nurse or other home services: No Alcohol intake: never Patient Tobacco Use Status: Current everyday Tobacco user Tobacco use type: Cigarette Cigarette Packs Per Day: 0.5 Cigarettes Per Day: 8 Years Smoked: 40 e-Cigarette/Vaping Use: Currently Using service: No Current occupational status: retired Cognitive needs: No Hearing needs: No Vision needs: Yes (rx glasses) Questionnaire PHQ-9 Over the last 2 weeks, how often have you been bothered by any of the following problems? 1. Little interest or pleasure in doing things: not at all 2. Feeling down, depressed, or hopeless: not at all 3. Trouble falling or staying asleep, or sleeping too much: several days 4. Feeling tired or having little energy: not at all 5. Poor appetite or overeating: nearly every day 6. Feeling bad about yourself - or that you are a failure or have let yourself or your family down: not at all 7. Trouble concentrating on things, such as reading the newspaper or watching television: not at all 8. Moving or speaking so slowly that other people could have noticed. Or the opposite - being so fidgety or restless that you have been moving around a lot more than usual: not at all 9. Thoughts that you would be better off or of hurting yourself in some way: not at all Total score: 4 Source: Developed by Drs. John Wilson, Marlys aWllis, Aramis Martinez and colleagues, with an educational shae from [employer]. Thrive Questionnaire Date Thrive assessed: 03/13/25 MARYURI-7 AMB Questionnaire MARYURI-7 Date MARYURI - 7 assessed: 02/15/25 Source: Developed by Drs. John Wilson, Marlys Wallis, Aramis Martinez and colleagues, with an educational shae from [employer]. Physical exam (Primary Care) Vital Signs: Last Vital Signs Temp 97.8 F 03/13/25 13:48 Pulse 93 03/13/25 13:48 Resp 18 03/13/25 13:48 BP 116/62 03/13/25 13:48 Pulse Ox 99 03/13/25 13:48 Oxygen Delivery Method Room Air 03/13/25 13:48 BMI result Body Mass Index 19.9 Tobacco/Smoking Status: Tobacco use Status Tobacco use date assessed 02/15/25 03/13/25 13:46 Patient Tobacco Use Status Current everyday Tobacco 03/13/25 13:46 Tobacco use type Cigarette 03/13/25 13:46 e-Cigarette/Vaping Use Currently Using 03/13/25 13:46 PHQ-9: PHQ-9 Score PHQ-9: Total score 4 03/13/25 15:09 Thrive Assessment: Date of Thrive Assessment Date Thrive assessed 03/13/25 03/13/25 15:09 Coding Level of Care Code Est Pt Level 4 (21683) Complex EM visit Add On G2211 Diagnoses Arthralgia of pelvis M25.559 Lower extremity weakness R29.898 Assessment & Plan Assessment & Plan (1) Arthralgia of pelvis: Code(s): M25.559 - Pain in unspecified hip Category: Medical Plan: X-ray hip/pelvis reviewed from ED. Additional x-rays performed this morning including x-ray of the knee, lumbar spine, right femur, right hip/pelvis reviewed which are negative for acute osseous abnormality. Given ongoing pain, CT right hip and pelvis ordered to evaluate for any occult fracture. She is referred for PT/OT through [facility]. Continue Tylenol and tramadol as needed. Recommend heat or ice. (2) Lower extremity weakness: Code(s): R29.898 - Other symptoms and signs involving the musculoskeletal system Category: Medical Plan: PT/OT referral as above continue with walker usage to prevent future falls Plan Follow-up in the office as scheduled Orders: Orders CT pelvis wo IV con Today M25.551 - Pain in right hip, M25.559 - Pain in unspecified hip, W19.XXXA - Unspecified fall, initial encounter CT hip RT wo IV con Today M25.551 - Pain in right hip, M25.559 - Pain in unspecified hip, W19.XXXA - Unspecified fall, initial encounter [facility]errals [facility] Referral M25.559 - Pain in unspecified hip, R29.898 - Other symptoms and signs involving the musculoskeletal system Patient Instructions: CT scan of the hip and pelvis ordered to evaluate for any occult fracture given xrays have been negative If negative, it is possible you have a bone contusion/bruise Will refer to physical therapy through the [facility] Take tylenol and tramodol as needed
[2025-03-13 13:48] VITALS: BP 116/62; PULSE 93; RESP 18; TEMP 36.6; O2SAT 99; BMI 19.9
== END 2025-03-13 14:19 | disposition home or self-care (01) ==
LOC: HO.HMCHD 13:42
PROVIDERS: Visit Provider Physician Assistant
DX: M25.559 Pain in unspecified hip (principal); R29.898 Other symptoms and signs involving the musculoskeletal system

== ENCOUNTER 2025-03-30 08:30 | Outpatient (REF) | payer MEDICARE, SELFPAY ==
--- NOTE | ~2025-03-30 | CT_ITS ---
CLINICAL HISTORY: W19.XXXA - Unspecified fall, initial encounter CT pelvis and right hip without contrast Comparison: 03/13/2025 Findings: There are subacute healing fractures of the right superior and inferior pubic rami. Very mild displacement of the superior pubic ramus fracture. No significant displacement of the right inferior pubic ramus fracture. Periostitis is present at both fracture sites. There are multiple chronic bone fragments adjacent to the right greater and lesser trochanters. There is no acute fracture. There is no dislocation. There has been prior open reduction internal fixation of the right proximal femur. There is no evidence of hardware failure. There is no hip effusion. There are moderate arthritic changes of the bilateral hips and sacroiliac joints. There are degenerative changes of the lumbar spine. There is no soft tissue hematoma or radiopaque foreign body. Prior hysterectomy. Colonic diverticulosis without diverticulitis at visualized levels. Severe vascular calcifications. Impression: 1. Subacute healing fractures of the right superior and inferior pubic rami. 2. Prior open reduction internal fixation of the right proximal femur with an unremarkable postoperative appearance. This document has been electronically signed by: Saloni Dang MD on 04/02/2025 15:12:07
== END 2025-03-30 08:31 | disposition home or self-care (01) ==
LOC: HO.CT 08:30
PROVIDERS: Visit Provider Physician Assistant
DX: M25.551 Pain in right hip (principal); S32.511D Fracture of superior rim of right pubis, subsequent encounter for fracture with routine healing; W19.XXXD Unspecified fall, subsequent encounter
CPT/HCPCS: 72192; 73700

== ENCOUNTER → 2025-03-30 08:32 | Outpatient (BNV) | payer MEDICARE, SELFPAY | PROVIDERS: Visit Provider Radiology Diagnostic Radiology | DX: S32.511G Fracture of superior rim of right pubis, subsequent encounter for fracture with delayed healing (principal) | CPT/HCPCS: 72192; 73700 ==

== ENCOUNTER 2025-06-03 13:18 | Outpatient (AMB) | payer MEDICARE, SELFPAY ==
--- NOTE | 2025-06-03 13:24 | A.OFFPC_ITS ---
Vital Signs 06/03/25 13:29 Height 5 ft 2 in Weight 48.534 kg BMI 19.6 BP 112/58 L Respiration 18 Pulse 90 Pulse Source Pulse Oximeter Temp 98.3 F Temp Source Temporal Artery Scan Pulse Oximetry (%) 96 Oxygen Delivery Method Room Air Intake Visit Reasons: Routine R D Internship Required: No Accompanied by: Self / Same As Patient Allergies prochlorperazine (From COMPAZINE) Allergy (Severe, Verified 06/03/25 13:25) Anaphylaxis aspirin (ASPIRIN) Adverse Reaction (Severe, Verified 06/03/25 13:25) Kidney failure Tobacco use date assessed: 02/15/25 Dental Screening Dental Screen Date: 02/15/25 HPI HPI Comments History of Present Illness Details 80-year-old female with history of COPD, anxiety/depression, hypertension, hyperlipidemia, CKD stage 3, essential tremor COPD-no recent exacerbation. Rare albuterol usage Anxiety/depression-follows with On sertraline 50 mg daily, nortriptyline, alprazolam p.r.n. Hypertension-not currently on therapies. Blood pressure 116/62 Hyperlipidemia-on atorvastatin 10 mg daily. Due for lipid panel CKD- Dr. Neri Pelvis fracture- had been doing well Getting into pool about 2 weeks ago, developed radicular symptoms again. States she felt the joint move/dislocate. No recurrent falls. Still using cane. Continues with pain lateral R hip and pelvis, constant 4/10. Unable to identify exacerbating factors. Completed 6 or 8 weeks of PT which was helpful. Does endorse some R low back pain as well. Concerns: As above Unintentional weight loss- easy fatigability ongoing since injury. Eating and drinking well. No changes in bowel habits. No dysphagia, anorexia. No sob, cough, cp. No abd pain, n/v/d, no melena hematochezia. Weight loss has been chidi oing since her initial injury. 2 lb weight loss over the last 2 months, has stabilized ROS: General: No fevers, malaise, unintentional weight loss HEENT: No blurred vision, diplopia. No sore throat, nasal congestion, rhinorrhea, sinus pain, ear pain Cardiovascular: No chest pain, palpitations, or leg edema Respiratory: No shortness of breath, wheezing, cough GI: No abdominal pain, nausea, vomiting, diarrhea, constipation, melena, hematochezia : No dysuria, hematuria, increased urinary frequency, decreased urinary output MSK: No myalgia, back pain. see hpi Neuro: No headaches, weakness, paresthesias Skin: No rashes or lesions EXAM: Constitutional - Awake and Alert, No apparent distress Eyes - PERRL Cardiovascular - S1S2, RRR, No edema Respiratory - Normal lung expansion, Normal respiratory effort, No respiratory distress, CTA bilaterally Extremities - no calf tenderness bilaterally, no swelling MSK - ttp at the R ischium. Hips nontender to palpation. Hips have full range of motion, but pain with external rotation of the right hip. NO midline spinal ttp to palpation. Skin - Warm/Dry Neurological - Alert & oriented x3. 5/5 strength ble, sensation in tact Psychological - Appropriate affect PFSH Medical History Allergic rhinitis Acute respiratory disease CKD (chronic kidney disease) Arthritis Enteropathogenic Escherichia coli infection Essential tremor COPD (chronic obstructive pulmonary disease) Vertigo Anxiety Depression HTN (hypertension) Sigmoid diverticulosis Internal hemorrhoids Hyperlipidemia Tubular adenoma of colon Abnormal colonoscopy Surgical History History of ear surgery H/O arthroscopy of left knee History of thumb surgery History of ankle surgery Family History Mother No problems noted. Father No problems noted. Social History Household Members: Spouse Housing: House Are you a primary critical care physician assistant to a significant other at home: No Do you presently have visiting nurse or other home services: No Alcohol intake: never Patient Tobacco Use Status: Current everyday Tobacco user Tobacco use type: Cigarette Cigarette Packs Per Day: 0.5 Cigarettes Per Day: 8 Years Smoked: 40 e-Cigarette/Vaping Use: Currently Using service: No Current occupational status: retired Cognitive needs: No Hearing needs: No Vision needs: Yes (rx glasses) Questionnaire Thrive Questionnaire Date Thrive assessed: 03/13/25 MARYURI-7 AMB Questionnaire MARYURI-7 Date MARYURI - 7 assessed: 02/15/25 Source: Developed by Drs. John L. KatieMarlys neumann, Aramis Martinez and colleagues, with an educational shae from [employer]. Physical exam (Primary Care) Tobacco/Smoking Status: Tobacco use Status Tobacco use date assessed 02/15/25 06/03/25 13:27 Patient Tobacco Use Status Current everyday Tobacco 06/03/25 13:27 Tobacco use type Cigarette 06/03/25 13:27 e-Cigarette/Vaping Use Currently Using 06/03/25 13:27 Thrive Assessment: Date of Thrive Assessment Date Thrive assessed 03/13/25 06/03/25 13:27 Coding Level of Care Code Est Pt Level 4 (92558) Complex EM visit Add On G2211 Diagnoses Right hip pain M25.551 Primary hypertension I10 Hypertension type: primary hypertension Hyperlipidemia, unspecified hyperlipidemia type E78.5 Hyperlipidemia type: unspecified Weight loss R63.4 Fatigue R53.83 Assessment & Plan Assessment & Plan (1) Right hip pain: Code(s): M25.551 - Pain in right hip Category: Medical Plan: Known history of subacute pelvic and femur fracture. Had been improving. She is concerned about dislocation, see history. XR of the right hip and pelvis ordered. Discussed possible referral back to physical therapy versus orthopedic surgery. Would like to wait till results of study to make determination. Continue with analgesics as ordered (2) HTN (hypertension): Code(s): I10 - Essential (primary) hypertension Category: Medical Qualifiers: Hypertension type: primary hypertension Qualified Code(s): I10 - Essential (primary) hypertension Plan: Controlled. Continue monitoring (3) Hyperlipidemia: Code(s): E78.5 - Hyperlipidemia, unspecified Category: Medical Qualifiers: Hyperlipidemia type: unspecified Qualified Code(s): E78.5 - Hyperlipidemia, unspecified Plan: Lipid panel ordered. Continue atorvastatin (4) Weight loss: Code(s): R63.4 - Abnormal weight loss Category: Medical Plan: Has stabilized over the last 2 months but has lost about 10 lb total dating back to her initial injury. Will have patient return to the office in 1 month for weight check. Labs as below (5) Fatigue: Code(s): R53.83 - Other fatigue Category: Medical Plan: Labs ordered as below Plan Follow-up in 1 month for weight check Orders: Orders Liver Panel Today R53.83 - Other fatigue, R63.4 - Abnormal weight loss TSH reflex Free T4 Today R53.83 - Other fatigue, R63.4 - Abnormal weight loss IRON PROFILE Today R53.83 - Other fatigue, R63.4 - Abnormal weight loss XR hip RT min 2V Today R53.83 - Other fatigue, R63.4 - Abnormal weight loss, S72.141A - Displaced intertrochanteric fracture of right femur, initial encounter for closed fracture Basic Metabolic Panel Today R53.83 - Other fatigue, R63.4 - Abnormal weight loss Complete Blood Count Auto Diff Today R53.83 - Other fatigue, R63.4 - Abnormal weight loss Lipid Panel Today R53.83 - Other fatigue, R63.4 - Abnormal weight loss
[2025-06-03 13:29] VITALS: BP 112/58; PULSE 90; RESP 18; TEMP 36.8; O2SAT 96; BMI 19.6
--- OUTSIDE RECORDS SUMMARY | 2025-06-03 14:40 | XMS_ITS | Clinical Summary ---
Author Organization [facility] Address [address] [place] [address] [place] [address] Phone Care Team Providers Care Pulley Mortiser Operator Name Role Phone Ryley Varela MD Primary Care Provider [phone] Allergies Active Allergy Reactions Criticality Noted Date [...] mouth every night Active ergocalciferol 1.25 MG (17731 UT) capsule TAKE 1 CAPSULE BY MOUTH [...] Date Smoking Tobacco: Every Day Cigarettes 0.5 61.6 Started: 10/10/1964 Smokeless Tobacco: Never Alcohol Use [...] Care Team (Late st Contact Info) Description 07/08/2025 1:45 PM EDT Office Visit [facility] [address] [place] [address] Zeke Neri MD [address] [facility] [address] [place] [address] Health Maintenance Due Date Last Done Comments Pneumococcal Vaccine: 50+ Ye ars (2 of 2 - PCV) 03/25/2005 03/25/2004 Influenza Vaccine (#1) 2025 Pneumococcal Vaccine: Peds ( 0 to 5 Years) and At-Risk Patients (6 to 49 Years) Discontinued 03/25/2004 Hepatitis B Vaccine Aged Out No longe r eligible based on patient's age to complete this topic Insurance [facility] Medicare [facility] Medicare Care Teams Pulley Mortiser Operator Relationship Specialty Start Date End Date Ryley Varela MD [id number] THU [place] PCP - General 10/20/20
== END 2025-06-03 13:54 | disposition home or self-care (01) ==
LOC: HO.HMCHD 13:19
PROVIDERS: PCP Physician Assistant; Visit Provider Physician Assistant
DX: M25.551 Pain in right hip (principal); I10 Essential (primary) hypertension; E78.5 Hyperlipidemia, unspecified; R63.4 Abnormal weight loss; R53.83 Other fatigue

== ENCOUNTER 2025-06-03 13:18 | Outpatient (REF) | payer MEDICARE, SELFPAY ==
--- NOTE | ~2025-06-03 | XR_ITS ---
EXAMINATION: XR HIP 2 OR MORE VIEWS RIGHT HISTORY: S72.141A - Displaced intertrochanteric fracture of right femur, initial ... COMPARISON: Comparison is made with the prior examination dated 03/13/2025. FINDINGS: Three views of the right hip are submitted. The patient is again noted to be status post internal fixation of the intertrochanteric fracture with a compression screw and intramedullary doreen. There is a healing fracture of the inferior pubic ramus. There is no acute fracture or dislocation. There is mild to moderate osteoarthritis with joint space narrowing and osteophyte formation. The soft tissues are unremarkable. XR/XR hip RT min 2V IMPRESSION: Internal fixation of the right hip. Healing fracture of the inferior pubic ramus. Electronically signed by: John Sims MD 06/03/2025 02:43 PM EDT
--- OUTSIDE RECORDS SUMMARY | 2025-06-03 15:40 | XMS_ITS | Patient Health Record ---
Author Organization [facility] Address [address] [place] [address] Care Team Providers Care News Editor Name Role Phone Angi Rubi Primary Care Provider Talia Rosenbaum Unavailable [phone] Allergies Allergen (clinical drug ingredient) Drug/Non Drug [...] 10 MG 2 capsule Orally Once a day; Duration: 30 days Active Vitamin C Active Atorvastatin Calcium 10 MG Oral; Duration: 90 Days Active Tylenol Active Flonase PRN Active Olopatadine HCl 0.1 % Ophthalmic; Durati on: 90 Days Active Meclizine HCl Active Vitamin D Active Lipitor 10 MG 1 tablet Orally Once a day; Duration: 30 day(s) Active Sertraline HCl Activ e ALPRAZolam 0.25 MG 1 tablet Orally Twic e a day Active Primidone 50 MG 1 tablet Orally Once a day Active Fluticasone Propionate 50 MCG/ACT Nasal; Duration: 60 Days Act romeo Immunizations Vaccine Route Administration Date Status Comme nts Influenza Unknown 04/26/2025 Refused Social History Tobacco Use: Social History Observation [...] interested in quitting? Thinking about q uitting AUDIT-C (Standard) Question Answer Notes Did you have a drink containing alcohol in the p ast year? No Points 0 Interpretation Negative Problems Problem Type SNOMED Code ICD Code Onset Dates Problem Status W/U Status Risk Notes Problem Plantar wart (52132311) Plantar wart (B07.0) Active confirmed Problem Bilateral atherosclerosis of arteries of lower limbs (disorder) (38493943691446548 ) Unspecified atherosclerosis of [place] arteries of extremities, bilateral legs (I70.203) Active confirmed Problem Localized, primary osteoarthritis of the ankle and/or foot (012019350) Primary osteoarthritis, right ankle and foot (M19.071) Active confirmed Problem Localized, primary osteoarthritis of the ankle and/or foot (337333477) Primary osteoarthritis, left ankle and foot (M19.072) Active confirmed Problem Acquired hammer toe of right foot (9170160878280039) Other hammer toe(s) (acquired), right foot (M20.41) Active confirmed Problem Bilateral atherosclerosis of arteries of lower limbs (disorder) (14429064011926056 ) Atherosclerosis of [place] artery of both lower extremities, with unspecified presence of clinical manifestation (I70.203) Active confirmed Vital Signs Blood pressure diastolic 70 mm Hg 04/26/2025 Height 5 ft2in in 04/26/2025 Blood pressure systolic 120 mm Hg 04/26/2025 Weight 110 lbs 04/26/2025 BMI 20.12 kg/m2 04/26/2025 Encounters Encounter Location Date Provider Diagnosis [facility] [place] [address] [place] [address] 07/13/2024 Talia Bazzi Plantar wart B07.0 ; Metatarsalgia, right foot M77.41 ; Atherosclerosis of [place] artery of both lower extremities, with unspecified presence of clinical manifestation I70.203 ; Tinea unguium B35.1 ; Pain in right toe(s) M79.674 ; Pain in left toe(s) M79.675 ; Right foot pain M79.671 and Pain in right ankle and joints of right foot M25.[address] [address] 09/14/2024 Talia Perica Plantar wart B07.0 ; Metatarsalgia, right foot M77.41 ; Atherosclerosis of [place] artery of both lower extremities, with unspecified presence of clinical manifestation I70.203 ; Tinea unguium B35.1 ; Pain in right toe(s) M79.674 ; Pain in left toe(s) M79.675 and Right foot pain M79.[address] [address] 12/04/2024 Talia Perica Plantar wart B07.0 ; Metatarsalgia, right foot M77.41 ; Atherosclerosis of [place] artery of both lower extremities, with unspecified presence of clinical manifestation I70.203 ; Tinea unguium B35.1 ; Pain in right toe(s) M79.674 ; Pain in left toe(s) M79.675 and Right foot pain M79.[address] [address] 02/13/2025 Talia Perica Plantar wart B07.0 ; Atherosclerosis of [place] artery of both lower extremities, with unspecified presence of clinical manifestation I70.203 ; Tinea unguium B35.1 ; Pain in right toe(s) M79.674 ; Pain in left toe(s) M79.675 and Right foot pain M79.[address] [address] 04/26/2025 Talia Perica Plantar wart B07.0 ; Atherosclerosis of [place] artery of both lower extremities, with unspecified presence of clinical manifestation I70.203 ; Tinea unguium B35.1 ; Pain in right toe(s) M79.674 ; Pain in left toe(s) M79.675 and Right foot pain M79.671 Assessments Encounter Date Diagnosis (ICD Code) Assessment Notes Treatment Notes Treatment Clinical Notes Section Notes 07/13/2024 Plantar wart (ICD-10 - B07.0) 09/14/2024 Plantar wart (ICD-10 - B07.0) 09/14/2024 Metatarsalgia, right foot (ICD-10 - M77.41) 12/04/2024 Plantar wart (ICD-10 - B07.0) 02/13/2025 Plantar wart (ICD-10 - B07.0) 02/13/2025 Atherosclerosis of [place] artery of both lower extremities, with unspecified presence of clinical manifestation (ICD-10 - I70.203) 04/26/2025 Plantar wart (ICD-10 - B07.0) 02/13/2025 Tinea unguium (ICD-10 - B35.1) 12/04/2024 Metatarsalgia, right foot (ICD-10 - M77.41) 09/14/2024 Atherosclerosis of [place] artery of both lower extremities, with unspecified presence of clinical manifestation (ICD-10 - I70.203) 04/26/2025 Atherosclerosis of [place] artery of both lower extremities, with unspecified presence of clinical manifestation (ICD-10 - I70.203) 07/13/2024 Atherosclerosis of [place] artery of both lower extremities, with unspecified presence of clinical manifestation (ICD-10 - I70.203) 07/13/2024 Metatarsalgia, right foot (ICD-10 - M77.41) 07/13/2024 Tinea unguium (ICD-10 - B35.1) 09/14/2024 Tinea unguium (ICD-10 - B35.1) 12/04/2024 Atherosclerosis of [place] band artery of both lower extremities, with unspecified presence of clinical manifestation (ICD-10 - I70.203) 02/13/2025 Pain in right toe(s) (ICD-10 - M79.674) 04/26/2025 Tinea unguium (ICD-10 - B35.1) 02/13/2025 Pain in left toe(s) (ICD-10 - M79.675) 12/04/2024 Tinea unguium (ICD-10 - B35.1) 04/26/2025 Pain in right toe(s) (ICD-10 - M79.674) 09/14/2024 Pain in right toe(s) (ICD-10 - M79.674) 07/13/2024 Pain in right toe(s) (ICD-10 - M79.674) 07/13/2024 Pain in left toe(s) (ICD-10 - M79.675) 09/14/2024 Pain in left toe(s) (ICD-10 - M79.675) 12/04/2024 Pain in right toe(s) (ICD-10 - M79.674) 02/13/2025 Right foot pain (ICD-10 - M79.671) 04/26/2025 Pain in left toe(s) (ICD-10 - M79.675) 12/04/2024 Pain in left toe(s) (ICD-10 - M79.675) 04/26/2025 Right foot pain (ICD-10 - M79.671) 09/14/2024 Right foot pain (ICD-10 - M79.671) 07/13/2024 Right foot pain (ICD-10 - M79.671) 07/13/2024 Pain in right ankle and joints of right foot (ICD-10 - M25.571) 12/04/2024 Right foot pain (ICD-10 - M79.671) Plan Of Treatment Pending Test Test Name Order Date X ray : Foot, right 3V 08/15/2019 X ray : Foot, right 3V 02/29/2024 X ray : Foot, right 3V 05/11/2024 X ray : Foot, right 3V 07/13/2024 Next Appt Details Provider Name:Talia chan, 07/12/2025 01:30:00 PM, [address] [place] [address], [phone], Insurance Providers Payer Name Payer Address Payer Phone Subscriber Number Group Number Insured Name Patient Relationship to Insured Coverage Start Date Coverage End Date Medicare [facility] [employer] [address] [place] [address] [id number] Destiny Pedro Self - patient is the insured [employer] [facility] [address] [place] [address] [id number] Destiny Pedro Self - patient is the insured Medical (General) History Medical History History ICD Code Anxiety Back,Hip,and Knee pain Broken bones, hip CAD (Cholesterol) Cataracts Depression High blood pressure Kidney disease chronic sinusitis Measles Mumps Chicken pox Joint implants/screws Arthritis sinusitis Surgical History Surgery Date(Month/Year) Ankle Surgery 1997 Thumb Surgery 2010 ear surgery 2002 knee ygymztn-cbmkccqymxe-chin 2014 hip surgery 05/01 Hospitalization History Reason Date(Month/Year) Fell 03/03
== END 2025-06-03 13:19 | disposition home or self-care (01) ==
LOC: HO.XRAY 13:18
PROVIDERS: PCP Physician Assistant; Visit Provider Physician Assistant
DX: S72.141A Displaced intertrochanteric fracture of right femur, initial encounter for closed fracture (principal); R53.83 Other fatigue; R63.4 Abnormal weight loss; M25.551 Pain in right hip; I10 Essential (primary) hypertension; E78.5 Hyperlipidemia, unspecified
CPT/HCPCS: 73502; 99212

== ENCOUNTER → 2025-06-03 14:17 | Outpatient (BNV) | payer MEDICARE, SELFPAY | PROVIDERS: PCP Physician Assistant; Visit Provider Radiology Diagnostic Radiology | DX: S32.591D Other specified fracture of right pubis, subsequent encounter for fracture with routine healing (principal); Z96.641 Presence of right artificial hip joint | CPT/HCPCS: 73502 ==

== ENCOUNTER 2025-07-03 11:39 | Outpatient (REF) | payer MEDICARE, SELFPAY ==
--- OUTSIDE RECORDS SUMMARY | 2024-11-27 11:00 | XMS_ITS ---
Author Organization [facility] Address [address] [place] [address] Care Team Providers Care Mixer Pigment Name Role Phone Angi Rubi Primary Care Provider Talia Rosenbaum [phone] Chang Encounters Encounter Location Date Provider Diagnosis [address] [address] 11/27/2024 Talia Bazzi Plan Of Treatment Next Appt Details Provider Name:Talia chan, 07/12/2025 01:30:00 PM, [address] [place] [address], [phone], Progress Notes * Destiny YADAV FDOB:1944 (80 yo F)Acc No.[id number]:11/27/2024 Progress Note Patient: Destiny MCGRATH Provider: John Bazzi DPM :1945 A ge:79 Y S ex:Female Date:11/27/2024 Address:[address] [place], [place] [id number] Pcp:Angi Rubi Subjective: * Chief Complaints: * [...] 11/27/2024 Generated for Alejandro Diane/Noe on: 0 07/03/2025 02:43 PM EDT
[2025-07-03 13:24] LABS: Appearance Urine Clear; Glucose Urine UA Negative (Negative); PH 6.0 (5.0-9.0); Specific Gravity - Urine 1.015 (1.005-1.025); UMIC TRIGGER UA YES
[2025-07-03 14:03] LABS: Hematocrit 38.3 % (37.0-47.0); Hemoglobin 12.0 g/dl (12.0-16.0); Mean Corpuscular HGB Conc 31.3 g/dl (31.0-35.0); Mean Corpuscular Hemoglobin 30.6 pg (27.0-33.0); Mean Corpuscular Volume 97.7 fL (80.0-98.0); NRBC Abs Auto 0.000 X10*3/uL (0.0-0.012); NRBC Pct Auto 0.0 /100WBC (0.0-0.2); Platelet Count 189 X10*3/uL (160-400); Red Blood Count 3.92 X10*6/uL (4.20-5.50); White Blood Count 6.4 X10*3/uL (4.8-10.8)
[2025-07-03 14:11] LABS: Microalbum/Creatinine Ratio Ur 30.5 ug/mg cr (<30); Protein/Creatinine Ratio, Ur 0.11 (<0.2); Total Protein Urine Random 17 mg/dL (<12)
[2025-07-03 14:37] LABS: Albumin Level 4.0 g/dL (3.5-5.0); Anion Gap 12 (12-20); Blood Urea Nitrogen 22 mg/dL (9-16); Calcium 9.3 mg/dL (8.4-10.2); Carbon Dioxide 29 mmol/L (22-29); Chloride 107 mmol/L (96-108); Estimated Glomerular Filt Rate 25; Magnesium 2.5 mg/dL (1.6-2.6); Potassium 4.5 mmol/L (3.3-5.1); Sodium 143 mmol/L (135-145); Total Protein 6.7 g/dL (6.5-8.0)
[2025-07-03 14:40] LABS: Parathyroid Hormone Intact 103.6 pg/mL (8.7-77.1)
--- OUTSIDE RECORDS SUMMARY | 2025-07-03 14:44 | XMS_ITS | Encounter Summary ---
Author Organization [facility] Address [address] [address] Phone Care Team Providers Care Rn Midwife Name Role Phone Ryley Varela MD Primary Care Provider [phone] Encounter Details Date Type Department Care Team (Late Contact Info) Description 07/03/2025 Orders Only [facility] [address] [place] [phone] Zeke Neri MD [address] [address] Social History Tobacco Use Types Packs/Day Years Used Date Smoking Tobacco: Every Day Cigarettes 0.5 61.7 Started: 10/10/1964 Smokeless Tobacco: Never Alcohol Use Standard Drinks/Week Comments No 0 (1 standard drink = 0.6 oz pur e alcohol) Comments Unknown Sex and Gender Information Value Date Recorded Sex Assigned at Not on file Legal Sex Female 4:58 PM EST Gender Identity Not on file Sexual Orientation Not on file documented as of this encounter Plan of Treatment Upcoming Encounters Date Type Department Care Team (Late Contact Info) Description 07/08/2025 1:45 PM EDT Office Visit [facility] [address] [place] [phone] Zeke Neri MD [address] [address] documented as of this encounter Procedures Procedure Name Priority Date/Time Associated Diagnosis Comments TOTAL PROTEIN Routine 07/03/2025 1:50 PM EDT CREATININE, BLOOD Routine 07/03/2025 1:5 0 PM EDT PTH, INTACT (HC) Routine 07/03/2025 1:50 PM EDT VITAMIN D 25 HYDROXY Routine 07/03/2025 1:50 PM EDT CBC Routine 07/03/2025 1:50 PM EDT BUN Routine 07/03/2025 1:50 PM EDT PHOSPHATE ( PHOSPHORUS) Routine 07/03/2025 1:50 PM EDT MAGNESIUM Routine 07/03/2025 1:50 PM EDT CALCIUM Routine 07/03/2025 1:50 PM EDT ALBUMIN Routine 07/03/2025 1:50 PM EDT ELECTROLYTE PANEL Routine 07/03/2025 1:5 0 PM EDT PROTEIN / CREATININE RATIO, URINE Routine 07/03/2025 1:07 PM EDT ALBUMIN, URINE, RANDOM Routine 07/03/2025 1:07 PM EDT URINALYSIS WITH MICROSCOPIC Routine 07/03/2025 1:07 PM EDT URINALYSIS Routine 07/03/2025 1:07 PM EDT documented in this encounter Results * (ABNORMAL) PTH, Intact (07/03/2025 1:50 PM EDT) Parathyroid Hormone, Intact 103.6(H) 8.7 - 77.1 pg/mL See order comments 07/03/2025 1:50 PM EDT 07/03/2025 1:50 PM EDT Zeke Neri MD LAB [id number] SOLICITED RESULTS Final Result Performing Organization Address [facility] Co de Phone Number LI See order comments [place] [address] * (ABNORMAL) Vitamin D 25 Hydroxy (07/03/2025 1:50 PM EDT) Vitamin D, 25-Hydroxy 21.5(L) >30 ng/mL See order comments Comment: Health Based Reference Values* < 20 ng/mL Deficient 20-30 ng/mL Insufficient > 30 ng/mL Sufficient *Harmony LY. N Engl J Med. 2007;357:266-280 There is no well-established upper level of normal vitamin D levels. Some laboratories use 50 ng/mL as an upper limit of normal. However, toxicity is patient-dependent and may occur at any level. Careful correlation with the patient's presentation is necessary and, if there is concern for vitamin D toxicity, treatment should be considered irrespective of the serum level. Care must be taken in interpreting Vitamin D results from different laboratories and methodologies. Published data demonstrated that results from patients undergoing hemodialysis may show a negative bias when tested with various automated 25-OH vitamin D assays when compared to LC-MS/MS. When testing samples from patients whose predominant form of Vitamin D is Vitamin D2, such as patients receiving Vitamin D2 supplementation, results that are subtherapeutic should be confirmed with another method such as LC-MS/MS. 07/03/2025 1:50 PM EDT 07/03/2025 1:50 PM EDT Zeke Neri MD LAB BLOOD ORDERABLES Final Re sult Performing Organization Address City/[facility]/ZIP Co de Phone Number [place] See order comments [place] [address] * Albumin (07/03/2025 1:50 PM EDT) Albumin 4.0 3.5 - 5.0 g/dL See order comments 07/03/2025 1:50 PM EDT 07/03/2025 1:50 PM EDT us Zeke Neri MD LAB BLOOD ORDERABLES Final Re sult Performing Organization Address [facility] de Phone Number [place] See order comments [place] [address] * Total Protein (07/03/2025 1:50 PM EDT) Total Protein 6.7 6.5 - 8.0 g/dL See order comments 07/03/2025 1:50 PM EDT 07/03/2025 1:50 PM EDT us Zeke Neri MD LAB [id number] SOLICITED RESULTS Final Result Performing Organization Address [facility] Phone Number [place] See order comments [place] [address] * Magnesium (07/03/2025 1:50 PM EDT) Magnesium 2.5 1.6 - 2.6 mg/dL See order comments 07/03/2025 1:50 PM EDT 07/03/2025 1:50 PM EDT us Zeke Neri MD LAB BLOOD ORDERABLES Final Re sult Performing Organization Address [facility] de Phone Number [place] See order comments [place] [address] * Phosphorus (07/03/2025 1:50 PM EDT) Phosphorus, Serum 3.5 2.7 - 4.5 mg/dL See order comments 07/03/2025 1:50 PM EDT 07/03/2025 1:50 PM EDT us Zeke Neri MD LAB BLOOD ORDERABLES Final Re sult Performing Organization Address [facility] Co de Phone Number [place] See order comments [place] [address] * Calcium (07/03/2025 1:50 PM EDT) Calcium 9.3 8.4 - 10.2 mg/dL See order comments 07/03/2025 1:50 PM EDT 07/03/2025 1:50 PM EDT Zeke Neri MD LAB BLOOD ORDERABLES Final Re sult Performing Organization Address [facility] de Phone Number [place] See order comments [place] [address] * (ABNORMAL) Creatinine (07/03/2025 1:50 PM EDT) Creatinine Serum 1.92(H) 0.5 - 1.4 mg/dL See order comments eGFR (Calc) 25 See orde r comments Comment: Chronic Kidney Disease: Estimated GFR < 60 mL/min/1.73m2 Severe Kidney Disease: Estimated GFR < 15 mL/min/1.73m2 07/03/2025 1:50 PM EDT 07/03/2025 1:50 PM EDT us Zeke Neri MD LAB BLOOD ORDERABLES Final Re sult Performing Organization Address [facility] de Phone Number [place] See order comments [place] [address] * (ABNORMAL) BUN (07/03/2025 1:50 PM EDT) BUN 22(H) 9 - 16 mg/dL See order comments 07/03/2025 1:50 PM EDT 07/03/2025 1:50 PM EDT Zeke Neri MD LAB BLOOD ORDERABLES Final Re sult Performing Organization Address [facility] de Phone Number [place] See order comments [place] [address] * Electrolyte panel (07/03/2025 1:50 PM EDT) Sodium 143 135 - 145 mmol/L See order comments Potassium 4.5 3.3 - 5.1 mmol/L See order comments Chloride 107 96 - 108 mmol/L See order comments Bicarbonate (CO2) 29 22 - 29 mmol/L See order comments Anion Gap 12 12 - 20 See order comments 07/03/2025 1:50 PM EDT 07/03/2025 1:50 PM EDT Zeke Neri MD LAB BLOOD ORDERABLES Final Re sult Performing Organization Address [facility] Co de Phone Number [place] See order comments [place] [address] * (ABNORMAL) CBC (07/03/2025 1:50 PM EDT) WBC 6.4 4.8 - 10.8 X10*3/uL See order comments RBC 3.92(L) 4.20 - 5.50 X10*6/uL See order comments Hgb 12.0 12.0 - 16.0 g/dl See order comments Hematocrit 38.3 37.0 - 47.0 % See order comments MCV 97.7 80.0 - 98.0 fL See order comments MCH 30.6 27.0 - 33.0 pg See order comments MCHC 31.3 31.0 - 35.0 g/dl See order comments RDW 14.1 11.0 - 16.0 % See order comments Platelets 189 160 - 400 X10*3/uL See order comments MPV 10.4 9.4 - 12.3 fL See order comments nRBC Count 0.0 0.0 - 0.2 /100WBC See order comments NRBC Absolute 0.000 0.0 - 0.012 X10*3/uL See order comments 07/03/2025 1:50 PM EDT 07/03/2025 1:50 PM EDT Zeke Neri MD LAB BLOOD ORDERABLES Final Re sult Performing Organization Address [facility] Co de Phone Number [place] See order comments [place] [address] * (ABNORMAL) Protein, Total, Random Urine w/Creatinine (Protein/Creat Ratio) (07/03/2025 1:07 PM EDT) Protein Urine Random 17(H) <12 mg/dL See order comments Protein/Creatin ine Ratio, Urine 0.11 <0.2 See order comments Comment: The spot urine protein:creatinine ratio may increase to 0.3 during normal . 07/03/2025 1:07 PM EDT 07/03/2025 1:07 PM EDT Zeke Neri MD LAB URINE ORDERABLES Final Re [facility] Performing Organization Address [facility] de Phone Number [facility] See order comments [place] [address] * (ABNORMAL) Albumin, urine, random (07/03/2025 1:07 PM EDT) Creatinine, Urine 157.31 mg/dL Se e order comments Urine Microalbumin 48.0 mg/L See order comments Microalbumin/Crea tinine Ratio 30.5(H) <30 ug/mg cr See order comments Comment: Albumin/Creatinine Ratio Reference Ranges: Normal: < 30 ug/mg creatinine Microalbuminuria: 30 - 300 ug/mg creatinine Clinical Albuminuria: > 300 ug/mg creatinine 07/03/2025 1:07 PM EDT 07/03/2025 1:07 PM EDT Zeke Neri MD LAB URINE ORDERABLES Final [facility] Performing Organization Address [facility] de Phone Number [place] See order comments [place] [address] * (ABNORMAL) Urinalysis with microscopic (07/03/2025 1:07 PM EDT) Color Urine Yellow See orde r comments Appearance Urine Clear See order comments pH Urine 6.0 5.0 - 9.0 See order comments Glucose Urine Negative Negative mg/dL See order comments Blood, Urine Negative Negative See ord er comments Specific [place] Urine 1.015 1.005 - 1.025 See order comments Protein Urine Trace Neg-Trace mg/dL See order comments Ketones, Urine Negative Negative mg/dL See order comments Nitrite, Urine Negative Negative See o rder comments Leukocyte Esterase Urine Small (1+)(A) Negative See order comments RBC, Urine 0-2 0 - 2 /HPF See orde r comments WBC 0-5 0 - 5 /HPF See order comments Squamous Epithelial, Urine 0-2 0 - 2 /HPF See order comments Bacteria, Urine None Seen None Seen See order comments Hyaline Casts, Urine 3-5 0 - 2 /LPF See order comments 07/03/2025 1:07 PM EDT 07/03/2025 1:07 PM EDT Zeke Neri MD LAB URINE ORDERABLES Final Re sult Performing Organization Address [facility] Co de Phone Number LI See order comments [place] [address] * (ABNORMAL) Urinalysis (07/03/2025 1:07 PM EDT) Color Urine Yellow See orde r comments Appearance Urine Clear See order comments pH Urine 6.0 5.0 - 9.0 See order comments Glucose Urine Negative Negative mg/dL See order comments Blood, Urine Negative Negative See ord er comments Specific [place] Urine 1.015 1.005 - 1.025 See order comments Protein Urine Trace Neg-Trace mg/dL See order comments Ketones, Urine Negative Negative mg/dL See order comments Nitrite, Urine Negative Negative See o rder comments Leukocyte Esterase Urine Small (1+)(A) Negative See order comments 07/03/2025 1:07 PM EDT 07/03/2025 1:07 PM EDT Zeke Neri MD LAB URINE ORDERABLES Final Re sult Performing Organization Address [facility] Co de Phone Number LI See order comments [place] [address] documented in this encounter Visit Diagnoses Not on filedocumented in this encounter Care Teams Rn Midwife Relationship Specialty Start Date End Date Ryley Varela MD [address] [place] PCP - General 10/20/20 documented as of this encounter
--- OUTSIDE RECORDS SUMMARY | 2025-07-03 14:44 | XMS_ITS | Patient Health Record ---
Author Organization [facility] Address [address] [place] [address] Care Team Providers Care Electrical Construction Project Manager Name Role Phone Angi Rubi Primary Care Provider Talia Rosenbaum Unavailable [phone] Allergies Allergen (clinical drug ingredient) Drug/Non Drug [...] W/U Status Risk Notes Problem Plantar wart (16139582) Plantar wart (B07.0) Active confirmed Problem Bilateral atherosclerosis of arteries of lower limbs (disorder) (24072677493409415 ) Unspecified atherosclerosis of [place]' arteries of extremities, bilateral legs (I70.203) Active confirmed Problem Localized, primary osteoarthritis of the ankle and/or foot (063945312) Primary osteoarthritis, right ankle and foot (M19.071) Active confirmed Problem Localized, primary osteoarthritis of the ankle and/or foot (197991092) Primary osteoarthritis, left ankle and foot (M19.072) Active confirmed Problem Acquired hammer toe of right foot (7934905271477381) Other hammer toe(s) (acquired), right foot (M20.41) Active confirmed Problem Bilateral atherosclerosis of arteries of lower limbs (disorder) (78191074982700873 ) Atherosclerosis of [place]lowa dee-ni' artery of both lower extremities, with unspecified presence of clinical manifestation (I70.203) Active confirmed Vital Signs Blood pressure diastolic 70 mm Hg 04/26/2025 Height 5 ft2in in 04/26/2025 Blood pressure systolic 120 mm Hg 04/26/2025 Weight 110 lbs 04/26/2025 BMI 20.12 kg/m2 04/26/2025 Encounters Encounter Location Date Provider Diagnosis [facility] [place] [address] [place] [address] 07/13/2024 Talia Bazzi Plantar wart B07.0 ; Metatarsalgia, right foot M77.41 ; Atherosclerosis of [place]low[place] de[place]-ni' artery of both lower extremities, with unspecified presence of clinical manifestation I70.203 ; Tinea unguium B35.1 ; Pain in right toe(s) M79.674 ; Pain in left toe(s) M79.675 ; Right foot pain M79.671 and Pain in right ankle and joints of right foot M25.[address] [address] 09/14/2024 Talia Perica Plantar wart B07.0 ; Metatarsalgia, right foot M77.41 ; Atherosclerosis of [place]lowa de[place]-ni' artery of both lower extremities, with unspecified presence of clinical manifestation I70.203 ; Tinea unguium B35.1 ; Pain in right toe(s) M79.674 ; Pain in left toe(s) M79.675 and Right foot pain M79.[address] [address] 12/04/2024 Talia Perica Plantar wart B07.0 ; Metatarsalgia, right foot M77.41 ; Atherosclerosis of [place]lowa de[place]-ni' artery of both lower extremities, with unspecified presence of clinical manifestation I70.203 ; Tinea unguium B35.1 ; Pain in right toe(s) M79.674 ; Pain in left toe(s) M79.675 and Right foot pain M79.[address] [address] 02/13/2025 Talia Perica Plantar wart B07.0 ; Atherosclerosis of [place]lowa dee-ni' artery of both lower extremities, with unspecified presence of clinical manifestation I70.203 ; Tinea unguium B35.1 ; Pain in right toe(s) M79.674 ; Pain in left toe(s) M79.675 and Right foot pain M79.[address] [address] 04/26/2025 Talia Perica Plantar wart B07.0 ; Atherosclerosis of [place]lowa dee-ni' artery of both lower extremities, with unspecified [...] wart (ICD-10 - B07.0) 02/13/2025 Atherosclerosis of [place]lowa dee-ni' artery of both lower extremities, with unspecified presence of clinical manifestation (ICD-10 - I70.203) 04/26/2025 Plantar wart (ICD-10 - B07.0) 02/13/2025 Tinea unguium (ICD-10 - B35.1) 12/04/2024 Metatarsalgia, right foot (ICD-10 - M77.41) 09/14/2024 Atherosclerosis of [place]lowa dee-ni' artery of both lower extremities, with unspecified presence of clinical manifestation (ICD-10 - I70.203) 04/26/2025 Atherosclerosis of [place]lowa dee-ni' artery of both lower extremities, with unspecified presence of clinical manifestation (ICD-10 - I70.203) 07/13/2024 Atherosclerosis of tolowa dee-ni' artery of both lower extremities, with unspecified presence of clinical manifestation (ICD-10 - I70.203) 07/13/2024 Metatarsalgia, right foot (ICD-10 - M77.41) 07/13/2024 Tinea unguium (ICD-10 - B35.1) 09/14/2024 Tinea unguium (ICD-10 - B35.1) 12/04/2024 Atherosclerosis of tolowa dee-ni' artery of both lower extremities, with unspecified [...] Details Provider Name:Talia chan, 07/12/2025 01:30:00 PM, [address] [place] [address], [phone], Insurance Providers Payer Name Payer Address Payer Phone Subscriber Number Group Number Insured Name Patient Relationship to Insured Coverage Start Date Coverage End Date Medicare [facility] [employer] [address] [place] [address] [id number] Destiny Pedro Self - patient is the insured [employer] [facility] [address] [place] [address] [id number] Destiny Pedro Self - patient is the insured Medical (General) History Medical History History ICD Code Anxiety Back,Hip,and Knee pain Broken bones, hip CAD (Cholesterol) Cataracts Depression High blood pressure Kidney disease chronic sinusitis Measles Mumps Chicken pox Joint implants/screws Arthritis sinusitis Surgical History Surgery Date(Month/Year) Ankle Surgery 1997 Thumb Surgery 2010 ear surgery 2002 knee [id number] 2014 hip surgery 05/01 Hospitalization History Reason Date(Month/Year) Fell 03/03
--- OUTSIDE RECORDS SUMMARY | 2025-07-03 14:44 | XMS_ITS | Clinical Summary ---
Author Organization [facility] Address [address] [place] [address] [place] [address] Phone Care Team Providers Care Gold Leaf Gilder Name Role Phone Ryley Varela MD Primary Care Provider [phone] Allergies Active Allergy Reactions Criticality Noted Date Comments Prochlorperazine Other (see comments) 1 Medications acetaminophen (TYLENOL 8 HOUR) 650 MG [...] mouth every night Active ergocalciferol 1.25 MG (57362 UT) capsule TAKE 1 CAPSULE BY MOUTH EVERY 14 DAYS 6 capsule 2 2 Active Active Problems Problem Noted Date Diagnosed Date Neurological symptom 11/30/2023 Overview (06/27/2025): Other symptoms and signs involving the nervous system; Note: Date Diagnosed: 11/30/2023 2:00 PM (R29.818) Posterior rhinorrhea 10/28/2021 Overview (06/27/2025): Postnasal drip; Note: Date Diagnosed: 10/28/2021 10:08 AM (R09.82) Musculoskeletal finding 10/28/2021 Overview (06/27/2025): Other symptoms and signs involving the musculoskeletal system; Note: Date Diagnosed: 10/28/2021 10:03 AM (R29.898) General unsteadiness 10/28/2021 Overview (06/27/2025): Unsteadiness on feet; Note: Date Diagnosed: 10/28/2021 10:03 AM (R26.81) Note: Date Diagnosed: 10/28/2021 10:03 AM (R26.81) Stage 3b chronic kidney disease 06/02/2021 Renal osteodystrophy 06/02/2021 Chronic kidney disease stage 3 06/01/2021 Hypertensive renal disease 06/01/2021 Sensorineural hearing loss in right ear 10/28/19 Overview (06/27/2025): Sensorineural hearing loss, unilateral, right ear, with restricted hearing on the contralateral side; Note: Date Diagnosed: 10/28/2020 3:48 PM (H90.A21) Mixed conductive and sensorineural hearing loss of left ear 10/28/2020 Overview (06/27/2025): Mixed conductive and sensorineural hearing loss, unilateral, left ear with restricted hearing on the contralateral side; Note: Date Diagnosed: 10/28/2020 3:48 PM (H90.A32) Labyrinthitis 10/11/2019 Overview (06/27/2025): Labyrinthitis, unspecified ear; Note: Date Diagnosed: 10/11/2019 3:42 PM (H83.09) Bilateral temporomandibular joint pain 0 Overview (06/27/2025): Arthralgia of bilateral temporomandibular joint; Note: Date Diagnosed: 10/11/2019 3:42 PM (M26.623) Sensorineural hearing loss of bilateral ears Overview (06/27/2025): Sensorineural hearing loss, bilateral; Note: Date Diagnosed: 10/31/2018 1:43 PM (H90.3) Note: Date Diagnosed: 10/31/2018 1:43 PM (H90.3) Senile hyperkeratosis 09/07/2018 Overview (06/27/2025): Other seborrheic keratosis; Note: Date Diagnosed: 09/07/2018 3:02 PM (L82.1) Vertigo of central origin 05/01/2015 Overview (06/27/2025): Vertigo of central origin; Note: Date Diagnosed: 05/01/2015 1:28 PM (386.2) Vertigo of central origin; Note: Changed from H81.49 to H81.4 (10/28/2020 5:05 PM) , Date Diagnosed: 05/01/2015 1:33 PM (H81.49) [mapped from ICD9 code: 386.2] Migraine variants 05/01/2015 Overview (06/27/2025): Migraine variant; Note: Date Diagnosed: 05/01/2015 1:28 PM (346.20) Benign paroxysmal positional vertigo 05/01/2015 Overview (06/27/2025): Benign paroxysmal positional vertigo; Note: Date Diagnosed: 05/01/2015 1:28 PM (386.11) Benign paroxysmal vertigo, left ear; Note: Date Diagnosed: 05/01/2015 1:33 PM (H81.12) [mapped from ICD9 code: 386.11] Encounters Date Type Department Care Team Description 07/03/2025 Orders Only [facility] [address] Zeke Neri MD from Last 3 Months Immunizations Immunization Administration Dates Next Due Pneumococcal [...] Visit [facility] [address] [place] [address] Zeke Neri MD [address] [facility] [address] [place] [address] Health Maintenance Due Date Last Done Comments Pneumococcal Vaccine: 50+ Ye ars (2 of 2 - PCV) 03/25/2005 03/25/2004 Influenza Vaccine (#1) 2025 Pneumococcal Vaccine: Peds ( 0 to 5 Years) and At-Risk Patients (6 to 49 Years) Discontinued 03/25/2004 Hepatitis B Vaccine Aged Out No longe r eligible based on patient's age to complete this topic Procedures Procedure Name Priority Date/Time Associated Diagnosis Comments PTH, INTACT (HC) Routine 07/03/2025 1:50 PM EDT VITAMIN D 25 HYDROXY Routine 07/03/2025 1:50 PM EDT ALBUMIN Routine 07/03/2025 1:50 PM EDT TOTAL PROTEIN Routine 07/03/2025 1:50 PM EDT MAGNESIUM Routine 07/03/2025 1:50 PM EDT PHOSPHATE ( PHOSPHORUS) Routine 07/03/2025 1:50 PM EDT CALCIUM Routine 07/03/2025 1:50 PM EDT CREATININE, BLOOD Routine 07/03/2025 1:5 0 PM EDT BUN Routine 07/03/2025 1:50 PM EDT ELECTROLYTE PANEL Routine 07/03/2025 1:5 0 PM EDT CBC Routine 07/03/2025 1:50 PM EDT PROTEIN / CREATININE RATIO, URINE Routine 07/03/2025 1:07 PM EDT ALBUMIN, URINE, RANDOM Routine 07/03/2025 1:07 PM EDT URINALYSIS WITH MICROSCOPIC Routine 07/03/2025 1:07 PM EDT URINALYSIS Routine 07/03/2025 1:07 PM EDT from Last 3 Months Results * Total Protein (07/03/2025 1:50 PM EDT) Total Protein 6.7 6.5 - 8.0 g/dL See order comments 07/03/2025 1:50 PM EDT 07/03/2025 1:50 PM EDT us Zeke Neri MD LAB [id number] SOLICITED RESULTS Final Result Performing Organization Address [facility] de Phone Number [place] See order comments [place] [address] * (ABNORMAL) Creatinine (07/03/2025 1:50 PM EDT) Creatinine Serum 1.92(H) 0.5 - 1.4 mg/dL See order comments eGFR (Calc) 25 See orde r comments Comment: Chronic Kidney Disease: Estimated GFR < 60 mL/min/1.73m2 Severe Kidney Disease: Estimated GFR < 15 mL/min/1.73m2 07/03/2025 1:50 PM EDT 07/03/2025 1:50 PM EDT Zeke Neri MD LAB BLOOD ORDERABLES Final Re sult Performing Organization Address [facility] de Phone Number [place] See order comments [place] [address] * (ABNORMAL) PTH, Intact (07/03/2025 1:50 PM EDT) Parathyroid Hormone, Intact 103.6(H) 8.7 - 77.1 pg/mL See order comments 07/03/2025 1:50 PM EDT 07/03/2025 1:50 PM EDT Zeke Neri MD LAB [id number] SOLICITED RESULTS Final Result Performing Organization Address [facility] de Phone Number [place] See order comments [place] [address] * (ABNORMAL) Vitamin D 25 Hydroxy (07/03/2025 [...] MD LAB BLOOD ORDERABLES Final Re sult [place] See order comments [place] [address] * (ABNORMAL) CBC (07/03/2025 1:50 PM EDT) [...] ORDERABLES Final Re sult Performing Organization Address [facility] Phone Number [place] See order comments [place] [address] * (ABNORMAL) BUN (07/03/2025 1:50 PM EDT) BUN 22(H) 9 - 16 mg/dL See order comments 07/03/2025 1:50 PM EDT 07/03/2025 1:50 PM EDT us Zeke Neri MD LAB BLOOD ORDERABLES Final Re sult Performing Organization Address [facility] Phone Number [place] See order comments [place] [address] * Phosphorus (07/03/2025 1:50 PM EDT) Phosphorus, Serum 3.5 2.7 - 4.5 mg/dL See order comments 07/03/2025 1:50 PM EDT 07/03/2025 1:50 PM EDT us Zeke Neri MD LAB BLOOD ORDERABLES Final Re sult Performing Organization Address [facility] Phone Number [place] See order comments [place] [address] * Magnesium (07/03/2025 1:50 PM EDT) Magnesium 2.5 1.6 - 2.6 mg/dL See order comments 07/03/2025 1:50 PM EDT 07/03/2025 1:50 PM EDT us Zeke Neri MD LAB BLOOD ORDERABLES Final Re sult Performing Organization Address [facility] Phone Number [place] See order comments [place] [address] * Calcium (07/03/2025 1:50 PM EDT) Calcium 9.3 8.4 - 10.2 mg/dL See order comments 07/03/2025 1:50 PM EDT 07/03/2025 1:50 PM EDT us Zeke Neri MD LAB BLOOD ORDERABLES Final Re sult Performing Organization Address [facility] de Phone Number [place] See order comments [place] [address] * Albumin (07/03/2025 1:50 PM EDT) Albumin 4.0 3.5 - 5.0 g/dL See order comments 07/03/2025 1:50 PM EDT 07/03/2025 1:50 PM EDT us Zeke Neri MD LAB BLOOD ORDERABLES Final Re sult Performing Organization Address [facility] de Phone Number [place] See order comments [place] [address] * Electrolyte panel (07/03/2025 1:50 PM EDT) [...] ORDERABLES Final Re sult Performing Organization Address [facility] de Phone Number [place] See order comments [place] [address] * (ABNORMAL) Protein, Total, Random Urine w/Creatinine (Protein/Creat Ratio) (07/03/2025 1:07 PM EDT) Protein Urine Random 17(H) <12 mg/dL See order comments Protein/Creatin ine Ratio, Urine 0.11 <0.2 See order comments Comment: The spot urine protein:creatinine ratio may increase to 0.3 during normal . 07/03/2025 1:07 PM EDT 07/03/2025 1:07 PM EDT Zeke Neri MD LAB URINE ORDERABLES Final Re [facility] Performing Organization Address [facility] Co de Phone Number [place] See order comments [place] [address] * (ABNORMAL) Albumin, urine, random (07/03/2025 1:07 [...] Neri MD LAB URINE ORDERABLES Final [facility] Performing Organization Address [facility] de Phone Number [place] See order comments [place] [address] * (ABNORMAL) Urinalysis with microscopic (07/03/2025 1:07 PM EDT) Color Urine Yellow See orde r comments Appearance Urine Clear See order comments pH Urine 6.0 5.0 - 9.0 See order comments Glucose Urine Negative Negative mg/dL See order comments Blood, Urine Negative Negative See ord er comments Specific [place] Urine 1.015 1.005 - 1.025 See order [...] ORDERABLES Final Re sult Performing Organization Address [facility] de [facility] Number [facility] See order comments [place] [address] * (ABNORMAL) Urinalysis (07/03/2025 1:07 PM EDT) Color Urine Yellow See orde r comments Appearance Urine Clear See order comments pH Urine 6.0 5.0 - 9.0 See order comments Glucose Urine Negative Negative mg/dL See order comments Blood, Urine Negative Negative See ord er comments Specific [place] Urine 1.015 1.005 - 1.025 See order comments Protein Urine Trace Neg-Trace mg/dL See order comments Ketones, Urine Negative Negative mg/dL See order comments Nitrite, Urine Negative Negative See o rder comments Leukocyte Esterase Urine Small (1+)(A) Negative See order comments 07/03/2025 1:07 PM EDT 07/03/2025 1:07 PM EDT Zeke Neri MD LAB URINE ORDERABLES Final Re sult Performing Organization Address [facility] de Phone Number [facility] See order comments [place] [address] from Last 3 Months Insurance [facility] Medicare [facility] Medicare Care Teams Gold Leaf Gilder Relationship Specialty Start Date End Date Ryley Varela MD [phone] [place], [place] PCP - General 10/20/20
== END 2025-07-03 11:40 | disposition home or self-care (01) ==
LOC: HO.HMGCLDS 11:39
PROVIDERS: PCP Internal Medicine; Visit Provider Internal Medicine Nephrology
DX: I12.9 Hypertensive chronic kidney disease with stage 1 through stage 4 chronic kidney disease, or unspecified chronic kidney disease (principal); N18.32 Chronic kidney disease, stage 3b; N25.0 Renal osteodystrophy
CPT/HCPCS: 36415; 80051; 81001; 82040; 82043; 82306; 82310; 82565; 82570; 83735; 83970; 84100; 84155; 84156; 84520; 85027

== ENCOUNTER 2025-07-08 15:03 | Outpatient (AMB) | payer MEDICARE, SELFPAY ==
--- OUTSIDE RECORDS SUMMARY | 2024-11-27 11:00 | XMS_ITS ---
Author Organization [facility] Address [address] [place] [address] Care Team Providers Care Civil Engineer Land Development Name Role Phone Angi Rubi Primary Care Provider Talia Rosenbaum [phone] Chang Encounters Encounter Location Date Provider Diagnosis [address] [address] 11/27/2024 Talia Bazzi Plan Of Treatment Next Appt Details Provider Name:aTlia chan, 07/12/2025 01:30:00 PM, [address] [place] [address], [phone], Progress Notes * Destiny YADAV FDOB:1944 (80 yo F)Acc No.[id number]:11/27/2024 Progress Note Patient: Destiny MCGRATH Provider: John Bazzi DPM :1945 A ge:79 Y S ex:Female Date:11/27/2024 Address:[address] [place], [place] [phone] Pcp:Angi Rubi Subjective: * Chief Complaints: * [...] DPM Date: 0 11/27/2024 Generated for Alejandro Diane/Noe on: 0 07/08/2025 01:27 PM EDT
--- OUTSIDE RECORDS SUMMARY | 2025-07-08 13:45 | XMS_ITS | Encounter Summary ---
Author Organization [facility] Address [address] [place] [phone] Phone Care Team Providers Care Criminal Investigator Customs Name Role Phone Ryley Varela MD Primary Care Provider [phone] Encounter Details Date Type Department Care Team (Latest Contact Info) Description 07/08/2025 1:45 PM EDT [facility] [address] [place] [place] [phone] Zeke Neri MD [address] [phone] Chronic kidney disease, stage 4 (severe) (HCC) (Primary Dx); Renal osteodystrophy Social History Tobacco Use Types Packs/Day Years [...] on file documented as of this encounter Last Filed Vital Signs Vital Sign Reading Time Taken Comments Blood Pressure 120/70 07/08/2025 1:46 PM EDT Pulse 59 07/08/2025 1:46 PM EDT Temperature - - Respiratory Rate - - Oxygen Saturation 98% 07/08/2025 1:46 PM EDT Inhaled Oxygen Concentration - - Weight 47.7 kg (105 lb 3.2 oz) 07/08/2025 1:46 P M EDT Height - - Body Mass Index 19.24 08/05/2020 12:00 PM EDT documented in this encounter Patient Instructions * Patient Instructions* Zeke Neri MD - 07/08/2025 1:45 PM EDT No NSAIDS - Do not take non-steroidal anti-inflammatory medications (NSAIDS) such as Ibuprofen (Advil, Motrin, etc), Naproxen (Aleve, etc), Celecoxib (Celebrex) or Ketoprofen. These common arthritis medications can cause permanent kidney damage or worsen your kidney damage. For mild occasional pain, Acetaminophen (Tylenol, etc) is safe for your kidneys. Sodium and Your CKD Diet: How to Spice Up Your Cooking What is sodium? Sodium is a mineral found naturally in foods and is the major part of table salt. What are the effects of eating too much sodium? When your kidneys are not healthy, extra sodium and fluid build up in your body. This can cause swollen ankles, puffiness, a rise in blood pressure, shortness of breath, and/or fluid around your heart and lungs. See the following table for suggestions on how to reduce sodium in your diet. LIMIT THE [AMOUNT OF... FOOD TO LIMIT BECAUSE OF THEIR HIGH SODIUM CONTENT ACCEPTABLE SUBSTITUTES SALT & SALT SEASONINGS Table salt Seasoning salt Garlic salt Onion salt Celery salt Lemon pepper Lite salt Meat tenderizer Bouillon cubes Flavor enhancers Fresh garlic, fresh onion, garlic powder, onion powder, black [pepper, lemon juice, low-sodium/salt-free seasoning blends, vinegar SALTY FOODS Barbecue sauce Steak sauce Soy sauce Teriaky sauce Oyster sauce Salted Snacks such as Crackers Potato chips [place] chips Pretzels Tortilla chips Nuts Popcorn [place] seeds Homemade or low- sodium sauces and salad dressings; Vinegar, dry mustard, unsalted popcorn, pretzels, tortilla or corn chips Cured Foods Ham Salt pork [place] Sauerkraut Pickles, pickle relish Lox & Fregoso Olives Fresh beef, veal, pork, poultry, fish, eggs [place] MEATS Hot Dogs Cold cuts, deli meats Pastrami Sausage Corned beef Spam Low-salt deli meats PROCESSED FOODS Buttermilk Cheese Canned: Soups Tomato products Vegetable juices Canned vegetables Convenience Foods such as: TV Dinners Canned raviolis [place] Macaroni & Cheese Spaghetti Frozen prepared foods Fast foods Natural cheese (1-2 oz Per week) Homemade or chidi,1- sodium soups, canned food without added salt Homemade casseroles without added salt, made with fresh or raw vegetables, fresh meat, christoph, pasta, or unsalted canned vegetables Some salt or sodium is needed for body water balance. But when your kidneys lose the ability to control sodium and water balance, you may experience the following: thirst fluid gain high blood pressure discomfort during dialysis By using less sodium in your diet, you can control these problems. Hints to keep your sodium intake down Cook with herbs and spices instead of salt. (Refer to Spice Up Your Cooking section for further suggestions.) Read food labels and choose those foods low in sodium. Avoid salt substitutes and specialty low-sodium foods made with salt substitutes because they are high in potassium. When eating out, ask for meat or fish without salt. Ask for gravy or sauce on the side; these may contain large amounts of salt and should be used in small amounts . Limit use of canned, processed and frozen foods. Some information about reading labels Understanding the terms: Sodium Free - Only a trivial amount of sodium per serving. Very Low Sodium - 35 mg or less per serving. Low Sodium - 140 mg or less per serving. Reduced Sodium - Foods in which the level of sodium is reduced by 25%. Light or Lite in Sodium - Foods in which the sodium is reduced by at least 50% . Simple rule of thumb : If salt is listed in the first five ingredients, the item is probably too high in sodium to use. All food labels now have milligrams (mg) of sodium listed. Follow these steps when reading the sodiwn information on the label: 1. Know how much sodium you are allowed each day. Remember that there are 1000 milligrams (mg) in 1gram. For upwz4mmg, if your diet prescription is 2 grams of sodium , your limit is 2000 milligrams per day. Consider the sodium value or other food to be eaten during the day. 2. Look at the package label. Check the serving size. Nutrition values are expressed per mirtha g. How does this compare to your total daily allowance? If the sodium level is 500 mg or more per serving, the item is not a good choice. 3. Compare labels of similar products. Select the lowest sodium level for the same serving size. How to Spice Up Your Cooking Giving up salt does not mean giving up flavor. Learn to season your food with herbs and spices. Be creative and experiment for a new and exciting flavor. What kinds of spices and herbs should I use instead of salt to add flavor? Try the following spices with the foods listed. Allspice: Use with beef, fish, beets, cabbage, canots, peas, fruit. Basil: Use with beef, pork, most vegetables. [place]: Use with beef, pork, most vegetables. [place]: Use with beef, pork, green beans, cauliflower, cabbage, beets, asparagus, and in dips and marinades. Cardamom: Use with fruit and in baked goods. Chang: Use with beef, chicken, pork, fish, green beans, carrots and in marinades. Dill: Use with beef, chicken, green beans, cabbage, carrots, peas and in dips. Kimmy: Use with beef, chicken, pork, green beans, cauliflower and eggplant. Marjoram: Use with beef, chicken, pork, green beans, cauliflower and eggplant. Jana: Use with chicken, pork, cauliflower, peas and in marinades. Thyme: Use with beef, chicken, pork, fish, green beans, beets and carrots. [place]: Use with chicken, pork, eggplant and in dressing. Tarragon: Use with fish, chicken, asparagus, beets, cabbage, cauliflower and in marinades. Tips for cooking with herbs and spices Purchase spices and herbs in small amounts . When they sit on the shelf for years they lose their flavor. Use no more than ?? teaspoon of dried spice (?? of fresh) per pound of meat. Add ground spices to food about 15 minutes before the end of the cooking period. Add whole spices to food at least one hour before the end of the cooking period. Combine herbs with oil or butter, set for 30 minutes to bring out their flavor, then brush on foodswhile they cook, or brush meat with oil and sprinkle herbs one hour before coolcing. Crush dried herbs before adding to foods. Can I use salt substitutes? Caution! If you are told to limit potassium in your diet, be very cautious about using salt substitutes because most of them contain some form of potassium. Check with your doctor or dietitian beforeusing and salt substitute. Bluff and create your own seasoning containing those spices that you like. If you would like to become a volunteer and find out more about what's happening where you live, contact your local [facility] Affiliate. Blood pressure monitoring education: Monitor home blood pressure values after sitting for 5 minutes with back and arm support. Keep a log. Bring your log and blood pressure cuff to your next visit. documented in this encounter Plan of Treatment Upcoming Encounters Date Type Department Care Team (Late st Contact Info) Description 01/06/2026 1:30 PM EDT Office Visit [facility] [address] [place] [phone] Zeke Neri MD [address] [facility] [address] [place] [phone] Scheduled Orders Name Type Priority Associated Diagnoses Orde r Schedule PTH, Intact Lab Routine Chronic kidney disease, stage 4 (severe) (HCC) Renal osteodystrophy Expected: 07/08/2025, Expires: 08/07/2026 Renal Function Panel Lab Routine Chronic kidney disease, stage 4 (severe) (HCC) Renal osteodystrophy Expected: 07/08/2025, Expires: 08/07/2026 Urinalysis with microscopic Lab Routine Chronic kidney disease, stage 4 (severe) (HCC) Renal osteodystrophy Expected: 07/08/2025, Expires: 08/07/2026 Urine Albumin / Creatinine Ratio Lab Routine Chronic kidney disease, stage 4 (severe) (HCC) Renal osteodystrophy Expected: 07/08/2025, Expires: 08/07/2026 Protein, Total, Random Urine w/Creatinine (Protein/Creat Ratio) Lab Routine Chronic kidney disease, stage 4 (severe) (HCC) Renal osteodystrophy Expected: 07/08/2025, Expires: 08/07/2026 Vitamin D 25 Hydroxy Lab Routine Chronic kidney disease, stage 4 (severe) (HCC) Renal osteodystrophy Expected: 07/08/2025, Expires: 08/07/2026 CBC Lab Routine Chronic kidney disease, stage 4 (severe) (HCC) Renal osteodystrophy Expected: 07/08/2025, Expires: 08/07/2026 Phosphorus Lab Routine Chronic kidney disease, stage 4 (severe) (HCC) Renal osteodystrophy Expected: 07/08/2025, Expires: 08/07/2026 Magnesium Lab Routine Chronic kidney disease, stage 4 (severe) (HCC) Renal osteodystrophy Expected: 07/08/2025, Expires: 08/07/2026 Albumin Lab Routine Chronic kidney disease, stage 4 (severe) (HCC) Renal osteodystrophy Expected: 07/08/2025, Expires: 08/07/2026 Calcium Lab Routine Chronic kidney disease, stage 4 (severe) (HCC) Renal osteodystrophy Expected: 07/08/2025, Expires: 08/07/2026 documented as of this encounter Visit Diagnoses Diagnosis Chronic kidney disease, stage 4 (severe) (HCC)- Primary Renal osteodystrophy documented in this encounter Care Teams Criminal Investigator Customs Relationship Specialty Start Date End Date Ryley Varela MD [address] [place] [address] [address] [place], [place] PCP - General 10/20/20 documented as of this encounter
--- NOTE | 2025-07-08 15:24 | A.OFFPC_ITS ---
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 Weight loss-had a pelvis fracture earlier in the year with weight loss ongoing since the initial injury about 3 months ago. Brought in today for weight check and weight has been stable at about 106 lb. She also had a tooth pulled which has been limiting her oral intake but it is getting better. She has a dental follow-up in 10 days. COPD-no recent exacerbation. Rare albuterol usage Anxiety/depression- On sertraline 50 mg daily, nortriptyline, alprazolam p.r.n. Hypertension-not currently on therapies. Blood pressure 116/62 Hyperlipidemia-on atorvastatin 10 mg daily. Due for lipid panel CKD- Dr. Neri Pelvis fracture- greatly improved. Continues with home PT exercises. Using a cane and a Rollator for ambulation. Pain is mostly controlled with Tylenol Concerns: As above ROS: General: No fevers, malaise, unintentional weight loss HEENT: No blurred vision, diplopia. No sore throat, nasal congestion, rhinorrhea, sinus pain, ear pain Cardiovascular: No chest pain, palpitations, or leg edema Respiratory: No shortness of breath, wheezing, cough GI: No abdominal pain, nausea, vomiting, diarrhea, constipation, melena, hematochezia : No dysuria, hematuria, increased urinary frequency, decreased urinary output MSK: No myalgia, back pain Neuro: No headaches, weakness, paresthesias Skin: No rashes or lesions EXAM: Constitutional - Awake and Alert, No apparent distress Eyes - PERRL Cardiovascular - S1S2, RRR, No edema Respiratory - Normal lung expansion, Normal respiratory effort, No respiratory distress, CTA bilaterally Extremities - no calf tenderness bilaterally, no swelling Skin - Warm/Dry Neurological - Alert & oriented x3 Psychological - Appropriate affect [facility] Medical History Allergic rhinitis Acute respiratory disease CKD (chronic kidney disease) Arthritis Enteropathogenic Escherichia coli infection Essential tremor COPD (chronic obstructive pulmonary disease) Vertigo Anxiety Depression HTN (hypertension) Sigmoid diverticulosis Internal hemorrhoids Hyperlipidemia Tubular adenoma of colon Abnormal colonoscopy Surgical History History of ear surgery H/O arthroscopy of left knee History of thumb surgery History of ankle surgery Family History Mother No problems noted. Father No problems noted. Social History Household Members: Spouse Housing: House Are you a primary care technician to a significant other at home: No Do you presently have visiting nurse or other home services: No Alcohol intake: never Patient Tobacco Use Status: Current everyday Tobacco user Tobacco use type: Cigarette Cigarette Packs Per Day: 0.5 Cigarettes Per Day: 8 Years Smoked: 40 e-Cigarette/Vaping Use: Currently Using service: No Current occupational status: retired Cognitive needs: No Hearing needs: No Vision needs: Yes (rx glasses) Questionnaire Thrive Questionnaire Date Thrive assessed: 03/13/25 MARYURI-7 AMB Questionnaire MARYURI-7 Date MARYURI - 7 assessed: 02/15/25 Source: Developed by Drs. John Wilson, Marlys Wallis, Aramis Martinez and colleagues, with an educational shae from [employer]. Physical exam (Primary Care) Vital Signs: Last Vital Signs Temp 97.3 F 07/08/25 15:30 Pulse 75 07/08/25 15:30 Resp 16 07/08/25 15:30 BP 134/70 07/08/25 15:30 Pulse Ox 98 07/08/25 15:30 Oxygen Delivery Method Room Air 07/08/25 15:30 Tobacco/Smoking Status: Tobacco use Status Tobacco use date assessed 02/15/25 07/08/25 15:27 Patient Tobacco Use Status Current everyday Tobacco 07/08/25 15:27 Tobacco use type Cigarette 07/08/25 15:27 e-Cigarette/Vaping Use Currently Using 07/08/25 15:27 Thrive Assessment: Date of Thrive Assessment Date Thrive assessed 03/13/25 07/08/25 15:27 Coding Level of Care Code Est Pt Level 4 (46328) Diagnoses Weight loss R63.4 Primary hypertension I10 Hypertension type: primary hypertension Anxiety F41.9 Assessment & Plan Assessment & Plan (1) Weight loss: Code(s): R63.4 - Abnormal weight loss Category: Medical Plan: Has stabilized. We will continue monitoring (2) HTN (hypertension): Code(s): I10 - Essential (primary) hypertension Category: Medical Qualifiers: Hypertension type: primary hypertension Qualified Code(s): I10 - Essent ial (primary) hypertension Plan: Controlled. Continue current therapies (3) Anxiety: Code(s): F41.9 - Anxiety disorder, unspecified Category: Medical Plan: Stable. Continue following with Psychiatry, continue current medications Plan Follow-up in the office in 4-5 months
[2025-07-08 15:30] VITALS: BP 134/70; PULSE 75; RESP 16; TEMP 36.3; O2SAT 98; BMI 19.4
--- OUTSIDE RECORDS SUMMARY | 2025-07-08 17:09 | XMS_ITS | Clinical Summary ---
Author Organization [facility] Address [address] [place] [address] [place] [phone] Phone Care Team Providers Care Supervising Floorperson Name Role Phone Ryley Varela MD Primary Care Provider [phone] Allergies Active Allergy Reactions Criticality Noted Date [...] mouth every night Active ergocalciferol 1.25 MG (08955 UT) capsule TAKE 1 CAPSULE BY MOUTH EVERY 14 DAYS 6 capsule 2 2 Active Active Problems Problem Noted Date Diagnosed Date Chronic kidney disease, stage 4 (severe) 025 Neurological symptom 11/30/2023 Overview (06/27/2025): Other symptoms [...] 3:42 PM (H83.09) Bilateral temporomandibular joint pain Overview (06/27/2025): Arthralgia of bilateral temporomandibular joint; [...] Encounters Date Type Department Care Team Description 07/08/2025 1:45 PM EDT Office Visit [facility] [address] [place] [phone] Zeke Neri MD Chronic kidney disease, stage 4 (severe) (HCC) (Primary Dx); Renal osteodystrophy 07/03/2025 Orders Only [facility] [address] [phone] Zeke Neri MD from Last 3 Months [...] oz) 07/08/2025 1:46 P M EDT Height 157.5 cm (5' 2 ) 08/05/2020 12:00 PM EDT Body Mass Index 19.24 08/05/2020 12:00 PM EDT Plan of Treatment Upcoming Encounters Date Type Department Care Team (Late st Contact Info) Description 01/06/2026 1:30 PM EDT Office Visit [facility] the [address] [place] [phone] Zeke Neri MD [address] [phone] Health Maintenance Due Date Last Done Comments [...] PM EDT us Zeke Neri MD LAB [id number] SOLICITED RESULTS Final Result Performing Organization Address [facility] Co de Phone Number [facility] See order comments [place] [address] * (ABNORMAL) Creatinine (07/03/2025 1:50 PM EDT) Creatinine Serum 1.92(H) 0.5 - 1.4 mg/dL See order comments eGFR (Calc) 25 See orde r comments Comment: Chronic Kidney Disease: Estimated GFR < 60 mL/min/1.73m2 Severe Kidney Disease: Estimated GFR < 15 mL/min/1.73m2 07/03/2025 1:50 PM EDT 07/03/2025 1:50 PM EDT us Zeke Neri MD LAB BLOOD ORDERABLES Final Re sult Performing Organization Address [facility] de Phone Number [place] See order comments [place] [address] * (ABNORMAL) PTH, Intact (07/03/2025 1:50 PM EDT) Parathyroid Hormone, Intact 103.6(H) 8.7 - 77.1 pg/mL See order comments 07/03/2025 1:50 PM EDT 07/03/2025 1:50 PM EDT us Zeke Neri MD LAB [id number] SOLICITED RESULTS Final Result Performing Organization Address [facility] Co de Phone Number [place] See order comments [place] [address] * (ABNORMAL) Vitamin D 25 Hydroxy (07/03/2025 1:50 PM EDT) Pathologist [facility] Vitamin D, 25-Hydroxy 21.5(L) >30 ng/mL See [...] PM EDT 07/03/2025 1:50 PM EDT us Zeek Neri MD LAB BLOOD ORDERABLES Final Re sult [place] See order comments [place] [address] * (ABNORMAL) CBC (07/03/2025 1:50 PM EDT) Pathologist [facility] WBC 6.4 4.8 - 10.8 X10*3/uL See [...] ORDERABLES Final Re sult Performing Organization Address [facility] de Phone Number [facility] See order comments [place] [address] * (ABNORMAL) BUN (07/03/2025 1:50 PM EDT) BUN 22(H) 9 - 16 mg/dL See order comments 07/03/2025 1:50 PM EDT 07/03/2025 1:50 PM EDT Zeke Neri MD LAB BLOOD ORDERABLES Final Re sult Performing Organization Address [facility] de Phone Number [place] See order comments [place] [address] * Phosphorus (07/03/2025 1:50 PM EDT) Phosphorus, Serum 3.5 2.7 - 4.5 mg/dL See order comments 07/03/2025 1:50 PM EDT 07/03/2025 1:50 PM EDT Zeke Neri MD LAB BLOOD ORDERABLES Final Re sult Performing Organization Address [facility] de Phone Number [place] See order comments [place] [address] * Magnesium (07/03/2025 1:50 PM EDT) Magnesium 2.5 1.6 - 2.6 mg/dL See order comments 07/03/2025 1:50 PM EDT 07/03/2025 1:50 PM EDT us Zeke Neri MD LAB BLOOD ORDERABLES Final Re sult Performing Organization Address [facility] Phone Number [place] See order comments [place] [address] * Calcium (07/03/2025 1:50 PM EDT) Calcium 9.3 8.4 - 10.2 mg/dL See order comments 07/03/2025 1:50 PM EDT 07/03/2025 1:50 PM EDT us Zeke Neri MD LAB BLOOD ORDERABLES Final Re sult Performing Organization Address [facility] Phone Number [place] See order comments [place] [address] * Albumin (07/03/2025 1:50 PM EDT) Albumin 4.0 3.5 - 5.0 g/dL See order comments 07/03/2025 1:50 PM EDT 07/03/2025 1:50 PM EDT us Zeke Neri MD LAB BLOOD ORDERABLES Final Re sult Performing Organization Address [facility] Phone Number [place] See order comments [place] [address] * Electrolyte panel (07/03/2025 1:50 PM EDT) [...] ORDERABLES Final Re sult Performing Organization Address [facility]/ZIP Co de Phone Number [facility] See order comments [place] [address] * (ABNORMAL) Protein, Total, Random Urine w/Creatinine [...] ORDERABLES Final Re sult Performing Organization Address [facility] Phone Number [facility] See order comments [place] [address] * (ABNORMAL) Albumin, urine, random (07/03/2025 1:07 [...] ORDERABLES Final Re sult Performing Organization Address [facility] de Phone Number [place] See order comments [place] [address] * (ABNORMAL) Urinalysis with microscopic (07/03/2025 1:07 PM EDT) Color Urine Yellow See orde r comments Appearance Urine Clear See order comments pH Urine 6.0 5.0 - 9.0 See order comments Glucose Urine Negative Negative mg/dL See order comments Blood, Urine Negative Negative See ord er comments Specific Delta Urine 1.015 1.005 - 1.025 See order [...] ORDERABLES Final Re sult Performing Organization Address [facility] de Phone Number [place] See order comments [place] [address] * (ABNORMAL) Urinalysis (07/03/2025 1:07 PM EDT) Color Urine Yellow See orde r comments Appearance Urine Clear See order comments pH Urine 6.0 5.0 - 9.0 See order comments Glucose Urine Negative Negative mg/dL See order comments Blood, Urine Negative Negative See ord er comments Specific Delta Urine 1.015 1.005 - 1.025 See order comments Protein Urine Trace Neg-Trace mg/dL See order comments Ketones, Urine Negative Negative mg/dL See order comments Nitrite, Urine Negative Negative See o rder comments Leukocyte Esterase Urine Small (1+)(A) Negative See order comments 07/03/2025 1:07 PM EDT 07/03/2025 1:07 PM EDT Zeke Neri MD LAB URINE ORDERABLES Final Re sult Performing Organization Address [facility] Co de Phone Number [place] See order comments [place] [address] from Last 3 Months Insurance [facility] Medicare [facility] Medicare Care Teams Supervising Floorperson Relationship Specialty Start Date End Date Ryley Varela MD [address] [place] [address] [address] [place] PCP - General 10/20/20
--- OUTSIDE RECORDS SUMMARY | 2025-07-08 17:10 | XMS_ITS | Encounter Summary ---
Author Organization [facility] Address [address] [address] Phone Care Team Providers Care Electrical Installation Supervisor Name Role Phone Ryley Varela MD Primary Care Provider [phone] Encounter Details Date Type Department Care Team (Late Contact Info) Description 07/03/2025 Orders Only [facility] [address] [place] [phone] Zeke Neri MD [address] [address] Social History Tobacco Use Types [...] Department Care Team (Late Contact Info) Description 01/06/2026 1:30 PM EDT Office Visit [facility] [address] [place] [phone] Zeke Neri MD [address] [address] documented as of this encounter [...] 1:50 PM EDT Zeke Neri MD LAB [id number] SOLICITED RESULTS Final Result Performing Organization Address [facility] Co de Phone Number [place] See order comments [place] [address] * (ABNORMAL) Vitamin D 25 Hydroxy (07/03/2025 [...] ORDERABLES Final Re sult Performing Organization Address City/[facility]/ZIP Co de Phone Number [place] See order comments [place] [address] * Albumin (07/03/2025 1:50 PM EDT) Albumin 4.0 3.5 - 5.0 g/dL See order comments 07/03/2025 1:50 PM EDT 07/03/2025 1:50 PM EDT us Zeke Neri MD LAB BLOOD ORDERABLES Final Re sult Performing Organization Address [facility] de Phone Number [place] See order comments [place] [address] * Total Protein (07/03/2025 1:50 PM EDT) Total Protein 6.7 6.5 - 8.0 g/dL See order comments 07/03/2025 1:50 PM EDT 07/03/2025 1:50 PM EDT us Zeke Neri MD LAB [id number] SOLICITED RESULTS Final Result Performing Organization Address [facility] Phone Number [place] See order comments [place] [address] * Magnesium (07/03/2025 1:50 PM EDT) Magnesium 2.5 1.6 - 2.6 mg/dL See order comments 07/03/2025 1:50 PM EDT 07/03/2025 1:50 PM EDT us Zeke Neri MD LAB BLOOD ORDERABLES Final Re sult Performing Organization Address [facility] de Phone Number [place] See order comments [place] [address] * Phosphorus (07/03/2025 1:50 PM EDT) Phosphorus, Serum 3.5 2.7 - 4.5 mg/dL See order comments 07/03/2025 1:50 PM EDT 07/03/2025 1:50 PM EDT us Zeke Neri MD LAB BLOOD ORDERABLES Final Re sult Performing Organization Address [facility] Co de Phone Number [place] See order comments [place] [address] * Calcium (07/03/2025 1:50 PM EDT) Calcium 9.3 8.4 - 10.2 mg/dL See order comments 07/03/2025 1:50 PM EDT 07/03/2025 1:50 PM EDT Zeke Neri MD LAB BLOOD ORDERABLES Final Re sult Performing Organization Address [facility] de Phone Number [place] See order comments [place] [address] * (ABNORMAL) Creatinine (07/03/2025 1:50 PM EDT) Creatinine Serum 1.92(H) 0.5 - 1.4 mg/dL See order comments eGFR (Calc) 25 See orde r comments Comment: Chronic Kidney Disease: Estimated GFR < 60 mL/min/1.73m2 Severe Kidney Disease: Estimated GFR < 15 mL/min/1.73m2 07/03/2025 1:50 PM EDT 07/03/2025 1:50 PM EDT us Zeke Neri MD LAB BLOOD ORDERABLES Final Re sult Performing Organization Address [facility] de Phone Number [place] See order comments [place] [address] * (ABNORMAL) BUN (07/03/2025 1:50 PM EDT) BUN 22(H) 9 - 16 mg/dL See order comments 07/03/2025 1:50 PM EDT 07/03/2025 1:50 PM EDT Zeke Neri MD LAB BLOOD ORDERABLES Final Re sult Performing Organization Address [facility] de Phone Number [place] See order comments [place] [address] * Electrolyte panel (07/03/2025 1:50 PM EDT) [...] ORDERABLES Final Re sult Performing Organization Address [facility] Co de Phone Number [place] See order comments [place] [address] * (ABNORMAL) CBC (07/03/2025 1:50 PM EDT) [...] ORDERABLES Final Re sult Performing Organization Address [facility] Co de Phone Number [place] See order comments [place] [address] * (ABNORMAL) Protein, Total, Random Urine w/Creatinine (Protein/Creat Ratio) (07/03/2025 1:07 PM EDT) Protein Urine Random 17(H) <12 mg/dL See order comments Protein/Creatin ine Ratio, Urine 0.11 <0.2 See order comments Comment: The spot urine protein:creatinine ratio may increase to 0.3 during normal . 07/03/2025 1:07 PM EDT 07/03/2025 1:07 PM EDT Zeke Neri MD LAB URINE ORDERABLES Final Re [facility] Performing Organization Address [facility] de Phone Number [facility] See order comments [place] [address] * (ABNORMAL) Albumin, urine, random (07/03/2025 1:07 [...] Zeke Neri MD LAB URINE ORDERABLES Final [facility] Performing Organization Address [facility] de Phone Number [place] See order comments [place] [address] * (ABNORMAL) Urinalysis with microscopic (07/03/2025 1:07 PM EDT) Color Urine Yellow See orde r comments Appearance Urine Clear See order comments pH Urine 6.0 5.0 - 9.0 See order comments Glucose Urine Negative Negative mg/dL See order comments Blood, Urine Negative Negative See ord er comments Specific [place] Urine 1.015 1.005 - 1.025 See order [...] ORDERABLES Final Re sult Performing Organization Address [facility] Co de Phone Number [place] See order comments [place] [address] * (ABNORMAL) Urinalysis (07/03/2025 1:07 PM EDT) Color Urine Yellow See orde r comments Appearance Urine Clear See order comments pH Urine 6.0 5.0 - 9.0 See order comments Glucose Urine Negative Negative mg/dL See order comments Blood, Urine Negative Negative See ord er comments Specific [place] Urine 1.015 1.005 - 1.025 See order comments Protein Urine Trace Neg-Trace mg/dL See order comments Ketones, Urine Negative Negative mg/dL See order comments Nitrite, Urine Negative Negative See o rder comments Leukocyte Esterase Urine Small (1+)(A) Negative See order comments 07/03/2025 1:07 PM EDT 07/03/2025 1:07 PM EDT Zeke Neri MD LAB URINE ORDERABLES Final Re sult Performing Organization Address [facility] Co de Phone Number [place] See order comments [place] [address] documented in this encounter Visit Diagnoses Not on filedocumented in this encounter Care Teams Electrical Installation Supervisor Relationship Specialty Start Date End Date Ryley Varela MD [address] [place] PCP - General 10/20/20 documented as of this encounter
--- OUTSIDE RECORDS SUMMARY | 2025-07-08 17:10 | XMS_ITS | Patient Health Record ---
Author Organization [facility] Address [address] [place] [address] Care Team Providers Care Rocket Motor Tester Name Role Phone Angi Rubi Primary Care Provider Talia Rosenbaum Unavailable [phone] Allergies Allergen (clinical drug ingredient) Drug/Non Drug [...] W/U Status Risk Notes Problem Plantar wart (54304929) Plantar wart (B07.0) Active confirmed Problem Bilateral atherosclerosis of arteries of lower limbs (disorder) (58310054829874573 ) Unspecified atherosclerosis of [place] arteries of extremities, bilateral legs (I70.203) Active confirmed Problem Localized, primary osteoarthritis of the ankle and/or foot (658290976) Primary osteoarthritis, right ankle and foot (M19.071) Active confirmed Problem Localized, primary osteoarthritis of the ankle and/or foot (016343513) Primary osteoarthritis, left ankle and foot (M19.072) Active confirmed Problem Acquired hammer toe of right foot (6738324074664843) Other hammer toe(s) (acquired), right foot (M20.41) Active confirmed Problem Bilateral atherosclerosis of arteries of lower limbs (disorder) (57300419537375046 ) Atherosclerosis of [place] artery of both lower extremities, with unspecified presence of clinical manifestation (I70.203) Active confirmed Vital Signs Blood pressure diastolic 70 mm Hg 04/26/2025 Height 5 ft2in in 04/26/2025 Blood pressure systolic 120 mm Hg 04/26/2025 Weight 110 lbs 04/26/2025 BMI 20.12 kg/m2 04/26/2025 Encounters Encounter Location Date Provider Diagnosis [facility] [address] [place] [address] 07/13/2024 Talia Bazzi Plantar wart B07.0 ; Metatarsalgia, right foot M77.41 ; Atherosclerosis of [place] artery of both lower extremities, with unspecified presence of clinical manifestation I70.203 ; Tinea unguium B35.1 ; Pain in right toe(s) M79.674 ; Pain in left toe(s) M79.675 ; Right foot pain M79.671 and Pain in right ankle and joints of right foot M25.[address] [address] 09/14/2024 Talia Perica Plantar wart B07.0 ; Metatarsalgia, right foot M77.41 ; Atherosclerosis of [place] artery of both lower extremities, with unspecified presence of clinical manifestation I70.203 ; Tinea unguium B35.1 ; Pain in right toe(s) M79.674 ; Pain in left toe(s) M79.675 and Right foot pain M79.[address] [address] 12/04/2024 Talia Perica Plantar wart B07.0 ; Metatarsalgia, right foot M77.41 ; Atherosclerosis of [place] artery of both lower extremities, with unspecified presence of clinical manifestation I70.203 ; Tinea unguium B35.1 ; Pain in right toe(s) M79.674 ; Pain in left toe(s) M79.675 and Right foot pain M79.[address] [address] 02/13/2025 Talia Perica Plantar wart B07.0 ; Atherosclerosis of [place] artery of both lower extremities, with unspecified presence of clinical manifestation I70.203 ; Tinea unguium B35.1 ; Pain in right toe(s) M79.674 ; Pain in left toe(s) M79.675 and Right foot pain M79.[address] [address] 04/26/2025 Talia Perica Plantar wart B07.0 ; Atherosclerosis of [place] artery of both lower extremities, with unspecified [...] wart (ICD-10 - B07.0) 02/13/2025 Atherosclerosis of [place] artery of both lower extremities, with unspecified presence of clinical manifestation (ICD-10 - I70.203) 04/26/2025 Plantar wart (ICD-10 - B07.0) 02/13/2025 Tinea unguium (ICD-10 - B35.1) 12/04/2024 Metatarsalgia, right foot (ICD-10 - M77.41) 09/14/2024 Atherosclerosis of [place] artery of both lower extremities, with unspecified presence of clinical manifestation (ICD-10 - I70.203) 04/26/2025 Atherosclerosis of [place] artery of both lower extremities, with unspecified presence of clinical manifestation (ICD-10 - I70.203) 07/13/2024 Atherosclerosis of [place] artery of both lower extremities, with unspecified presence of clinical manifestation (ICD-10 - I70.203) 07/13/2024 Metatarsalgia, right foot (ICD-10 - M77.41) 07/13/2024 Tinea unguium (ICD-10 - B35.1) 09/14/2024 Tinea unguium (ICD-10 - B35.1) 12/04/2024 Atherosclerosis of [place] artery of both lower extremities, with unspecified [...] Details Provider Name:Talia chan, 07/12/2025 01:30:00 PM, [address] [place] [address], [phone], Insurance Providers Payer Name Payer Address Payer Phone Subscriber Number Group Number Insured Name Patient Relationship to Insured Coverage Start Date Coverage End Date Medicare [facility] [employer] [address] [place] [address] [id number] Destiny Pedro Self - patient is the insured [employer] [facility] [address] [place] [address] [id number] Destiny Pedro Self - patient is the insured Medical (General) History Medical History History ICD Code Anxiety Back,Hip,and Knee pain Broken bones, hip CAD (Cholesterol) Cataracts Depression High blood pressure Kidney disease chronic sinusitis Measles Mumps Chicken pox Joint implants/screws Arthritis sinusitis Surgical History Surgery Date(Month/Year) Ankle Surgery 1997 Thumb Surgery 2010 ear surgery 2002 knee [id number] 2014 hip surgery 05/01 Hospitalization History Reason Date(Month/Year) Fell 03/03
== END 2025-07-08 15:44 | disposition home or self-care (01) ==
LOC: HO.HMCHD 15:03
PROVIDERS: PCP Physician Assistant; Visit Provider Physician Assistant
DX: R63.4 Abnormal weight loss (principal); I10 Essential (primary) hypertension; F41.9 Anxiety disorder, unspecified

== ENCOUNTER → 2025-07-08 15:03 | Outpatient (BNVA) | payer MEDICARE, SELFPAY | PROVIDERS: PCP Physician Assistant; Visit Provider Physician Assistant | DX: R63.4 Abnormal weight loss (principal); F41.9 Anxiety disorder, unspecified; E78.5 Hyperlipidemia, unspecified; I12.9 Hypertensive chronic kidney disease with stage 1 through stage 4 chronic kidney disease, or unspecified chronic kidney disease; N18.30 Chronic kidney disease, stage 3 unspecified; J44.9 Chronic obstructive pulmonary disease, unspecified; Z79.899 Other long term (current) drug therapy | CPT/HCPCS: 99212 ==

== ENCOUNTER 2025-07-26 11:35 | Outpatient (REF) | payer MEDICARE, SELFPAY ==
--- OUTSIDE RECORDS SUMMARY | 2024-11-27 11:00 | XMS_ITS ---
Author Organization [facility] Address [address] [place] [address] Care Team Providers Care Herpetology Teacher Name Role Phone Angi Rubi Primary Care Provider Talia Rosenbaum [phone] Chang Encounters Encounter Location Date Provider Diagnosis [address] [address] 11/27/2024 Talia Bazzi Plan Of Treatment Next Appt Details Provider Name:Talia chan, 10/16/2025 02:45:00 PM, [address] [place] [address], [phone], Progress Notes * Destiny YADAV FDOB:1944 (80 yo F)Acc No.[id number]:11/27/2024 Progress Note Patient: Destiny MCGRATH Provider: John Bazzi DPM :1945 A ge:79 Y S ex:Female Date:11/27/2024 Address:[address] [place], [place] [phone] Pcp:Angi Rubi Subjective: * Chief Complaints: * [...] 0 11/27/2024 Generated for Alejandro Ceballos on: 1 02:25 PM EDT
[2025-07-26 12:49] LABS: Hematocrit 37.2 % (37.0-47.0); Hemoglobin 11.8 g/dl (12.0-16.0); Mean Corpuscular HGB Conc 31.7 g/dl (31.0-35.0); Mean Corpuscular Hemoglobin 30.8 pg (27.0-33.0); Mean Corpuscular Volume 97.1 fL (80.0-98.0); NRBC Abs Auto 0.000 X10*3/uL (0.0-0.012); NRBC Pct Auto 0.0 /100WBC (0.0-0.2); Platelet Count 193 X10*3/uL (160-400); Red Blood Count 3.83 X10*6/uL (4.20-5.50); White Blood Count 5.9 X10*3/uL (4.8-10.8)
[2025-07-26 14:05] LABS: Anion Gap 10 (12-20); Blood Urea Nitrogen 23 mg/dL (9-16); Calcium 8.8 mg/dL (8.4-10.2); Carbon Dioxide 28 mmol/L (22-29); Chloride 106 mmol/L (96-108); Estimated Glomerular Filt Rate 27; Potassium 4.2 mmol/L (3.3-5.1); Sodium 140 mmol/L (135-145)
--- OUTSIDE RECORDS SUMMARY | 2025-07-26 14:25 | XMS_ITS | Clinical Summary ---
Author Organization [facility] Address [address] [place] [address] [place] [phone] Phone Care Team Providers Care Machine Cementer Name Role Phone Ryley Varela MD Primary Care Provider [phone] Allergies Active Allergy Reactions Criticality Noted Date [...] mouth every night Active ergocalciferol 1.25 MG (02057 UT) capsule TAKE 1 CAPSULE BY MOUTH [...] Encounters Date Type Department Care Team Description 07/23/2025 Office Communication [facility] [address] [address] Zeke Neri MD 07/08/2025 1:45 PM EDT Office Visit [facility] [address] [place] [phone] Zeke Neri MD Chronic kidney disease, stage 4 (severe) (HCC) (Primary Dx); Renal osteodystrophy 07/03/2025 Orders Only [facility] [place] [address] [address] Zeke Neri MD from Last 3 Months Immunizations Immunization Administration Dates Next Due Pneumococcal Polysaccharide 03/25/2004 Family History Medical History Relation Comments Dementia Father sister Cancer Mother breast Heart disease Mother mother - enlarge d heart Relation Status Comments Father Mother Social History Tobacco Use Types Packs/Day Years Used Date Smoking Tobacco: Every Day Cigarettes 0.5 61.8 Started: [birth year]10/1964 Smokeless Tobacco: Never Alcohol Use [...] Office Visit [facility] [address] [place] [address] Zeke Neri MD [address] [address] Health Maintenance Due Date Last Done Comments [...] PM EDT us Zeke Neri MD LAB [id number] SOLICITED RESULTS Final Result Performing Organization Address [facility] Co de Phone Number [place] See order comments [place] [address] * (ABNORMAL) Creatinine (07/03/2025 1:50 PM EDT) Creatinine Serum 1.92(H) 0.5 - 1.4 mg/dL See order comments eGFR (Calc) 25 See orde r comments Comment: Chronic Kidney Disease: Estimated GFR < 60 mL/min/1.73m2 Severe Kidney Disease: Estimated GFR < 15 mL/min/1.73m2 07/03/2025 1:50 PM EDT 07/03/2025 1:50 PM EDT us Zeke Neri MD LAB BLOOD ORDERABLES Final Re sult Performing Organization Address [facility] Co de Phone Number [place] See order comments [place] [address] * (ABNORMAL) PTH, Intact (07/03/2025 1:50 PM EDT) Parathyroid Hormone, Intact 103.6(H) 8.7 - 77.1 pg/mL See order comments 07/03/2025 1:50 PM EDT 07/03/2025 1:50 PM EDT us Zeke Neri MD LAB [id number] SOLICITED RESULTS Final Result Performing Organization Address [facility] de Phone Number [place] See order comments [place] [address] * (ABNORMAL) Vitamin D 25 Hydroxy (07/03/2025 [...] ORDERABLES Final Re sult Performing Organization Address [facility] Co de Phone Number [place] See order comments [place] [address] * (ABNORMAL) CBC (07/03/2025 1:50 PM EDT) [...] ORDERABLES Final Re sult Performing Organization Address [facility] Phone Number [place] See order comments [place] [address] * (ABNORMAL) BUN (07/03/2025 1:50 PM EDT) BUN 22(H) 9 - 16 mg/dL See order comments 07/03/2025 1:50 PM EDT 07/03/2025 1:50 PM EDT us Zeke Neri MD LAB BLOOD ORDERABLES Final Re sult Performing Organization Address [facility] Phone Number [place] See order comments [place] [address] * Phosphorus (07/03/2025 1:50 PM EDT) Phosphorus, Serum 3.5 2.7 - 4.5 mg/dL See order comments 07/03/2025 1:50 PM EDT 07/03/2025 1:50 PM EDT us Zeke Neri MD LAB BLOOD ORDERABLES Final Re sult Performing Organization Address [facility] Phone Number [place] See order comments [place] [address] * Magnesium (07/03/2025 1:50 PM EDT) Magnesium 2.5 1.6 - 2.6 mg/dL See order comments 07/03/2025 1:50 PM EDT 07/03/2025 1:50 PM EDT us Zeke Neri MD LAB BLOOD ORDERABLES Final Re sult Performing Organization Address [facility] Phone Number [place] See order comments [place] [address] * Calcium (07/03/2025 1:50 PM EDT) Calcium 9.3 8.4 - 10.2 mg/dL See order comments 07/03/2025 1:50 PM EDT 07/03/2025 1:50 PM EDT us Zeke Neri MD LAB BLOOD ORDERABLES Final Re sult Performing Organization Address [facility] Phone Number [place] See order comments [place] [address] * Albumin (07/03/2025 1:50 PM EDT) Albumin 4.0 3.5 - 5.0 g/dL See order comments 07/03/2025 1:50 PM EDT 07/03/2025 1:50 PM EDT us Zeke Neri MD LAB BLOOD ORDERABLES Final Re sult Performing Organization Address [facility] Phone Number [place] See order comments [place] [address] * Electrolyte panel (07/03/2025 1:50 PM EDT) [...] ORDERABLES Final Re sult Performing Organization Address [facility] de Phone Number [place] See order comments [place] [address] * (ABNORMAL) Protein, Total, Random Urine w/Creatinine (Protein/Creat Ratio) (07/03/2025 1:07 PM EDT) Protein Urine Random 17(H) <12 mg/dL See order comments Protein/Creatin ine Ratio, Urine 0.11 <0.2 See order comments Comment: The spot urine protein:creatinine ratio may increase to 0.3 during normal . 07/03/2025 1:07 PM EDT 07/03/2025 1:07 PM EDT us Zeke Neri MD LAB URINE ORDERABLES Final Re sult Performing Organization Address [facility] de Phone Number [place] See order comments [place] [address] * (ABNORMAL) Albumin, urine, random (07/03/2025 1:07 [...] 1:07 PM EDT 07/03/2025 1:07 PM EDT us eZke Neri MD LAB URINE ORDERABLES Final Re sult Performing Organization Address [facility] Co de Phone Number [place] See order comments [place] [address] * (ABNORMAL) Urinalysis with microscopic (07/03/2025 1:07 PM EDT) Color Urine Yellow See orde r comments Appearance Urine Clear See order comments pH Urine 6.0 5.0 - 9.0 See order comments Glucose Urine Negative Negative mg/dL See order comments Blood, Urine Negative Negative See ord er comments Specific [place] Urine 1.015 1.005 - 1.025 See order [...] ORDERABLES Final Re sult Performing Organization Address [facility] de Phone Number [place] See order comments [place] [address] * (ABNORMAL) Urinalysis (07/03/2025 1:07 PM EDT) Color Urine Yellow See orde r comments Appearance Urine Clear See order comments pH Urine 6.0 5.0 - 9.0 See order comments Glucose Urine Negative Negative mg/dL See order comments Blood, Urine Negative Negative See ord er comments Specific [place] Urine 1.015 1.005 - 1.025 See order comments Protein Urine Trace Neg-Trace mg/dL See order comments Ketones, Urine Negative Negative mg/dL See order comments Nitrite, Urine Negative Negative See o rder comments Leukocyte Esterase Urine Small (1+)(A) Negative See order comments 07/03/2025 1:07 PM EDT 07/03/2025 1:07 PM EDT Zeke Neir MD LAB URINE ORDERABLES Final Re sult Performing Organization Address [facility] de Phone Number [place] See order comments [place] [address] from Last 3 Months Insurance [facility] Medicare [facility] Medicare Care Teams Machine Cementer Relationship Specialty Start Date End Date Ryley Varela MD [address] [place] ID PCP - General 10/20/20
--- OUTSIDE RECORDS SUMMARY | 2025-07-26 14:26 | XMS_ITS | Encounter Summary ---
Author Organization [facility] Address [address] [address] Phone Care Team Providers Care Analyst Food And Beverage Name Role Phone Ryley Varela MD Primary Care Provider [phone] Encounter Details Date Type Department Care Team (Late Contact Info) Description 07/23/2025 Office Communication [facility] [address] [place] [phone] Zeke Neri MD [address] [address] Social History Tobacco Use Types [...] Office Visit [facility] [address] [place] [phone] Zeke Neri MD [address] [address] documented as of this encounter Visit Diagnoses Not on filedocumented in this encounter Care Teams Analyst Food And Beverage Relationship Specialty Start Date End Date Ryley Varela MD [address] [id number] PCP - General 10/20/20 documented as of this encounter
--- OUTSIDE RECORDS SUMMARY | 2025-07-26 14:26 | XMS_ITS | Patient Health Record ---
Author Organization [facility] Address [address] [place] [address] Care Team Providers Care Wild Life Manager Name Role Phone Angi Rubi Primary Care Provider Talia Rosenbaum Unavailable [phone] Allergies Allergen (clinical drug ingredient) Drug/Non Drug [...] Duration) Notes Start Date End Date Status Atorvastatin Calcium 10 MG Oral; Duration: 90 Days Active Olopatadine HCl 0.1 % Ophthalmic; Durati on: 90 Days Active Meclizine HCl Active Tylenol Active Flonase PRN Active Fluticasone Propionate 50 MCG/ACT Nasal; Duration: 60 Days Act romeo Primidone 50 MG 1 tablet Orally Once a day Active Vitamin C Active Nortriptyline HCl 10 MG 2 capsule Orally Once a day; Duration: 30 days Active Lipitor 10 MG 1 tablet Orally Once a day; Duration: 30 day(s) Active Vitamin D Active ALPRAZolam 0.25 MG 1 tablet Orally Twic e a day Active Sertraline HCl Activ e Immunizations Vaccine Route Administration Date Status Comme [...] W/U Status Risk Notes Problem Plantar wart (26614071) Plantar wart (B07.0) Active confirmed Problem Bilateral atherosclerosis of arteries of lower limbs (disorder) (80157552880126034 ) Unspecified atherosclerosis of seminole arteries of extremities, bilateral legs (I70.203) Active confirmed Problem Localized, primary osteoarthritis of the ankle and/or foot (298463410) Primary osteoarthritis, right ankle and foot (M19.071) Active confirmed Problem Localized, primary osteoarthritis of the ankle and/or foot (255099514) Primary osteoarthritis, left ankle and foot (M19.072) Active confirmed Problem Acquired hammer toe of right foot (2123972383905227) Other hammer toe(s) (acquired), right foot (M20.41) Active confirmed Problem Bilateral atherosclerosis of arteries of lower limbs (disorder) (16582516597546553 ) Atherosclerosis of seminole artery of both lower extremities, with unspecified presence of clinical manifestation (I70.203) Active confirmed Vital Signs Blood pressure diastolic 75 mm Hg 07/12/2025 Height 5 ft2in in 07/12/2025 Blood pressure systolic 119 mm Hg 07/12/2025 Weight 107 lbs 07/12/2025 BMI 19.57 kg/m2 07/12/2025 Encounters Encounter Location Date Provider Diagnosis [facility] [place] [address] [place] [address] 09/14/2024 Talia Bazzi Plantar wart B07.0 ; Metatarsalgia, right foot M77.41 ; Atherosclerosis of seminole artery of both lower extremities, with unspecified presence of clinical manifestation I70.203 ; Tinea unguium B35.1 ; Pain in right toe(s) M79.674 ; Pain in left toe(s) M79.675 and Right foot pain M79.[address] [address] 12/04/2024 Talia Perica Plantar wart B07.0 ; Metatarsalgia, right foot M77.41 ; Atherosclerosis of seminole artery of both lower extremities, with unspecified presence of clinical manifestation I70.203 ; Tinea unguium B35.1 ; Pain in right toe(s) M79.674 ; Pain in left toe(s) M79.675 and Right foot pain M79.[address] [address] 02/13/2025 Talia Perica Plantar wart B07.0 ; Atherosclerosis of seminole artery of both lower extremities, with unspecified presence of clinical manifestation I70.203 ; Tinea unguium B35.1 ; Pain in right toe(s) M79.674 ; Pain in left toe(s) M79.675 and Right foot pain M79.[address] [address] 04/26/2025 Talia Perica Plantar wart B07.0 ; Atherosclerosis of seminole artery of both lower extremities, with unspecified presence of clinical manifestation I70.203 ; Tinea unguium B35.1 ; Pain in right toe(s) M79.674 ; Pain in left toe(s) M79.675 and Right foot pain M79.[address] [address] 07/12/2025 Talia Perica Plantar wart B07.0 ; Atherosclerosis of seminole artery of both lower extremities, with unspecified [...] wart (ICD-10 - B07.0) 02/13/2025 Atherosclerosis of seminole artery of both lower extremities, with unspecified presence of clinical manifestation (ICD-10 - I70.203) 04/26/2025 Plantar wart (ICD-10 - B07.0) 07/12/2025 Plantar wart (ICD-10 - B07.0) 04/26/2025 Atherosclerosis of seminole artery of both lower extremities, with unspecified presence of clinical manifestation (ICD-10 - I70.203) 07/12/2025 Atherosclerosis of seminole artery of both lower extremities, with unspecified presence of clinical manifestation (ICD-10 - I70.203) 02/13/2025 Tinea unguium (ICD-10 - B35.1) 12/04/2024 Metatarsalgia, right foot (ICD-10 - M77.41) 09/14/2024 Atherosclerosis of seminole artery of both lower extremities, with unspecified presence of clinical manifestation (ICD-10 - I70.203) 09/14/2024 Tinea unguium (ICD-10 - B35.1) 12/04/2024 Atherosclerosis of seminole artery of both lower extremities, with unspecified presence of clinical manifestation (ICD-10 - I70.203) 02/13/2025 Pain in right toe(s) (ICD-10 - M79.674) 04/26/2025 Tinea unguium (ICD-10 - B35.1) 07/12/2025 Tinea unguium (ICD-10 - B35.1) 04/26/2025 Pain in right toe(s) (ICD-10 - M79.674) 07/12/2025 Pain in right toe(s) (ICD-10 - M79.674) 02/13/2025 Pain in left toe(s) (ICD-10 - M79.675) 12/04/2024 Tinea unguium (ICD-10 - B35.1) 09/14/2024 Pain in right toe(s) (ICD-10 - M79.674) 09/14/2024 Pain in left toe(s) (ICD-10 - M79.675) 12/04/2024 Pain in right toe(s) (ICD-10 - M79.674) 02/13/2025 Right foot pain (ICD-10 - M79.671) 04/26/2025 Pain in left toe(s) (ICD-10 - M79.675) 07/12/2025 Pain in left toe(s) (ICD-10 - M79.675) 04/26/2025 Right foot pain (ICD-10 - M79.671) 07/12/2025 Right foot pain (ICD-10 - M79.671) 12/04/2024 Pain in left toe(s) (ICD-10 - M79.675) 09/14/2024 Right foot pain (ICD-10 - M79.671) 12/04/2024 Right foot pain (ICD-10 - M79.671) Plan Of Treatment Pending Test Test Name Order Date X ray : Foot, right 3V 08/15/2019 X ray : Foot, right 3V 02/29/2024 X ray : Foot, right 3V 05/11/2024 X ray : Foot, right 3V 07/13/2024 Next Appt Details Provider Name:Talia chan, 10/16/2025 02:45:00 PM, [address] [place], [address], Insurance Providers Payer Name Payer Address Payer Phone Subscriber Number Group Number Insured Name Patient Relationship to Insured Coverage Start Date Coverage End Date Medicare National [employer] [address] [place] [address] [id number] Destiny Pedro Self - patient is the insured Med[employer]emnion [facility] [address] [place] [address] [id number] Destiny Pedro Self - patient is the insured Medical (General) History Medical History History ICD Code Anxiety Back,Hip,and Knee pain Broken bones, hip CAD (Cholesterol) Cataracts Depression High blood pressure Kidney disease chronic sinusitis Measles Mumps Chicken pox Joint implants/screws Arthritis sinusitis Surgical History Surgery Date(Month/Year) Ankle Surgery 1997 Thumb Surgery 2010 ear surgery 2002 knee [id number] 2015 hip surgery 05/01 Hospitalization History Reason Date(Month/Year) 03/03
== END 2025-07-26 11:36 | disposition home or self-care (01) ==
LOC: HO.LAB 11:35
PROVIDERS: PCP Physician Assistant Medical; Visit Provider Physician Assistant Medical
DX: Z13.29 Encounter for screening for other suspected endocrine disorder (principal); Z91.81 History of falling
CPT/HCPCS: 36415; 80048; 84443; 85027

== ENCOUNTER 2025-08-02 14:08 | Outpatient (AMB) | payer MEDICARE, SELFPAY ==
--- OUTSIDE RECORDS SUMMARY | 2024-11-27 11:00 | XMS_ITS ---
Author Organization [facility] Address [address] [place] [address] Care Team Providers Care Tape Weaver Name Role Phone Angi Rubi Primary Care Provider Talia Rosenbaum [phone] Chang Encounters Encounter Location Date Provider Diagnosis [address] [address] 11/27/2024 Talia Bazzi Plan Of Treatment Next Appt Details Provider Name:Talia chan, 10/16/2025 02:45:00 PM, [address] [place] [address], [phone], Progress Notes * Destiny YADAV FDOB:1944 (80 yo F)Acc No.[id number]:11/27/2024 Progress Note Patient: Destiny MCGRATH Provider: John Bazzi DPM :1945 A ge:79 Y S ex:Female Date:11/27/2024 Address:[address] [place], [place] [phone] Pcp:Angi Rubi Subjective: * Chief Complaints: * [...] 0 11/27/2024 Generated for Alejandro Diane/Noe on: 04:10 PM EDT
[2025-08-02 09:58] VITALS: BP 130/80; PULSE 82; TEMP 36.4; O2SAT 98; BMI 19.6
--- NOTE | 2025-08-02 09:58 | MHC.PC.OV ---
Vital Signs 08/02/25 09:58 Height 5 ft 2 in Weight 48.534 kg BMI 19.6 BP 130/80 Blood Pressure Location Rt brachial Position Sitting Pulse 82 Pulse Source Pulse Oximeter Temp 97.5 F Temp Source Temporal Artery Scan Pulse Oximetry (%) 98 Oxygen Delivery Method Room Air Intake Visit Reasons: frequent falls Accompanied by: Self / Same As Patient Allergies prochlorperazine (From COMPAZINE) Allergy (Severe, Verified 08/02/25 09:58) Anaphylaxis aspirin (ASPIRIN) Adverse Reaction (Severe, Verified 08/02/25 09:58) Kidney failure Medication List - Last Reconciled 08/02/25 by WALDO Argueta albuterol sulfate 90 mcg/actuation 2 puffs inhalation QID alprazolam 0.5 mg PO TID PRN atorvastatin 10 mg PO DAILY ergocalciferol (vitamin D2) 1 cap PO Q2W fluticasone propionate 50 mcg/actuation 1 spray intranasal BID nortriptyline 30 mg PO DAILY olopatadine 0.1% 1 drp ophthalmic (eye) BID primidone 50 mg PO DAILY sertraline 50 mg PO DAILY tramadol 50 mg PO Q12H PRN Tobacco use date assessed: 08/02/25 Fall risk assessment: No Falls in past year Last assessed Fall Risk: 08/02/25 Dental Screening Dental Screen Date: 08/02/25 Did you have a dental visit in the last 12 months?: Yes Did you have a dental problem in the last 6 months where you did not have access to dental care?: No HPI HPI Comments History of Present Illness Details 80-year-old female with history of COPD, anxiety/depression, hypertension, hyperlipidemia, CKD stage 3, essential tremor presenting to the office today for evaluation. Weight loss-had a pelvis fracture earlier in the year with weight loss ongoing since the initial injury about 3 months ago. Brought in today for weight check and weight has been stable at about 106 lb. She also had a tooth pulled which has been limiting her oral intake but it is getting better. She has a dental follow-up in 10 days. COPD-no recent exacerbation. Rare albuterol usage Anxiety/depression- On sertraline 50 mg daily, nortriptyline, alprazolam p.r.n. Hypertension-not currently on therapies. Blood pressure 116/62 Hyperlipidemia-on atorvastatin 10 mg daily. Due for lipid panel CKD- Dr. Neri Cigarette smoker-has resumed smoking, now 5-6 cigarettes daily Concerns: Recurrent falls- has had 4 mechanical falls over 3 months. First she put her foot on a step and her foot slipped. The 2nd she was playing with her puppy turned and her back fit hit the front foot and she fell. She then fell 2 weeks ago after tripping and broke her finger. She does feel weak in the right lower extremity and occasionally experiences pain along the lateral aspect of the right thigh. She does use a cane now more frequently and has not fallen since. She did sustain a pelvic fracture and fall in 01/2025. She has had [facility] in the home for PT twice but not since most recent fall. Last fall she did fracture her finger. Health maintenance: Due for DEXA scan ROS: See HPI EXAM: Constitutional - Awake and Alert, No apparent distress Eyes - PERRL Cardiovascular - S1S2, RRR, No edema Respiratory - Normal lung expansion, Normal respiratory effort, No respiratory distress, CTA bilaterally MSK - no midline ttp, right paraspinal ttp level of L4-S1. Limited flexion and extension Extremities - no calf tenderness bilaterally, no swelling Skin - Warm/Dry Neurological - Alert & oriented x3. 4/5 strength RLE. 5/5 strength LLE. Sensation intact. 2+ patellar reflexes. slow, Ataxic gait Psychological - Appropriate affect [facility] Medical History (Updated 08/02/25 @ 15:52 by WALDO Argueta) Pelvis fracture, right Lumbar radiculopathy Ataxic gait History of recent fall Allergic rhinitis Acute respiratory disease CKD (chronic kidney disease) Arthritis Enteropathogenic Escherichia coli infection Essential tremor COPD (chronic obstructive pulmonary disease) Vertigo Anxiety Depression HTN (hypertension) Sigmoid diverticulosis Internal hemorrhoids Hyperlipidemia Tubular adenoma of colon Abnormal colonoscopy Surgical History History of ear surgery H/O arthroscopy of left knee History of thumb surgery History of ankle surgery Family History Mother No problems noted. Father No problems noted. Social History Household Members: Spouse Housing: House Are you a primary acute care certified nursing assistant to a significant other at home: No Do you presently have visiting nurse or other home services: No Alcohol intake: never Patient Tobacco Use Status: Current everyday Tobacco user Tobacco use type: Cigarette Cigarette Packs Per Day: 0.5 Cigarettes Per Day: 8 Years Smoked: 40 e-Cigarette/Vaping Use: Currently Using service: No Current occupational status: retired Cognitive needs: No Hearing needs: No Vision needs: Yes (rx glasses) Questionnaire PHQ-9 Over the last 2 weeks, how often have you been bothered by any of the following problems? 1. Little interest or pleasure in doing things: not at all 2. Feeling down, depressed, or hopeless: several days 3. Trouble falling or staying asleep, or sleeping too much: not at all 4. Feeling tired or having little energy: nearly every day 5. Poor appetite or overeating: not at all 6. Feeling bad about yourself - or that you are a failure or have let yourself or your family down: not at all 7. Trouble concentrating on things, such as reading the newspaper or watching television: not at all 8. Moving or speaking so slowly that other people could have noticed. Or the opposite - being so fidgety or restless that you have been moving around a lot more than usual: not at all 9. Thoughts that you would be better off or of hurting yourself in some way: not at all Total score: 4 Source: Developed by Drs. John Wilson, Marlys Wallis, Aramis Martinez and colleagues, with an educational shae from [employer]. Thrive Questionnaire Date Thrive assessed: 08/02/25 I am a: Patient Within the past 12 months, did the food you bought not last and you didn't have the money to get more?: Never true Within the past 12 months, did you worry whether your food would run out before you got money to buy more?: Never true Do you have trouble paying for medicines?: No Do you have trouble getting transportation to medical appointments?: No Do you have trouble paying your heating and electricity bill?: No Do you have trouble taking care of your child, family member or friend?: No Do you have trouble with day-to-day activities such as bathing, preparing meals, shopping, managing finances, etc.?: No Are you currently unemployed and looking for a job?: No Are you interested in more education?: No THRIVE Score: 0 AUDIT C Alcohol Use Questionnaire (AUDIT-C) 1. How often do you have a drink containing alcohol?: Never 3. How often do you have six or more drinks on one occasion?: Never Total Score: 0 MARYURI-7 AMB Questionnaire MARYURI-7 Date MARYURI - 7 assessed: 08/02/25 Feeling nervous, anxious, or on edge: 1 = Several days Not being able to stop or control worryin = Several days Worrying too much about different things: 1 = Several days Trouble relaxin = Not at all Being so restless that it is hard to sit still: 0 = Not at all Becoming easily annoyed or irritable: 0 = Not at all Feeling afraid as if something awful might happen: 0 = Not at all Total MARYURI-7 score (0-4 normal; 5-9 mild; 10-14 moderate; 15-21 severe): 3 Source: Developed by Drs. John Wilson, Marlys Wallis, Aramis Martinez and colleagues, with an educational shae from [employer]. Physical exam (Primary Care) Vital Signs: Last Vital Signs Temp 97.5 F 08/02/25 09:58 Pulse 82 08/02/25 09:58 BP 130/80 08/02/25 09:58 Pulse Ox 98 08/02/25 09:58 Oxygen Delivery Method Room Air 08/02/25 09:58 BMI result Body Mass Index 19.6 Tobacco/Smoking Status: Tobacco use Status Tobacco use date assessed 08/02/25 08/02/25 09:59 Patient Tobacco Use Status Current everyday Tobacco 08/02/25 09:59 Tobacco use type Cigarette 08/02/25 09:59 e-Cigarette/Vaping Use Currently Using 08/02/25 09:59 PHQ-9: PHQ-9 Score PHQ-9: Total score 4 08/02/25 15:03 Thrive Assessment: Date of Thrive Assessment Date Thrive assessed 08/02/25 08/02/25 09:59 Coding Level of Care Code Est Pt Level 4 (58767) Complex EM visit Add On G2211 Diagnoses Multiple falls R29.6 Ataxic gait R26.0 Lumbar radiculopathy M54.16 Smoking F17.200 Assessment & Plan Assessment & Plan (1) Multiple falls: Code(s): R29.6 - Repeated falls Category: Medical Plan: Related to ataxic gait. Did review last MRI. Given radicular symptoms and weakness in the right lower extremity, MRI of the lumbar spine is ordered. Referred to [facility]. We will also refer back to [facility] for physical therapy given most recent fall. Advised to use her cane at all times or walker. (2) Ataxic gait: Code(s): R26.0 - Ataxic gait Category: Medical Plan: There is ataxic gait bilaterally. Suspect falls are related in part to spinal issues, but may also have additional contributing factors based on gait assessment. Referred to physical therapy and to Neurology (3) Lumbar radiculopathy: Code(s): M54.16 - Radiculopathy, lumbar region Category: Medical Plan: See above (4) Smoking: Code(s): F17.200 - Nicotine dependence, unspecified, uncomplicated Category: Social Hx Plan: Strongly advised smoking cessation. Discussed that she very well has osteoporosis and given her recent falls, she is at increased risk for major fracture. Declines nrt Plan Follow-up in the office as scheduled Orders: Orders XR DEXA axial skeleton Today F17.200 - Nicotine dependence, unspecified, uncomplicated, M81.0 - Age-related osteoporosis without current pathological fracture, M89.8X9 - Other specified disorders of bone, unspecified site MR lumbar spine wo con Today M54.16 - Radiculopathy, lumbar region, R26.0 - Ataxic gait, R29.6 - Repeated falls, R29.898 - Other symptoms and signs involving the musculoskeletal system, Z91.81 - History of falling Referrals Neurology Referral R26.0 - Ataxic gait, R29.6 - Repeated falls
--- OUTSIDE RECORDS SUMMARY | 2025-08-02 16:10 | XMS_ITS | Clinical Summary ---
Author Organization [facility] Address [address] [place] [address] [place] [address] Phone Care Team Providers Care Ultrasound Technologist Sonographer Name Role Phone Ryley Varela MD Primary Care Provider [phone] Allergies Active Allergy Reactions Criticality Noted Date [...] mouth every night Active ergocalciferol 1.25 MG (62335 UT) capsule TAKE 1 CAPSULE BY MOUTH [...] Communication [facility] [address] [address] Zeke Neri MD 07/08/2025 1:45 PM EDT Office Visit [facility] [address] [place] [phone] Zeke Neri MD Chronic kidney disease, stage 4 (severe) (HCC) (Primary Dx); Renal osteodystrophy 07/03/2025 Orders Only [facility] [place] [address] [address] Zeke Neri MD from Last [...] Office Visit [facility] [address] [place] [address] Zeke Neri MD [address] [address] Health Maintenance Due Date Last Done Comments [...] PM EDT us Zeke Neri MD LAB [id number] SOLICITED RESULTS Final Result Performing Organization Address [facility] Co de Phone Number [place] See order comments [place] [address] * (ABNORMAL) Creatinine (07/03/2025 1:50 PM EDT) Creatinine Serum 1.92(H) 0.5 - 1.4 mg/dL See order comments eGFR (Calc) 25 See orde r comments Comment: Chronic Kidney Disease: Estimated GFR < 60 mL/min/1.73m2 Severe Kidney Disease: Estimated GFR < 15 mL/min/1.73m2 07/03/2025 1:50 PM EDT 07/03/2025 1:50 PM EDT us Zeke Neri MD LAB BLOOD ORDERABLES Final Re sult Performing Organization Address [facility] Co de Phone Number [place] See order comments [place] [address] * (ABNORMAL) PTH, Intact (07/03/2025 1:50 PM EDT) Parathyroid Hormone, Intact 103.6(H) 8.7 - 77.1 pg/mL See order comments 07/03/2025 1:50 PM EDT 07/03/2025 1:50 PM EDT us Zeke Neri MD LAB [id number] SOLICITED RESULTS Final Result Performing Organization Address [facility] de Phone Number [place] See order comments [place] [address] * (ABNORMAL) Vitamin D 25 Hydroxy (07/03/2025 [...] ORDERABLES Final Re sult Performing Organization Address [facility] Co de Phone Number [place] See order comments [place] [address] * (ABNORMAL) CBC (07/03/2025 1:50 PM EDT) [...] ORDERABLES Final Re sult Performing Organization Address [facility] Phone Number [place] See order comments [place] [address] * (ABNORMAL) BUN (07/03/2025 1:50 PM EDT) BUN 22(H) 9 - 16 mg/dL See order comments 07/03/2025 1:50 PM EDT 07/03/2025 1:50 PM EDT us Zeke Neri MD LAB BLOOD ORDERABLES Final Re sult Performing Organization Address [facility] Phone Number [place] See order comments [place] [address] * Phosphorus (07/03/2025 1:50 PM EDT) Phosphorus, Serum 3.5 2.7 - 4.5 mg/dL See order comments 07/03/2025 1:50 PM EDT 07/03/2025 1:50 PM EDT us Zkee Neri MD LAB BLOOD ORDERABLES Final Re sult Performing Organization Address [facility] Phone Number [place] See order comments [place] [address] * Magnesium (07/03/2025 1:50 PM EDT) Magnesium 2.5 1.6 - 2.6 mg/dL See order comments 07/03/2025 1:50 PM EDT 07/03/2025 1:50 PM EDT us Zeke Neri MD LAB BLOOD ORDERABLES Final Re sult Performing Organization Address [facility] Phone Number [place] See order comments [place] [address] * Calcium (07/03/2025 1:50 PM EDT) Calcium 9.3 8.4 - 10.2 mg/dL See order comments 07/03/2025 1:50 PM EDT 07/03/2025 1:50 PM EDT us Zeke Neri MD LAB BLOOD ORDERABLES Final Re sult Performing Organization Address [facility] Phone Number [place] See order comments [place] [address] * Albumin (07/03/2025 1:50 PM EDT) Albumin 4.0 3.5 - 5.0 g/dL See order comments 07/03/2025 1:50 PM EDT 07/03/2025 1:50 PM EDT us Zeke Neri MD LAB BLOOD ORDERABLES Final Re sult Performing Organization Address [facility] Phone Number [place] See order comments [place] [address] * Electrolyte panel (07/03/2025 1:50 PM EDT) [...] ORDERABLES Final Re sult Performing Organization Address [facility] de Phone Number [place] See order comments [place] [address] * (ABNORMAL) Protein, Total, Random Urine w/Creatinine [...] ORDERABLES Final Re sult Performing Organization Address [facility] de Phone Number [place] See order comments [place] [address] * (ABNORMAL) Albumin, urine, random (07/03/2025 1:07 [...] ORDERABLES Final Re sult Performing Organization Address [facility] Co de Phone Number [place] See order comments [place] [address] * (ABNORMAL) Urinalysis with microscopic (07/03/2025 1:07 PM EDT) Color Urine Yellow See orde r comments Appearance Urine Clear See order comments pH Urine 6.0 5.0 - 9.0 See order comments Glucose Urine Negative Negative mg/dL See order comments Blood, Urine Negative Negative See ord er comments Specific Glen Urine 1.015 1.005 - 1.025 See order [...] ORDERABLES Final Re sult Performing Organization Address [facility] de Phone Number [place] See order comments [place] [address] * (ABNORMAL) Urinalysis (07/03/2025 1:07 PM EDT) Color Urine Yellow See orde r comments Appearance Urine Clear See order comments pH Urine 6.0 5.0 - 9.0 See order comments Glucose Urine Negative Negative mg/dL See order comments Blood, Urine Negative Negative See ord er comments Specific Glen Urine 1.015 1.005 - 1.025 See order comments Protein Urine Trace Neg-Trace mg/dL See order comments Ketones, Urine Negative Negative mg/dL See order comments Nitrite, Urine Negative Negative See o rder comments Leukocyte Esterase Urine Small (1+)(A) Negative See order comments 07/03/2025 1:07 PM EDT 07/03/2025 1:07 PM EDT Zeke Neri MD LAB URINE ORDERABLES Final Re sult Performing Organization Address [facility] de Phone Number [place] See order comments [place] [address] from Last 3 Months Insurance [facility] Medicare [facility] Medicare Care Teams Ultrasound Technologist Sonographer Relationship Specialty Start Date End Date Ryley Varela MD [address] [place] PCP - General 10/20/20
--- OUTSIDE RECORDS SUMMARY | 2025-08-02 16:11 | XMS_ITS | Encounter Summary ---
Author Organization [facility] Address [address] [address] Phone Care Team Providers Care Relief Cook Name Role Phone Ryley Varela MD Primary Care Provider [phone] Encounter Details Date Type Department Care Team (Late Contact Info) Description 07/23/2025 Office Communication [facility] [address] [place] [phone] Zeke Neri MD [address] [address] Social History Tobacco Use Types [...] Office Visit [facility] [address] [place] [phone] Zeke Neri MD [address] [address] documented as of this encounter Visit Diagnoses Not on filedocumented in this encounter Care Teams Relief Cook Relationship Specialty Start Date End Date Ryley Varela MD [address] [place] PCP - General 10/20/20 documented as of this encounter
--- OUTSIDE RECORDS SUMMARY | 2025-08-02 16:11 | XMS_ITS | Patient Health Record ---
Author Organization [facility] Address [address] [place] [address] Care Team Providers Care Groover Runner Name Role Phone Angi Rubi Primary Care Provider Talia Rosenbaum Unavailable [phone] Allergies Allergen (clinical drug ingredient) Drug/Non Drug [...] W/U Status Risk Notes Problem Plantar wart (48656359) Plantar wart (B07.0) Active confirmed Problem Bilateral atherosclerosis of arteries of lower limbs (disorder) (39680461892378465 ) Unspecified atherosclerosis of knik arteries of extremities, bilateral legs (I70.203) Active confirmed Problem Localized, primary osteoarthritis of the ankle and/or foot (419575628) Primary osteoarthritis, right ankle and foot (M19.071) Active confirmed Problem Localized, primary osteoarthritis of the ankle and/or foot (983453652) Primary osteoarthritis, left ankle and foot (M19.072) Active confirmed Problem Acquired hammer toe of right foot (3841474934010324) Other hammer toe(s) (acquired), right foot (M20.41) Active confirmed Problem Bilateral atherosclerosis of arteries of lower limbs (disorder) (34739231419441385 ) Atherosclerosis of knik artery of both lower extremities, with unspecified presence of clinical manifestation (I70.203) Active confirmed Vital Signs Blood pressure diastolic 75 mm Hg 07/12/2025 Height 5 ft2in in 07/12/2025 Blood pressure systolic 119 mm Hg 07/12/2025 Weight 107 lbs 07/12/2025 BMI 19.57 kg/m2 07/12/2025 Encounters Encounter Location Date Provider Diagnosis [facility] [place] [address] [place] [address] 09/14/2024 Talia Bazzi Plantar wart B07.0 ; Metatarsalgia, right foot M77.41 ; Atherosclerosis of knik artery of both lower extremities, with unspecified presence of clinical manifestation I70.203 ; Tinea unguium B35.1 ; Pain in right toe(s) M79.674 ; Pain in left toe(s) M79.675 and Right foot pain M79.[address] [address] 12/04/2024 Talia Perica Plantar wart B07.0 ; Metatarsalgia, right foot M77.41 ; Atherosclerosis of knik artery of both lower extremities, with unspecified presence of clinical manifestation I70.203 ; Tinea unguium B35.1 ; Pain in right toe(s) M79.674 ; Pain in left toe(s) M79.675 and Right foot pain M79.[address] [address] 02/13/2025 Talia Perica Plantar wart B07.0 ; Atherosclerosis of knik artery of both lower extremities, with unspecified presence of clinical manifestation I70.203 ; Tinea unguium B35.1 ; Pain in right toe(s) M79.674 ; Pain in left toe(s) M79.675 and Right foot pain M79.[address] [address] 04/26/2025 Talia Perica Plantar wart B07.0 ; Atherosclerosis of knik artery of both lower extremities, with unspecified presence of clinical manifestation I70.203 ; Tinea unguium B35.1 ; Pain in right toe(s) M79.674 ; Pain in left toe(s) M79.675 and Right foot pain M79.[address] [address] 07/12/2025 Talia Perica Plantar wart B07.0 ; Atherosclerosis of knik artery of both [...] wart (ICD-10 - B07.0) 02/13/2025 Atherosclerosis of knik artery of both lower extremities, with unspecified presence of clinical manifestation (ICD-10 - I70.203) 04/26/2025 Plantar wart (ICD-10 - B07.0) 07/12/2025 Plantar wart (ICD-10 - B07.0) 04/26/2025 Atherosclerosis of knik artery of both lower extremities, with unspecified presence of clinical manifestation (ICD-10 - I70.203) 07/12/2025 Atherosclerosis of knik artery of both lower extremities, with unspecified presence of clinical manifestation (ICD-10 - I70.203) 02/13/2025 Tinea unguium (ICD-10 - B35.1) 12/04/2024 Metatarsalgia, right foot (ICD-10 - M77.41) 09/14/2024 Atherosclerosis of knik artery of both lower extremities, with unspecified presence of clinical manifestation (ICD-10 - I70.203) 09/14/2024 Tinea unguium (ICD-10 - B35.1) 12/04/2024 Atherosclerosis of knik artery of both lower [...] Provider Name:Talia chan, 10/16/2025 02:45:00 PM, [address] [place], [address], Insurance Providers Payer Name Payer Address Payer Phone Subscriber Number Group Number Insured Name Patient Relationship to Insured Coverage Start Date Coverage End Date Medicare National Govt Sv[employer] [address] [facility] [place] [address] [id number] Destiny Pedro Self - patient is the insured [facility] [facility] [address] [place] [address] [id number] Destiny Pedro Self - patient is the insured Medical (General) History Medical History History ICD Code Anxiety Back,Hip,and Knee pain Broken bones, hip CAD (Cholesterol) Cataracts Depression High blood pressure Kidney disease chronic sinusitis Measles Mumps Chicken pox Joint implants/screws Arthritis sinusitis Surgical History Surgery Date(Month/Year) Ankle Surgery 1997 Thumb Surgery 2010 ear surgery 2002 knee [id number] 2015 hip surgery 05/01 Hospitalization History Reason Date(Month/Year) 03/03
== END 2025-08-02 15:48 | disposition home or self-care (01) ==
LOC: HO.HMCHD 14:08
PROVIDERS: PCP Physician Assistant; Visit Provider Physician Assistant
DX: R29.6 Repeated falls (principal); R26.0 Ataxic gait; M54.16 Radiculopathy, lumbar region; F17.200 Nicotine dependence, unspecified, uncomplicated

== ENCOUNTER → 2025-08-02 14:08 | Outpatient (BNVA) | payer MEDICARE, SELFPAY | PROVIDERS: PCP Physician Assistant; Visit Provider Physician Assistant | DX: R29.6 Repeated falls (principal); R26.0 Ataxic gait; M54.16 Radiculopathy, lumbar region; J44.9 Chronic obstructive pulmonary disease, unspecified; I12.9 Hypertensive chronic kidney disease with stage 1 through stage 4 chronic kidney disease, or unspecified chronic kidney disease; N18.30 Chronic kidney disease, stage 3 unspecified; E78.5 Hyperlipidemia, unspecified; F41.9 Anxiety disorder, unspecified; F32.A Depression, unspecified; R63.4 Abnormal weight loss; F17.210 Nicotine dependence, cigarettes, uncomplicated; Z79.899 Other long term (current) drug therapy; Z13.30 Encounter for screening examination for mental health and behavioral disorders, unspecified; Z13.39 Encounter for screening examination for other mental health and behavioral disorders | CPT/HCPCS: 96127; 99212 ==

== ENCOUNTER 2025-08-14 11:28 | Outpatient (AMB) | payer MEDICARE, SELFPAY ==
--- OUTSIDE RECORDS SUMMARY | 2024-11-27 10:00 | XMS_ITS ---
Author Organization [facility] Address [address] [place] [address] Care Team Providers Care Cooker Soda Name Role Phone Angi Rubi Primary Care Provider Talia Rosenbaum [phone] Chang Encounters Encounter Location Date Provider Diagnosis [address] [address] 11/27/2024 Talia Bazzi Plan Of Treatment Next Appt Details Provider Name:Talia chan, 10/16/2025 02:45:00 PM, [address] [place] [address], [phone], Progress Notes * Destiny YADAV FDOB:1944 (80 yo F)Acc No.[id number]:11/27/2024 Progress Note Patient: Destiny MCGRATH Provider: John Bazzi DPM :1945 A ge:79 Y S ex:Female Date:11/27/2024 Address:[address] [place], [place] [id number] Pcp:Angi Rubi Subjective: * Chief Complaints: * [address] Chang[address] * Medical History: Objective: * Vitals: Assessment: Plan: * Treatment: * Images: * The named appointment provid er may or may not be the originator of this progress note, and it is not deemed complete until electronically signed by the appointment provider. Sign off status: Pending * Provider: John Bazzi DPM Date: 0 11/27/2024 Generated for Alejandro Ceballos on: 10/14/2024 02:02 PM EST
[2025-08-14 11:32] VITALS: BP 98/60; PULSE 90; TEMP 36.4; O2SAT 98; BMI 19.9
--- NOTE | 2025-08-14 11:32 | AM.OFFWIN_ITS ---
Intake Vital Signs 08/14/25 11:32 Height 5 ft 2 in Weight 109 lb BMI 19.9 BP 98/60 Blood Pressure Location Rt brachial Position Sitting Pulse 90 Pulse Source Pulse Oximeter Temp 97.6 F Temp Source Oral Pulse Oximetry (%) 98 Oxygen Delivery Method Room Air Intake Visit Reasons: EP-lt ankle pain & swollen Intake Note: pt presents with left ankle pain & swelling after hitting top of ankle while going up concrete steps at entrance home about 5 days ago Patient Tobacco Use Status: Current everyday Tobacco user Allergies prochlorperazine (From COMPAZINE) Allergy (Severe, Verified 08/02/25 09:58) Anaphylaxis aspirin (ASPIRIN) Adverse Reaction (Severe, Verified 08/02/25 09:58) Kidney failure Do you need a note to return to daycare/school/sports/work: No HPI HPI Comments History of Present Illness Details History of Present Illness - The patient is an 80-year-old female p resenting with left ankle pain following an incident on cement steps. - The incident occurred approximately fi ve to six days ago while ascending stairs quickly, and she tripped and fell. - She does not know what she did to the ankle, she was able to get up right away on her own. - She reports soreness and persistent pa in in the left anterior ankle radiating up the michaels. - The patient reports icing the area and using a wrap, which provided no relief. - There is numbness extending down the f oot, but no pain in the calf or foot bones. - She has been able to walk and bear shane ght but has pain. - She denies foot pain, calf pain, or kn ee pain. Physical Exam General: Cooperative, healthy appearing, comfortable, no acute distress and well developed Orientation: Patient oriented x 3 Respiratory: Normal respiratory effort and able to speak in complete sentences. Clear to auscultation bilaterally Cardiovascular: Regular rate and rhythm. Normal S1 and S2 Skin: No rashes or lesions noted. No bruising or abrasions noted. Neuro: Sensation is intact. Extremities: No deformity noted to the left ankle. No swelling noted. FROM of the left ankle and digits on the left foot. TTP of the mid ankle anteriorly. No TTP of the medial or lateral malleolus. No TTP of the metatarsals. Flexion and extension of the toes noted. No calf tenderness noted. FROM of the left knee. Strength is 5/5 on the LE. Ambulates with steady gait. Patient was informed and verbally consented to the use of an ambient scribe for clinic note documentation during this visit. [facility] Medical History (Updated 08/02/25 @ 15:52 by WALDO Argueta) Pelvis fracture, right Lumbar radiculopathy Ataxic gait History of recent fall Allergic rhinitis Acute respiratory disease CKD (chronic kidney disease) Arthritis Enteropathogenic Escherichia coli infection Essential tremor COPD (chronic obstructive pulmonary disease) Vertigo Anxiety Depression HTN (hypertension) Sigmoid diverticulosis Internal hemorrhoids Hyperlipidemia Tubular adenoma of colon Abnormal colonoscopy Surgical History History of ear surgery H/O arthroscopy of left knee History of thumb surgery History of ankle surgery Family History Mother No problems noted. Father No problems noted. Social History Household Members: Spouse Housing: House Are you a primary group care worker to a significant other at home: No Do you presently have visiting nurse or other home services: No Alcohol intake: never Patient Tobacco Use Status: Current everyday Tobacco user Tobacco use type: Cigarette Cigarette Packs Per Day: 0.5 Cigarettes Per Day: 8 Years Smoked: 40 e-Cigarette/Vaping Use: Currently Using service: No Current occupational status: retired Cognitive needs: No Hearing needs: No Vision needs: Yes (rx glasses) Review of Systems Const All systems reviewed & are unremarkable except as noted in HPI and below Physical Exam Vital Signs: Last Vital Signs Temp 97.6 F 08/14/25 11:32 Pulse 90 08/14/25 11:32 BP 98/60 08/14/25 11:32 Pulse Ox 98 08/14/25 11:32 Oxygen Delivery Method Room Air 08/14/25 11:32 BMI result Body Mass Index 19.9 Results Reviewed Results Reviewed: will review the x-ray in the office Assessment & Plan Assessment & Plan (1) Left ankle sprain: Code(s): S93.402A - Sprain of unspecified ligament of left ankle, initial encounter Qualifiers: Encounter type: initial encounter Involved ligament of ankle: unspecified ligament Qualified Code(s): S93.402A - Sprain of unspecified ligament of left ankle, initial encounter Plan Most likely sprain vs fracture x-ray is negative for fx plan - An x-ray of the ankle is planned to assess for any fractures or further injury. - A better ankle support will be provided to aid in stabilization and pain relief. - rest, ice and elevation - wear ankle support as needed - follow up with PCP - can refer to ortho if no improvement Orders: Orders XR ankle LT min 3V Today M25.572 - Pain in left ankle and joints of left foot Coding Level of Care Code Est Pt Level 4 (89956) Diagnoses Sprain of left ankle, unspecified ligament, initial encounter S93.402A Encounter type: initial encounter Involved ligament of ankle: unspecified ligament
--- OUTSIDE RECORDS SUMMARY | 2025-08-14 14:02 | XMS_ITS | Patient Health Record ---
Author Organization [facility] Address [address] [place] [address] Care Team Providers Care Power Generation Equipment Repairer Name Role Phone Angi Rubi Primary Care Provider Talia Rosenbaum Unavailable [phone] Allergies Allergen (clinical drug ingredient) Drug/Non Drug [...] W/U Status Risk Notes Problem Plantar wart (39184808) Plantar wart (B07.0) Active confirmed Problem Bilateral atherosclerosis of arteries of lower limbs (disorder) (99554068308390230 ) Unspecified atherosclerosis of [place] arteries of extremities, bilateral legs (I70.203) Active confirmed Problem Localized, primary osteoarthritis of the ankle and/or foot (717391851) Primary osteoarthritis, right ankle and foot (M19.071) Active confirmed Problem Localized, primary osteoarthritis of the ankle and/or foot (025121523) Primary osteoarthritis, left ankle and foot (M19.072) Active confirmed Problem Acquired hammer toe of right foot (9925972843630972) Other hammer toe(s) (acquired), right foot (M20.41) Active confirmed Problem Bilateral atherosclerosis of arteries of lower limbs (disorder) (82032455972705278 ) Atherosclerosis of [place] artery of both lower extremities, with unspecified presence of clinical manifestation (I70.203) Active confirmed Vital Signs Blood pressure diastolic 75 mm Hg 07/12/2025 Height 5 ft2in in 07/12/2025 Blood pressure systolic 119 mm Hg 07/12/2025 Weight 107 lbs 07/12/2025 BMI 19.57 kg/m2 07/12/2025 Encounters Encounter Location Date Provider Diagnosis [facility] [address] [place] [address] 09/14/2024 Talia Bazzi Plantar wart B07.0 ; Metatarsalgia, right foot M77.41 ; Atherosclerosis of [place] artery of both lower extremities, with unspecified presence of clinical manifestation I70.203 ; Tinea unguium B35.1 ; Pain in right toe(s) M79.674 ; Pain in left toe(s) M79.675 and Right foot pain M79.[address] [address] 12/04/2024 Talia Perica Plantar wart B07.0 ; Metatarsalgia, right foot M77.41 ; Atherosclerosis of [place] artery of both lower extremities, with unspecified presence of clinical manifestation I70.203 ; Tinea unguium B35.1 ; Pain in right toe(s) M79.674 ; Pain in left toe(s) M79.675 and Right foot pain M79.[address] [address] 02/13/2025 Talia Perica Plantar wart B07.0 ; Atherosclerosis of [place] artery of both lower extremities, with unspecified presence of clinical manifestation I70.203 ; Tinea unguium B35.1 ; Pain in right toe(s) M79.674 ; Pain in left toe(s) M79.675 and Right foot pain M79.[address] [address] 04/26/2025 Talia Perica Plantar wart B07.0 ; Atherosclerosis of [place] artery of both lower extremities, with unspecified presence of clinical manifestation I70.203 ; Tinea unguium B35.1 ; Pain in right toe(s) M79.674 ; Pain in left toe(s) M79.675 and Right foot pain M79.[address] [address] 07/12/2025 Talia Perica Plantar wart B07.0 ; Atherosclerosis of [place] artery of both lower extremities, with unspecified [...] wart (ICD-10 - B07.0) 02/13/2025 Atherosclerosis of [place] artery of both lower extremities, with unspecified presence of clinical manifestation (ICD-10 - I70.203) 04/26/2025 Plantar wart (ICD-10 - B07.0) 07/12/2025 Plantar wart (ICD-10 - B07.0) 04/26/2025 Atherosclerosis of [place] artery of both lower extremities, with unspecified presence of clinical manifestation (ICD-10 - I70.203) 07/12/2025 Atherosclerosis of [place] artery of both lower extremities, with unspecified presence of clinical manifestation (ICD-10 - I70.203) 02/13/2025 Tinea unguium (ICD-10 - B35.1) 12/04/2024 Metatarsalgia, right foot (ICD-10 - M77.41) 09/14/2024 Atherosclerosis of [place] artery of both lower extremities, with unspecified presence of clinical manifestation (ICD-10 - I70.203) 09/14/2024 Tinea unguium (ICD-10 - B35.1) 12/04/2024 Atherosclerosis of [place] artery of both lower extremities, with unspecified [...] Provider Name:Talia chan, 10/16/2025 02:45:00 PM, [address] [place], [address], Insurance Providers Payer Name Payer Address Payer Phone Subscriber Number Group Number Insured Name Patient Relationship to Insured Coverage Start Date Coverage End Date Medicare National Govt Svcs Inc [address] [facility] [place] [address] [id number] Destiny Pedro Self - patient is the insured [employer] [facility] [address] [place] [address] [id number] Destiny Pedro Self - patient is the insured Medical (General) History Medical History History ICD Code Anxiety Back,Hip,and Knee pain Broken bones, hip CAD (Cholesterol) Cataracts Depression High blood pressure Kidney disease chronic sinusitis Measles Mumps Chicken pox Joint implants/screws Arthritis sinusitis Surgical History Surgery Date(Month/Year) Ankle Surgery 1997 Thumb Surgery 2010 ear surgery 2002 knee [id number] 2015 hip surgery 05/01 Hospitalization History Reason Date(Month/Year) 03/03
--- OUTSIDE RECORDS SUMMARY | 2025-08-14 14:02 | XMS_ITS | Data Portability ---
Author Organization [place] [facility], Allergy Address [address] [address] Care Team Providers Care Leisure Travel Agent Name Role Phone JAY BURNS Primary Care Provider Assessment Encounter Date Assessment Date Assessment LastModified by Organization Details LastModified Time 10/16/2024 10/16/2024 Patient with vestibular migraine, doing well on nortriptyline 30 mg at bedtime. She will continue with this medication going forward. We can refill this as needed. [email or web address] Not available 10/16/2024 14:15:14 Plan of Treatment Reminders Order Date Submit Date Provider Last Modified By Organization Details Last Modified Time Details Appointments None record ed. Lab None record ed. Referral None record ed. Procedures None record ed. Surgeries None record ed. Imaging None record ed. Medication Orders None record ed. Patient TargetsNo targets recorded. Patient InstructionsNo instructions recorded. Reason for Referral None Reported. Problems Name Problem SNOMED Code Status Onset Date Resolution Date Notes Provider Name and Address Organization Details Recorded Time Migraine 32089623 Active 2014 Other migraine , not intracta ble, without status migraino justin; Note: Date Diagnose d: 5 1:33 PM (G43.809 ) [mapped from ICD9 code: 346.20] Not Available [facility] 4 02:47:25 Migraine variants 171736581 Active 2014 Migraine variant; Note: Date Diagnose d: 5 1:28 PM (346.20) Not Available [facility] 4 02:47:28 Unilater al sensorin eural hearing loss with unrestri cted hearing on the contrala teral side Active 2014 Sensorin eural HL, unilater al; Note: Date Diagnose d: 5 2:00 PM (389.15) Not Available [facility] 4 02:47:20 Benign paroxysm al position al vertigo 660998760 Completed 201405/11/2024 Benign paroxysm al position al vertigo; Note: Date Diagnose d: 5 1:28 PM (386.11) Benign paroxysm al vertigo, left ear; Note: Date Diagnose d: 5 1:33 PM (H81.12) [mapped from ICD9 code: 386.11] Not Available [facility] 4 02:47:24 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 2014 Mixed HL, unilater al; Note: Date Diagnose d: 5 2:00 PM (389.21) Not Available [facility] 4 02:47:20 Vertigo of central origin 45830314 Active 2014 Vertigo of central origin; Note: Date Diagnose d: 5 1:28 PM (386.2) Vertig o of central origin; Note: Changed from H81.49 to H81.4 (10/28/19 21 5:05 PM) , Date Diagnose d: 5 1:33 PM (H81.49) [mapped from ICD9 code: 386.2] Not Available [facility] 4 02:47:28 Senile hyperker atosis 671992139 Active 2017 Other seborrhe ic keratosi s; Note: Date Diagnose d: 09/07/20 18 3:02 PM (L82.1) Not Available [facility] 4 02:47:23 Sensorin eural hearing loss of bilatera l ears 301779121 Active 2018 Sensorin eural hearing loss, bilatera l; Note: Date Diagnose d: 9 1:43 PM (H90.3) Note: Date Diagnose d: 9 1:43 PM (H90.3) Not Available [facility] 4 01:08:07 Labyrint hitis 01641076 Active 2019 Labyrint hitis, unspecif ied ear; Note: Date Diagnose d: 10/11/2019 3:42 PM (H83.09) Not Available [facility] 4 02:47:19 Bilatera l temporom andibula r joint pain 75061037292 564596 Active 2019 Arthralg ia of bilatera l temporom andibula r joint; Note: Date Diagnose d: 10/11/2019 3:42 PM (M26.623 ) Not Available [facility] 4 02:47:21 Sensorin eural hearing loss in right ear 90654711144 100 Active 2020 Sensorin eural hearing loss, unilater al, right ear, with restrict ed hearing on the contrala teral side; Note: Date Diagnose d: 1 3:48 PM (H90.A21 ) Not Available [facility] 4 02:47:25 Mixed conducti ve and sensorin eural hearing loss of left ear 20755778574 107 Active 2020 Mixed conducti ve and sensorin eural hearing loss, unilater al, left ear with restrict ed hearing on the contrala teral side; Note: Date Diagnose d: 1 3:48 PM (H90.A32 ) Not Available [facility] 4 02:47:27 Musculos keletal finding 515014025 Active 2021 Other symptoms and signs involvin g the musculos keletal system; Note: Date Diagnose d: 2 10:03 AM (R29.898 ) Not Available [facility] 4 02:47:24 General unsteadi ness 812438041 Active 2021 Unsteadi ness on feet; Note: Date Diagnose d: 2 10:03 AM (R26.81) Note: Date Diagnose d: 2 10:03 AM (R26.81) Not Available [facility] 4 01:08:07 Posterio r rhinorrh ea 15788733 Active 2021 Postnasa l drip; Note: Date Diagnose d: 2 10:08 AM (R09.82) Not Available [facility] 4 02:47:23 Neurolog ical symptom 727200186 Active 2023 Other symptoms and signs involvin g the nervous system; Note: Date Diagnose d: 4 2:00 PM (R29.818 ) Not Available [facility] 4 02:47:25 Problem Notes None recorded. Medical Equipment None Reported. Allergies Allergen ID Allergen Name Allergen Category Reaction Reaction Severity Criticality Documentation Date Start Date Code Code System Note Provider Name and Address Organization Details Recorded Time 394990 prochlorp erazine maleate medicatio n other Not available Not available 02/21/2024 8706 RxNorm React ion: unkno wn, unspe cifie d;; Not Available [facility] 4 01:19:13 708726 prochlorp erazine edisylate medicatio n other Not available Not available 02/21/2024 8705 RxNorm React ion: unkno wn, unspe cifie d;; Not Available [facility] 4 01:19:14 Medications Name Sig Start Date Stop Date Status Note LastModified by Organization Details LastModified Time losartan 50 mg tablet 05/01 completed Medicati on ID: [id number] Du ration Value: 30 Brand Name: losartan [...] both nostrils 10/16 completed Medicati on ID: [id number] D uration Value: 30 Brand Name: Saline Mist Sen d Method: E-Prescr ibed Sub s Allowed: subs OK Medic ationGen ericName : Saline Mist Not Available Not Available Not Available atorvasta tin 10 mg tablet TAKE 1 TABLET BY MOUTH DAILY. active Not Available Not Available No t Available clonazepa m 0.5 mg tablet 10/16 completed Medicati on ID: [id number] Du ration Value: 90 Brand Name: clonazep am Send Method: E-Prescr ibed Sub s Allowed: subs OK Medic ationGen ericName : clonazep am Not Available Not Available Not Available meclizine 12.5 mg tablet 1 tablet by mouth 10/16 completed Medicati on ID: [id number] P rescribe d By Name: Sindi Bhardwaj nd Name: meclizin e Send Method: E-Prescr ibed Sub s Allowed: subs OK Medic ationGen ericName : meclizin e Not Available Not Available Not Available tramadol 50 mg tablet TAKE 1 TAB BY MOUTH EVERY 12 HOURS NEEDED FOR PAIN active Not Available Not Available No t Available alprazola m 0.5 mg tablet TAKE 1 TABLET ORALLY 3 TIMES A DAY NEEDED FOR ANXIETY active Not Available Not Available No t Available alprazola m 0.25 mg tablet TAKE 1 TABLET BY MOUTH TWICE A DAY NEEDED FOR ANXIETY active Not Available Not Available No t Available nortripty line 10 mg capsule TAKE 3 CAPSULES BY MOUTH EVERY DAY 2024 active Not Available Not Available Not Avai lable olopatadi ne 0.1 % eye drops INSTILL 1 DROP INTO BOTH EYES EVERY DAY active Not Available Not Available No t Available ergocalci ferol (vitamin D2) 1,250 mcg (50,000 unit) capsule 2013 active Medicati on ID: [id number] Du ration Value: 90 Brand Name: ergocalc iferol (vitamin D2) Send Method: E-Prescr ibed Sub s Allowed: subs OK Speci al Instruct ion: TK 1 C PO Q 2 WEEKS Me dication GenericN ana: ergocalc iferol (vitamin D2) Not Available Not Available Not Available Nasonex 50 mcg/actua tion [place] 2 spray into both nostrils 2013 active Medicati on ID: [id number] Du ration Value: 90 Prescri bed By Name: Sindi Bhardwaj nd Name: Nasonex Send Method: E-Prescr ibed Sub s Allowed: subs OK Medic ationGen ericName : Nasonex Not Available Not Available Not Available albuterol sulfate HFA 90 mcg/actua tion aerosol inhaler INHALE 2 PUFF USING INHALER FOUR TIMES A DAY active Not Available Not Available No t Available fluticaso ne propionat e 50 mcg/actua tion nasal spray,justin pension USE 1 SPRAY VIA NOSTRIL TWICE A DAY NEEDED FOR ALLERGY SYMPTOMS active Not Available Not Available No t Available sertralin e 50 mg tablet TAKE 1 TABLET BY MOUTH EVERY DAY active Not Available Not Available No t Available calcitrio l 0.25 mcg capsule 05/01 completed Medicati on ID: 05969 Du ration Value: 90 Brand Name: calcitri ol Send Method: E-Prescr ibed Sub s Allowed: subs OK Medic ationGen ericName : calcitri ol Not Available Not Available Not Available Estrace 0.01% (0.1 mg/gram) vaginal cream 10/16 completed Medicati on ID: [id number] Br and Name: Estrace Send Method: E-Prescr ibed Sub s Allowed: subs OK Medic ationGen ericName : Estrace Not Available Not Available Not Available Atrovent HFA 17 mcg/actua tion aerosol inhaler 04/20 completed Medicati on ID: [id number] Re ason: () Brand Name: Atrovent HFA Send Method: E-Prescr ibed Sub s Allowed: subs OK Medic ationGen ericName : Atrovent HFA Not Available Not Available Not Available [facility] 60 mg tablet 1 tablet by mouth 2014 [place]: [id number] Du ration Value: 90 Brand Name: Connie [...] Details Last Updated DateTime 10/16/2024 157.48 cm 58339.35 g Tiffanie Leary [place] [facility] 10/16/2024 14:00:48 Social History None recorded. Functional Status None recorded. Mental Status None recorded. Family History Nothing Reported. Medical History Condition Response Allergies/Hayfever Y Anxiety Y High Cholesterol Y GERD/Reflux Y Gynecological HistoryNo gynecological history recorded. Obstetrics History GPAL:G 0 P 0 0 0 0 Past Encounters Encounter ID Performer Location Encounter Start Date Encounter Closed Date Diagnosis/Indication Diagnosis SNOMED-CT Code Diagnosis ICD10 Code Diagnosis IMO Codes Diagnosis Note [id number] LULA CABRERA MD [facility] [address] [address] 10/16/2024 13:30:38 10/16/2024 14:15:22 Vertigo of central origin 70492543 H81.4 Sensorineu ral hearing loss of bilateral ears 207813045 H90.3 We reviewed patient's audiogram from November [...] options at that time. Neurological symptom 308 323897 R29.818 Migraine variants 265725 005 G43.809 Health Concerns Section Related Observation LastModified by Organization Detai ls LastModified Time None Recorded Concern Status LastModified by Organization Details LastModified Time None Recorded Advance Directives Directive None Recorded Payers Insurance Date Sequence Insurance Name Policy Number Policy Mir Covered Member ID Mir Member ID Guarantor Name 06/15/2025 1 [place] [employer] Destiny Yadav [id number] Destiny Yadav 06/15/2025 2 [place] [id number] Destiny Yadav [id number] Destiny Yadav Notes Date Note Type Note Provider Name and Address Organization Details Recorded Time 10/16/2024 text/html 79-year-old female with history of chronic left-sided BPPV, treated [...] with her hearing recently. LULA CABRERA MD [address] [place] [address], [place], [address], [place] [facility] 10/16/2024 14:16:10 OBGyn Episode No OBEpisode recorded.
== END 2025-08-14 13:06 | disposition home or self-care (01) ==
PROVIDERS: PCP Physician Assistant; Visit Provider Physician Assistant Medical
DX: S93.402A Sprain of unspecified ligament of left ankle, initial encounter (principal)

== ENCOUNTER 2025-08-14 11:28 | Outpatient (REF) | payer MEDICARE, SELFPAY ==
--- NOTE | ~2025-08-14 | XR_ITS ---
EXAMINATION: XR ANKLE, LEFT CLINICAL INFORMATION: M25.572 - Pain in left ankle and joints of left foot COMPARISON: None available. TECHNIQUE: AP, lateral, and mortise views of the left ankle. FINDINGS: There is normal bone mineralization. There is no fracture, dislocation, or suspicious bone lesion. There is normal alignment. The mortise is intact. The talar dome is normal. The subtalar joints appear normal. There are small plantar and dorsal calcaneal spurs. There is no ankle joint effusion. There is no soft tissue abnormality. XR/XR ankle LT min 3V IMPRESSION: Normal left ankle. Electronically signed by: Devendra Main MD 08/14/2025 12:36 PM EST
--- OUTSIDE RECORDS SUMMARY | 2025-08-14 14:50 | XMS_ITS | Clinical Summary ---
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 Ryley Varela MD Primary Care Provider [phone] Allergies Active Allergy Reactions Criticality Noted Date [...] mouth every night Active ergocalciferol 1.25 MG (66866 UT) capsule TAKE 1 CAPSULE BY MOUTH [...] Visit [facility] [address] [place] [phone] Zeke Neri MD Chronic kidney disease, stage 4 (severe) (HCC) (Primary Dx); Renal osteodystrophy 07/03/2025 Orders Only [facility] [address] [phone] Zeke Neri MD from Last 3 Months [...] Visit [facility] [address] [place] [phone] Zeke Neri MD [address] [phone] Health Maintenance Due Date Last Done Comments [...] PM EDT us Zeke Neri MD LAB [id number] SOLICITED RESULTS Final Result Performing Organization Address [facility] Co de Phone Number [facility] See order comments [place] [address] * (ABNORMAL) Creatinine (07/03/2025 1:50 PM EDT) Creatinine Serum 1.92(H) 0.5 - 1.4 mg/dL See order comments eGFR (Calc) 25 See orde r comments Comment: Chronic Kidney Disease: Estimated GFR < 60 mL/min/1.73m2 Severe Kidney Disease: Estimated GFR < 15 mL/min/1.73m2 07/03/2025 1:50 PM EDT 07/03/2025 1:50 PM EDT us Zeke Neri MD LAB BLOOD ORDERABLES Final Re sult Performing Organization Address [facility] de Phone Number [place] See order comments [place] [address] * (ABNORMAL) PTH, Intact (07/03/2025 1:50 PM EDT) Parathyroid Hormone, Intact 103.6(H) 8.7 - 77.1 pg/mL See order comments 07/03/2025 1:50 PM EDT 07/03/2025 1:50 PM EDT us Zeke Neri MD LAB [id number] SOLICITED RESULTS Final Result Performing Organization Address [facility] Co de Phone Number [place] See order comments [place] [address] * (ABNORMAL) Vitamin D 25 Hydroxy (07/03/2025 1:50 PM EDT) Pathologist [facility] Vitamin D, 25-Hydroxy 21.5(L) >30 ng/mL See [...] order comments [place] [address] * (ABNORMAL) CBC (07/03/2025 1:50 PM EDT) Pathologist [facility] WBC 6.4 4.8 - 10.8 X10*3/uL See [...] ORDERABLES Final Re sult Performing Organization Address [facility] de Phone Number [facility] See order comments [place] [address] * (ABNORMAL) BUN (07/03/2025 1:50 PM EDT) BUN 22(H) 9 - 16 mg/dL See order comments 07/03/2025 1:50 PM EDT 07/03/2025 1:50 PM EDT Zeke Neri MD LAB BLOOD ORDERABLES Final Re sult Performing Organization Address [facility] de Phone Number [place] See order comments [place] [address] * Phosphorus (07/03/2025 1:50 PM EDT) Phosphorus, Serum 3.5 2.7 - 4.5 mg/dL See order comments 07/03/2025 1:50 PM EDT 07/03/2025 1:50 PM EDT Zeke Neri MD LAB BLOOD ORDERABLES Final Re sult Performing Organization Address [facility] de Phone Number [place] See order comments [place] [address] * Magnesium (07/03/2025 1:50 PM EDT) Magnesium 2.5 1.6 - 2.6 mg/dL See order comments 07/03/2025 1:50 PM EDT 07/03/2025 1:50 PM EDT us Zeke Neri MD LAB BLOOD ORDERABLES Final Re sult Performing Organization Address [facility] Phone Number [place] See order comments [place] [address] * Calcium (07/03/2025 1:50 PM EDT) Calcium 9.3 8.4 - 10.2 mg/dL See order comments 07/03/2025 1:50 PM EDT 07/03/2025 1:50 PM EDT us Zeke Neri MD LAB BLOOD ORDERABLES Final Re sult Performing Organization Address [facility] Phone Number [place] See order comments [place] [address] * Albumin (07/03/2025 1:50 PM EDT) Albumin 4.0 3.5 - 5.0 g/dL See order comments 07/03/2025 1:50 PM EDT 07/03/2025 1:50 PM EDT us Zeke Neri MD LAB BLOOD ORDERABLES Final Re sult Performing Organization Address [facility] Phone Number [place] See order comments [place] [address] * Electrolyte panel (07/03/2025 1:50 PM EDT) [...] ORDERABLES Final Re sult Performing Organization Address [facility]/ZIP Co de Phone Number [facility] See order comments [place] [address] * (ABNORMAL) Protein, Total, Random Urine w/Creatinine [...] ORDERABLES Final Re sult Performing Organization Address [facility] Phone Number [facility] See order comments [place] [address] * (ABNORMAL) Albumin, urine, random (07/03/2025 1:07 [...] ORDERABLES Final Re sult Performing Organization Address [facility] de Phone Number [place] See order comments [place] [address] * (ABNORMAL) Urinalysis with microscopic (07/03/2025 1:07 PM EDT) Color Urine Yellow See orde r comments Appearance Urine Clear See order comments pH Urine 6.0 5.0 - 9.0 See order comments Glucose Urine Negative Negative mg/dL See order comments Blood, Urine Negative Negative See ord er comments Specific [place] Urine 1.015 1.005 - 1.025 See order [...] ORDERABLES Final Re sult Performing Organization Address [facility] de Phone Number [place] See order comments [place] [address] * (ABNORMAL) Urinalysis (07/03/2025 1:07 PM EDT) Color Urine Yellow See orde r comments Appearance Urine Clear See order comments pH Urine 6.0 5.0 - 9.0 See order comments Glucose Urine Negative Negative mg/dL See order comments Blood, Urine Negative Negative See ord er comments Specific [place] Urine 1.015 1.005 - 1.025 See order comments Protein Urine Trace Neg-Trace mg/dL See order comments Ketones, Urine Negative Negative mg/dL See order comments Nitrite, Urine Negative Negative See o rder comments Leukocyte Esterase Urine Small (1+)(A) Negative See order comments 07/03/2025 1:07 PM EDT 07/03/2025 1:07 PM EDT Zeke Neri MD LAB URINE ORDERABLES Final Re sult Performing Organization Address [facility] Co de Phone Number [place] See order comments [place] [address] from Last 3 Months Insurance [facility] Medicare [facility] Medicare Care Teams 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
== END 2025-08-14 11:29 | disposition home or self-care (01) ==
LOC: HO.HMGCX 11:28
PROVIDERS: PCP Physician Assistant; Visit Provider Physician Assistant Medical
DX: S93.402A Sprain of unspecified ligament of left ankle, initial encounter (principal); W10.8XXA Fall (on) (from) other stairs and steps, initial encounter
CPT/HCPCS: 73610; 99212

== ENCOUNTER → 2025-08-14 12:18 | Outpatient (BNV) | payer MEDICARE, SELFPAY | PROVIDERS: PCP Physician Assistant; Visit Provider Radiology Diagnostic Radiology | DX: M25.572 Pain in left ankle and joints of left foot (principal) | CPT/HCPCS: 73610 ==

== ENCOUNTER 2025-08-31 14:08 | Outpatient (REF) | payer MEDICARE, SELFPAY ==
--- OUTSIDE RECORDS SUMMARY | 2024-11-27 10:00 | XMS_ITS ---
Author Organization [facility] Address [address] [place] [address] Care Team Providers Care Recordak Operator Name Role Phone Angi Rubi Primary Care Provider Talia Rosenbaum [phone] Chang Encounters Encounter Location Date Provider Diagnosis [address] [address] 11/27/2024 Talia Bazzi Plan Of Treatment Next Appt Details Provider Name:Talia chan, 10/16/2025 02:45:00 PM, [address] [place] [address], [phone], Progress Notes * Destiny YADAV FDOB:1944 (80 yo F)Acc No.[id number]:11/27/2024 Progress Note Patient: Destiny MCGRATH Provider: John Bazzi DPM :1945 A ge:79 Y S ex:Female Date:11/27/2024 Address:[address] [place], [place] [id number] Pcp:Angi Rubi Subjective: * Chief Complaints: * [...] 0 11/27/2024 Generated for Alejandro Ceballos on: 10/31/2024 02:13 PM EST
--- NOTE | ~2025-08-31 | MR_ITS ---
CLINICAL HISTORY: Z91.81 - History of falling Exam: Nonenhanced MRI lumbar spine. Comparison: Lumbar radiographs dated 03/13/2025. Findings: Lumbar vertebral body heights are well-maintained. There is mild 6 mm grade 1 anterolisthesis L5 on S1, without evidence of spondylolysis. Remaining vertebral alignments are maintained. Vertebral signal intensities are well-maintained. There is mild disc desiccation, more significant L1-L3 and L5-S1. Conus medullaris terminates at T12-L1 level. Axial images reveal the following: T12-L1: A very small left paracentral disc protrusion is present (9; 9). No resultant spinal or foraminal stenoses. L1-2: Very slight diffuse disc bulging is present. No spinal or foraminal stenoses. L2-3: Disc desiccation is present. No focal disc herniation, spinal or foraminal compromise. L3-4: No focal disc herniation, spinal or foraminal compromise. L4-5: Minimal diffuse disc bulging as well as some bilateral ligamentum flavum hypertrophy are present (9; 37). Findings do not result in significant appearing spinal stenoses. No significant foraminal stenoses. L5-S1: Grade 1 anterolisthesis as described above. There is significant bilateral facet arthropathy. No focal disc herniation or spinal stenoses. There appears to be moderate left foraminal stenoses and perhaps very mild right foraminal stenoses. Impression: 1. Grade 1 anterolisthesis at L5-S1 with significant bilateral facet arthropathy and left worse than right foraminal stenoses. No spondylolysis appreciated. 2. Lesser degenerative changes at other levels. This document has been electronically signed by: Nimesh Serrano MD on 09/02/2025 16:37:59
--- OUTSIDE RECORDS SUMMARY | 2025-08-31 14:13 | XMS_ITS | Data Portability ---
Author Organization [place] - [facility], Allergy Address [address] [address] Care Team Providers [employer] Name Role Phone JAY UBRNS Primary Care Provider Assessment Encounter Date Assessment Date Assessment LastModified by Organization Details LastModified Time 10/16/2024 10/16/2024 Patient with vestibular migraine, doing well on nortriptyline 30 mg at bedtime. She will continue with this medication going forward. We can refill this as needed. [email or web address] Not available 10/16/2024 14:15:14 Plan of Treatment [...] and Address Organization Details Recorded Time Migraine 80667633 Active 2014 Other migraine , not intracta ble, without status migraino justin; Note: Date Diagnose d: 5 1:33 PM (G43.809 ) [mapped from ICD9 code: 346.20] Not Available [facility] 4 02:47:25 Migraine variants 620052929 Active 2014 Migraine variant; Note: Date Diagnose d: 5 1:28 PM (346.20) Not Available [facility] 4 02:47:28 Unilater al sensorin eural hearing loss with unrestri cted hearing on the contrala teral side Active 2014 Sensorin eural HL, unilater al; Note: Date Diagnose d: 5 2:00 PM (389.15) Not Available [facility] 4 02:47:20 Benign paroxysm al position al vertigo 485690902 Completed 201405/11/2024 Benign paroxysm al position al vertigo; Note: Date Diagnose d: 5 1:28 PM (386.11) Benign paroxysm al vertigo, left ear; Note: Date Diagnose d: 5 1:33 PM (H81.12) [mapped from ICD9 code: 386.11] Not Available [facility] 4 02:47:24 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 2014 Mixed HL, unilater al; Note: Date Diagnose d: 5 2:00 PM (389.21) Not Available [facility] 4 02:47:20 Vertigo of central origin 55586921 Active 2014 Vertigo of central origin; Note: Date Diagnose d: 5 1:28 PM (386.2) Vertig o of central origin; Note: Changed from H81.49 to H81.4 (10/28/19 21 5:05 PM) , Date Diagnose d: 5 1:33 PM (H81.49) [mapped from ICD9 code: 386.2] Not Available [facility] 4 02:47:28 Senile hyperker atosis 608108076 Active 2017 Other seborrhe ic keratosi s; Note: Date Diagnose d: 09/07/20 18 3:02 PM (L82.1) Not Available [facility] 4 02:47:23 Sensorin eural hearing loss of bilatera l ears 768156998 Active 2018 Sensorin eural hearing loss, bilatera l; Note: Date Diagnose d: 9 1:43 PM (H90.3) Note: Date Diagnose d: 9 1:43 PM (H90.3) Not Available [facility] 4 01:08:07 Labyrint hitis 11832150 Active 2019 Labyrint hitis, unspecif ied ear; Note: Date Diagnose d: 10/11/2019 3:42 PM (H83.09) Not Available [facility] 4 02:47:19 Bilatera l temporom andibula r joint pain 65388211890 450282 Active 2019 Arthralg ia of bilatera l temporom andibula r joint; Note: Date Diagnose d: 10/11/2019 3:42 PM (M26.623 ) Not [facility] 4 02:47:21 Sensorin eural hearing loss in right ear 82297488371 100 Active 2020 Sensorin eural hearing loss, unilater al, right ear, with restrict ed hearing on the contrala teral side; Note: Date Diagnose d: 1 3:48 PM (H90.A21 ) Not Available [facility] 4 02:47:25 Mixed conducti ve and sensorin eural hearing loss of left ear 48800977835 107 Active 2020 Mixed conducti ve and sensorin eural hearing loss, unilater al, left ear with restrict ed hearing on the contrala teral side; Note: Date Diagnose d: 1 3:48 PM (H90.A32 ) Not [facility] 4 02:47:27 Musculos keletal finding 509725685 Active 2021 Other symptoms and signs involvin g the musculos keletal system; Note: Date Diagnose d: 2 10:03 AM (R29.898 ) Not Available [facility] 4 02:47:24 General unsteadi ness 366251133 Active 2021 Unsteadi ness on feet; Note: Date Diagnose d: 2 10:03 AM (R26.81) Note: Date Diagnose d: 2 10:03 AM (R26.81) Not Available [facility] 4 01:08:07 Posterio r rhinorrh ea 80002645 Active 2021 Postnasa l drip; Note: Date Diagnose d: 2 10:08 AM (R09.82) Not Available [facility] 4 02:47:23 Neurolog ical symptom 307590249 Active 2023 Other symptoms and signs involvin g the nervous system; Note: Date Diagnose d: 4 2:00 PM (R29.818 ) Not Available [facility] 4 02:47:25 Problem Notes None recorded. Medical Equipment None Reported. Allergies Allergen ID Allergen Name Allergen Category Reaction Reaction Severity Criticality Documentation Date Start Date Code Code System Note Provider Name and Address Organization Details Recorded Time 030021 prochlorp erazine maleate medicatio n other Not available Not available 02/21/2024 8706 RxNorm React ion: unkno wn, unspe cifie d;; Not Available [facility] 4 01:19:13 935326 prochlorp erazine edisylate medicatio n other Not available Not available 02/21/2024 8705 RxNorm React ion: unkno wn, unspe cifie d;; Not Available [facility] 4 01:19:14 Medications Name Sig Start Date Stop Date Status Note LastModified by Organization Details LastModified Time losartan 50 mg tablet 05/01 completed Medicati on ID: [id number] Du ration Value: 30 Brand Name: losartan [...] both nostrils 10/16 completed Medicati on ID: [id number] D uration Value: 30 Brand Name: Saline Mist Sen d Method: E-Prescr ibed Sub s Allowed: subs OK Medic ationGen ericName : Saline Mist Not Available Not Available Not Available atorvasta tin 10 mg tablet TAKE 1 TABLET BY MOUTH DAILY. active Not Available Not Available No t Available clonazepa m 0.5 mg tablet 10/16 completed Medicati on ID: 45685 Du ration Value: 90 Brand Name: clonazep am Send Method: E-Prescr ibed Sub s Allowed: subs OK Medic ationGen ericName : clonazep am Not Available Not Available Not Available meclizine 12.5 mg tablet 1 tablet by mouth 10/16 completed Medicati on ID: [id number] P rescribe d By Name: Sindi Bhardwaj [...] unit) capsule 2013 active Medicati on ID: 14597 Du ration Value: 90 Brand Name: ergocalc iferol (vitamin D2) Send Method: E-Prescr ibed Sub s Allowed: subs OK Speci al Instruct ion: TK 1 C PO Q 2 WEEKS Me dication GenericN ana: ergocalc iferol (vitamin D2) Not Available Not Available Not Available Nasonex 50 mcg/actua tion [place] 2 spray into both nostrils 2013 active Medicati on ID: 78500 Du ration Value: 90 Prescri bed By [...] mcg capsule 05/01 completed Medicati on ID: 62754 Du ration Value: 90 Brand Name: calcitri ol Send Method: E-Prescr ibed Sub s Allowed: subs OK Medic ationGen ericName : calcitri ol Not Available Not Available Not Available Estrace 0.01% (0.1 mg/gram) vaginal cream 10/16 completed Medicati on ID: 65705 Br and Name: Estrace Send Method: E-Prescr ibed Sub s Allowed: subs OK Medic ationGen ericName : Estrace Not Available Not Available Not Available Atrovent HFA 17 mcg/actua tion aerosol inhaler 04/20 completed Medicati on ID: [id number] Re ason: () Brand Name: Atrovent HFA Send Method: E-Prescr ibed Sub s Allowed: subs OK Medic ationGen ericName : Atrovent HFA Not Available Not Available Not Available [facility] 60 mg tablet 1 tablet by mouth 2014 active Medicati on ID: 48581 Du ration Value: 90 Brand Name: Connie [...] Details Last Updated DateTime 10/16/2024 157.48 cm 95482.35 g Tiffanie Leary [place] - [facility] 10/16/2024 14:00:48 Social History None recorded. [...] ICD10 Code Diagnosis IMO Codes Diagnosis Note [id number] LULA CABRERA MD [facility] [address] [address] 10/16/2024 13:30:38 10/16/2024 14:15:22 Vertigo of central origin 70833890 H81.4 Sensorineu ral hearing loss of bilateral ears 994085742 H90.3 We reviewed patient's audiogram from November [...] options at that time. Neurological symptom 308 977183 R29.818 Migraine variants 599993 005 G43.809 Health Concerns Section Related Observation LastModified by Organization Detai ls LastModified Time None Recorded Concern Status LastModified by Organization Details LastModified Time None Recorded Advance Directives Directive None Recorded Payers Insurance Date Sequence Insurance Name Policy Number Policy Mir Covered Member ID Mir Member ID Guarantor Name 06/15/2025 1 [place] [employer] Destiny Yadav [id number] Destiny Yadav 06/15/2025 2 [place] [id number] Destiny Yadav [id number] Destiny Yadav Notes Date Note Type [...] with her hearing recently. LULA CABRERA MD [address] [place] [address], [place], [address], [place] - [facility] 10/16/2024 14:16:10 OBGyn Episode No OBEpisode recorded.
--- OUTSIDE RECORDS SUMMARY | 2025-08-31 14:14 | XMS_ITS | Patient Health Record ---
Author Organization [facility] [employer] Address [address] [place] [address] Care Team Providers Care [employer] Name Role Phone Angi Rubi Primary Care Provider Talia Rosenbaum Unavailable [phone] Allergies Allergen (clinical drug ingredient) Drug/Non Drug [...] W/U Status Risk Notes Problem Plantar wart (20223907) Plantar wart (B07.0) Active confirmed Problem Bilateral atherosclerosis of arteries of lower limbs (disorder) (49811668077712178 ) Unspecified atherosclerosis of [place] arteries of extremities, bilateral legs (I70.203) Active confirmed Problem Localized, primary osteoarthritis of the ankle and/or foot (049779395) Primary osteoarthritis, right ankle and foot (M19.071) Active confirmed Problem Localized, primary osteoarthritis of the ankle and/or foot (382192285) Primary osteoarthritis, left ankle and foot (M19.072) Active confirmed Problem Acquired hammer toe of right foot (3009184302934986) Other hammer toe(s) (acquired), right foot (M20.41) Active confirmed Problem Bilateral atherosclerosis of arteries of lower limbs (disorder) (46745441776431767 ) Atherosclerosis of [place] artery of both lower extremities, with unspecified presence of clinical manifestation (I70.203) Active confirmed Vital Signs Blood pressure diastolic 75 mm Hg 07/12/2025 Height 5 ft2in in 07/12/2025 Blood pressure systolic 119 mm Hg 07/12/2025 Weight 107 lbs 07/12/2025 BMI 19.57 kg/m2 07/12/2025 Encounters Encounter Location Date Provider Diagnosis [facility] [address] [place] [address] 09/14/2024 Talia Bazzi Plantar wart B07.0 ; Metatarsalgia, right foot M77.41 ; Atherosclerosis of [place] artery of both lower extremities, with unspecified presence of clinical manifestation I70.203 ; Tinea unguium B35.1 ; Pain in right toe(s) M79.674 ; Pain in left toe(s) M79.675 and Right foot pain M79.[address] [address] 12/04/2024 Talia Perica Plantar wart B07.0 ; Metatarsalgia, right foot M77.41 ; Atherosclerosis of [place] artery of both lower extremities, with unspecified presence of clinical manifestation I70.203 ; Tinea unguium B35.1 ; Pain in right toe(s) M79.674 ; Pain in left toe(s) M79.675 and Right foot pain M79.[address] [address] 02/13/2025 Talia Perica Plantar wart B07.0 ; Atherosclerosis of [place] artery of both lower extremities, with unspecified presence of clinical manifestation I70.203 ; Tinea unguium B35.1 ; Pain in right toe(s) M79.674 ; Pain in left toe(s) M79.675 and Right foot pain M79.[address] [address] 04/26/2025 Talia Perica Plantar wart B07.0 ; Atherosclerosis of [place] artery of both lower extremities, with unspecified presence of clinical manifestation I70.203 ; Tinea unguium B35.1 ; Pain in right toe(s) M79.674 ; Pain in left toe(s) M79.675 and Right foot pain M79.[address] [address] 07/12/2025 Talia Perica Plantar wart B07.0 ; Atherosclerosis of [place] artery of both lower extremities, with unspecified presence of clinical manifestation I70.203 ; Tinea unguium B35.1 ; Pain in right toe(s) M79.674 ; Pain in left toe(s) M79.675 and Right foot pain M79.671 Assessments Encounter Date Diagnosis (ICD Code) Assessment Notes Treatment Notes Treatment Clinical Notes Section Notes 07/12/2025 Plantar wart (ICD-10 - B07.0) 04/26/2025 Plantar wart (ICD-10 - B07.0) 02/13/2025 Plantar wart (ICD-10 - B07.0) 02/13/2025 Atherosclerosis of [place] artery of both lower extremities, with unspecified presence of clinical manifestation (ICD-10 - I70.203) 12/04/2024 Plantar wart (ICD-10 - B07.0) 09/14/2024 Plantar wart (ICD-10 - B07.0) 09/14/2024 Metatarsalgia, right foot (ICD-10 - M77.41) 09/14/2024 Atherosclerosis of [place] artery of both lower extremities, with unspecified presence of clinical manifestation (ICD-10 - I70.203) 12/04/2024 Metatarsalgia, right foot (ICD-10 - M77.41) 02/13/2025 Tinea unguium (ICD-10 - B35.1) 07/12/2025 Atherosclerosis of [place] artery of both lower extremities, with unspecified presence of clinical manifestation (ICD-10 - I70.203) 04/26/2025 Atherosclerosis of [place] artery of both lower extremities, with unspecified presence of clinical manifestation (ICD-10 - I70.203) 04/26/2025 Tinea unguium (ICD-10 - B35.1) 07/12/2025 Tinea unguium (ICD-10 - B35.1) 12/04/2024 Atherosclerosis of [place] artery of both lower extremities, with unspecified presence of clinical manifestation (ICD-10 - I70.203) 09/14/2024 Tinea unguium (ICD-10 - B35.1) 02/13/2025 Pain in right toe(s) (ICD-10 - M79.674) 09/14/2024 Pain in right toe(s) (ICD-10 - M79.674) 07/12/2025 Pain in right toe(s) (ICD-10 - M79.674) 04/26/2025 Pain in right toe(s) (ICD-10 - M79.674) 02/13/2025 Pain in left toe(s) (ICD-10 - M79.675) 12/04/2024 Tinea unguium (ICD-10 - B35.1) 04/26/2025 Pain in left toe(s) (ICD-10 - M79.675) 07/12/2025 Pain in left toe(s) (ICD-10 - M79.675) 02/13/2025 Right foot pain (ICD-10 - M79.671) 12/04/2024 Pain in right toe(s) (ICD-10 - M79.674) 09/14/2024 Pain in left toe(s) (ICD-10 - M79.675) 09/14/2024 Right foot pain (ICD-10 - M79.671) 07/12/2025 Right foot pain (ICD-10 - M79.671) 04/26/2025 Right foot pain (ICD-10 - M79.671) 12/04/2024 Pain in left toe(s) (ICD-10 - M79.675) 12/04/2024 Right foot pain (ICD-10 - M79.671) Plan Of Treatment Pending Test Test Name Order Date X ray : Foot, right 3V 07/13/2024 X ray : Foot, right 3V 05/11/2024 X ray : Foot, right 3V 02/29/2024 X ray : Foot, right 3V 08/15/2019 Next Appt Details Provider Name:Talia chan, 10/16/2025 02:45:00 PM, [address] [place], [address], Insurance Providers Payer Name Payer Address Payer Phone Subscriber Number Group Number Insured Name Patient Relationship to Insured Coverage Start Date Coverage End Date Medicare [employer] [address] [place] [address] [id number] Destiny Pedro Self - patient is the insured [employer] [facility] [address] [place] [address] [phone] [id number] Destiny Pedro Self - patient is the insured Medical (General) History Medical History History ICD Code Anxiety Back,Hip,and Knee pain Broken bones, hip CAD (Cholesterol) Cataracts Depression High blood pressure Kidney disease chronic sinusitis Measles Mumps Chicken pox Joint implants/screws Arthritis sinusitis Surgical History Surgery Date(Month/Year) Ankle Surgery 1997 Thumb Surgery 2010 ear surgery 2002 knee [id number] 2015 hip surgery 05/01 Hospitalization History Reason Date(Month/Year) 03/03
== END 2025-08-31 14:09 | disposition home or self-care (01) ==
LOC: HO.MRI 14:08
PROVIDERS: PCP Physician Assistant; Visit Provider Physician Assistant
DX: M54.16 Radiculopathy, lumbar region (principal); R26.0 Ataxic gait; R29.898 Other symptoms and signs involving the musculoskeletal system; R29.6 Repeated falls; Z91.81 History of falling
CPT/HCPCS: 72148

== ENCOUNTER 2025-09-16 12:53 | Outpatient (AMB) | payer MEDICARE, SELFPAY ==
--- NOTE | 2025-09-16 13:11 | A.OFFPC_ITS ---
Vital Signs 09/16/25 13:15 Height 5 ft 2 in Weight 47.287 kg BMI 19.1 BP 120/66 Respiration 16 Pulse 83 Pulse Source Pulse Oximeter Temp 97.6 F Temp Source Temporal Artery Scan Pulse Oximetry (%) 97 Intake Visit Reasons: 6 Month F/U Musculoskeletal Physiotherapist Required: No Accompanied by: Self / Same As Patient Allergies prochlorperazine (From COMPAZINE) Allergy (Severe, Verified 09/16/25 13:15) Anaphylaxis aspirin (ASPIRIN) Adverse Reaction (Severe, Verified 09/16/25 13:15) Kidney failure Medication List - Last Reconciled 09/16/25 by WALDO Argueta albuterol sulfate 90 mcg/actuation 2 puffs inhalation QID alprazolam 0.5 mg PO TID PRN atorvastatin 10 mg PO DAILY ergocalciferol (vitamin D2) 1 cap PO Q2W fluticasone propionate 50 mcg/actuation 1 spray intranasal BID nortriptyline 30 mg PO DAILY olopatadine 0.1% 1 drp ophthalmic (eye) BID primidone 50 mg PO DAILY sertraline 50 mg PO DAILY tramadol 50 mg PO Q12H PRN Tobacco use date assessed: 07/25/25 Dental Screening Dental Screen Date: 07/25/25 HPI HPI Comments History of Present Illness Details 80-year-old female with history of COPD, anxiety/depression, hypertension, hyperlipidemia, CKD stage 3, essential tremor presenting to the office today for evaluation. Weight loss-had a pelvis fracture earlier in the year with weight loss ongoing since the initial injury about 3 months ago. Has lost an additional 4 pounds since last visit 1 month ago. She reports she is eating, but small portions as she feels full. She does report she snacks at night. Reports her has been does cook her meals which he does eat at dinner. Breakfast typically consists of a bagel and fruit and at lunch she will eat cheese and crackers. No abdominal pain, nausea, vomiting, melena or hematochezia. Does continue smoking. Has a chronic cough. No shortness of breath or wheezing. No chest pains or dizziness. No vision changes or headaches. No dysphagia or globus sensation. COPD-no recent exacerbation. Rare albuterol usage Anxiety/depression- On sertraline 50 mg daily, nortriptyline, alprazolam p.r.n. taking Hypertension-not currently on therapies. Blood pressure 120/62 Hyperlipidemia-on atorvastatin 10 mg daily. Due for lipid panel CKD stage IV- Dr. Neri. Last creatinine 1.81, GFR 27 Cigarette smoker-has resumed smoking, now 5-6 cigarettes daily Recurrent falls- has had 4 mechanical falls over 3 months. First she put her foot on a step and her foot slipped. The 2nd she was playing with her puppy turned and her back fit hit the front foot and she fell. She then fell 2 weeks ago after tripping and broke her finger. She does feel weak in the right lower extremity and occasionally experiences pain along the lateral aspect of the right thigh. She does use a cane now more frequently and has not fallen since. Does have a walker at home but does not use less consistently. She does endorse some balance issues. Has gone through several rounds of physical therapy. States prior to the fall she was relatively independent. Now she is unable to perform many ADLs. 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 She also lives with her who assists her. Cervical radiculopathy/hand pain/headache- one fell she fell and hit head. Has a neurology upcoming in December as well as occupational therapy and is awaiting an appointment for this. CT of the cervical spine in 01/2025 showed degenerative changes but no evidence of acute osseous abnormality or subluxation. Health maintenance: Due for DEXA scan- ordered ROS: See HPI EXAM: Constitutional - Awake and Alert, No apparent distress Eyes - PERRL Cardiovascular - S1S2, RRR, No edema Respiratory - Normal lung expansion, Normal respiratory effort, No respiratory distress, rhonchi of the lower lobes bilaterally MSK- BSx4, soft nontender, nondistended. No guarding or rebound MSK - no midline ttp, right paraspinal ttp level of L4-S1. Limited flexion and extension Extremities - no calf tenderness bilaterally, no swelling Skin - Warm/Dry Neurological - Alert & oriented x3. 4/5 strength RLE. 5/5 strength LLE. Sensation intact. 2+ patellar reflexes. slow, Ataxic gait Psychological - Appropriate affect [facility] Medical History (Updated 09/16/25 @ 13:53 by WALDO Argueta) Rhonchi Osteoarthritis Pelvis fracture, right Lumbar radiculopathy Ataxic gait History of recent fall Allergic rhinitis Acute respiratory disease CKD (chronic kidney disease) Arthritis Enteropathogenic Escherichia coli infection Essential tremor COPD (chronic obstructive pulmonary disease) Vertigo Anxiety Depression HTN (hypertension) Sigmoid diverticulosis Internal hemorrhoids Hyperlipidemia Tubular adenoma of colon Abnormal colonoscopy Surgical History History of ear surgery H/O arthroscopy of left knee History of thumb surgery History of ankle surgery Family History Mother No problems noted. Father No problems noted. Social History Household Members: Spouse Housing: House Are you a primary rn complex care to a significant other at home: No Do you presently have visiting nurse or other home services: No Alcohol intake: never Patient Tobacco Use Status: Current everyday Tobacco user Tobacco use type: Cigarette Cigarette Packs Per Day: 0.5 Cigarettes Per Day: 8 Years Smoked: 40 e-Cigarette/Vaping Use: Currently Using service: No Current occupational status: retired Cognitive needs: No Hearing needs: No Vision needs: Yes (rx glasses) Questionnaire Thrive Questionnaire Date Thrive assessed: 07/25/25 MARYURI-7 AMB Questionnaire MARYURI-7 Date MARYURI - 7 assessed: 07/25/25 Source: Developed by Drs. John Wilson, Marlys Wallis, Aramis Martinez and colleagues, with an educational shae from [employer]. Physical exam (Primary Care) Vital Signs: Last Vital Signs Temp 97.6 F 09/16/25 13:15 Pulse 83 09/16/25 13:15 Resp 16 09/16/25 13:15 BP 120/66 09/16/25 13:15 Pulse Ox 97 09/16/25 13:15 BMI result Body Mass Index 19.1 Tobacco/Smoking Status: Tobacco use Status Tobacco use date assessed 07/25/25 09/16/25 13:14 Patient Tobacco Use Status Current everyday Tobacco 09/16/25 13:14 Tobacco use type Cigarette 09/16/25 13:14 e-Cigarette/Vaping Use Currently Using 09/16/25 13:14 Thrive Assessment: Date of Thrive Assessment Date Thrive assessed 07/25/25 09/16/25 13:14 Coding Level of Care Code Est Pt Level 4 (84499) Complex visit Add On G2211 Diagnoses Multiple falls R29.6 Ataxic gait R26.0 Lumbar radiculopathy M54.16 Smoking F17.200 Rhonchi R09.89 Assessment & Plan Assessment & Plan (1) Multiple falls: Code(s): R29.6 - Repeated falls Category: Medical Plan: Related to ataxic gait. Did review last MRI. Given radicular symptoms and weakness in the right lower extremity, MRI of the lumbar spine is ordered. Referred to [facility]. We will also refer back to [facility] for physical therapy given most recent fall. Advised to use her cane at all times or walker. (2) Ataxic gait: Code(s): R26.0 - Ataxic gait Category: Medical Plan: There is ataxic gait bilaterally. Suspect falls are related in part to spinal issues, but may also have additional contributing factors based on gait assessment. Referred to physical therapy and to Neurology (3) Lumbar radiculopathy: Code(s): M54.16 - Radiculopathy, lumbar region Category: Medical Plan: See above (4) Smoking: Code(s): F17.200 - Nicotine dependence, unspecified, uncomplicated Category: Medical Plan: Strongly advised smoking cessation. Discussed that she very well has osteoporosis and given her recent falls, she is at increased risk for major fracture. Declines nrt (5) Rhonchi: Code(s): R09.89 - Other specified symptoms and signs involving the circulatory and respiratory systems Category: Medical Plan: And review of prior CT scans and current symptoms/exam findings. Repeat CT of the chest is ordered. COPD however does appear stable without exacerbation Plan Follow-up in the office in 4 months with labs completed prior to visit Orders: Orders CT chest wo IV con 09/16/25 R09.89 - Other specified symptoms and signs involving the circulatory and respiratory systems, R63.4 - Abnormal weight loss Basic Metabolic Panel 4 Months E78.5 - Hyperlipidemia, unspecified, I10 - Essential (primary) hypertension, N18.9 - Chronic kidney disease, unspecified Liver Panel 4 Months E78.5 - Hyperlipidemia, unspecified, I10 - Essential (primary) hypertension, N18.9 - Chronic kidney disease, unspecified Complete Blood Count Auto Diff 4 Months E78.5 - Hyperlipidemia, unspecified, I10 - Essential (primary) hypertension, N18.9 - Chronic kidney disease, unspecified Referrals Gastroenterology Referral R63.4 - Abnormal weight loss, R68.81 - Early satiety Medications: Refilled alprazolam 0.5 mg PO TID PRN 90 tabs 1RF Anxiety
[2025-09-16 13:15] VITALS: BP 120/66; PULSE 83; RESP 16; TEMP 36.4; O2SAT 97; BMI 19.1
== END 2025-09-16 14:07 | disposition home or self-care (01) ==
LOC: HO.HMCHD 12:54
PROVIDERS: PCP Internal Medicine; Visit Provider Physician Assistant
DX: R29.6 Repeated falls (principal); R26.0 Ataxic gait; M54.16 Radiculopathy, lumbar region; F17.200 Nicotine dependence, unspecified, uncomplicated; R09.89 Other specified symptoms and signs involving the circulatory and respiratory systems

== ENCOUNTER → 2025-09-16 12:53 | Outpatient (BNVA) | payer MEDICARE, SELFPAY | PROVIDERS: PCP Internal Medicine; Visit Provider Physician Assistant | DX: M54.16 Radiculopathy, lumbar region (principal); R26.0 Ataxic gait; R29.6 Repeated falls; R09.89 Other specified symptoms and signs involving the circulatory and respiratory systems; E78.5 Hyperlipidemia, unspecified; I10 Essential (primary) hypertension; N18.4 Chronic kidney disease, stage 4 (severe); F17.200 Nicotine dependence, unspecified, uncomplicated; R63.4 Abnormal weight loss; F41.9 Anxiety disorder, unspecified; F32.A Depression, unspecified; R51.9 Headache, unspecified | CPT/HCPCS: 99212 ==